=== PATIENT | female | born 1955 | race Caucasian/White ===

== ENCOUNTER 2024-06-03 11:26 | Outpatient (AMB) | payer OTHER, SELFPAY ==
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
[2024-06-03 12:03] VITALS: BP 133/72; PULSE 90; RESP 16; TEMP 36.6; O2SAT 95; BMI 23.5
== END 2024-06-03 12:52 | disposition home or self-care (01) ==
PROVIDERS: PCP Internal Medicine; Visit Provider Nurse Practitioner Family
DX: Z00.00 Encounter for general adult medical examination without abnormal findings (principal); J44.9 Chronic obstructive pulmonary disease, unspecified; M25.561 Pain in right knee; M25.562 Pain in left knee; G89.29 Other chronic pain; E55.9 Vitamin D deficiency, unspecified; N95.1 Menopausal and female climacteric states; F90.9 Attention-deficit hyperactivity disorder, unspecified type; K59.00 Constipation, unspecified; K21.9 Gastro-esophageal reflux disease without esophagitis

== ENCOUNTER → 2024-06-03 11:26 | Outpatient (BNVA) | payer OTHER, SELFPAY | PROVIDERS: PCP Internal Medicine; Visit Provider Nurse Practitioner Family | DX: Z00.00 Encounter for general adult medical examination without abnormal findings (principal); G89.29 Other chronic pain; M25.561 Pain in right knee; M25.562 Pain in left knee; J44.9 Chronic obstructive pulmonary disease, unspecified; E55.9 Vitamin D deficiency, unspecified; N95.1 Menopausal and female climacteric states; F90.9 Attention-deficit hyperactivity disorder, unspecified type; K59.00 Constipation, unspecified; K21.9 Gastro-esophageal reflux disease without esophagitis | CPT/HCPCS: 96127 ==

== ENCOUNTER 2024-06-06 11:42 | Outpatient (REF) | payer OTHER, SELFPAY ==
[2024-06-06 14:16] LABS: Appearance Urine Clear; Color Urine Yellow; Glucose Urine UA Negative (Negative); Leukocyte Esterase Urine Negative (Negative); Nitrite Urine Negative (Negative); Specific Gravity - Urine 1.015 (1.005-1.025); Urine Blood Negative (Negative); Urine Ketones Negative (Negative); Urine Protein Negative (Neg-Trace)
[2024-06-06 14:18] LABS: MANUAL DIFF FLAG NO
[2024-06-06 14:26] LABS: Basophils Percent Auto 0.6 % (0-2); Eosinophils Absolute Auto 0.2 X10*3/uL (0.0-0.4); Eosinophils Percent Auto 2.4 % (0-4); Hematocrit 41.7 % (37.0-47.0); Hemoglobin 13.8 g/dl (12.0-16.0); Imm Gran Abs Auto 0.02 X10*3/uL (0.00-0.03); Imm Gran Pct Auto 0.3 % (0.0-0.4); Lymphocytes Percent Auto 28.8 % (20-40); Mean Corpuscular HGB Conc 33.1 g/dl (31.0-35.0); Mean Corpuscular Hemoglobin 28.9 pg (27.0-33.0); Mean Corpuscular Volume 87.4 fL (80.0-98.0); Mean Platelet Volume 9.8 fL (9.4-12.3); Monocytes Absolute Auto 0.6 X10*3/uL (0.1-1.2); Monocytes Percent Auto 8.6 % (2-11); Neutrophils Absolute Auto 4.2 x10*3/uL (2.0-8.3); Neutrophils Percent Auto 59.3 % (45-73); Platelet Count 306 X10*3/uL (160-400); Red Blood Count 4.77 X10*6/uL (4.20-5.50); Red Cell Distribution Width 12.7 % (11.0-16.0)
[2024-06-06 14:47] LABS: Alanine Aminotransferase 31 U/L (0-31); Albumin Level 4.4 g/dL (3.5-5.0); Alkaline Phosphatase 70 U/L (39-117); Anion Gap 14 (12-20); Aspartate Amino Transferase 26 U/L (5-31); Bilirubin Total 0.5 mg/dL (0.0-1.0); Blood Urea Nitrogen 6 mg/dL (9-16); Calcium 9.8 mg/dL (8.4-10.2); Carbon Dioxide 29 mmol/L (22-29); Chloride 105 mmol/L (96-108); Cholesterol 247 mg/dL (<200); Estimated Glomerular Filt Rate > 60; Glucose Fasting 95 mg/dL (60-99); HDL Cholesterol 71 mg/dL (>40); LDL Cholesterol Calculated 139 mg/dL (<100); Potassium 3.7 mmol/L (3.3-5.1); Sodium 144 mmol/L (135-145); Total Protein 7.1 g/dL (6.5-8.0); Triglycerides 187 mg/dL (<150)
[2024-06-06 14:50] LABS: Microalbum/Creatinine Ratio Ur 6.9 ug/mg cr (<30)
[2024-06-06 15:04] LABS: TSH reflex Free T4 0.76 uIU/mL (0.32-4.0); Vitamin D 25-OH Total 59.2 ng/mL (>30)
== END 2024-06-06 11:43 | disposition home or self-care (01) ==
LOC: HO.WFDLDS 11:42
PROVIDERS: Visit Provider Nurse Practitioner Family
DX: Z00.00 Encounter for general adult medical examination without abnormal findings (principal)
CPT/HCPCS: 36415; 80053; 80061; 81003; 82043; 82306; 82570; 84443; 85025

== ENCOUNTER 2024-06-11 14:59 | Outpatient (AMB) | payer OTHER, SELFPAY ==
--- NOTE | 2024-06-11 15:00 | MHC.PC.OV ---
Vital Signs 06/11/24 15:07 Height 5 ft 5 in Weight 141 lb 2 oz BMI 23.5 BP 129/61 Blood Pressure Location Rt brachial Position Sitting Respiration 16 Pulse 92 Pulse Source Pulse Oximeter Temp 98.1 F Temp Source Temporal Artery Scan Pulse Oximetry (%) 97 Oxygen Delivery Method Room Air Intake Visit Reasons: est/sore muscles/shoulder/neck pain Intake Note: patient here c/o sore muscles and shoulder, neck Checkroom Attendant Required: No Is last menstrual period known: No Post menopausal: No Patient : No Allergies No Known Allergies Allergy (Verified 06/11/24 15:17) Medication List - Last Reconciled 06/11/24 by Lidia Medina CNP albuterol sulfate 90 mcg/actuation 2 puffs inhalation Q6H PRN [id number] 50 mcg-75 mcg -100 mg caps PO celecoxib (Celebrex) 200 mg PO DAILY cetirizine (Zyrtec) 10 mg PO DAILY PRN cholecalciferol (vitamin D3) 50 mcg PO DAILY conjugated estrogens (Premarin) 0.625 mg PO DAILY diclofenac sodium 1% topical fluticasone propion-salmeterol 250-50 mcg/dose (Wixela Inhub) 1 inh inhalation BID ipratropium-albuterol 0.5 mg-3 mg(2.5 mg base)/3 mL 3 mL inhalation QID PRN linaclotide (Linzess) 72 mcg PO DAILY lisdexamfetamine (Vyvanse) 20 mg PO QAM magnesium hydroxide (Dulcolax (magnesium hydroxide)) 5 mL PO DAILY PRN omeprazole 20 mg PO DAILY polyethylene glycol 3350 17 grams PO DAILY tiotropium bromide 2.5 mcg/actuation (Spiriva Respimat) 2 puffs inhalation DAILY Tobacco use date assessed: 06/11/24 Fall risk assessment: 2 + Falls in past year Last assessed Fall Risk: 06/11/24 Dental Screening Dental Screen Date: 06/11/24 Did you have a dental visit in the last 12 months?: Yes Did you have a dental problem in the last 6 months where you did not have access to dental care?: No Was dental information given to patient?: Patient has dentist HPI HPI Comments History of Present Illness Details 69-year-old female presents with complaints of acute on chronic neck and bilateral shoulder pain. She has had constant, chronic bilateral shoulder pain related to torn meniscus for the past 2 years. Surgery was recommended but she declined. Her neck pain has been on and off for the past 1 year. Recent onset of neck pain started about a week ago and slowly improving; however, she has a hard time sleeping in bed due to neck discomfort. She has been taking Celebrex as prescribed. She has not been applying warm or cool compresses. [facility] Medical History (Updated 06/11/24 @ 15:32 by Lidia Medina CNP) Non-alcoholic fatty liver disease History of torn meniscus of left knee Vertigo Imbalance Memory loss Light headed Headache STD (female) Incontinence Back injury Osteoporosis Arthritis Hypothyroid COPD (chronic obstructive pulmonary disease) Family History (Updated 06/03/24 @ 12:15 by Iman Morales) Father Alcohol abuse Brother Alcohol abuse High blood pressure Diabetes Mother High blood pressure Diabetes Thyroid disorder Uterus cancer Maternal Grandmother Diabetes Maternal Grandmother No problems noted. Maternal Grandfather Diabetes Social History Housing: House Patient Tobacco Use Status: Former Tobacco user Tobacco use type: Cigarette Cigarette Packs Per Day: 1.5 Cigarettes Per Day: 30 e-Cigarette/Vaping Use: Never Used Second Hand Smoke Exposure: No service: No Current occupational status: retired Current occupational exposures/hazards: No Cognitive needs: No Hearing needs: No Vision needs: Yes Questionnaire Thrive Questionnaire Date Thrive assessed: 06/03/24 I am a: Patient What is your living situation today?: I have a steady place to live Within the past 12 months, did the food you bought not last and you didn't have the money to get more?: I choose not to answer this question Within the past 12 months, did you worry whether your food would run out before you got money to buy more?: Never true Do you have trouble paying for medicines?: No Do you have trouble getting transportation to medical appointments?: No Do you have trouble paying your heating and electricity bill?: I choose not to answer this question Do you have trouble taking care of your child, family member or friend?: I choose not to answer this question Do you have trouble with day-to-day activities such as bathing, preparing meals, shopping, managing finances, etc.?: Yes Are you currently unemployed and looking for a job?: I choose not to answer this question Are you interested in more education?: No THRIVE Score: 0 YENNY-7 AMB Questionnaire YENNY-7 Date YENNY - 7 assessed: 06/03/24 Source: Developed by Drs. Wander Blake, Carlyn Hernandez, Nikolay Solares and colleagues, with an educational kenney from [employer]. Review of Systems Const Details: Const Denies chills, Denies fatigue, Denies fever(s), Denies headache(s) and Denies weakness ENT Denies dizziness and Denies headache(s) Card Denies chest pain, Denies lightheadedness, Denies dyspnea and Denies other (Palpitations) Resp Denies cough, Denies dyspnea, Denies wheezing and Denies other ( shortness of breath) GI Denies abdominal pain, Denies melena, Denies hematochezia, Denies change in bowel habits, Denies dyspepsia and Denies nausea Denies hematuria and Denies dysuria Musc Reports as per HPI Skin/Breast Denies rash, Denies unusual bruising and Denies wounds Neuro Denies abnormal gait, Denies dizziness, Denies headache(s), Denies memory loss, Denies tingling, Denies numbness, Denies Sensory deficit (Neuro), Denies tingling and Denies weakness Psych Denies anxiety, Denies depression, Denies memory loss Endo Denies cold intolerance, Denies fatigue, Denies heat intolerance, Denies polydipsia and Denies polyuria Aller/Immun Denies wheezing Physical exam (Primary Care) Vital Signs: Last Vital Signs Temp 98.1 F 06/11/24 15:07 Pulse 92 06/11/24 15:07 Resp 16 06/11/24 15:07 BP 129/61 06/11/24 15:07 Pulse Ox 97 06/11/24 15:07 Oxygen Delivery Method Room Air 06/11/24 15:07 BMI result Body Mass Index 23.5 Tobacco/Smoking Status: Tobacco use Status Tobacco use date assessed 06/11/24 06/11/24 15:10 Patient Tobacco Use Status Former Tobacco user 06/11/24 15:03 Tobacco use type Cigarette 06/11/24 15:03 e-Cigarette/Vaping Use Never Used 06/11/24 15:03 Thrive Assessment: Date of Thrive Assessment Date Thrive assessed 06/03/24 06/11/24 15:03 Const Other: General: no acute distress and well developed Nutritional Appearance: well nourished Orientation/consciousness: patient oriented [facility]: Yes normocephalic and Yes atraumatic Eyes General: appearance normal, both eyes and all related structures Pupils: Equal, round and reactive pupils present EOM: EOMs intact bilaterally Resp Effort & Inspection: normal respiratory effort Auscultation: clear to auscultation bilaterally Cardio Rate: regular rate Rhythm: regular rhythm Heart sounds: S1 normal heart sound present, S2 normal heart sound present, no gallops, no murmurs and no rubs GI Palpation (GI): No Abdominal aortic bruit present, Soft to palpation, nontender, No hepatosplenomegaly present and No Rebound tenderness present Auscultation: normal bowel sounds General: Yes no CVA tenderness Back/Spine/Pelvis Back: no CVA tenderness Cervical Spine: cervical ROM normal and positive Cervical spine tenderness Thoracic/Lumbar Spine: thoraco-lumbar ROM normal, No pain with thoraco-lumbar ROM, No thoracic spinal tenderness and No lumbar spinal tenderness Extrem General: Yes normal to inspection, No edema and No calf tenderness Skin General: warm and dry. Normal skin color. Normal skin turgor Neuro General: patient oriented x3, gait normal and no focal neuro deficit Cranial nerves: Yes Equal, round and reactive pupils present Cognition (Neuro): normal cognition Gait exam (Neuro): Normal gait present Sensory Exam: No Sensory deficit (Neuro) Psych Appearance: grossly normal Affect: normal affect Attitude: cooperative Thought process: Normal thought process present Coding Level of Care Code Est Pt Level 4 (90094) Diagnoses Chronic pain of both shoulders M25.511; M25.512; G89.29 Chronic neck pain M54.2; G89.29 Hyperlipidemia E78.5 Assessment & Plan Assessment & Plan (1) Chronic pain of both shoulders: Code(s): M25.511 - Pain in right shoulder; M25.512 - Pain in left shoulder; G89.29 - Other chronic pain Category: Medical Plan: Cervical spine tenderness to palpation. Normal ROM. No overt injury or trauma to the neck or shoulders. Start cetirizine 10 mg daily as needed. Continue to take Celebrex as prescribed. Stretching and warm/cool compresses encouraged. Follow-up with worsening or new symptoms. Verbalized understanding and agreed with plan. (2) Chronic neck pain: Code(s): M54.2 - Cervicalgia; G89.29 - Other chronic pain Category: Medical Plan: Plan as above. (3) Hyperlipidemia: Code(s): E78.5 - Hyperlipidemia, unspecified Category: Medical Plan: Recent lab results reviewed with the patient. Triglycerides, total cholesterol, and LDL levels are elevated, 187, 247, and 139 respectively. Advised to limit foods high in saturated fat and avoid foods high in trans fat. Routine exercise encouraged. Fast for 10-12 hours, may drink water, and get blood work done 2-3 days before next visit. Follow-up in 2 months. Verbalized understanding and agreed with treatment plan. Orders: Orders Lipid Panel 2 Months E78.5 - Hyperlipidemia, unspecified Medications: New cyclobenzaprine 10 mg PO TID PRN 60 tabs 1RF muscle spasm
[2024-06-11 15:07] VITALS: BP 129/61; PULSE 92; RESP 16; TEMP 36.7; O2SAT 97; BMI 23.5
== END 2024-06-11 15:31 | disposition home or self-care (01) ==
PROVIDERS: PCP Nurse Practitioner Family; Visit Provider Nurse Practitioner Family
DX: M25.511 Pain in right shoulder (principal); M25.512 Pain in left shoulder; G89.29 Other chronic pain; M54.2 Cervicalgia; E78.5 Hyperlipidemia, unspecified

== ENCOUNTER 2024-08-15 11:03 | Outpatient (REF) | payer OTHER, SELFPAY ==
--- OUTSIDE RECORDS SUMMARY | 2024-08-15 12:24 | XMS_ITS | Clinical Summary ---
Author Organization [facility] Address [address] [place] [address] Care Team Providers Care Gaming Host Name Role Phone Ivette Valderrama MD Primary Care Provider [phone] Allergies No known active allergies Medications Medication Sig Dispensed Refills Start Date End Date Status albuterol 108 (90 Base) MCG/ACT inhaler Inhale 2 puffs into the lungs. 0 02/03/2023 Active Cholecalciferol 50 MCG (2000 UT) CAPS Take 1 capsule by mouth daily. 0 06/22/2021 Active cyanocobalamin 100 MCG tablet Take 1 tablet (100 mcg total) by mouth daily. 0 03/19/2021 Active Diclofenac Sodium 1 % GEL Apply 4 g topically. 0 07/13/2023 Active Estrogens Conjugated (Premarin) 0.625 MG/GM CREA INSERT 1 GRAM /0.625 MG VAGINALLY AT HS FOR 2 WEEKS THEN TWICE WEEKLY 0 12/31/2021 Active ipratropium-albuterol (DUO-NEB) 0.5-2.5 mg/mL nebulizer Inhale 3 mL into the lungs. 0 06/14/2023 Active omeprazole (PriLOSEC) 20 MG capsule Take 1 capsule (20 mg total) by mouth. 0 03/30/2023 Active zoledronic acid (RECLAST) 5 MG/100ML SOLN IVPB Inject 100 mL (5 mg total) into the vein. 0 09/08/2023 Active Social History Tobacco Use Types Packs/Day Years Used Date Smoking Tobacco: Never Assessed Sex and Gender Information Value Date Recorded Sex Assigned at Not on file Gender Identity Not on file Sexual Orientation Not on file Job Start Date Occupation Industry Not on file Not on file Not on file Last Filed Vital Signs Vital Sign Reading Time Taken Comments Blood Pressure 131/67 09/12/2023 2:16 PM EDT Pulse 78 09/12/2023 2:16 PM EDT Temperature 36.4 ??C (97.6 ??F) 09/12/2023 2:16 PM ED T Respiratory Rate - - Oxygen Saturation 97% 09/12/2023 2:16 PM EDT Inhaled Oxygen Concentration - - Weight 64.2 kg (141 lb 9.6 oz) 09/12/2023 2:16 P M EDT Height - - Body Mass Index - - Plan of Treatment Health Maintenance Due Date Last Done Comments Hepatitis C Screening 1955 Depression Screening 1967 Preventative Health Evaluation 1973 DTap / Tdap / Td (1 - Tdap) 1974 Colon Cancer Screening (Colonoscopy) 2000 Breast Cancer Screening (Mammogram) 2005 Shingrix-Zoster Vaccine (1 of 2) 2005 Fall Risk Assessment 2020 Osteoporosis Screening (DEXA Scan) 2020 Pneumococcal Vaccine (2 of 2 - PPSV23 or PCV20) 04/11/2023 04/11/2022 COVID-19 Vaccine (3 - season) 2024 04/16/2021, 03/19/2021 Influenza Vaccine (#1) 2024 3, 04/11/2022, 03/19/2021, Additional history exists RSV Adult > 60+ Yrs or (1 - 1-dose 75+ series) 2030 Hepatitis B Vaccines Aged Out No long er eligible based on patient's age to complete this topic RSV Ped < 20 months Aged Out No longe r eligible based on patient's age to complete this topic Care Teams Gaming Host Relationship Specialty Start Date End Date Ivette Valderrama MD PCP - General Internal Medicine 09/12/23
--- OUTSIDE RECORDS SUMMARY | 2024-08-15 12:25 | XMS_ITS | Encounter Summary ---
Author Organization [facility] Address [address] [place] [address] Care Team Providers Care Pressed Or Blown Glass Worker Name Role Phone Ivette Valderrama MD Primary Care Provider [phone] Maximilian Baum MD Unavailable [phone] Encounter Details Date Type Department Care Team Description 04/03/2024 Brass Wind Instrument Maker Report Medical Records [address] [place], [place] [id number] [place] [address] Social History Tobacco Use Types Packs/Day Years Used Date Smoking Tobacco: Former Cigarettes 1.5 40 0 06/26/1977 - 2018 Passive Smoke Exposure: Never Smokeless Tobacco: Never Alcohol Use Standard Drinks/Week Comments Yes 0 (1 standard drink = 0.6 oz pur e alcohol) 1 x a month couple beers Sex Assigned at Date Recorded Not on file Job Start Date Occupation Industry Not on file Not on file Not on file documented as of this encounter Plan of Treatment Not on file documented as of this encounter Visit Diagnoses Not on filedocumented in this encounter Care Teams Pressed Or Blown Glass Worker Relationship Specialty Start Date End Date Ivette Valderrama MD [address] [place] [address] PCP - General Internal Medicine 10/01/20 Maximilian Baum MD [address] [place] [address] Specialist Cardiovascular Disease 03/09/21 documented as of this encounter
--- OUTSIDE RECORDS SUMMARY | 2024-08-15 12:25 | XMS_ITS | Encounter Summary ---
Author Organization [facility] Address [address] [place] [address] Care Team Providers Care Model Maker Firearms Name Role Phone Ivette Valderrama MD Primary Care Provider [phone] Maximilian Baum MD Unavailable [phone] Encounter Details Date Type Department Care Team Description 03/30/2022 Manager Delivery Report Medical Records [address] [place] [id number] Center, [facility] [address] [place] [address] Social History Tobacco Use Types Packs/Day Years Used Date Smoking Tobacco: Former Cigarettes 1.5 40 0 06/26/1977 - 2018 Smokeless Tobacco: Never Alcohol Use Standard Drinks/Week Comments No 0 (1 standard drink = 0.6 oz pur e alcohol) Sex Assigned at Date Recorded Not on file Job Start Date Occupation Industry Not on file Not on file Not on file COVID-19 Exposure Response Date Recorded In the last 10 days, have yo u been in contact with someone who was confirmed or suspected to have Coronavirus/COVID-19? No / Unsure 03/25/2022 9:08 AM EDT documented as of this encounter Plan of Treatment Not on file documented as of this encounter Visit Diagnoses Not on filedocumented in this encounter Care Teams Model Maker Firearms Relationship Specialty Start Date End Date Ivette Valderrama MD [address] [place] [address] PCP - General Internal Medicine 10/01/20 Maximilian Baum MD [address] [place] [address] Specialist Cardiovascular Disease 03/09/21 documented as of this encounter
--- OUTSIDE RECORDS SUMMARY | 2024-08-15 12:25 | XMS_ITS | Encounter Summary ---
Author Organization [facility] Address [address] [place] [address] Care Team Providers Care Stencil Typist Name Role Phone Ivette Valderrama MD Primary Care Provider [phone] Maximilian Baum MD Unavailable [phone] Encounter Details Date Type Department Care Team Description 11/20/2020 SCAN Medical Records [address] [place] [address] Abstract, Provider Social History Tobacco Use Types Packs/Day Years Used Date Smoking Tobacco: Some Days Cigarettes 1.5 40 Last attempted to quit: 2018 Smokeless Tobacco: Never Alcohol Use Standard Drinks/Week Comments No 0 (1 standard drink = 0.6 oz pur e alcohol) Sex Assigned at Date Recorded Not on file Job Start Date Occupation Industry Not on file Not on file Not on file COVID-19 Exposure Response Date Recorded In the last month, have you been in contact with someone who was confirmed or suspected to have Coronavirus / COVID-19? No / Unsure 11/05/2020 12:23 PM EDT documented as of this encounter Plan of Treatment Not on file documented as of this encounter Visit Diagnoses Not on filedocumented in this encounter Care Teams Stencil Typist Relationship Specialty Start Date End Date Ivette Valderrama MD [address] [place] [address] PCP - General Internal Medicine 10/01/20 Maximilian Baum MD [address] [facility] [address] [place] [address] Specialist Cardiovascular Disease 03/09/21 documented as of this encounter
--- OUTSIDE RECORDS SUMMARY | 2024-08-15 12:25 | XMS_ITS | Encounter Summary ---
Author Organization [facility] Address [address] [place] [address] Care Team Providers Care Certified Financial Planner Name Role Phone Ivette Valderrama MD Primary Care Provider [phone] Maximilian Baum MD Unavailable [phone] Encounter Details Date Type Department Care Team Description 01/05/2021 Telephone Adult Medicine [address] [phone] Ivette Valderrama MD [address] [place] [address] [phone] Social History Tobacco Use Types Packs/Day Years [...] have Coronavirus / COVID-19? No / Unsure 12/16/2020 1:28 PM EDT documented as of this encounter Plan of Treatment Not on file documented as of this encounter Visit Diagnoses Not on filedocumented in this encounter Care Teams Certified Financial Planner Relationship Specialty Start Date End Date Ivette Valderrama MD [address] [place] [address] PCP - General Internal Medicine 10/01/20 Maximilian Baum MD [address] [place] [address] Specialist Cardiovascular Disease 03/09/21 documented as of this encounter
--- OUTSIDE RECORDS SUMMARY | 2024-08-15 12:25 | XMS_ITS | Encounter Summary ---
Author Organization [facility] Address [address] [place] [address] Care Team Providers Care Instructor Technical Training Name Role Phone Ivette Valderrama MD Primary Care Provider [phone] Maximilian Baum MD Unavailable [phone] Reason for Visit * Reason Onset Date Comments REFERRAL 01/11/2023 Encounter Details Date Type Department Care Team Description 01/11/2023 Telephone Adult Medicine [address] [phone] Ivette Valderrama MD [address] [place] [address] [phone] REFERRAL Social History Tobacco Use Types Packs/Day Years [...] suspected to have Coronavirus/COVID-19? No / Unsure 12/26/2022 1:07 PM EDT documented as of this encounter Miscellaneous Notes * Telephone Encounter - Jason Patel - 01/11/2023 1:44 PM EDT Please resend referral to [facility]. Office didn't receive it. documented in this encounter Plan of Treatment Not on file documented as of this encounter Visit Diagnoses Not on filedocumented in this encounter Care Teams Instructor Technical Training Relationship Specialty Start Date End Date Ivette Valderrama MD [address] [place] [address] PCP - General Internal Medicine 10/01/20 Maximilian Baum MD [address] [place] [address] Specialist Cardiovascular Disease 03/09/21 documented as of this encounter
--- OUTSIDE RECORDS SUMMARY | 2024-08-15 12:25 | XMS_ITS | Encounter Summary ---
Author Organization [facility] Address [address] [place] [address] Care Team Providers Care Truck Switcher Name Role Phone Ivette Valderrama MD Primary Care Provider [phone] Maximilian Baum MD Unavailable [phone] Encounter Details Date Type Department Care Team Description 09/13/2023 Pt. Non Urgent Medic al Question OBGYN - [place] [address] [place] [address] Woodrow Sierra DO Social History Tobacco Use Types Packs/Day Years [...] on file documented as of this encounter Miscellaneous Notes * Telephone Encounter - Natacha Martino R.N. - 09/13/2023 3:42 PM EDTFrom: Angeline Jefferson To: Kunal Sierra Sent: 09/13/2023 3:07 PM EDT Subject: Annual Exam and Questions I have been experiencing vaginal itching for more than 4 months and have pimples in the vaginal area also. Over the counter medication has not relieved the itching. I would like to be seen to addressthese concerns. Angeline Jefferson documented in this encounter Plan of Treatment Not on file documented as of this encounter Visit Diagnoses Not on filedocumented in this encounter Care Teams Truck Switcher Relationship Specialty Start Date End Date Ivette Valderrama MD [address] [place] [address] PCP - General Internal Medicine 10/01/20 Maximilian Baum MD [address] [place] [address] Specialist Cardiovascular Disease 03/09/21 documented as of this encounter
--- OUTSIDE RECORDS SUMMARY | 2024-08-15 12:25 | XMS_ITS | Encounter Summary ---
Author Organization [facility] Address [address] [place] [address] Care Team Providers Care Exhaust Equipment Operator Name Role Phone Ivette Valderrama MD Primary Care Provider [phone] Maximilian Baum MD Unavailable [phone] Reason for Visit * Reason Onset Date Comments Prior Authorization 06/22/2022 Encounter Details Date Type Department Care Team Description 06/22/2022 Pt. Non Urgent Medical Question Adult Medicine [address] [phone] Ivette Valderrama MD [address] [place] [address] [phone] Social History Tobacco Use Types Packs/Day Years [...] suspected to have Coronavirus/COVID-19? No / Unsure 06/21/2022 12:31 PM EST documented as of this encounter Progress Notes * Anahi Domingo M.A. - 06/30/2022 8:31 AM EST Please see [email or web address] message to review and advise, thank you. documented in this encounter Miscellaneous Notes * Telephone Encounter - Edwina Lazo - 06/22/2022 3:14 PM ESTFrom: Angeline Jefferson To: Kana Valderrama Sent: 06/22/2022 2:43 PM EST Subject: MRI [facility] says they do not have an order for my MRI. Can a new order be faxed, please? The fax number is [phone]. Thank you, Angeline Jefferson documented in this encounter Plan of Treatment Not on file documented as of this encounter Visit Diagnoses Not on filedocumented in this encounter Care Teams Exhaust Equipment Operator Relationship Specialty Start Date End Date Ivette Valderrama MD [address] [place] [id number] PCP - General Internal Medicine 10/01/20 Maximilian Baum MD [address] [place] [address] Specialist Cardiovascular Disease 03/09/21 documented as of this encounter
--- OUTSIDE RECORDS SUMMARY | 2024-08-15 12:25 | XMS_ITS | Encounter Summary ---
Author Organization [facility] Address [address] [place] [address] Care Team Providers Care Bee Tender Name Role Phone Ivette Valderrama MD Primary Care Provider [phone] Maximilian Baum MD Unavailable [phone] Reason for Visit * Reason Onset Date Comments LAB WORK 09/07/2023 Encounter Details Date Type Department Care Team Description 09/07/2023 Telephone Adult Medicine [address] [phone] Ivette Valderrama MD [address] [place] [address] [phone] LAB WORK Social History Tobacco Use Types Packs/Day Years [...] encounter Miscellaneous Notes * Telephone Encounter - Lorie Serrato - 09/07/2023 2:14 PM EDT Patient calling to request labs be ordered: Patient states she is supposed to get an injection on Monday for her osteoporosis at [facility]. She states she was supposed to get bloodwork done prior to the visit. She is wondering if the bloodwork could be ordered? What lab work is patient requesting? Bloodwork Does patient have an upcoming appointment, if yes when and WITH WHO? yes 01/08/[address] Valderrama Patients PCP is: Ivette Valderrama documented in this encounter Plan of Treatment Not on file documented as of this encounter Visit Diagnoses Not on filedocumented in this encounter Care Teams Bee Tender Relationship Specialty Start Date End Date Ivette Valderrama MD [address] [place] [address] PCP - General Internal Medicine 10/01/20 Maximilian Baum MD [address] [place] [address] Specialist Cardiovascular Disease 03/09/21 documented as of this encounter
--- OUTSIDE RECORDS SUMMARY | 2024-08-15 12:25 | XMS_ITS | Encounter Summary ---
Author Organization [facility] Address [address] [place] [address] Care Team Providers Care Optimization Consultant Name Role Phone Ivette Valderrama MD Primary Care Provider [phone] Maximilian Baum MD Unavailable [phone] Reason for Visit * Reason Onset Date Comments Mychart Rx Refill 03/01/2022 Encounter Details Date Type Department Care Team Description 03/01/2022 Pt. Non Urgent Medical Question Adult Medicine [address] [phone] Latasha Barron PA-C [address] [place] [address] [phone] Social History Tobacco Use Types Packs/Day Years [...] suspected to have Coronavirus/COVID-19? No / Unsure 02/17/2022 2:10 PM EDT documented as of this encounter Miscellaneous Notes * Telephone Encounter - Lazara Cheema M.A. - 03/02/2022 7:28 AM EDTFrom: Angeline Jefferson To: Kunal Barron Sent: 03/01/2022 5:20 PM EDT Subject: Vitamin D3 Jhony, can the prescription for vitamin D be refilled please? documented in this encounter Plan of Treatment Not on file documented as of this encounter Visit Diagnoses Not on filedocumented in this encounter Care Teams Optimization Consultant Relationship Specialty Start Date End Date Ivette Valderrama MD [address] [place] [address] PCP - General Internal Medicine 10/01/20 Maximilian Baum MD [address] [place] [address] Specialist Cardiovascular Disease 03/09/21 documented as of this encounter
--- OUTSIDE RECORDS SUMMARY | 2024-08-15 12:25 | XMS_ITS | Encounter Summary ---
Author Organization [facility] Address [address] [place] [address] Care Team Providers Care Underbaster Name Role Phone Shazia Rivas MD Primary Care Provider Jaycee Ivette Burks MD Primary Care Provider [phone] Maximilian Baum MD Unavailable [phone] Reason for Visit * Reason Comments E-prescribe Rx Request Encounter Details Date Type Department Care Team Description 07/26/2020 Refill Adult Medicine [address] [address] Andria Kumar PA-C E-prescribe Rx Request Social History Tobacco Use Types Packs/Day Years [...] encounter Miscellaneous Notes * Telephone Encounter - Reina Nolasco L.P.N. - 08/03/2020 2:54 PM EST Mail box is full if she calls back please book an apt Thanks * Telephone Encounter - Saima Lazo - 07/29/2020 4:03 PM EST Last prescribed 01/2020 and patient requesting refill need office visit chaselana had not started original script given please triage When speaking with patient she stated she needed to be seen had gained 10lbs in last 2 weeks and has bi lateral feet swelling and would like to be seen * Telephone Encounter - Donald Julian - 07/29/2020 3:56 PM EST Patient would like script to be: E-PRESCRIBED/FAXED TO PHARMACY WHEN WAS THE PATIENT'S LAST APPOINTMENT IN ADULT MEDICINE? 01/29/20 WHEN WAS THE LAST TIME THE PATIENT SAW THEIR PCP? 06/06/17 Does patient have an upcoming appointment? No, letter mailed to patient to clal and schedule a follow up. (THE MEDICATION REQUESTED IS ON THE MED LIST ABOVE) All of the medications requested were on the CURRENT MEDS list Did you check the Pharmacy information above?: YES Patient wants: 30 -day supply Is this a mail order prescription request ? NO If the refill is from a FAXED refill request what is the RX # listed on the fax? N/A Patients current insurance carrier is: [place] / [place] / Product Type: MEDICARE [id number] documented in this encounter Plan of Treatment Not on file documented as of this encounter Visit Diagnoses Not on filedocumented in this encounter Care Teams Underbaster Relationship Specialty Start Date End Date Shazia Rivas MD PCP - General Internal Medicine 06/21/18 09/30/20 Ivette Valderrama MD [address] [place] [address] PCP - General Internal Medicine 10/01/20 Maximilian Baum MD [address] [place] [address] Specialist Cardiovascular Disease 03/09/21 documented as of this encounter
--- OUTSIDE RECORDS SUMMARY | 2024-08-15 12:25 | XMS_ITS | Encounter Summary ---
Author Organization [facility] Address [address] [place] [address] Care Team Providers Care Repairer Name Role Phone Ivette Valderrama MD Primary Care Provider [phone] Maximilian Baum MD Unavailable [phone] Encounter Details Date Type Department Care Team Description 04/12/2022 Business Doc Medical Records [address] [place] [address] Abstract, Provider Social History Tobacco Use Types [...] suspected to have Coronavirus/COVID-19? No / Unsure 04/11/2022 9:07 AM EDT documented as of this encounter Plan of Treatment Not on file documented as of this encounter Visit Diagnoses Not on filedocumented in this encounter Care Teams Repairer Relationship Specialty Start Date End Date Ivette Valderrama MD [address] [place] [address] PCP - General Internal Medicine 10/01/20 Maximilian Baum MD [address] [address] Specialist Cardiovascular Disease 03/09/21 documented as of this encounter
--- OUTSIDE RECORDS SUMMARY | 2024-08-15 12:25 | XMS_ITS | Encounter Summary ---
Author Organization [facility] Address [address] [place] [address] Care Team Providers Care Steward/Stewardess Club Car Name Role Phone Shazia Rivas MD Primary Care Provider [facility] Ivette Valderrama MD Primary Care Provider [phone] Maximilian Baum MD Unavailable [phone] Encounter Details Date Type Department Care Team Description 06/24/2020 Aluminum Siding Installer Report Medical Records [address] [place] [address] Alvin Wang Social History Tobacco Use Types Packs/Day Years [...] on filedocumented in this encounter Care Teams Steward/Stewardess Club Car Relationship Specialty Start Date End Date Shazia Rivas MD PCP - General Internal Medicine 06/21/18 09/30/20 Ivette Valderrama MD [address] [place] [address] [phone] PCP - General Internal Medicine 10/01/20 Maximilian Baum MD [address] [place] [address] Specialist Cardiovascular Disease 03/09/21 documented as of this encounter
--- OUTSIDE RECORDS SUMMARY | 2024-08-15 12:25 | XMS_ITS | Encounter Summary ---
Author Organization [facility] Address [address] [place] [address] Care Team Providers Care Technology And Engineering Teacher Name Role Phone Ivette Valderrama MD Primary Care Provider [phone] Maximilian Baum MD Unavailable [phone] Reason for Visit * Reason Onset Date Comments refill request 12/16/2020 Encounter Details Date Type Department Care Team Description 12/16/2020 Refill Gastroenterology - [address] [place] [phone] Shelley Elmore DScPAS refill request Social History Tobacco Use Types Packs/Day Years [...] encounter Miscellaneous Notes * Telephone Encounter - Madonna Berrios - 12/16/2020 10:58 AM EDT TONY 10/29/2020 12/16/2020 30 day supply. documented in this encounter Plan of Treatment Not on file documented as of this encounter Visit Diagnoses Not on filedocumented in this encounter Care Teams Technology And Engineering Teacher Relationship Specialty Start Date End Date Ivette Valderrama MD [address] [place] [address] PCP - General Internal Medicine 10/01/20 Maximilian Baum MD [address] [place] [address] Specialist Cardiovascular Disease 03/09/21 documented as of this encounter
--- OUTSIDE RECORDS SUMMARY | 2024-08-15 12:25 | XMS_ITS | Encounter Summary ---
Author Organization [facility] Address [address] [place] [address] Care Team Providers Care Cmm Technician Name Role Phone Ivette Valderrama MD Primary Care Provider [phone] Maximilian Baum MD Unavailable [phone] Reason for Visit * Reason Onset Date Comments DME Request 06/14/2023 Encounter Details Date Type Department Care Team Description 06/14/2023 Telephone Pulmonology - [facility] [address] [facility] [address] [place] [phone] Emerald Mary MD [address] [phone] DME Request Social History Tobacco Use Types Packs/Day [...] encounter Miscellaneous Notes * Telephone Encounter - Codie Cruz M.A. - 06/14/2023 3:07 PM EST Faxed nebulizer and supplies order to [facility] documented in this encounter Plan of Treatment Not on file documented as of this encounter Visit Diagnoses Not on filedocumented in this encounter Care Teams Cmm Technician Relationship Specialty Start Date End Date Ivette Valderrama MD [address] [place] [address] PCP - General Internal Medicine 10/01/20 Maximilian Baum MD [address] [place] [address] Specialist Cardiovascular Disease 03/09/21 documented as of this encounter
--- OUTSIDE RECORDS SUMMARY | 2024-08-15 12:25 | XMS_ITS | Encounter Summary ---
Author Organization [facility] Address [address] [place] [address] Care Team Providers Care Substation Operator Transforming Name Role Phone Ivette Valderrama MD Primary Care Provider [phone] Maximilian Baum MD Unavailable [phone] Reason for Visit * Reason Onset Date Comments refill request 12/25/2023 Encounter Details Date Type Department Care Team Description 12/25/2023 Refill Adult Medicine [address] [phone] Ivette Valderrama MD [address] [place] [address] [phone] refill request Social History Tobacco Use Types [...] Miscellaneous Notes * Telephone Encounter - Codie Matta CNM - 12/25/2023 4:23 PM EDT Oral herpes treatment ordered, it is 2 grams twice a day for 1 day. * Telephone Encounter - Alycia Riley R.N. - 12/25/2023 4:13 PM EDT Rx pended for oral herpes has Positive Herpes 1 antibody IGG. C/O oral herpes outbreak Rx pended, no refills for consideration. * Telephone Encounter - Karina Mcdaniel RN - 12/25/2023 4:04 PM EDT Pt was seen by OBGYN on 09/18/23 and tested positive for herpes. She is requesting a prescription for Valcyclovir r/t an outbreak on her lips. * Telephone Encounter - Margarita Sevilla - 12/25/2023 3:29 PM EDT Symptoms patient is presenting: PATIENT IS CALLING ABOUT HERPES OUT BREAK ON LIPS. LOOKING TO GET MEDICATION. For ALL patients calling to schedule any appointment (routine, sick visit, follow up, consult, etc.) in the outpatient setting please ask the following questions: ?? Do you have fever of higher than 101, sore throat with difficulty swallowing or severe shortnessof breath? NO If YES to any of these above symptoms, send a message to triage and do not book. Red dot. If no, an audio or video visit should be booked. ?? Have you had close contact with someone with Coronavirus in the last 14 days? NO ?? Have you traveled abroad? NO ?? Have you traveled recently to another state outside of [place], [place], [place], [place], [place], [place], [place]? NO o If yes, did you quarantine for 14 days or have a negative covid test? NO If yes to any of the above, patient is not to be scheduled in office until after 14 day quarantine or negative covid test. If pain or injury related was it due to an accident at work or from a motor vehicle accident? NO If yes, gather 3rd libertarian insurance information Date of accident/Injury: How long has patient had these symptoms?: 4 DAYS PCP: Ivette Valderrama Payor: [employer] MEDICARE FFS / Plan: [facility] MDCR-ADV HMO $0 [id number] / Product Type: HMO [id number] documented in this encounter Plan of Treatment Not on file documented as of this encounter Visit Diagnoses Not on filedocumented in this encounter Care Teams Substation Operator Transforming Relationship Specialty Start Date End Date Ivette Valderrama MD [address] [place] [address] PCP - General Internal Medicine 10/01/20 Maximilian Buam MD [address] [place] [address] Specialist Cardiovascular Disease 03/09/21 documented as of this encounter
--- OUTSIDE RECORDS SUMMARY | 2024-08-15 12:25 | XMS_ITS | Encounter Summary ---
Author Organization [facility] Address [address] [place] [address] Care Team Providers Care Tube Sorter Name Role Phone Community, Pcp Primary Care Provider Shazia Jett MD Primary Care Provider Evelyn Munoz MD Primary Care Provider Un available Shazia Rivas MD Primary Care Provider UnavailIvette Carver MD Primary Care Provider [phone] Maximilian Baum MD Unavailable Encounter Details Date Type Department Care Team Description 07/25/2017 Release of Information Medical Records [address] [place] [address] Abstract, Provider Social History Tobacco Use Types Packs/Day Years Used Date Smoking Tobacco: Every Day Cigarettes 1.5 40 Smokeless Tobacco: Never Alcohol Use Standard Drinks/Week [...] on filedocumented in this encounter Care Teams Tube Sorter Relationship Specialty Start Date End Date Community, Pcp PCP - General Internal Medicine 07/18/17 08/27/17 Shazia Rivas MD PCP - General Internal Medicine 08/28/17 12/31/17 Evelyn Stratton MD PCP - General Internal Medicine 01/01/1806/20 Shazia Rivas MD PCP - General Internal Medicine 06/21/18 09/30/20 Ivette Valderrama MD [address] [place] [address] PCP - General Internal Medicine 10/01/20 Maximilian Baum MD [address] [place] [address] Specialist Cardiovascular Disease 03/09/21 documented as of this encounter
--- OUTSIDE RECORDS SUMMARY | 2024-08-15 12:25 | XMS_ITS | Encounter Summary ---
Author Organization [facility] Address [address] [place] [address] Care Team Providers Care Shipping Manager Name Role Phone Ivette Valderrama MD Primary Care Provider [phone] Maximilian Baum MD Unavailable [phone] Encounter Details Date Type Department Care Team Description 08/09/2023 [facility] Medical [facility] 175 [facility] [address] [place] [address] Salina Polanco APRN Social History Tobacco Use Types Packs/Day Years [...] on filedocumented in this encounter Care Teams Shipping Manager Relationship Specialty Start Date End Date Ivette Valderrama MD [address] [place] [address] PCP - General Internal Medicine 10/01/20 Maximilian Baum MD [address] [facility] [address] [place], [place] [phone] Specialist Cardiovascular Disease 03/09/21 documented as of this encounter
--- OUTSIDE RECORDS SUMMARY | 2024-08-15 12:25 | XMS_ITS | Encounter Summary ---
Author Organization [facility] Address [address] [place] [address] Care Team Providers Care Air Support Operations Operator Name Role Phone Lidia Medina Primary Care Provider Reason for Referral * Imaging (Routine) - Closed Specialty Diagnoses / Procedures Referred By Malou t Referred To Contact Radiology Diagnoses Encounter for well woman exam with routine gynecological exam PMB (postmenopausal bleeding) Procedures US Pelvis Non OB Complete w Transvaginal Rebecca Puckett CNM [address] [place] [address] Phone: tel: fax: [address] [phone] Phone: tel: Referral ID Status Reason Start Date Expiration Date Visits Re quested Visits Authorized [id number] Closed 07/12/2024 07/12/2025 1 1 Reason for Visit * Imaging (Routine) - Closed Specialty Diagnoses / Procedures Referred By Malou lau Referred To Contact Radiology Diagnoses Encounter for well woman exam with routine gynecological exam PMB (postmenopausal bleeding) Procedures US Pelvis Non OB Complete w Transvaginal Rebecca Puckett CNM [address] [place] [address] Phone: tel: fax: [facility] [address] [place] [address] Phone: tel: Referral ID Status Reason Start Date Expiration Date Visits Re quested Visits Authorized [id number] Closed 07/12/2024 07/12/2025 1 1 Encounter Details Date Type Department Care Team (Latest Contact Info) Description 07/25/2024 5:43 PM EST - 07/25/2024 11:59 PM EST Hospital Encounter Radiology Department - [address] [phone] Encounter for well woman exam with routine gynecological exam; PMB (postmenopausal bleeding) Discharge Disposition: Home or Self Care Social History Tobacco Use Types Packs/Day Years Used Date Smoking Tobacco: Former Cigarettes 1.5 40.8 0 06/26/1977 - 2018 Smokeless Tobacco: Never Alcohol Use Standard Drinks/Week Comments Yes 0 (1 standard drink = 0.6 oz pur e alcohol) Comments No Sex and Gender Information Value Date Recorded Sex Assigned at Not on file Legal Sex Female 12:50 PM EST Gender Identity Not on file Sexual Orientation Not on file 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 02/03/2023 cetirizine (ZyrTEC) 10 mg tablet Take 1 tablet (10 mg total) by mouth 1 (one) time each day. 03/29/2024 cholecalciferol (VITAMIN D-3) 50 mcg (2,000 unit) capsule Take 1 capsule (2,000 Units total) by mouth 1 (one) time each day. 06/22/2021 conjugated estrogens (Premarin) vaginal cream Insert 1 g into the vagina. 12/31/2021 cyanocobalamin (VITAMIN B-12) 100 mcg tablet Take 1 tablet (100 mcg total) by mouth 1 (one) time each day. 03/19/2021 cyclobenzaprine (FLEXERIL) 10 mg tablet TAKE 1 TABLET 3 TIMES A DAY NEEDED FOR MUSCLE SPASM 06/28/2024 diclofenac (VOLTAREN) 1 % topical gel Apply 2 g topically. 01/08/2024 DULCOLAX, MAGNESIUM HYDROXIDE, ORAL Take by mouth. fluticasone-salm eterol (ADVAIR DISKUS) 250-50 mcg/dose diskus inhaler Inhale 1 puff by mouth 2 (two) times a day. 06/14/2023 hydrocortisone 2.5 % cream APPLY TO AFFECTED AREA TWICE DAILY FOR 7 DAYS 28 g 07/15/2024 ipratropium-albu teroL (DUONEB) 0.5-2.5 mg/3 mL nebulizer solution Inhale 3 mL by mouth. 06/14/2023 linaCLOtide (Linzess) 72 mcg capsule Take 1 capsule (72 mcg total) by mouth 1 (one) time each day. 03/06/2024 lisdexamfetamine (Vyvanse) 20 mg capsule Take 1 capsule (20 mg total) by mouth 1 (one) time each day in the morning. Max Daily Amount: 20 mg 02/28/2024 omeprazole (PriLOSEC) [address] capsule TAKE 1 CAPSULE BY MOUTH IN THE MORNING BEFORE BREAKFAST 100 capsule 2 07/03/2024 polyethylene glycol (MIRALAX) 17 gram packet Take 17 g by mouth 1 (one) time each day. psyllium husk, with sugar, (Fiber, psyllium husk-sugar,) 3.4 gram/7 gram powder Take by mouth 1 (one) time each day. tiotropium (Spiriva Respimat) 2.5 mcg/actuation inhalation spray Inhale 2 puffs by mouth 1 (one) time each day. 10/26/2023 triamcinolone acetonide (KENALOG-40) 40 mg/mL injection Inject 1 mL (40 mg total) into the joint. 01/16/2024 valACYclovir (VALTREX) 1 gram tablet TAKE 2 TABLETS BY MOUTH 2 TIMES DAILY FOR 1 DAY. 12/25/2023 zoledronic acid (RECLAST) 5 mg/100 mL piggyback Infuse 100 mL (5 mg total) into a venous catheter. 09/08/2023 documented as of this encounter Discharge Disposition Disposition Code Departure Means Destination Home or Self Care documented in this encounter Plan of Treatment Upcoming Encounters Date Type Department Care Team (Late st Contact Info) Description 08/26/2024 3:00 PM EST Procedure visit Obstetrics and Gynecology - [address] [phone] Oksana Contreras MD [address] [place], [place] 10/10/2024 3:50 PM EDT Appointment Radiology Department - [address] [phone] 03/06/2025 10:10 AM EDT Office Visit Gastroenterology - [place] [address] [place] [address] Shelley Elmore PA [address] [place] [address] documented as of this encounter Procedures Procedure Name Priority Date/Time Associated Diagnosis Comments US PELVIS NON OB COMPLETE W TRANSVAGINAL Routine 07/25/2024 6:08 PM EST Encounter for well woman exam with routine gynecological exam PMB (postmenopausal bleeding) documented in this encounter Results * US Pelvis Non OB Complete w Transvaginal (07/25/2024 6:08 PM EST) Anatomical Region Laterality Modality Body, Pelvis Ultrasound 07/26/2024 8:16 AM EST Impressions 07/26/2024 8:26 AM EST Minimal thickening of the endometrial complex measuring 0.5 cm. ??Further workup needed in the setting of postmenopausal bleeding. Interval enlargement of the right ovarian cyst now measuring up to 2.0 cm compared with 1.3 cm previously. Left ovary not visualized. POS [id number] -------- FINAL REPORT -------- Dictated By: Kimberly Roberts Dictated Date: 07/26/2024 08:16 ET Assigned Physician: Kimberly Roberts Reviewed and Electronically Signed By: Kimberly Roberts Signed Date: 07/26/2024 08:26 ET Workstation ID: [id number] Transcribed By: Self Edit Transcribed Date: 07/26/2024 08:16 ET Narrative 07/26/2024 8:26 AM EST PELVIC ULTRASOUND HISTORY: Postmenopausal bleeding. COMPARISON: ??11/05/2020 FINDINGS: Both transabdominal and endovaginal pelvic ultrasound were performed. ?? Uterus: 5.9 x 3.7 x 2.6 cm in size. ??No focal solid lesion. Endometrium: Endometrial complex measures 0.5 cm in thickness which is minimally thickened for postmenopausal state. ??No focal abnormality identified. Right ovary: 2.7 x 2.6 x 2.3 cm in size. ??It contains a 2.0 x 2.0 x 1.9 cm simple appearing cyst which has enlarged compared with 1.3 x 1.1 x 1.0 cm previously. Left ovary: Not visualized. ?? Cul-de-sac: No free fluid. Procedure Note Kimberly Roberts MD - 07/26/2024 PELVIC ULTRASOUND HISTORY: Postmenopausal bleeding. COMPARISON: 11/05/2020 FINDINGS: Both transabdominal and endovaginal pelvic ultrasound were performed. Uterus: 5.9 x 3.7 x 2.6 cm in size. No focal solid lesion. Endometrium: Endometrial complex measures 0.5 cm in thickness which isminimally thickened for postmenopausal state. No focal abnormalityidentified. Right ovary: 2.7 x 2.6 x 2.3 cm in size. It contains a 2.0 x 2.0 x 1.9 cmsimple appearing cyst which has enlarged compared with 1.3 x 1.1 x 1.0 cmpreviously. Left ovary: Not visualized. Cul-de-sac: No free fluid. IMPRESSION: Minimal thickening of the endometrial complex measuring 0.5 cm. Furtherworkup needed in the setting of postmenopausal bleeding. Interval enlargement of the right ovarian cyst now measuring up to 2.0 cmcompared with 1.3 cm previously. Left ovary not visualized. POS [id number] -------- FINAL REPORT -------- Dictated By: Kimberly Roberts Dictated Date: 07/26/2024 08:16 ET Assigned Physician: Kimberly Roberts Reviewed and Electronically Signed By: Kimberly Roberts Signed Date: 07/26/2024 08:26 ET Workstation ID: [id number] Transcribed By: Self Edit Transcribed Date: 07/26/2024 08:16 ET us Rebecca Puckett CNM IMG US PROCEDURES Final Resul t documented in this encounter Visit Diagnoses Diagnosis Encounter for well woman exam with routine gynecological exam PMB (postmenopausal bleeding) Postmenopausal bleeding Encounter for screening mammogram for breast cancer documented in this encounter Care Teams Air Support Operations Operator Relationship Specialty Start Date End Date Lidia Medina FNP [address] [place] [address] PCP - General Family Medicine 07/10/24 documented as of this encounter
--- OUTSIDE RECORDS SUMMARY | 2024-08-15 12:25 | XMS_ITS | Encounter Summary ---
Author Organization [facility] Address [address] [place] [address] Care Team Providers Care It Security Manager Name Role Phone AdamLidia manzano TYPEWRITER ALIGNER Primary Care Provider [phone] Encounter Details Date Type Department Care Team (Late st Contact Info) Description 07/30/2024 Telephone Obstetrics & Gynecology - [address] [phone] Rebecca Puckett, [facility] [address] [place] [address] Social History Tobacco Use Types Packs/Day Years [...] fi le documented as of this encounter Progress Notes * Meagan Betts MA - 07/30/2024 2:11 PM EST Called pt back and left that u/s recommedations to have EMB and to keep upcoming appt on 08/01/[address] Contreras. * Ju Crenshaw RN - 07/30/2024 12:43 PM EST See Tammie result note from u/s * Phyllis Reyes - 07/30/2024 12:23 PM EST Chief Complaint/problem: would like u/s results How long has the patient had this problem? Last week Pt???s TABLE COVER FOLDER provider: Rebecca Puckett CNM Last menstrual period (LMP) or EDC (due date): na documented in this encounter Plan of Treatment Upcoming Encounters Date Type Department Care Team (Late st Contact Info) Description 08/26/2024 3:00 PM EST Procedure visit Obstetrics and Gynecology - [address] [phone] Oksana Contreras MD [address] [place], [place] 10/10/2024 3:50 PM EDT Appointment Radiology Department - [address] [phone] 03/06/2025 10:10 AM EDT Office Visit Gastroenterology - [place] [address] [facility] [address] [place] [phone] Shelley Elmore PA 175 [facility] [address] [place] [address] documented as of this encounter Visit Diagnoses Not on filedocumented in this encounter Care Teams It Security Manager Relationship Specialty Start Date End Date Lidia Medina FNP 140 [facility] [place] [address] PCP - General Family Medicine 07/10/24 documented as of this encounter
--- OUTSIDE RECORDS SUMMARY | 2024-08-15 12:25 | XMS_ITS | Clinical Summary ---
Author Organization [facility] Address [address] [place] [address] Phone Care Team Providers Care Metal Framer Name Role Phone Lidia Medina Primary Care Provider [phone] Allergies No known active allergies Medications psyllium husk, with sugar, (Fiber, psyllium husk-sugar,) 3.4 gram/7 gram powder Take by mouth 1 (one) time each day. Active tiotropium (Spiriva Respimat) 2.5 mcg/actuation inhalation spray Inhale 2 puffs by mouth 1 (one) time each day. 4 Active triamcinolone acetonide (KENALOG-40) 40 mg/mL injection Inject 1 mL (40 mg total) into the joint. 4 Active zoledronic acid (RECLAST) 5 mg/100 mL piggyback Infuse 100 mL (5 mg total) into a venous catheter. 4 Active albuterol HFA (PROAIR HFA ; PROVENTIL HFA ; VENTOLIN HFA) 90 mcg/actuation inhaler Inhale 2 puffs by mouth every 6 (six) hours if needed. 3 Active cetirizine (ZyrTEC) 10 mg tablet Take 1 tablet (10 mg total) by mouth 1 (one) time each day. 4 Active cholecalciferol (VITAMIN D-3) 50 mcg (2,000 unit) capsule Take 1 capsule (2,000 Units total) by mouth 1 (one) time each day. 1 Active cyanocobalamin (VITAMIN B-12) 100 mcg tablet Take 1 tablet (100 mcg total) by mouth 1 (one) time each day. 1 Active diclofenac (VOLTAREN) 1 % topical gel Apply 2 g topically. 4 Active conjugated estrogens (Premarin) vaginal cream Insert 1 g into the vagina. 2 Active fluticasone-edwin meterol (ADVAIR DISKUS) 250-50 mcg/dose diskus inhaler Inhale 1 puff by mouth 2 (two) times a day. 3 Active ipratropium-alb uteroL (DUONEB) 0.5-2.5 mg/3 mL nebulizer solution Inhale 3 mL by mouth. 3 Active linaCLOtide (Linzess) 72 mcg capsule Take 1 capsule (72 mcg total) by mouth 1 (one) time each day. 4 Active lisdexamfetamin e (Vyvanse) 20 mg capsule Take 1 capsule (20 mg total) by mouth 1 (one) time each day in the morning. Max Daily Amount: 20 mg 4 Active polyethylene glycol (MIRALAX) 17 gram packet Take 17 g by mouth 1 (one) time each day. Active DULCOLAX, MAGNESIUM HYDROXIDE, ORAL Take by mouth. Active omeprazole (PriLOSEC) [address] capsule TAKE 1 CAPSULE BY MOUTH IN THE MORNING BEFORE BREAKFAST 100 capsule 2 5 Active hydrocortisone 2.5 % cream APPLY TO AFFECTED AREA TWICE DAILY FOR 7 DAYS 28 g 5 Active cyclobenzaprine (FLEXERIL) 10 mg tablet TAKE 1 TABLET 3 TIMES A DAY NEEDED FOR MUSCLE SPASM 5 Active valACYclovir (VALTREX) 1 gram tablet TAKE 2 TABLETS BY MOUTH 2 TIMES DAILY FOR 1 DAY. 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 Patient to avoid tobacco Depression 03/17/2015 Overview (04/18/2024): Prev on prozac ADD (attention deficit disorder) 02/18/2015 Overview (04/18/2024): Follows with psych COPD (chronic obstructive pulmonary disease) 01/2015 Encounters Date Type Department Care Team Description 07/30/2024 Telephone Obstetrics & Gynecology [address] [phone] Rebecca Puckett CNM 07/25/2024 5:43 PM EST - 07/25/2024 11:59 PM EST Hospital Encounter Radiology Department [address] [phone] Encounter for well woman exam with routine gynecological exam; PMB (postmenopausal bleeding) Discharge Disposition: Home or Self Care 07/12/2024 2:15 PM EST Office Visit Obstetrics & Gynecology [address] [phone] Rebecca Puckett CNM Encounter for well woman exam with routine gynecological exam (Primary Dx); Screening breast examination; Postmenopausal atrophic vaginitis; PMB (postmenopausal bleeding); Screen for STD (sexually transmitted disease) from Last 3 Months Immunizations Name Administration Dates Next Due Influenza Quadravalent, MDCK , 0.5ml, preservative free (Flucelvax) 6mo and older 06/21/2018 Influenza trivalent, 0.5mL ( Fluad) 65yo and older 03/02/2023,04/11/2022,03/19/2021 Influenza trivalent, 0.5mL, preservative free (Fluarix; FluLaval; Fluzone) ages 6mo and older (Afluria) 3 years and older 06/02/2017,03/17/2015 Pneumococcal conjugate 13 va lent (Prevnar 13, PCV13) 2mo and older 04/11/2022 Surgical History Surgery Date Site/Laterality Comments KNEE SURGERY Left PROCEDURE: HISTORICAL KNEE SURGERY; COMMENT: left arthroscopy HERNIA REPAIR PROCEDURE: HISTORICAL HERNIA REPAIR/ING OOPHORECTOMY PROCEDURE: HISTORICAL OOPHORECTOMY; COMMENT: unilateral OTHER SURGICAL HISTORY 08/2021 Bilateral PROCEDURE: MAMMOGRAM, SCREENING, BOTH BREASTS COLONOSCOPY 03/08/2018 PROCEDURE: HISTORICAL COLONOSCOPY Medical History Medical History Date Comments ADD (attention deficit disorder) 02/18/2015 DX:ADD (attention deficit disorder); COMMENT: Follows with psych Constipation 02/28/2018 DX:Constipation COPD (chronic obstructive pu lmonary disease) ([facility]) 12/01/2014 DX:COPD (chronic obstructive pulmonary disease) ([facility]) Depression 03/17/2015 DX:Depression; C OMMENT: Prev on prozac Epigastric pain 02/15/2018 DX:Epigastric pa in Frequent PVCs DX:Frequent PVCs Internal hemorrhoids 03/09/2018 DX:Internal hemorrhoids Tobacco use disorder 12/01/2014 DX:Tobacco use disorder 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 Patient to avoid tobacco B12 deficiency DX:B12 deficienc y Vitamin D deficiency DX:Vitamin D deficiency Anxiety and depression DX:Anxiet y and depression DJD (degenerative joint dise ase) of knee 04/11/2022 DX:DJD (degenerative joint d isease) of knee Compression fracture of T11 vertebra ([facility]) 04/03/2023 DX:Compression fracture of T 11 vertebra ([facility]); COMMENT: 04/[address] Herpes simplex virus (HSV) infection 2023 Family History Medical History Relation Name Comments Crohn's disease Aunt Diabetes Brother Breast cancer Maternal Grandmother Ovarian cancer Mother late 60's Colon cancer Neg Hx Relation Name Status Comments Aunt Alive Brother Maternal Grandmother Mother Social History Tobacco Use Types Packs/Day Years [...] Not on file Not on fi le Obstetrics History Para Term AB IAB SAB Ectopic Multiple Livin g Live Births 2 2 2 1 2 Date Outcome GA Total Labor Labor/2nd/3rd Weight Sex Type Anes PTL Juanita A1 A5 Name Clin 989 Term M Vag-S pont Decea sed Jason SSS Delivery Location:[facility] Comments: at age 5 ; killed by ex-'s 994 Term M Vag-S pont Livin g Brendon SSS Delivery Location:[facility] Comments:?GDM Last Filed Vital Signs Vital Sign Reading Time Taken Comments Blood Pressure 122/83 07/12/2024 3:00 PM EST Pulse 90 07/12/2024 3:00 PM EST Temperature - - Respiratory Rate - - Oxygen Saturation - - Inhaled Oxygen Concentration - - Weight 64.4 kg (142 lb) 07/12/2024 3:00 PM EST Height 165.1 cm (5' 5 ) 07/12/2024 3:00 PM EST Body Mass Index 23.63 07/12/2024 3:00 PM EST Plan of Treatment Upcoming Encounters Date Type Department Care Team (Late Contact Info) Description 08/26/2024 3:00 PM EST Procedure visit Obstetrics and Gynecology [address] [phone] Oksana Contreras MD [address] [place], [place] 10/10/2024 3:50 PM EDT Appointment Radiology Department - [address] [phone] 03/06/2025 10:10 AM EDT Office Visit Gastroenterology - [place] 175 [facility] [address] [facility] [address] [place] [phone] Shelley Elmore PA [address] [facility] [address] [place] [address] Health Maintenance Due Date Last Done Comments DTaP,Tdap,and Td Vaccines (1 - Tdap) 1974 Zoster Vaccines (1 of 2) 2005 RSV Immunization Patients 60+ Years Old (1 - Risk 60-74 years 1-dose series) 2015 Depression Screening 06/04/2022 Falls Risk Assessment 06/04/2022 Hepatitis C Screening 06/04/2022 Medicare Annual Wellness Visit 06/04/2022 Social Influencers of Health Screening 06/04/2022 Pneumococcal Vaccine: 50+ Years (2 of 2 - PPSV23) 06/06/2022 04/11/2022 COVID-19 Vaccine (3 - season) 2024 04/16/2021, 03/19/2021 Influenza Vaccine (#1) 2024 , 04/11/2022, 03/19/2021, Additional history exists Lung Cancer Screening (Low Dose CT) 04/02/2025 04/02/2024, 04/03/2023, 03/30/2022, Additional history exists Breast Cancer Screening 09/28/2025 09/29/19 24, 09/19/2022, 09/10/2021, Additional history exists Colorectal Cancer Screening: Colonoscopy 03/08/2028 03/08/2018 Osteoporosis Screening (Bone Density Screening) 04/12/2032 04/12/2022 HIB Vaccines Aged Out No longer eligi ble based on patient's age to complete this topic HPV Vaccines Aged Out No longer eligi ble based on patient's age to complete this topic Hepatitis A Vaccines Aged Out No long er eligible based on patient's age to complete this topic Hepatitis B Vaccines Aged Out No long er eligible based on patient's age to complete this topic IPV Vaccines Aged Out No longer eligi ble based on patient's age to complete this topic MMR Vaccines Aged Out No longer eligi ble based on patient's age to complete this topic Meningococcal ACWY Vaccine Aged Out N o longer eligible based on patient's age to complete this topic Meningococcal B Vacine Aged Out No lo nger eligible based on patient's age to complete this topic RSV Immunization Patients Under 20 months Aged Out No longer eligible based on patient's age to complete this topic Varicella Vaccines Aged Out No longer eligible based on patient's age to complete this topic Procedures Procedure Name Priority Date/Time Associated Diagnosis Comments US PELVIS NON OB COMPLETE W TRANSVAGINAL Routine 07/25/2024 6:08 PM EST Encounter for well woman exam with routine gynecological exam PMB (postmenopausal bleeding) CHLAMYDIA TRACHOMATIS AND NEISSERIA GONORRHOEAE PCR Routine 07/12/2024 3:32 PM EST Encounter for well woman exam with routine gynecological exam Screen for STD (sexually transmitted disease) CT LUNG SCREENING LOW DOSE Routine 04/02/2024 9:07 AM EDT Encounter for screening for malignant neoplasm of respiratory organs SCREENING MAMMOGRAPHY BI 2-VIEW BREAST INC CAD Routine 09/29/2023 4:26 PM EDT Encounter for screening mammogram for malignant neoplasm of breast DXA BONE DENSITY STUDY 1+ SITS AXIAL SKEL Routine 04/12/2022 4:12 PM EDT Unspecified menopausal and perimenopausal disorder from Last 3 Months or Most Recently Relevant to Health Maintenance Results * US Pelvis Non OB Complete [...] cm previously. Left ovary not visualized. POS [id number] -------- FINAL REPORT -------- Dictated By: Kimberly Roberts Dictated Date: 07/26/2024 08:16 ET Assigned Physician: Kimberly Roberts Reviewed and Electronically Signed By: Kimberly Roberts Signed Date: 07/26/2024 08:26 ET Workstation ID: [id number] Transcribed By: Self Edit Transcribed Date: 07/26/2024 [...] cm previously. Left ovary not visualized. POS [id number] -------- FINAL REPORT -------- Dictated By: Kimberly Roberts Dictated Date: 07/26/2024 08:16 ET Assigned Physician: Kimberly Roberts Reviewed and Electronically Signed By: Kimberly Roberts Signed Date: 07/26/2024 08:26 ET Workstation ID: [id number] Transcribed By: Self Edit Transcribed Date: 07/26/2024 08:16 ET Rebecca Puckett CNM IMG US PROCEDURES Final Resul t * Chlamydia trachomatis and Neisseria gonorrhoeae molecular study (07/12/2024 3:32 PM EST) Neisseria gonorrhoeae PCR Negative Negative LAB MOLECULAR DIAGNOSTICS METHOD 07/13/2024 12:54 PM EST [facility] Chlamydia trachomatis PCR Negative Negative LAB MOLECULAR DIAGNOSTICS METHOD 07/13/2024 12:54 PM EST [facility] Swab Cervix uteri structure / Unknown Non-blood Collection / Unknown 07/12/2024 3:32 PM EST 07/12/2024 4:26 PM EST Rebecca Puckett CNM LAB MICROBIOLOGY - GENERAL OR DERABLES Final Result [facility] [address] [place] [address], * CT LUNG SCREENING LOW DOSE (04/02/2024 9:07 AM EDT) Anatomical Region Laterality Modality Computed Tomogra phy 04/01/2024 11:3 1 AM EDT Narrative 04/02/2024 9:07 AM EDT [facility] Diagnostic Imaging Department [address] [place] [address] Patient: ??ANGELINE JEFFERSON ?/Age/Sex: 1955 - 68 - F Unit#: ??[id number] ? Location/Status: ??SPDICATLS/REG CLI ? Mnemonic/Ordering Site: ??CTLUNGLD/SPCT Ordering Physician: ??CARA PIMENTEL MD CT Lung Screening Low Dose - 04/01/24 - 1159 Report Status:Signed PROCEDURE: CT chest lung cancer screening low dose examination. INDICATION: CT lung screening. TECHNIQUE: Chest CT without intravenous contrast was performed. ??Low-dose examination was performed. ??Reformatted images were evaluated. DOSE: CTDIvol: 3.2mGy. ??Total exam DLP: 115.6mGy-cm COMPARISON: ??None FINDINGS: NODULES: No significant nodules are identified. LUNGS: Minimal emphysematous changes. OTHER: Limited views of the upper abdomen appear normal. ??Mediastinum appears within normal limits. ??Minimal calcified plaque in the aorta. ??No aneurysm. Stable mild compression of a lower thoracic vertebral body. IMPRESSION: Stable examination. Lung-RADS 1. ??Follow up examination is advised in one year. Dictating Physician: ??SHEY ROMAN MD Electronically Signed by: ??SHEY ROMAN MD Dic Date/Time: ??04/02/24 09 Sign date/Time: ??04/02/24 09 Procedure Note Shey Roman MD - 04/23/2024 [facility] Diagnostic Imaging Department [address] [place] [address] Patient: TORYKatelynANGELINE D.O.B./Age/Sex: 1955 - 68 - F Unit#: [id number] Location/Status: SPDICATLS/REG CLI Mnemonic/Ordering [facility] Ordering Physician: CARA PIMENTEL MD CT Lung Screening Low Dose - 04/01/24 - 1159 Report Status:Signed PROCEDURE: CT chest lung cancer screening low dose examination. INDICATION: CT lung screening. TECHNIQUE: Chest CT without intravenous contrast was performed.Low-dose examination was performed. Reformatted images were evaluated. DOSE: CTDIvol: 3.2mGy. Total exam DLP: 115.6mGy-cm COMPARISON: None FINDINGS: NODULES: No significant nodules are identified. LUNGS: Minimal emphysematous changes. OTHER: Limited views of the upper abdomen appear normal. Mediastinumappears within normal limits. Minimal calcified plaque in the aorta. Noaneurysm. Stable mild compression of a lower thoracic vertebral body. IMPRESSION: Stable examination. Lung-RADS 1. Follow up examination is advised in one year. Dictating Physician: SHEY ROMAN MD Electronically Signed by: SHEY ROMAN MD Dic Date/Time: 04/02/24899 Sign date/Time: 04/02/24906 us Cara Pimentel MD IM CT PROCEDURES Final Result * SCREENING MAMMOGRAPHY BI 2-VIEW BREAST INC CAD (09/29/2023 4:26 PM EDT) Anatomical Region Laterality Modality Radiographic Belle ging 09/19/2022 11:3 6 AM EDT Narrative 10/02/2023 4:57 PM EDT This is a summary report. The complete report is available in the patient's medical record. If you cannot access the medical record, please contact the sending organization for a detailed fax or copy. Full field digital screening t 2D C views and ??tomosynthesis mammography, reviewed with CAD and compared to previous. The breast tissue is heterogeneously dense, limiting sensitivity. No suspicious mass, architectural distortion or suspicious calcifications are identified. IMPRESSION: : Dense breast tissue, limiting the sensitivity of mammography. No mammographic evidence of malignancy. BIRADS 1-Negative; N. 5 year breast cancer risk assessment 2.1 % Lifetime breast cancer risk assessment 6.9 % Breast cancer risk category Low (<15%) Procedure Note Guerita Rodriguez MD - 02/12/2024 This is a summary report. The complete report is available in thepatient's medical record. If you cannot access the medical record, pleasecontact the sending organization for a detailed fax or copy. Full field digital screening t 2D C views and tomosynthesis mammography,reviewed with CAD and compared to previous. The breast tissue isheterogeneously dense, limiting sensitivity. No suspicious mass,architectural distortion or suspicious calcifications are identified. IMPRESSION: : Dense breast tissue, limiting the sensitivity of mammography. Nomammographic evidence of malignancy. BIRADS 1-Negative; N. 5 year breast cancer risk assessment 2.1 % Lifetime breast cancer risk assessment 6.9 % Breast cancer risk category Low (<15%) us Latasha ALBERTS IMG XR PROCEDURES Final Resul t * DXA BONE DENSITY STUDY 1+ SITS AXIAL SKEL (04/12/2022 4:12 PM EDT) Anatomical Region Laterality Modality Bone Densitometr y 04/11/2022 9:31 AM EDT Narrative 04/13/2022 8:04 AM EDT BONE DENSITY SCAN (DEXA): FINDINGS: Lumbar Spine T-score is -3.4. ?? (SD relative to 20-29 y/o adult) Z-score is -1.5. ??(SD relative to age matched peers) This is considered osteoporosis by WHO criteria. Left Hip T-score is -2.9. Z-score is -1.3. This is considered osteoporosis by WHO criteria. Comparison exam(s): None. IMPRESSION: IMPRESSION: ?? Osteoporosis by WHO criteria. [facility] Department of Internal Medicine recommends using National Osteoporosis Foundation (NOF) guidelines in treatment decisions related to osteoporosis. NOF guidelines suggest considering treatment for postmenopausal women and men aged 50 or older presenting with the following: History of hip or vertebral fracture. T-score = -2.5 (DXA) at the femoral neck, total hip, or spine, after appropriate evaluation to exclude secondary causes. Low bone mass (T-score between -1.0 and -2.5 at the femoral neck or spine) AND a 10-year probability of a hip fracture = 3% OR a 10-year probability of a major osteoporosis-related fracture = 20% based on the [place]-adapted WHO algorithm Please note that all treatment decisions require clinical judgment and consideration of individual patient factors, including patient preferences, co-morbidities, previous drug use, risk factors not captured in the FRAX model (e.g., frailty, falls, vitamin D deficiency, increased bone turnover, interval significant decline in bone density) and possible under- or over-estimation of fracture risk by FRAX. Optional alternative screening schedule based on pebbles Rivera., [facility] July 14, 2011 for patients with osteopenia (based on hip BMD T-score) is as follows: * ??advanced osteopenia (T scores -2.00 to -2.49), BMD testing every year * ??moderate osteopenia (T scores -1.50 to -1.99), BMD testing every 5 years mild osteopenia or normal BMD (T scores -1.50 and higher), BMD testing every 15 years Procedure Note Kimberly Roberts MD - 06/14/2022 BONE DENSITY SCAN (DEXA): FINDINGS: Lumbar Spine T-score is -3.4. (SD relative to 20-29 y/o adult) Z-score is -1.5. (SD relative to age matched peers) This is considered osteoporosis by WHO criteria. Left Hip T-score is -2.9. Z-score is -1.3. This is considered osteoporosis by WHO criteria. Comparison exam(s): None. IMPRESSION: IMPRESSION: Osteoporosis by WHO criteria. [facility] Department of Internal Medicine recommendsusing National Osteoporosis Foundation (NOF) guidelines in treatment decisions related toosteoporosis. NOF guidelines suggest considering treatment for postmenopausal women and menaged 50 or older presenting with the following: History of hip or vertebral fracture. T-score = -2.5 (DXA) at the femoral neck, total hip, or spine, afterappropriate evaluation to exclude secondary causes. Low bone mass (T-score between -1.0 and -2.5 at the femoral neck or spine)AND a 10-year probability of a hip fracture = 3% OR a 10-year probability of a majorosteoporosis-related fracture = 20% based on the [place]-adapted WHO algorithm Please note that all treatment decisions require clinical judgment andconsideration of individual patient factors, including patient preferences, co- morbidities,previous drug use, risk factors not captured in the FRAX model (e.g., frailty, falls, vitaminD deficiency, increased bone turnover, interval significant decline in bone density) andpossible under- or over-estimation of fracture risk by FRAX. Optional alternative screening schedule based on pebbles Rivera., [facility] for patients with osteopenia (based on hip BMD T-score) is as follows: * advanced osteopenia (T scores -2.00 to -2.49), BMD testing every year * moderate osteopenia (T scores -1.50 to -1.99), BMD testing every 5years mild osteopenia or normal BMD (T scores -1.50 and higher), BMD testingevery 15 years Ivette Valderrama MD IM DXA PROCEDURES Final Result from Last 3 Months or Most Recently Relevant to Health Maintenance Insurance [employer] MEDICARE Advance Directives Documents on File Type Date Recorded 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
--- OUTSIDE RECORDS SUMMARY | 2024-08-15 12:25 | XMS_ITS | Encounter Summary ---
Author Organization [facility] Address [address] [place] [address] Care Team Providers Care International Account Executive Name Role Phone Ivette Valderrama MD Primary Care Provider [phone] Maximilian Baum MD Unavailable [phone] Reason for Visit * Reason Comments E-prescribe Rx Request Encounter Details Date Type Department Care Team Description 06/07/2023 [facility] [address] [place] [id number] Salina Polanco APRN E-prescribe Rx Request Social History Tobacco Use [...] suspected to have Coronavirus/COVID-19? No / Unsure 05/12/2023 4:01 PM EST documented as of this encounter Plan of Treatment Not on file documented as of this encounter Visit Diagnoses Not on filedocumented in this encounter Care Teams International Account Executive Relationship Specialty Start Date End Date Ivette Valderrama MD [address] [place] [address] PCP - General Internal Medicine 10/01/20 Maximilian Baum MD [address] [address] Specialist Cardiovascular Disease 03/09/21 documented as of this encounter
--- OUTSIDE RECORDS SUMMARY | 2024-08-15 12:25 | XMS_ITS | Encounter Summary ---
Author Organization [facility] Address [address] [place] [address] Care Team Providers Care Felt Finishing Supervisor Name Role Phone Ivette Valderrama MD Primary Care Provider [phone] Maximilian Baum MD Unavailable [phone] Reason for Visit * Reason Comments E-prescribe Rx Request Encounter Details Date Type Department Care Team Description 02/18/2022 Refill Adult Medicine [address] [id number] Latasha Barron PA-C [address] [place] [address] [phone] E-prescribe Rx Request Social History Tobacco Use [...] encounter Miscellaneous Notes * Telephone Encounter - Brigette Sharif M.A. - 02/22/2022 4:02 PM EDT Lab Results Component Value Date NA 141 08/23/2019 K 4.0 08/23/2019 CO2 29 08/23/2019 CL 105 08/23/2019 BUN 6 08/23/2019 CREAT 0.68 08/23/2019 GLU 93 08/23/2019 CA 9.8 08/23/2019 GFR > 60 08/23/2019 TONY 01/17/2022 w/Latasha Barron TONY w/PCP 02/2021 Next OV w/PCP 04/11/2022 * Telephone Encounter - Aida Hope - 02/22/2022 3:59 PM EDT Patient would like script to be: E-PRESCRIBED/FAXED TO PHARMACY WHEN WAS THE PATIENT'S LAST APPOINTMENT IN ADULT MEDICINE? 01/18/22 WHEN WAS THE LAST TIME THE PATIENT SAW THEIR PCP? 03/19/21 Does patient have an upcoming appointment? Yes 04/11/22 (THE MEDICATION REQUESTED IS ON THE MED LIST ABOVE) All of the medications requested were on the CURRENT MEDS list Did you check the Pharmacy information above?: YES Patient wants: 90 -day supply Is this a mail order prescription request ? NO If the refill is from a FAXED refill request what is the RX # listed on the fax? N/A Patients current insurance carrier is: Payor: [facility] MEDICARE FFS / Plan: [facility] MDCR-ADV HMO $0 COTO LAUREL [id number] / Product Type: HMO [id number] documented in this encounter Plan of Treatment Not on file documented as of this encounter Visit Diagnoses Not on filedocumented in this encounter Care Teams Felt Finishing Supervisor Relationship Specialty Start Date End Date Ivette Valderrama MD [address] [place] [address] PCP - General Internal Medicine 10/01/20 Maximilian Baum MD [address] [place] [address] Specialist Cardiovascular Disease 03/09/21 documented as of this encounter
--- OUTSIDE RECORDS SUMMARY | 2024-08-15 12:25 | XMS_ITS | Encounter Summary ---
Author Organization [facility] Address [address] [place] [address] Care Team Providers Care Wedding Planner Name Role Phone Ivette Valderrama MD Primary Care Provider [phone] Maximilian Baum MD Unavailable [phone] Encounter Details Date Type Department Care Team Description 12/31/2023 Orders Only Adult Medicine [address] [phone] Ivette Valderrama MD [address] [place] [address] [phone] Social History Tobacco Use Types Packs/Day Years [...] on filedocumented in this encounter Care Teams Wedding Planner Relationship Specialty Start Date End Date Ivette Valderrama MD [address] [place] [address] PCP - General Internal Medicine 10/01/20 Maximilian Baum MD [address] [place] [address] [place] [address] Specialist Cardiovascular Disease 03/09/21 documented as of this encounter
--- OUTSIDE RECORDS SUMMARY | 2024-08-15 12:25 | XMS_ITS | Encounter Summary ---
Author Organization [facility] Address [address] [place] [address] Care Team Providers Care Credit Representative Name Role Phone Ivette Valderrama MD Primary Care Provider [phone] Maximilian Baum MD Unavailable [phone] Encounter Details Date Type Department Care Team Description 01/04/2023 Night Triage Doc Medical Records [address] [place] [address] Abstract, Provider Social History Tobacco Use Types [...] on filedocumented in this encounter Care Teams Credit Representative Relationship Specialty Start Date End Date Ivette Valderrama MD [address] [place] [address] PCP - General Internal Medicine 10/01/20 Maximilian Baum MD 300 [facility] [address] [place] [address] Specialist Cardiovascular Disease 03/09/21 documented as of this encounter
--- OUTSIDE RECORDS SUMMARY | 2024-08-15 12:25 | XMS_ITS | Encounter Summary ---
Author Organization [facility] Address [address] [place] [address] Care Team Providers Care Drafter Engineering Name Role Phone Ivette Valderrama MD Primary Care Provider [phone] Maximilian Baum MD Unavailable [phone] Reason for Visit * Reason Comments E-prescribe Rx Request Encounter Details Date Type Department Care Team Description 03/07/2024 Refill Adult Medicine [address] [address] Jonathan Sharif, PAGerald [address] [place] [address] [phone] E-prescribe Rx Request Social History Tobacco Use [...] on filedocumented in this encounter Care Teams Drafter Engineering Relationship Specialty Start Date End Date Ivette Valderrama MD [address] [place] [address] [id number] PCP - General Internal Medicine 10/01/20 Maximilian Baum MD [address] [place] [address] Specialist Cardiovascular Disease 03/09/21 documented as of this encounter
--- OUTSIDE RECORDS SUMMARY | 2024-08-15 12:25 | XMS_ITS | Encounter Summary ---
Author Organization [facility] Address [address] [place] [address] Care Team Providers Care Foil Spooler Name Role Phone Evelyn Stratton MD Primary Care Provider Un available Shazia Rivas MD Primary Care Provider Unavaila Ivette Burks MD Primary Care Provider [phone] Maximilian Baum MD Unavailable [phone] Encounter Details Date Type Department Care Team Description 01/09/2018 Orders Only Medicine/Pediatrics - [address] [phone] Sandy Praikh PA-C COPD exacerbation (HCC) Social History Tobacco Use Types Packs/Day Years [...] on file documented as of this encounter Procedures Procedure Name Priority Date/Time Associated Diagnosis Comments CHG RADIOLOGIC EXAM CHEST 2 VIEWS Routine 01/01/2018 COPD exacerbation (HCC) documented in this encounter Results * RADIOLOGIC EXAM CHEST 2 VIEWS (01/01/2018) Sandy Parikh PA-C RADIOLOGY documented in this encounter Visit Diagnoses Diagnosis COPD exacerbation (HCC) Obstructive chronic bronchitis with exacerbation documented in this encounter Care Teams Foil Spooler Relationship Specialty Start Date End Date Evelyn Stratton MD PCP - General Internal Medicine 01/01/1806/20 Shazia Rivas MD PCP - General Internal Medicine 06/21/18 09/30/20 Ivette Valderrama MD [address] [place] [address] PCP - General Internal Medicine 10/01/20 Maximilian Baum MD [address] [place] [address] Specialist Cardiovascular Disease 03/09/21 documented as of this encounter
--- OUTSIDE RECORDS SUMMARY | 2024-08-15 12:26 | XMS_ITS | Encounter Summary ---
Author Organization [facility] Address [address] [place] [address] Care Team Providers Care Mail Forwarding System Markup Clerk Name Role Phone Ivette Valderrama MD Primary Care Provider [phone] Maximilian Baum MD Unavailable [phone] Encounter Details Date Type Department Care Team Description 12/13/2023 Telephone [facility] [address] [facility] [address] [place] [address] Babatunde Rodriguez MD 175 [facility] [address] [place] [address] Social History Tobacco Use Types Packs/Day Years [...] encounter Miscellaneous Notes * Telephone Encounter - Paty Philip PA-C - 12/19/2023 3:56 PM EDT Third attempt to contact the patient regarding MRI results. Dr. 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 ??If pain persists , recommend arthroscopic surgery. This telephone counter will be entered as a Pixifly message in an attempt to contact her via InTuun Systemshart rather than telephone. Patient was informed via her telephone message as well as this InTuun Systemshart message that she has an appointment in December with Dr. Rodriguez and we will go over her MRI results in detail at that time. She should contact us if she wishes to review MRI results prior to that appointment. * Telephone Encounter - Paty Philip PA-C - 12/14/2023 12:14 PM EDT Attempted to call patient to review MRI. LMOM. Will try again later. documented in this encounter Plan of Treatment Not on file documented as of this encounter Visit Diagnoses Not on filedocumented in this encounter Care Teams Mail Forwarding System Markup Clerk Relationship Specialty Start Date End Date Ivette Valderrama MD [address] [place] [address] PCP - General Internal Medicine 10/01/20 Maximilian Baum MD [address] [place] [address] Specialist Cardiovascular Disease 03/09/21 documented as of this encounter
--- OUTSIDE RECORDS SUMMARY | 2024-08-15 12:26 | XMS_ITS | Encounter Summary ---
Author Organization [facility] Address [address] [place] [address] Care Team Providers Care Photographic Spotter Name Role Phone Shazia Rivas MD Primary Care Provider [facility] Ivette Valderrama MD Primary Care Provider [phone] Maximilian Baum MD Unavailable [phone] Encounter Details Date Type Department Care Team Description 04/23/2019 Social Media Community Manager Report Medical Records [address] [place] [address] Manny Ram I., PH.D Social History Tobacco Use Types Packs/Day Years Used Date Smoking Tobacco: Former Cigarettes 1.5 40 Q uit: 2018 Smokeless Tobacco: Never Alcohol Use Standard [...] on filedocumented in this encounter Care Teams Photographic Spotter Relationship Specialty Start Date End Date Shazia Rivas MD PCP - General Internal Medicine 06/21/18 09/30/20 Ivette Valderrama MD [address] [place] [address] [id number] PCP - General Internal Medicine 10/01/20 Maximilian Baum MD [address] [place] [address] Specialist Cardiovascular Disease 03/09/21 documented as of this encounter
--- OUTSIDE RECORDS SUMMARY | 2024-08-15 12:26 | XMS_ITS | Encounter Summary ---
Author Organization [facility] Address [address] [place] [address] Care Team Providers Care Muck Miner Name Role Phone Ivette Valderrama MD Primary Care Provider [phone] Maximilian Baum MD Unavailable [phone] Encounter Details Date Type Department Care Team Description 04/03/2023 Dumbwaiter Operator Report Medical Records [address] [place] [address] [facility] Social History Tobacco Use Types Packs/Day Years [...] suspected to have Coronavirus/COVID-19? No / Unsure 03/17/2023 10:00 AM EDT documented as of this encounter Plan of Treatment Not on file documented as of this encounter Visit Diagnoses Not on filedocumented in this encounter Care Teams Muck Miner Relationship Specialty Start Date End Date Ivette Valderrama MD [address] [place] [address] PCP - General Internal Medicine 10/01/20 Maximilian Baum MD [address] [place] [address] Specialist Cardiovascular Disease 03/09/21 documented as of this encounter
--- OUTSIDE RECORDS SUMMARY | 2024-08-15 12:26 | XMS_ITS | Encounter Summary ---
Author Organization [facility] Address [address] [place] [address] Care Team Providers Care Cable Installation Manager Name Role Phone Evelyn Stratton MD Primary Care Provider Un available Shazia Rivas MD Primary Care Provider Unavaila ble Ivette Valderrama MD Primary Care Provider [phone] Maximilian Baum MD Unavailable [phone] Encounter Details Date Type Department Care Team Description 05/14/2018 Transfer Records Medical Records [address] [place] [address] Abstract, Provider Social History Tobacco Use Types [...] on filedocumented in this encounter Care Teams Cable Installation Manager Relationship Specialty Start Date End Date Evelyn Stratton MD PCP - General Internal Medicine 01/01/1806/20 Shazia Rivas MD PCP - General Internal Medicine 06/21/18 09/30/20 Ivette Valderrama MD [address] [place] [address] PCP - General Internal Medicine 10/01/20 Maximilian Baum MD [address] [place] [address] Specialist Cardiovascular Disease 03/09/21 documented as of this encounter
--- OUTSIDE RECORDS SUMMARY | 2024-08-15 12:26 | XMS_ITS | Encounter Summary ---
Author Organization [facility] Address [address] [place] [address] Care Team Providers Care Bench Repair Technician Name Role Phone Shazia Rivas MD Primary Care Provider [facility] Primary Care Provider UnavailShazia Chu MD Primary Care Provider Unavaila Evelyn Kendall MD Primary Care Provider Un available Shazia Rivas MD Primary Care Provider Unavaila Ivette Burks MD Primary Care Provider Maximilian Baum MD Unavailable [phone] Reason for Visit * Reason Onset Date Comments Echocardiogram 02/21/2017 Encounter Details Date Type Department Care Team Description 02/21/2017 Telephone Radiology - [address] [address] Shazia Rivas MD Echocardiogram Social History Tobacco Use Types Packs/Day Years [...] encounter Miscellaneous Notes * Telephone Encounter - Duglas Zafar - 02/21/2017 12:16 PM EDT [employer] - No auth required * Telephone Encounter - Tabatha Yusufgo - 02/21/2017 10:09 AM EDT Requesting prior auth for Echocardiogram. Thank you documented in this encounter Plan of Treatment Not on file documented as of this encounter Visit Diagnoses Not on filedocumented in this encounter Care Teams Bench Repair Technician Relationship Specialty Start Date End Date Shazia Rivas MD PCP - General Internal Medicine 04/08/15 07/17/17 Counts Include [facility], Pcp PCP - General Internal Medicine 07/18/17 08/27/17 Shazia Rivas MD PCP - General Internal Medicine 08/28/17 12/31/17 Evelyn Stratton MD PCP - General Internal Medicine 01/01/1806/20 Shazia Rivas MD PCP - General Internal Medicine 06/21/18 09/30/20 Ivette Valderrama MD [address] [place] [address] PCP - General Internal Medicine 10/01/20 Maximilian Baum MD [address] [place] [address] [address] [place] [address] Specialist Cardiovascular Disease 03/09/21 documented as of this encounter
--- OUTSIDE RECORDS SUMMARY | 2024-08-15 12:26 | XMS_ITS | Encounter Summary ---
Author Organization [facility] Address [address] [place] [address] Care Team Providers Care Global Creative Chairman Name Role Phone Shazia Rivas MD Primary Care Provider Glenn Meza Primary Care Provider UnavailShazia Chu MD Primary Care Provider UnavailEvelyn Cordova MD Primary Care Provider Un available Shazia Rivas MD Primary Care Provider UnavailIvette Carver MD Primary Care Provider [phone] Maximilian Baum MD Unavailable [phone] Encounter Details Date Type Department Care Team Description 04/15/2015 Hand Driller Report Medical Records [address] [place] [address] [facility] [address] [place] [address] DR. DO [address] [place] [address] Social History Tobacco Use Types Packs/Day Years [...] on filedocumented in this encounter Care Teams Global Creative Chairman Relationship Specialty Start Date End Date Shazia Rivas MD PCP - General Internal Medicine 04/08/15 07/17/17 Yayo, Glenn PCP - General Internal Medicine 07/18/17 08/27/17 Shazia Rivas MD PCP - General Internal Medicine 08/28/17 12/31/17 Evelyn Stratton MD PCP - General Internal Medicine 01/01/1806/20 Shazia Rivas MD PCP - General Internal Medicine 06/21/18 09/30/20 Ivette Valderrama MD [address] [place] [address] PCP - General Internal Medicine 10/01/20 Maximilian Baum MD [address] [place] [address] Specialist Cardiovascular Disease 03/09/21 documented as of this encounter
--- OUTSIDE RECORDS SUMMARY | 2024-08-15 12:26 | XMS_ITS | Encounter Summary ---
Author Organization [facility] Address [address] [place] [address] Care Team Providers Care Safety Person Name Role Phone Patrick Santa MD Primary Care Provider [phone] Shazia Rivas MD Primary Care Provider Glenn Meza Primary Care Provider UnavailShazia Chu MD Primary Care Provider Unavaila Evelyn Kendall MD Primary Care Provider Un available Shazia Rivas MD Primary Care Provider Unavaila Ivette Burks MD Primary Care Provider [phone] Maximilian Baum MD Unavailable [phone] Encounter Details Date Type Department Care Team Description 08/24/2011 SCAN Medical Records [address] [place] [address] Letty Chen DO Social History Tobacco Use Types Packs/Day Years Used Date Smoking Tobacco: Never Assessed Sex Assigned at Date Recorded Not on file Job Start Date Occupation Industry Not on file Not on file Not on file documented as of this encounter Plan of Treatment Not on file documented as of this encounter Procedures Procedure Name Priority Date/Time Associated Diagnosis Comments OUTSIDE PFT Routine 08/24/2011 documented in this encounter Results * OUTSIDE PFT (08/24/2011) Provider Abstract PULMONOLOGY documented in this encounter Visit Diagnoses Not on filedocumented in this encounter Care Teams Safety Person Relationship Specialty Start Date End Date Patrick Santa MD [address] [place] [address] PCP - General Internal Medicine 11/14/14 04/07/15 Shazia Rivas MD [address] [place], [place] PCP - General Internal Medicine 04/08/15 07/17/17 [facility], Pcp [address] [place] [address] PCP - General Internal Medicine 07/18/17 08/27/17 Shazia Rivas MD [address] [place], [place] PCP - General Internal Medicine 08/28/17 12/31/17 Evelyn Stratton MD [address] [place], [place] PCP - General Internal Medicine 01/01/18 06/20/18 Shazia Rivas MD [address] [place], [place] PCP - General Internal Medicine 06/21/18 09/30/20 Ivette Valderrama MD [address] [place] [address] PCP - General Internal Medicine 10/01/20 Maximilian Baum MD 300 [facility] [address] [place] [address] Specialist Cardiovascular Disease 03/09/21 documented as of this encounter
--- OUTSIDE RECORDS SUMMARY | 2024-08-15 12:26 | XMS_ITS | Encounter Summary ---
Author Organization [facility] Address [address] [place] [address] Care Team Providers Care Food Counselor Name Role Phone Ivette Valderrama MD Primary Care Provider [phone] Maximilian Baum MD Unavailable [phone] Encounter Details Date Type Department Care Team Description 03/21/2023 Pt. Non Urgent Medical Question Adult Medicine [address] [address] Kiara Phillip PA [address] [place] [address] [phone] Social History Tobacco Use Types Packs/Day Years [...] AM EDT documented as of this encounter Miscellaneous Notes * Telephone Encounter - Lazara Cheema M.A. - 03/21/2023 11:51 AM EDTFrom: Angeline Jefferson To: Shawnee Phillip Sent: 03/21/2023 11:45 AM EDT Subject: Request for Tier Exemption I spoke with my insurance and they said that the doctor could request a Tier Exemption for my Spireva prescription from Tier 3 to Tier 2. If approved, the exemption would make the drug affordable forme. The number to call for the exemption request is [phone]. Could someone at the office call and request the exemptio n for me, please? Angeline Jefferson documented in this encounter Plan of Treatment Not on file documented as of this encounter Visit Diagnoses Not on filedocumented in this encounter Care Teams Food Counselor Relationship Specialty Start Date End Date Ivette Valderrama MD [address] [place] [address] PCP - General Internal Medicine 10/01/20 Maximilian Baum MD [address] [place] [address] Specialist Cardiovascular Disease 03/09/21 documented as of this encounter
--- OUTSIDE RECORDS SUMMARY | 2024-08-15 12:26 | XMS_ITS | Encounter Summary ---
Author Organization [facility] Address [address] [place] [address] Care Team Providers Care Reaming Machine Operator Name Role Phone Ivette Valderrama MD Primary Care Provider [phone] Maximilian Baum MD Unavailable [phone] Encounter Details Date Type Department Care Team Description 11/09/2021 Supervisor Cytology Report Medical Records [address] [place] [address] Abstract, Provider Social History Tobacco Use Types [...] on filedocumented in this encounter Care Teams Reaming Machine Operator Relationship Specialty Start Date End Date Ivette Valderrama MD [address] [place] [address] PCP - General Internal Medicine 10/01/20 Maximilian Baum MD 300 [facility] [address] [place] [address] Specialist Cardiovascular Disease 03/09/21 documented as of this encounter
--- OUTSIDE RECORDS SUMMARY | 2024-08-15 12:26 | XMS_ITS | Encounter Summary ---
Author Organization [facility] Address [address] [place] [address] Care Team Providers Care Creative Engagement Director Name Role Phone Evelyn Stratton MD Primary Care Provider Un available Shazia Rivas MD Primary Care Provider Unavaila [facility] Ivette Valderrama MD Primary Care Provider [phone] Maximilian Baum MD Unavailable [phone] Reason for Visit * Reason Comments E-prescribe Rx Request Encounter Details Date Type Department Care Team Description 06/02/2018 Refill Gastroenterology [address] [place] [phone] Shelley Elmore DScPAS E-prescribe Rx Request Social History Tobacco Use [...] on filedocumented in this encounter Care Teams Creative Engagement Director Relationship Specialty Start Date End Date Evelyn Stratton MD PCP - General Internal Medicine 01/01/1806/20 Shazia Rivas MD PCP - General Internal Medicine 06/21/18 09/30/20 Ivette Valderrama MD [address] [place] [address] PCP - General Internal Medicine 10/01/20 Maximilian Baum MD [address] [place] [address] Specialist Cardiovascular Disease 03/09/21 documented as of this encounter
--- OUTSIDE RECORDS SUMMARY | 2024-08-15 12:26 | XMS_ITS | Encounter Summary ---
Author Organization [facility] Address [address] [place] [address] Care Team Providers Care Sill Worker Name Role Phone Ivette Valderrama MD Primary Care Provider [phone] Maximilian Baum MD Unavailable [phone] Reason for Referral * Non CONTRERAS (Routine) - Unable to reach/declined Specialty Diagnoses / Procedures Referred By Contac t Referred To Contact Physical Therapy Diagnoses Vertigo Procedures REFERRAL TO PHYSICAL THERAPY Latasha Barron PA-C [address] [place] [address] External Phys Thrpy Referral ID Status Reason Start Date Expiration Date V isits Requested Visits Authorized [id number] Unable to reach/declin ed 08/25/2021 1 1 Reason for Visit * Reason Onset Date Comments dizziness 08/24/2021 Encounter Details Date Type Department Care Team Description 08/24/2021 Telephone Triage [address] [place], [place] [id number] Ivette Valderrama MD [address] [place] [address] [id number] dizziness Social History Tobacco Use Types Packs/Day Years [...] encounter Miscellaneous Notes * Telephone Encounter - Devi Barry R.N. - 08/25/2021 11:30 AM EST Pt needs refill on meclizine. * Telephone Encounter - Latasha Barron PA-C - 08/25/2021 10:44 AM EST I am willing to put in referral to physical therapy. However, if patient is not taking meclizine asdirected, she cannot expect symptoms to improve. Latasha Barron PA-C * Telephone Encounter - Devi Barry R.N. - 08/25/2021 9:24 AM EST Soonest appt with pcp for physical is 04/11/22 Pt states that she has been taking her meclizine once a day for her dizziness with no effect. Explained to pt that she could take medication 3 times a day. Pt states that she did not want to run out.Pt is requesting referral for physical therapy because that helped her in the past. Please advise. * Telephone Encounter - Latasha Barron PA-C - 08/24/2021 5:54 PM EST Please schedule appointment with PCP in December 2021 and route back. Latasha Barron PA-C * Telephone Encounter - Jonny De Jesus R.N - 08/24/2021 5:21 PM EST Called and spoke with pt. Pt was seen the end of June given meclizine for vertigo pt is still having pt was only taking once a day ebcause didn't want ot run out of them pt sts they are not working as while and in the past went to PT for it and is asking if can get referral to PT for it again. Denies any change in symptoms. Please review and advise * Telephone Encounter - Natacha Lou - 08/24/2021 4:55 PM EST Symptoms patient is presenting: Patient had seen Latasha at the end of June for vertigo. She states the vertigo is no better and she is looking for a referral to physical therapy ??? For ALL patients calling to schedule any [...] traveled recently to another state outside of [place], [place], [place], [place], [place], [place], [place]? NO o If yes, did you quarantine [...] vehicle accident? NO If yes, gather 3rd democrat insurance information Date of accident/Injury: n/a How long has patient had these symptoms?: ongoing since Jun PCP: Ivette Valderrama [place] / [place] / Product Type: MEDICARE [id number] documented in this encounter Plan of Treatment Not on file documented as of this encounter Visit Diagnoses Diagnosis Vertigo- Primary Dizziness and giddiness documented in this encounter Care Teams Sill Worker Relationship Specialty Start Date End Date Ivette Valderrama MD [address] [place] [address] PCP - General Internal Medicine 10/01/20 Maximilian Baum MD [address] [place] [address] Specialist Cardiovascular Disease 03/09/21 documented as of this encounter
--- OUTSIDE RECORDS SUMMARY | 2024-08-15 12:26 | XMS_ITS | Encounter Summary ---
Author Organization [facility] Address [address] [place] [address] Care Team Providers Care Ticket Attendant Name Role Phone Shazia Rivas MD Primary Care Provider Ivette Bynum MD Primary Care Provider [phone] Maximilian Baum MD Unavailable [phone] Reason for Visit * Reason Onset Date Comments Testing 05/29/2019 MRI of brain no contrast Encounter Details Date Type Department Care Team Description 05/29/[address] [address] Shanice Smith PA-C Testing (MRI of brain no contrast) Social History Tobacco Use Types Packs/Day Years [...] encounter Miscellaneous Notes * Telephone Encounter - Clark Orourke M.A. - 07/11/2019 2:04 PM EST Order cancelled. * Telephone Encounter - Cata Zaidi M.A. - 05/31/2019 2:07 PM EST FYI to provider - see below. Pt had MRI at [facility] 03/29/19. Test results were reviewed per TE 04/01/19 Internal MRI order not needed. * Telephone Encounter - Clark Orourke M.A. - 05/29/2019 12:17 PM EST MRI of brain no contrast was ordered on 03/22/19, do you want to complete the order or cancel it ? Please route message back to me. documented in this encounter Plan of Treatment Not on file documented as of this encounter Visit Diagnoses Not on filedocumented in this encounter Care Teams Ticket Attendant Relationship Specialty Start Date End Date Shazia Rivas MD PCP - General Internal Medicine 06/21/18 09/30/20 Ivette Valderrama MD [address] [place] [address] PCP - General Internal Medicine 10/01/20 Maximilian Baum MD [address] [place] [address] Specialist Cardiovascular Disease 03/09/21 documented as of this encounter
--- OUTSIDE RECORDS SUMMARY | 2024-08-15 12:26 | XMS_ITS | Encounter Summary ---
Author Organization [facility] Address [address] [place] [address] Care Team Providers Care Aluminum Siding Installer Name Role Phone Ivette Valderrama MD Primary Care Provider [phone] Maximilian Baum MD Unavailable [phone] Encounter Details Date Type Department Care Team Description 12/07/[address] [facility] [address] [facility] [address] [place] [address] Babatunde Rodriguez MD [address] [facility] [address] [place] [address] Social History Tobacco Use Types Packs/Day Years [...] on filedocumented in this encounter Care Teams Aluminum Siding Installer Relationship Specialty Start Date End Date Ivette Valderrama MD [address] [place] [address] PCP - General Internal Medicine 10/01/20 Maximilian Baum MD [address] [facility] [address] [place] [address] Specialist Cardiovascular Disease 03/09/21 documented as of this encounter
--- OUTSIDE RECORDS SUMMARY | 2024-08-15 12:26 | XMS_ITS | Encounter Summary ---
Author Organization [facility] Address [address] [place] [address] Care Team Providers Care Chargeback Specialist Name Role Phone Ivette Valderrama MD Primary Care Provider [phone] Maximilian Baum MD Unavailable [phone] Reason for Visit * Reason Onset Date Comments medication problems 03/17/2023 Faxed Refill 03/17/2023 Encounter Details Date Type Department Care Team Description 03/17/2023 Telephone Pulmonology - [place] [address] [facility] [address] [place] [address] Lasha Porras MD [address] [place] [address] medication problems; Faxed Refill Social History Tobacco Use Types Packs/Day Years [...] Miscellaneous Notes * Telephone Encounter - Natacha Carrington M.A. - 03/30/2023 3:03 PM EDT Called [facility] back and was able to get through. They rx was already given to pt . With the dosing of 2 puffs. * Telephone Encounter - Natacha Carrington M.A. - 03/30/2023 9:43 AM EDT Tried calling pharmacy, there are experiencing technical difficulties and I am unable to connect [facility] pharmacy I will call back later. * Telephone Encounter - Lasha Porras MD - 03/28/2023 7:15 PM EDT 2 puffs qd- please let them know * Telephone Encounter - Rafiq Mccoy CMA - 03/28/2023 1:07 PM EDT Please clarify pt medication instructions * Telephone Encounter - Natacha Carrington M.A. - 03/28/2023 12:35 PM EDT Prior auth on cmm was cancelled. This medication is on the list of covered drugs. Called pts pharmacy And they stated they were looking for clarification on the dosing instructions for this medication. Should it be one puff daily or two? Please call pharmacy with directions. Also pt has a deductible , its making the cost of this medication 140.00. Thank you Please reply back to [id number] Prior Auth Pool Natacha Lazo Replaced By [facility] Prior Authorization Ext [id number] * Telephone Encounter - Natacha Carrington M.A. - 03/24/2023 11:53 AM EDT Prior authorization was completed today on cm for the spiriva Dx code J44.9 COPD * Telephone Encounter - Carmen Amos C.M.A. - 03/24/2023 11:38 AM EDT Medication needs prior authorization message sent to PA department * Telephone Encounter - Carmen Amos C.M.A. - 03/24/2023 11:31 AM EDT Prior Authorization for Medication-do not complete and send this encounter unless you have the fax from the pharmacy. Is this a Cover My Meds request: [place] of Medication Tiotropium Unity Monohydrate (spiriva respimat) Dose of Medication 2.5 mcg What is the RX # from the faxed refill? How does patient take this med? Inhale 1 puff into lung daily What Pharmacy did the fax come from: [facility] Pharmacy Pharmacy fax #: [phone] [employer] Information from fax: What Prescription Plan does the patient have? OPTUM Rx BIN/PCN if applicable: [id number] Cardholder ID: [id number] Person Code: Relationship Code: Help desk phone: * Telephone Encounter - Natacha Couch - 03/22/2023 2:37 PM EDT Received fax from [facility] Re: Script Clarification ??Reason for Request: Script Clarification Pharmacy comments: script clarification: Patient is claiming that her copay will be $12 if MD does PA? Re: Spiriva respimate Pls advise. NOV 06/14/2023 TONY 02/03/2023 * Telephone Encounter - Natacha Couch - 03/20/2023 3:48 PM EDT Received fax from [facility] For Script Clarification Response requested: Patient is claiming that Her copay will be $12 if MD does PA? Pls advise. NOV 06/14/2023 TONY 02/03/2023 * Telephone Encounter - Rebekah Ferguson - 03/17/2023 10:22 AM EDT Who is calling? The patient Name of the medication Tiotropium Unity Monohydrate (Spiriva Respimat) 2.5 MCG/ACT Aero Soln What is the specific problem or interaction? Patient seen by PCP office today. Patient states that insurance will not cover medication, may need a pa or alternative medication. If the patient is having a problem with taking the med - how long has the problem been going on? N/A documented in this encounter Plan of Treatment Not on file documented as of this encounter Visit Diagnoses Not on filedocumented in this encounter Care Teams Chargeback Specialist Relationship Specialty Start Date End Date Ivette Valderrama MD [address] [place] [address] PCP - General Internal Medicine 10/01/20 Maximilian Baum MD [address] [place] [address] Specialist Cardiovascular Disease 03/09/21 documented as of this encounter
--- OUTSIDE RECORDS SUMMARY | 2024-08-15 12:26 | XMS_ITS | Encounter Summary ---
Author Organization [facility] Address [address] [place] [address] Care Team Providers Care Insulator Cutter And Former Name Role Phone Ivette Valderrama MD Primary Care Provider [phone] Maximilian Baum MD Unavailable [phone] Encounter Details Date Type Department Care Team Description 09/20/2023 Pt. Non Urgent Medical Question OBGYN - [place] [address] [place] [address] Alejandra Worley PA-C [address] [place] [address] Social History Tobacco Use Types Packs/Day Years [...] encounter Miscellaneous Notes * Telephone Encounter - Maggie Barber R.N. - 09/21/2023 9:43 AM EDTFrom: Angeline Jefferson To: Vazquez Worley Sent: 09/20/2023 6:43 PM EDT Subject: Herpes result I viewed the result of my Herpes test online and it says I???m positive. Can a medication be prescribed to alleviate the symptoms. I have itching and pimples on each side. If something can be prescribed to help with symptoms I need a small capsule no larger than the celebrex I take or something I can crush up and mix in food or a drink . Please reply to this message as soon as possible as I am soupset about the results. My pharmacy is [facility]. documented in this encounter Plan of Treatment Not on file documented as of this encounter Visit Diagnoses Not on filedocumented in this encounter Care Teams Insulator Cutter And Former Relationship Specialty Start Date End Date Ivette Valderrama MD [address] [place] [address] PCP - General Internal Medicine 10/01/20 Maximilian Baum MD [address] [place] [address] Specialist Cardiovascular Disease 03/09/21 documented as of this encounter
--- OUTSIDE RECORDS SUMMARY | 2024-08-15 12:26 | XMS_ITS | Encounter Summary ---
Author Organization [facility] Address [address] [place] [address] Care Team Providers Care Channeler Runner Name Role Phone Ivette Valderrama MD Primary Care Provider [phone] Maximilian Baum MD Unavailable [phone] Encounter Details Date Type Department Care Team Description 10/26/2023 Refill OBGYN - [place] [address] [place] [address] Monet Han CNM [address] [place], [place] [id number] Social History Tobacco Use Types Packs/Day Years [...] on filedocumented in this encounter Care Teams Channeler Runner Relationship Specialty Start Date End Date Ivette Valderrama MD [address] [place] [address] PCP - General Internal Medicine 10/01/20 Maximilian Baum MD [address] [facility] [address] [place] [address] Specialist Cardiovascular Disease 03/09/21 documented as of this encounter
--- OUTSIDE RECORDS SUMMARY | 2024-08-15 12:26 | XMS_ITS | Encounter Summary ---
Author Organization [facility] Address [address] [place] [address] Care Team Providers Care House Calls Nurse Practitioner Name Role Phone Patrick Santa MD Primary Care Provider [phone] Shazia Rivas MD Primary Care Provider Glenn Meza Primary Care Provider UnavailShazia Chu MD Primary Care Provider UnavailEvelyn Cordova MD Primary Care Provider Un available Shazia Rivas MD Primary Care Provider UnavailIvette Carver MD Primary Care Provider [phone] Maximilian Baum MD Unavailable [phone] Encounter Details Date Type Department Care Team Description 03/18/2015 [facility] NURSE/[facility] Report Medical Records [address] [place] [address] Abstract, Provider Social History Tobacco Use Types [...] on filedocumented in this encounter Care Teams House Calls Nurse Practitioner Relationship Specialty Start Date End Date Patrick Santa MD [address] [place] [address] PCP - General Internal Medicine 11/14/14 04/07/15 Shazia Rivas MD [address] [place] [address] PCP - General Internal Medicine 04/08/15 07/17/17 [facility], Pcp [address] [place], [place] PCP - General Internal Medicine 07/18/17 08/27/17 Shazia Rivas MD [address] [place], [place] PCP - General Internal Medicine 08/28/17 12/31/17 Evelyn Stratton MD [address] [place], [place] PCP - General Internal Medicine 01/01/18 06/20/18 Shazia Rivas MD [address] [place], [place] PCP - General Internal Medicine 06/21/18 09/30/20 Ivette Valderrama MD [address] [place] [address] PCP - General Internal Medicine 10/01/20 Maximilian Baum MD [address] [place] [address] Specialist Cardiovascular Disease 03/09/21 documented as of this encounter
--- OUTSIDE RECORDS SUMMARY | 2024-08-15 12:26 | XMS_ITS | Encounter Summary ---
Author Organization [facility] Address [address] [place] [address] Care Team Providers Care Mandrel Press Hand Name Role Phone Shazia Rivas MD Primary Care Provider Neil [facility] Primary Care Provider UnavailShazia Chu MD Primary Care Provider UnavailEvelyn Cordova MD Primary Care Provider Un available Shazia Rivas MD Primary Care Provider Unavaila Ivette Burks MD Primary Care Provider [phone] Maximilian Baum MD Unavailable [phone] Reason for Visit * Reason Onset Date Comments REFERRAL 09/09/2015 Encounter Details Date Type Department Care Team Description 09/09/2015 Telephone Medicine/Pediatrics - [address] [address] Shazia Rivas MD REFERRAL Social History Tobacco Use Types Packs/Day [...] encounter Miscellaneous Notes * Telephone Encounter - Susan Campbell - 09/09/2015 12:53 PM EDT In regards to patient being put on the referral list for obgyn annual, she has been called twice and also sent a letter. Per protocol patient is taken off of the list but will stay on the annual waitlist. Just an FYI documented in this encounter Plan of Treatment Not on file documented as of this encounter Visit Diagnoses Not on filedocumented in this encounter Care Teams Mandrel Press Hand Relationship Specialty Start Date End Date Shazia Rivas MD PCP - General Internal Medicine 04/08/15 07/17/17 [facility] Pcp PCP - General Internal Medicine 07/18/17 08/27/17 Shazia Rivas MD PCP - General Internal Medicine 08/28/17 12/31/17 Evelyn Stratton MD PCP - General Internal Medicine 01/01/1806/20 Shazia Rivas MD PCP - General Internal Medicine 06/21/18 09/30/20 Ivette Valderrama MD [address] [place] [address] PCP - General Internal Medicine 10/01/20 Maximilian Baum MD [address] [place] [address] Specialist Cardiovascular Disease 03/09/21 documented as of this encounter
--- OUTSIDE RECORDS SUMMARY | 2024-08-15 12:26 | XMS_ITS | Encounter Summary ---
Author Organization [facility] Address [address] [place] [address] Care Team Providers Care Corporate Legal Intern Name Role Phone Patrick Santa MD Primary Care Provider [phone] Shazia Rivas MD Primary Care Provider Glenn Meza Primary Care Provider UnavailShazia Chu MD Primary Care Provider UnavailEvelyn Cordova MD Primary Care Provider Un available Shazia Rivas MD Primary Care Provider UnavailIvette Carver MD Primary Care Provider [phone] Maximilian Baum MD Unavailable [phone] Encounter Details Date Type Department Care Team Description 12/03/2014 Release of Information Medical Records [address] [place] [address] Abstract, Provider Social History Tobacco Use Types [...] on filedocumented in this encounter Care Teams Corporate Legal Intern Relationship Specialty Start Date End Date Patrick Santa MD [address] [place] [address] PCP - General Internal Medicine 11/14/14 04/07/15 Shazia Rivas MD [address] [place] [address] PCP - General Internal Medicine 04/08/15 07/17/17 [facility], Pcp [address] [place], [place] PCP - General Internal Medicine 07/18/17 08/27/17 Shazia Rivas MD [address] [place], [place] PCP - General Internal Medicine 08/28/17 12/31/17 Evelyn Stratton MD [address] [place], [place] PCP - General Internal Medicine 01/01/18 06/20/18 Shazia Rivas MD [address] [place], [place] PCP - General Internal Medicine 06/21/18 09/30/20 Ivette Valderrama MD [address] [place] [address] PCP - General Internal Medicine 10/01/20 Maximilian Baum MD [address] [place] [address] Specialist Cardiovascular Disease 03/09/21 documented as of this encounter
--- OUTSIDE RECORDS SUMMARY | 2024-08-15 12:26 | XMS_ITS | Encounter Summary ---
Author Organization [facility] Address [address] [place] [address] Care Team Providers Care Major League Baseball Umpire Name Role Phone Shazia Rivas MD Primary Care Provider Ivette Bynum MD Primary Care Provider [phone] Maximilian Baum MD Unavailable [phone] Reason for Visit * Reason Onset Date Comments APPOINTMENT 10/10/2019 Encounter Details Date Type Department Care Team Description 10/10/2019 Telephone Adult Medicine - [address] [address] Hortencia Dye PA-C APPOINTMENT Social History Tobacco Use Types Packs/Day Years [...] Telephone Encounter - Clark Orourke M.A. - 10/10/2019 9:49 AM EDT Patient had some concerns that she would like to address. Patient is schedule for audio visit on 10/10 @ 10:45. Hold off on PE for now. * Telephone Encounter - Hortencia Dye PA-C - 10/10/2019 9:26 AM EDT Please call patient and advised her that due to the coronavirus pandemic, we will not be seeing physical exams in the office. Please aid her in rescheduling in December or January. If she has a specific concern that she was hoping to address, please aid her in booking an audio visit to discuss this instead. Thank you. documented in this encounter Plan of Treatment Not on file documented as of this encounter Visit Diagnoses Not on filedocumented in this encounter Care Teams Major League Baseball Umpire Relationship Specialty Start Date End Date Shazia Rivas MD PCP - General Internal Medicine 06/21/18 09/30/20 Ivette Valderrama MD [address] [place] [address] PCP - General Internal Medicine 10/01/20 Maximilian Baum MD [address] [place] [address] Specialist Cardiovascular Disease 03/09/21 documented as of this encounter
--- OUTSIDE RECORDS SUMMARY | 2024-08-15 12:26 | XMS_ITS | Encounter Summary ---
Author Organization [facility] Address [address] [place] [address] Care Team Providers Care Principal Account Clerk Name Role Phone Ivette Valderrama MD Primary Care Provider Maximilian Baum MD Unavailable [phone] Encounter Details Date Type Department Care Team Description 03/24/2021 Telephone [facility] [address] [place] [address] [place] [address] Hugh Rabago MD Social History Tobacco Use Types Packs/Day Years [...] have Coronavirus / COVID-19? No / Unsure 03/25/2021 9:21 AM EDT documented as of this encounter Plan of Treatment Not on file documented as of this encounter Visit Diagnoses Not on filedocumented in this encounter Care Teams Principal Account Clerk Relationship Specialty Start Date End Date Ivette Valderrama MD [address] [place] [address] PCP - General Internal Medicine 10/01/20 Maximilian Baum MD [address] [place] [address] Specialist Cardiovascular Disease 03/09/21 documented as of this encounter
--- OUTSIDE RECORDS SUMMARY | 2024-08-15 12:26 | XMS_ITS | Encounter Summary ---
Author Organization [facility] Address [address] [place] [address] Care Team Providers Care Veterinary Medicine Teacher Name Role Phone Shazia Rivas MD Primary Care Provider Glenn Meza Primary Care Provider UnavailShazia Chu MD Primary Care Provider UnavailEvelyn Cordova MD Primary Care Provider Un available Shazia Rivas MD Primary Care Provider Unavaila Ivette Burks MD Primary Care Provider [phone] Maximilian Baum MD Unavailable [phone] Encounter Details Date Type Department Care Team Description 06/02/2017 [facility] Medical Records [address] [place] [address] Guanaco Flaherty MD Social History Tobacco Use Types Packs/Day [...] on filedocumented in this encounter Care Teams Veterinary Medicine Teacher Relationship Specialty Start Date End Date Shazia Rivas MD PCP - General Internal Medicine 04/08/15 07/17/17 [facility], Glenn PCP - General Internal Medicine 07/18/17 08/27/17 Shazia Rivas MD PCP - General Internal Medicine 08/28/17 12/31/17 Evelyn Stratton MD PCP - General Internal Medicine 01/01/1806/20 Shazia Rivas MD PCP - General Internal Medicine 06/21/18 09/30/20 Ivette Valderrama MD [address] [place] [address] PCP - General Internal Medicine 10/01/20 Maximilian Baum MD [address] [place] [address] Specialist Cardiovascular Disease 03/09/21 documented as of this encounter
--- OUTSIDE RECORDS SUMMARY | 2024-08-15 12:26 | XMS_ITS | Encounter Summary ---
Author Organization [facility] Address [address] [place] [address] Care Team Providers Care Rewards Consultant Name Role Phone Ivette Valderrama MD Primary Care Provider [phone] Maximilian Baum MD Unavailable [phone] Encounter Details Date Type Department Care Team Description 09/14/2021 Business Doc Medical Records [address] [place] [id number] Abstract, Provider Social History Tobacco Use Types [...] have Coronavirus / COVID-19? No / Unsure 09/10/2021 11:30 AM EDT documented as of this encounter Plan of Treatment Not on file documented as of this encounter Visit Diagnoses Not on filedocumented in this encounter Care Teams Rewards Consultant Relationship Specialty Start Date End Date Ivette Valderrama MD [address] [place] [address] PCP - General Internal Medicine 10/01/20 Maximilian Baum MD [address] [address] Specialist Cardiovascular Disease 03/09/21 documented as of this encounter
--- OUTSIDE RECORDS SUMMARY | 2024-08-15 12:26 | XMS_ITS | Encounter Summary ---
Author Organization [facility] Address [address] [place] [address] Care Team Providers Care Back Facer Name Role Phone Ivette Valderrama MD Primary Care Provider [phone] Maximilian Baum MD Unavailable Reason for Visit * Reason Onset Date Comments Testing 01/14/2022 DXA BONE DENSITY STUDY 1+ SITS AXIAL SKEL Encounter Details Date Type Department Care Team Description 01/14/2022 Telephone Adult Medicine [address] [phone] Ivette Valderrama MD [address] [place] [address] [phone] Testing (DXA BONE DENSITY STUDY 1+ SITS AXIAL SKEL) Social History Tobacco Use Types Packs/Day Years [...] suspected to have Coronavirus/COVID-19? No / Unsure 01/17/2022 3:01 PM EDT documented as of this encounter Miscellaneous Notes * Telephone Encounter - Latasha Barron PA-C - 01/17/2022 2:37 PM EDT See below. Latasha Barron PA-C * Telephone Encounter - Shazia Domingo - 01/17/2022 2:03 PM EDT Spoke to pt, she does still want this and will be calling radiology to schedule * Telephone Encounter - Shazia Domingo - 01/14/2022 2:44 PM EDT Tried to contact pt, mailbox full will try again later * Telephone Encounter - Latasha Barron PA-C - 01/14/2022 2:15 PM EDT Please contact patient and advise bone density ordered in June has not been completed; please document if refusing. Latasha Barron PA-C * Telephone Encounter - Clark Orourke M.A. - 01/14/2022 2:06 PM EDT DXA BONE DENSITY STUDY 1+ SITS AXIAL SKEL was ordered 07/15/21, do you want to complete or cancel the order? documented in this encounter Plan of Treatment Not on file documented as of this encounter Visit Diagnoses Not on filedocumented in this encounter Care Teams Back Facer Relationship Specialty Start Date End Date Ivette Valderrama MD [address] [place] [address] PCP - General Internal Medicine 10/01/20 Maximilian Bamu MD 300 [facility] [address] [place] [address] Specialist Cardiovascular Disease 03/09/21 documented as of this encounter
[2024-08-15 14:26] LABS: Cholesterol 288 mg/dL (<200); HDL Cholesterol 79 mg/dL (>40); LDL Cholesterol Calculated 173 mg/dL (<100); Triglycerides 180 mg/dL (<150)
== END 2024-08-15 11:04 | disposition home or self-care (01) ==
LOC: HO.WFDLDS 11:03
PROVIDERS: Visit Provider Nurse Practitioner Family
DX: E78.5 Hyperlipidemia, unspecified (principal)
CPT/HCPCS: 36415; 80061

== ENCOUNTER 2024-08-21 16:05 | Outpatient (AMB) | payer OTHER, SELFPAY ==
--- NOTE | 2024-08-21 15:56 | A.OFFPC_ITS ---
Intake Visit Reasons: LAB REVIEW Intake Note: patient here for telehealth lab review. Pre Sales Technical Consultant Required: No Is last menstrual period known: No Post menopausal: No Patient : No Allergies No Known Allergies Allergy (Verified 08/21/24 15:56) Tobacco use date assessed: 08/21/24 Fall risk assessment: 2 + Falls in past year Last assessed Fall Risk: 08/21/24 Dental Screening Dental Screen Date: 08/21/24 Did you have a dental visit in the last 12 months?: Yes Did you have a dental problem in the last 6 months where you did not have access to dental care?: No Was dental information given to patient?: Patient has dentist HPI HPI Comments History of Present Illness Details 69-year-old female presents for [facility] healthcare [facility] visit for review of recent lab results. She admits to taking her medications as prescribed without adverse reactions. She has been making healthy dietary choices, including low saturated and trans fat. She is active but does not exercise. No acute symptoms at this time. [facility] Medical History (Updated 06/11/24 @ 15:32 by Lidia Medina CNP) Non-alcoholic fatty liver disease History of torn meniscus of left knee Vertigo Imbalance Memory loss Light headed Headache STD (female) Incontinence Back injury Osteoporosis Arthritis Hypothyroid COPD (chronic obstructive pulmonary disease) Family History (Updated 06/03/24 @ 12:15 by Iman Morales) Father Alcohol abuse Brother Alcohol abuse High blood pressure Diabetes Mother High blood pressure Diabetes Thyroid disorder Uterus cancer Maternal Grandmother Diabetes Maternal Grandmother No problems noted. Maternal Grandfather Diabetes Social History Housing: House Patient Tobacco Use Status: Former Tobacco user Tobacco use type: Cigarette Cigarette Packs Per Day: 1.5 Cigarettes Per Day: 30 e-Cigarette/Vaping Use: Never Used Second Hand Smoke Exposure: No Patient : No service: No Current occupational status: retired Current occupational exposures/hazards: No Cognitive needs: No Hearing needs: No Vision needs: Yes Questionnaire Thrive Questionnaire Date Thrive assessed: 06/03/24 YENNY-7 AMB Questionnaire YENNY-7 Date YENNY - 7 assessed: 06/03/24 Source: Developed by Drs. Wander Blake, Carlyn Hernandez, Nikolay Solares and colleagues, with an educational kenney from [employer]. Review of Systems Const Details: Denies chills, Denies fatigue, Denies fever(s), Denies headache(s) and Denies weakness Cardiac Denies chest pain, Denies claudication, Denies leg edema, Denies lightheadedness, Denies palpitations, Denies dyspnea, Denies dyspnea on exertion, Denies orthopnea and Denies other (Loss of consciousness) Resp Denies cough, Denies excessive phlegm production, Denies dyspnea, Denies dyspnea on exertion, Denies snoring and Denies wheezing Physical exam (Primary Care) Tobacco/Smoking Status: Tobacco use Status Tobacco use date assessed 08/21/24 08/21/24 16:01 Patient Tobacco Use Status Former Tobacco user 08/21/24 16:01 Tobacco use type Cigarette 08/21/24 16:01 e-Cigarette/Vaping Use Never Used 08/21/24 16:01 Thrive Assessment: Date of Thrive Assessment Date Thrive assessed 06/03/24 08/21/24 16:01 Const Other: Telehealth visit. No physical exam. Telehealth Telehealth Telehealth Platform: Telephone Location of provider rendering services: practice address Location of patient: address on file Patient Identification confirmed using: Name, : Yes Telehealth method: voice only Patient verbally consented to treatment: Yes Patient verbally consented to billing insurance company: Yes Patient informed of any privacy concerns related to visit: Yes Coding Level of Care Code Tele Est Pt Level 3 (74708) Diagnoses Hyperlipidemia E78.5 Time Spent (min) 15 Assessment & Plan Assessment & Plan (1) Hyperlipidemia: Code(s): E78.5 - Hyperlipidemia, unspecified Category: Medical Plan: Recent triglycerides is elevated, 180 from 187, total cholesterol is elevated, 288 from 247, and LDL is elevated, 173 from 139. Atorvastatin 20 mg every night ordered; advised to take as prescribed. Advised to limit foods high in saturated fat and avoid foods high in trans fat. Routine exercise encouraged. Fast for 10-12 hours, may drink water, and perform lipid panel blood work 2-3 days before next visit. Follow-up for telehealth visit in 2 months. Return sooner with symptoms or concerns. Verbalized understanding and agreed with treatment plan. Orders: Orders Lipid Panel 2 Months E78.5 - Hyperlipidemia, unspecified Medications: New atorvastatin 20 mg PO BEDTIME 30 days 30 tabs 3RF
--- OUTSIDE RECORDS SUMMARY | 2024-08-21 19:35 | XMS_ITS | Encounter Summary ---
Author Organization [facility] Address [address] [place] [address] Care Team Providers Care Fancy Wire Drawer Name Role Phone Ivette Valderrama MD Primary Care Provider [phone] Maximilian Baum MD Unavailable [phone] Encounter Details Date Type Department Care Team Description 11/09/2021 Datapower Developer Report Medical Records [address] [place] [address] Abstract, Provider Social History Tobacco Use Types [...] on filedocumented in this encounter Care Teams Fancy Wire Drawer Relationship Specialty Start Date End Date Ivette Valderrama MD [address] [place] [address] PCP - General Internal Medicine 10/01/20 Maximilian Baum MD 300 [facility] [address] [place] [address] Specialist Cardiovascular Disease 03/09/21 documented as of this encounter
--- OUTSIDE RECORDS SUMMARY | 2024-08-21 19:35 | XMS_ITS | Encounter Summary ---
Author Organization [facility] Address [address] [place] [address] Care Team Providers Care Official Court Reporter Name Role Phone Shazia Rivas MD Primary Care Provider Ivette Bynum MD Primary Care Provider [phone] Maximilian aBum MD Unavailable [phone] Encounter Details Date Type Department Care Team Description 12/19/2019 Telephone Physiatry - [address] [address] Aant Pederson MD [address] [place] [address] [place] [phone] Social History Tobacco Use Types Packs/Day Years [...] encounter Miscellaneous Notes * Telephone Encounter - Kelly Zendejas L.P.N. - 01/08/2020 9:53 AM EDT Called pt again at cell # and home # message left On cell # to call back ,called home # rings and no answer no a/m to leave message on ,ringing stops and then nothing * Telephone Encounter - Patience Catnor M.A. - 01/02/2020 11:46 AM EDT Patient is not returning our calls. Unable to reach letter mailed to the patient. * Telephone Encounter - Patience Cantor M.A. - 01/01/2020 1:37 PM EDT Message left for patient to return my call. * Telephone Encounter - Patience Cantor M.A. - 12/30/2019 10:27 AM EDT Message left for patient to return my call. * Telephone Encounter - Patience Cantor M.A. - 12/26/2019 2:29 PM EDT Message left for patient to return my call. * Telephone Encounter - Patience Cantor M.A. - 12/25/2019 10:21 AM EDT Message left for patient to return my call. * Telephone Encounter - Anat Pederson MD - 12/25/2019 8:18 AM EDT Please let her know that MRI shows disc bulge but it's going more to the right side. I am not sure if that would explain her pain that is left sided. I actually prefer that she comes in to see one ofus to examine her back better to see if pain is from SI joint instead of lumbar. She can see any ofthe 4 providers depending on when she can come in. * Telephone Encounter - Patience Bear M.A. - 12/24/2019 1:[address] Vargas I tried calling patient for audio f/u MRI. Patient did not return call. Today she calledlooking for results. Your next available is not until Feb 05. Please review and advise. * Telephone Encounter - Patience Bear M.A. - 12/20/2019 8:34 AM EDT Left message for patient to return call. Need to schedule audio visit today with for f/u MRI. Kayla Whitmore * Telephone Encounter - Anat Pederson MD - 12/20/2019 8:23 AM EDT Pls book for audio today if possible * Telephone Encounter - Kelly Zendejas L.P.N. - 12/19/2019 3:[address] order ans will try to get p/a approval * Telephone Encounter - Anat Pederson MD - 12/19/2019 2:06 PM EDT If we were to recommend injections, is she under our network? If yes, kindly book for audio ffup to discuss MRI. documented in this encounter Plan of Treatment Not on file documented as of this encounter Visit Diagnoses Not on filedocumented in this encounter Care Teams Official Court Reporter Relationship Specialty Start Date End Date Shazia Rivas MD PCP - General Internal Medicine 06/21/18 09/30/20 Ivette Valderrama MD [address] [place] [address] PCP - General Internal Medicine 10/01/20 Maximilian Baum MD [address] [place] [address] Specialist Cardiovascular Disease 03/09/21 documented as of this encounter
--- OUTSIDE RECORDS SUMMARY | 2024-08-21 19:35 | XMS_ITS | Encounter Summary ---
Author Organization [facility] Address [address] [place] [address] Care Team Providers Care Route Driver Name Role Phone Ivette Valderrama MD Primary Care Provider [phone] Maximilian Baum MD Unavailable [phone] Encounter Details Date Type Department Care Team Description 12/29/2022 Orders Only [facility] Medical [facility] [address] [facility] [address] [place] [address] Babatunde Rodriguez MD 175 [facility] [address] [place], [place] [phone] Rotator cuff injury, right, initial encounter Social History Tobacco Use Types Packs/Day Years [...] Procedure Name Priority Date/Time Associated Diagnosis Comments MRI OF ARM JOINT / UPPER EXTREMITY JOINT NO CONTRAST Routine 12/24/2022 Rotator cuff injury, right, initial encounter documented in this encounter Results * MRI OF ARM JOINT / UPPER EXTREMITY JOINT NO CONTRAST (12/24/2022) Babatunde Rodriguez MD MRI Performing Organization Address City/State/ZIP Co me Phone Number [facility] documented in this encounter Visit Diagnoses Diagnosis Rotator cuff injury, right, initial encounter documented in this encounter Care Teams Route Driver Relationship Specialty Start Date End Date Ivette Valderrama MD [address] [place] [address] PCP - General Internal Medicine 10/01/20 Maximilian Baum MD [address] [place] [address] Specialist Cardiovascular Disease 03/09/21 documented as of this encounter
--- OUTSIDE RECORDS SUMMARY | 2024-08-21 19:35 | XMS_ITS | Encounter Summary ---
Author Organization [facility] Address [address] [place] [address] Care Team Providers Care Wireless Telegrapher Name Role Phone Shazia Rivas MD Primary Care Provider Glenn Meza Primary Care Provider UnavailShazia Chu MD Primary Care Provider UnavailEvelyn Cordova MD Primary Care Provider Un available Shazia Rivas MD Primary Care Provider UnavailIvette Carver MD Primary Care Provider [phone] Maximilian Baum MD Unavailable [phone] Encounter Details Date Type Department Care Team Description 06/02/2017 [facility] Medical Records [address] [place] [id number] [place] [address] Andre Social History Tobacco Use Types Packs/Day Years [...] on filedocumented in this encounter Care Teams Wireless Telegrapher Relationship Specialty Start Date End Date Shazia Rivas MD PCP - General Internal Medicine 04/08/15 07/17/17 Yayo, Pcp PCP - General Internal Medicine 07/18/17 08/27/17 Shazia Rivas MD PCP - General Internal Medicine 08/28/17 12/31/17 Evelyn Stratton MD PCP - General Internal Medicine 01/01/1806/20 Shazia Rivas MD PCP - General Internal Medicine 06/21/18 09/30/20 Ivette Valderrama MD [address] [place] [address] PCP - General Internal Medicine 10/01/20 Maximilian Baum MD [address] [place] [address] Specialist Cardiovascular Disease 03/09/21 documented as of this encounter
--- OUTSIDE RECORDS SUMMARY | 2024-08-21 19:35 | XMS_ITS | Encounter Summary ---
Author Organization [facility] Address [address] [place] [address] Care Team Providers Care Biomedical Engineering Technologist Name Role Phone Ivette Valderrama MD Primary Care Provider [phone] Maximilian Baum MD Unavailable [phone] Reason for Visit * Reason Onset Date Comments Testing 08/04/2022 Encounter Details Date Type Department Care Team Description 08/04/2022 Telephone Adult Medicine [address] [phone] Urbano Verdugo MD [address] [place] [address] [phone] Testing Social History Tobacco Use Types Packs/Day Years Used Date Smoking Tobacco: Former Cigarettes 1.5 40 0 06/26/1977 - 2018 Passive Smoke Exposure: Past Smokeless Tobacco: Never Alcohol Use Standard Drinks/Week [...] suspected to have Coronavirus/COVID-19? No / Unsure 08/04/2022 1:00 PM EST documented as of this encounter Miscellaneous Notes * Telephone Encounter - Urbano Verdugo MD - 08/04/2022 10:48 AM EST It is still needed. She may have had it done at [facility]. Can we confirm with the patient? * Telephone Encounter - Reina Lazo - 08/04/2022 9:[address] Verdugo, You ordered a : MRI OF ARM JOINT / UPPER EXTREMITY JOINT NO CONTRAST (Order #[id number]) on 05/20/22 and on 05/18/22 Pt did want it done @ [facility], I checked there records and still not completed Is this order still needed? documented in this encounter Plan of Treatment Not on file documented as of this encounter Visit Diagnoses Not on filedocumented in this encounter Care Teams Biomedical Engineering Technologist Relationship Specialty Start Date End Date Ivette Valderrama MD [address] [place] [address] PCP - General Internal Medicine 10/01/20 Maximilian Baum MD [address] [place] [address] Specialist Cardiovascular Disease 03/09/21 documented as of this encounter
--- OUTSIDE RECORDS SUMMARY | 2024-08-21 19:35 | XMS_ITS | Encounter Summary ---
Author Organization [facility] Address [address] [place] [address] Care Team Providers Care China Painter Name Role Phone Ivette Valderrama MD Primary Care Provider [phone] Maximilian Baum MD Unavailable [phone] Reason for Visit * Reason Comments E-prescribe Rx Request Encounter Details Date Type Department Care Team Description 03/07/2024 Refill Adult Medicine [address] [address] Jonathan Sharif, PAGerald [address] [place] [address] [phone] E-prescribe Rx Request Social History Tobacco Use [...] on filedocumented in this encounter Care Teams China Painter Relationship Specialty Start Date End Date Ivette Valderrama MD [address] [place] [address] [phone] PCP - General Internal Medicine 10/01/20 Maximilian Baum MD [address] [place] [address] Specialist Cardiovascular Disease 03/09/21 documented as of this encounter
--- OUTSIDE RECORDS SUMMARY | 2024-08-21 19:35 | XMS_ITS | Encounter Summary ---
Author Organization [facility] Address [address] [place] [address] Care Team Providers Care Homicide Squad Captain Name Role Phone Ivette Valderrama MD Primary Care Provider [phone] Maximilian Baum MD Unavailable [phone] Encounter Details Date Type Department Care Team Description 08/09/2023 [facility] Medical [facility] [address] [facility] [address] [place] [address] Salina Polanco APRN Social History [...] on filedocumented in this encounter Care Teams Homicide Squad Captain Relationship Specialty Start Date End Date Ivette Valderrama MD [address] [place] [address] PCP - General Internal Medicine 10/01/20 Maximilian Baum MD 300 [facility] [address] [place], [place] [phone] Specialist Cardiovascular Disease 03/09/21 documented as of this encounter
--- OUTSIDE RECORDS SUMMARY | 2024-08-21 19:35 | XMS_ITS | Encounter Summary ---
Author Organization [facility] Address [address] [place] [address] Care Team Providers Care Lock Up Worker Name Role Phone Shazia Rivas MD Primary Care Provider Glenn Meza Primary Care Provider UnavailShazia Chu MD Primary Care Provider Evelyn Munoz MD Primary Care Provider Un available Shazia Rivas MD Primary Care Provider UnavailIvette Carver MD Primary Care Provider [phone] Maximilian Baum MD Unavailable [phone] Encounter Details Date Type Department Care Team Description 08/15/2016 Transfer Records Medical Records [address] [place] [address] Abstract, Provider Social History Tobacco Use Types [...] on filedocumented in this encounter Care Teams Lock Up Worker Relationship Specialty Start Date End Date Shazia Rivas MD PCP - General Internal Medicine 04/08/15 07/17/17 Yayo, Pcp PCP - General Internal Medicine 07/18/17 08/27/17 Shazia Rivas MD PCP - General Internal Medicine 08/28/17 12/31/17 Evelyn Stratton MD PCP - General Internal Medicine 01/01/1806/20 Shazia Rivas MD PCP - General Internal Medicine 06/21/18 09/30/20 Ivette Valderrama MD [address] [place] [address] PCP - General Internal Medicine 10/01/20 Maximilian Baum MD [address] [place] [address] Specialist Cardiovascular Disease 03/09/21 documented as of this encounter
--- OUTSIDE RECORDS SUMMARY | 2024-08-21 19:35 | XMS_ITS | Encounter Summary ---
Author Organization [facility] Address [address] [place] [address] Care Team Providers Care Prepress Manager Name Role Phone Lidia Medina Primary Care Provider [phone] Reason for Referral * Imaging (Routine) - Closed Specialty Diagnoses / Procedures Referred By Malou t Referred To Contact Radiology Diagnoses Encounter for well woman exam with routine gynecological exam PMB (postmenopausal bleeding) Procedures US Pelvis Non OB Complete w Transvaginal Rebecca Puckett CNM [address] [place] [address] Phone: tel: fax: [address] [address] Phone: tel: Referral ID Status Reason Start Date Expiration Date Visits Re quested Visits Authorized [id number] Closed 07/12/2024 07/12/2025 1 1 Reason for Visit * Imaging (Routine) - Closed Specialty Diagnoses / Procedures Referred By Malou lau Referred To Contact Radiology Diagnoses Encounter for well woman exam with routine gynecological exam PMB (postmenopausal bleeding) Procedures US Pelvis Non OB Complete w Transvaginal Rebecca Puckett CNM [address] [place] [address] Phone: tel: fax: [facility] [address] [place] [address] Phone: tel: Referral ID Status Reason Start Date Expiration Date Visits Re quested Visits Authorized [id number] Closed 07/12/2024 07/12/2025 1 1 Encounter Details Date Type Department Care Team (Latest Contact Info) Description 07/25/2024 5:43 PM EST - 07/25/2024 11:59 PM EST Hospital Encounter Radiology Department - [address] [address] Encounter for well woman exam with routine [...] EST Procedure visit Obstetrics and Gynecology - [address] [phone] Oksana Contreras MD [address] [place], [place] 10/10/2024 3:50 PM EDT Appointment Radiology Department - [address] [phone] 03/06/2025 10:10 AM EDT Office Visit Gastroenterology - [place] [address] [place] [address] Shelley Elmore PA [address] [place] [address] documented as of this encounter Procedures Procedure [...] cm previously. Left ovary not visualized. POS [id number] -------- FINAL REPORT -------- Dictated By: Kimberly Roberts Dictated Date: 07/26/2024 08:16 ET Assigned Physician: Kimberly Roberts Reviewed and Electronically Signed By: Kimberly Roberts Signed Date: 07/26/2024 08:26 ET Workstation ID: [id number] Transcribed By: Self Edit Transcribed Date: 07/26/2024 [...] cm previously. Left ovary not visualized. POS [id number] -------- FINAL REPORT -------- Dictated By: Kimberly Roberts Dictated Date: 07/26/2024 08:16 ET Assigned Physician: Kimberly Roberts Reviewed and Electronically Signed By: Kimberly Roberts Signed Date: 07/26/2024 08:26 ET Workstation ID: [id number] Transcribed By: Self Edit Transcribed Date: 07/26/2024 08:16 ET us Rebecca Puckett CNM IMG US PROCEDURES Final Resul t documented in this encounter Visit Diagnoses Diagnosis Encounter for well woman exam with routine gynecological exam PMB (postmenopausal bleeding) Postmenopausal bleeding Encounter for screening mammogram for breast cancer documented in this encounter Care Teams Prepress Manager Relationship Specialty Start Date End Date Lidia Medina FNP [address] [place] [address] PCP - General Family Medicine 07/10/24 documented as of this encounter
--- OUTSIDE RECORDS SUMMARY | 2024-08-21 19:35 | XMS_ITS | Encounter Summary ---
Author Organization [facility] Address [address] [place] [address] Care Team Providers Care Commercial Solar Sales Consultant Name Role Phone Ivette Valderrama MD Primary Care Provider [phone] Maximilian Baum MD Unavailable [phone] Encounter Details Date Type Department Care Team Description 05/11/2023 Pt. Non Urgent Medical Question [facility] 175 [facility] [address] [place] [address] Babatunde Rodriguez MD 175 [facility] [address] [place] [address] Social History Tobacco Use Types Packs/Day Years [...] on filedocumented in this encounter Care Teams Commercial Solar Sales Consultant Relationship Specialty Start Date End Date Ivette Valderrama MD 4 [place] [address] PCP - General Internal Medicine 10/01/20 Maximilian Baum MD [address] [address] Specialist Cardiovascular Disease 03/09/21 documented as of this encounter
--- OUTSIDE RECORDS SUMMARY | 2024-08-21 19:35 | XMS_ITS | Encounter Summary ---
Author Organization [facility] Address [address] [place] [address] Care Team Providers Care Checking Department Supervisor Name Role Phone Evelyn Stratton MD Primary Care Provider Un available Shazia Rivas MD Primary Care Provider Unavaila ble Ivette Valderrama MD Primary Care Provider [phone] Maximilian Baum MD Unavailable [phone] Encounter Details Date Type Department Care Team Description 02/13/2018 Director Of Fundraising Report Medical Records [address] [place] [address] Aren Mccoy PA [address] [place] [address] Social History Tobacco Use Types Packs/Day Years [...] on filedocumented in this encounter Care Teams Checking Department Supervisor Relationship Specialty Start Date End Date Evelyn Stratton MD PCP - General Internal Medicine 01/01/1806/20 Shazia Rivas MD PCP - General Internal Medicine 06/21/18 09/30/20 Ivette Valderrama MD [address] [place] [address] PCP - General Internal Medicine 10/01/20 Maximilian Baum MD [address] [place] [address] Specialist Cardiovascular Disease 03/09/21 documented as of this encounter
--- OUTSIDE RECORDS SUMMARY | 2024-08-21 19:35 | XMS_ITS | Encounter Summary ---
Author Organization [facility] Address [address] [place] [address] Care Team Providers Care Tool Design Draftsperson Name Role Phone Ivette Valderrama MD Primary Care Provider [phone] Maximilian Baum MD Unavailable [phone] Reason for Visit * Reason Comments E-prescribe Rx Request Encounter Details Date Type Department Care Team Description 06/07/2023 [facility] [address] [place] [address] Salina Polanco APRN E-prescribe Rx Request [...] on filedocumented in this encounter Care Teams Tool Design Draftsperson Relationship Specialty Start Date End Date Ivette Valderrama MD 444 [place] [address] PCP - General Internal Medicine 10/01/20 Maximilian Baum MD [address] [address] Specialist Cardiovascular Disease 03/09/21 documented as of this encounter
--- OUTSIDE RECORDS SUMMARY | 2024-08-21 19:35 | XMS_ITS | Encounter Summary ---
Author Organization [facility] Address [address] [place] [address] Care Team Providers Care Fabrication Inspector Name Role Phone Ivette Valderrama MD Primary Care Provider [phone] Maximilian Baum MD Unavailable [phone] Reason for Visit * Reason Onset Date Comments Mychart Rx Refill 03/01/2022 Encounter Details Date Type Department Care Team Description 03/01/2022 Pt. Non Urgent Medical Question Adult Medicine [address] [phone] Latasha Barron PA-C [address] [place] [address] [id number] Social History Tobacco Use Types Packs/Day Years [...] on filedocumented in this encounter Care Teams Fabrication Inspector Relationship Specialty Start Date End Date Ivette Valderrama MD [address] [place] [address] PCP - General Internal Medicine 10/01/20 Maximilian Baum MD [address] [place] [address] Specialist Cardiovascular Disease 03/09/21 documented as of this encounter
--- OUTSIDE RECORDS SUMMARY | 2024-08-21 19:35 | XMS_ITS | Encounter Summary ---
Author Organization [facility] Address [address] [place] [address] Care Team Providers Care Caregiver Services Home Name Role Phone Shazia Rivas MD Primary Care Provider [facility] Ivette Valderrama MD Primary Care Provider [phone] Maximilian Baum MD Unavailable [phone] Encounter Details Date Type Department Care Team Description 03/29/2019 SCAN Medical Records [address] [place] [address] Sahzia Rivas MD Social History Tobacco Use Types Packs/Day [...] Name Priority Date/Time Associated Diagnosis Comments OUTSIDE MRI/MRA Routine 03/29/2019 documented in this encounter Results * OUTSIDE MRI/MRA (03/29/2019) Provider Abstract RADIOLOGY documented in this encounter Visit Diagnoses Not on filedocumented in this encounter Care Teams Caregiver Services Home Relationship Specialty Start Date End Date Shazia Rivas MD PCP - General Internal Medicine 06/21/18 09/30/20 Ivette Valderrama MD [address] [place] [address] PCP - General Internal Medicine 10/01/20 Maximilian Baum MD [address] [place] [address] Specialist Cardiovascular Disease 03/09/21 documented as of this encounter
--- OUTSIDE RECORDS SUMMARY | 2024-08-21 19:35 | XMS_ITS | Encounter Summary ---
Author Organization [facility] Address [address] [place] [address] Care Team Providers Care Residential Sales Executive Name Role Phone Ivette Valderrama MD Primary Care Provider [phone] Maximilian Baum MD Unavailable [phone] Encounter Details Date Type Department Care Team Description 04/12/2022 Business Doc Medical Records [address] [place] [address] Abstract, Provider Social History Tobacco Use Types [...] on filedocumented in this encounter Care Teams Residential Sales Executive Relationship Specialty Start Date End Date Ivette Valderrama MD 444 [place] [address] PCP - General Internal Medicine 10/01/20 Maximilian Baum MD [address] [address] Specialist Cardiovascular Disease 03/09/21 documented as of this encounter
--- OUTSIDE RECORDS SUMMARY | 2024-08-21 19:35 | XMS_ITS | Encounter Summary ---
Author Organization [facility] Address [address] [place] [address] Care Team Providers Care Swim Instructor Name Role Phone Ivette Valderrama MD Primary Care Provider [phone] Maximilian Baum MD Unavailable [phone] Encounter Details Date Type Department Care Team Description 11/19/2020 Orders Only Gastroenterology - [address] [place] [address] Shelley Elmore DScPAS Epigastric pain; Constipation, unspecified constipation type Social History Tobacco Use Types Packs/Day Years [...] PM EDT documented as of this encounter Progress Notes * Shelley Elmore PA-C - 11/22/2020 3:13 PM EDT See msg for pt. documented in this encounter Plan of Treatment Not on file documented as of this encounter Procedures Procedure Name Priority Date/Time Associated Diagnosis Comments NUCLEAR EXAM OF STOMACH EMPTYING Routine 11/17/2020 Epigastric pain Constipation, unspecified constipation type documented in this encounter Results * NUCLEAR EXAM OF STOMACH EMPTYING (11/17/2020) Shelley Elmore DScPAS NUCLEAR documented in this encounter Visit Diagnoses Diagnosis Epigastric pain Abdominal pain, epigastric Constipation, unspecified constipation type documented in this encounter Care Teams Swim Instructor Relationship Specialty Start Date End Date Ivette Valderrama MD [address] [place] [address] PCP - General Internal Medicine 10/01/20 Maximilian Baum MD [address] [place] [address] Specialist Cardiovascular Disease 03/09/21 documented as of this encounter
--- OUTSIDE RECORDS SUMMARY | 2024-08-21 19:35 | XMS_ITS | Encounter Summary ---
Author Organization [facility] Address [address] [place] [address] Care Team Providers Care Center Medical And Lab Director Name Role Phone Ivette Valderrama MD Primary Care Provider [phone] Maximilian Baum MD Unavailable [phone] Encounter Details Date Type Department Care Team Description 12/31/2023 Orders Only Adult Medicine [address] [phone] Ivette Valderrama MD [address] [place] [address] [phone] Social History Tobacco Use Types Packs/Day Years [...] on filedocumented in this encounter Care Teams Center Medical And Lab Director Relationship Specialty Start Date End Date Ivette Valderrama MD [address] [place] [address] PCP - General Internal Medicine 10/01/20 Maximilian Baum MD [address] [place] [address] [place] [address] Specialist Cardiovascular Disease 03/09/21 documented as of this encounter
--- OUTSIDE RECORDS SUMMARY | 2024-08-21 19:35 | XMS_ITS | Encounter Summary ---
Author Organization [facility] Address [address] [place] [address] Care Team Providers Care Mechanical Design Drafter Name Role Phone Shazia Rivas MD Primary Care Provider Jaycee Ivette Burks MD Primary Care Provider [phone] Maximilian Baum MD Unavailable [phone] Reason for Visit * Reason Onset Date Comments Headache 03/20/2019 vertigo 03/20/2019 Fall 03/20/2019 dizziness 03/20/2019 Encounter Details Date Type Department Care Team Description 03/20/2019 Telephone Medicine/Pediatrics - [address] [address] Shazia Rivas MD Headache; vertigo; Fall; dizziness Social History Tobacco Use Types Packs/Day [...] Telephone Encounter - Reina Nolasco L.P.N. - 03/20/2019 3:58 PM EDT Gets lighheaded when bending over to shave her legs She state she fell 3 weeks ago hit her head did not have LOC She thinks she may have gotten dizzy that's why she fell She states she sees blurry comes and goes she states when she adjusts her glasses it gets better But then states it may be from the fall she states she has a headache and fuzzy head She states she started anxiety meds but has had sx before Apt booked * Telephone Encounter - Dominga New - 03/20/2019 3:36 PM EDT Patient calling, states that she had fallen a few weeks ago. States she has been experiencing dizziness, headaches, and is tired mall the time. Was seen by [facility] today and was advised to call in documented in this encounter Plan of Treatment Not on file documented as of this encounter Visit Diagnoses Not on filedocumented in this encounter Care Teams Mechanical Design Drafter Relationship Specialty Start Date End Date Shazia Rivas MD PCP - General Internal Medicine 06/21/18 09/30/20 Ivette Valderrama MD [address] [place] [address] PCP - General Internal Medicine 10/01/20 Maximilian Baum MD [address] [place] [address] Specialist Cardiovascular Disease 03/09/21 documented as of this encounter
--- OUTSIDE RECORDS SUMMARY | 2024-08-21 19:35 | XMS_ITS | Encounter Summary ---
Author Organization [facility] Address [address] [place] [address] Care Team Providers Care Air Crew Member Name Role Phone Ivette Valderrama MD Primary Care Provider [phone] Maximilian Baum MD Unavailable [phone] Encounter Details Date Type Department Care Team Description 06/21/2023 Pt. Non Urgent Medical Question Gastroenterology - [place] 175 [facility] 200 [place] [address] Shelley Elmore DScPAS Social History Tobacco Use Types Packs/Day Years [...] on filedocumented in this encounter Care Teams Air Crew Member Relationship Specialty Start Date End Date Ivette Valderrama MD [address] [place] [address] PCP - General Internal Medicine 10/01/20 Maximilian Baum MD 300 [facility] [address] [place], [place] [phone] Specialist Cardiovascular Disease 03/09/21 documented as of this encounter
--- OUTSIDE RECORDS SUMMARY | 2024-08-21 19:35 | XMS_ITS | Encounter Summary ---
Author Organization [facility] Address [address] [place] [address] Care Team Providers Care Care Management Coordinator Name Role Phone Shazia Rivas MD Primary Care Provider [facility] Ivette Valderrama MD Primary Care Provider [phone] Maximilian Baum MD Unavailable [phone] Encounter Details Date Type Department Care Team Description 11/22/2018 Refill Gastroenterology - [place] 175 [facility] 200 [place] [address] Shelley Elmore DScPAS Social History [...] on filedocumented in this encounter Care Teams Care Management Coordinator Relationship Specialty Start Date End Date Shazia Rivas MD PCP - General Internal Medicine 06/21/18 09/30/20 Ivette Valderrama MD [address] [place] [address] PCP - General Internal Medicine 10/01/20 Maximilian Baum MD [address] [address] Specialist Cardiovascular Disease 03/09/21 documented as of this encounter
--- OUTSIDE RECORDS SUMMARY | 2024-08-21 19:35 | XMS_ITS | Clinical Summary ---
Author Organization [facility] Address [address] [place] [address] Care Team Providers Care It Architect Name Role Phone Ivette Valderrama MD Primary Care Provider [phone] Allergies No known active allergies Medications Medication [...] age to complete this topic Care Teams It Architect Relationship Specialty Start Date End Date Ivette Valderrama MD PCP - General Internal Medicine 09/12/23
--- OUTSIDE RECORDS SUMMARY | 2024-08-21 19:35 | XMS_ITS | Encounter Summary ---
Author Organization [facility] Address [address] [place] [address] Care Team Providers Care Development Chemist Name Role Phone Shazia Rivas MD Primary Care Provider [facility] Ivette Valderrama MD Primary Care Provider [phone] Maximilian Baum MD Unavailable [phone] Encounter Details Date Type Department Care Team Description 04/23/2019 Credit Risk Officer Report Medical Records [address] [place] [address] Manny Ram I., PH.D Social History Tobacco [...] on filedocumented in this encounter Care Teams Development Chemist Relationship Specialty Start Date End Date Shazia Rivas MD PCP - General Internal Medicine 06/21/18 09/30/20 Ivette Valderrama MD [address] [place] [address] [id number] PCP - General Internal Medicine 10/01/20 Maximilian Baum MD [address] [place] [address] Specialist Cardiovascular Disease 03/09/21 documented as of this encounter
--- OUTSIDE RECORDS SUMMARY | 2024-08-21 19:35 | XMS_ITS | Encounter Summary ---
Author Organization [facility] Address [address] [place] [address] Care Team Providers Care Operational Review Sergeant Name Role Phone Ivette Valderrama MD Primary Care Provider [phone] Maximilian Baum MD Unavailable [phone] Encounter Details Date Type Department Care Team Description 01/22/2024 SCAN [facility] - [facility] Center [address] [address] Nabil Vidal MD [address] [address] Social History Tobacco Use Types Packs/Day Years [...] on filedocumented in this encounter Care Teams Operational Review Sergeant Relationship Specialty Start Date End Date Ivette Valderrama MD [address] [place] [address] PCP - General Internal Medicine 10/01/20 Maximilian Baum MD 300 [facility] 154 [place] [address] Specialist Cardiovascular Disease 03/09/21 documented as of this encounter
--- OUTSIDE RECORDS SUMMARY | 2024-08-21 19:35 | XMS_ITS | Encounter Summary ---
Author Organization [facility] Address [address] [place] [address] Care Team Providers Care Annual Greenhouse Manager Name Role Phone Ivette Valderrama MD Primary Care Provider [phone] Maximilian Baum MD Unavailable [phone] Encounter Details Date Type Department Care Team Description 12/07/2023 SCAN [facility] - [facility] 175 [facility] [address] [place] [address] Babatunde Rodriguez MD 175 [facility] [address] [place] [address] Social History Tobacco Use Types Packs/Day Years [...] on filedocumented in this encounter Care Teams Annual Greenhouse Manager Relationship Specialty Start Date End Date Ivette Valderrama MD [address] [place] [address] PCP - General Internal Medicine 10/01/20 Maximilian Baum MD 300 [facility] 154 [place] [address] Specialist Cardiovascular Disease 03/09/21 documented as of this encounter
--- OUTSIDE RECORDS SUMMARY | 2024-08-21 19:35 | XMS_ITS | Encounter Summary ---
Author Organization [facility] Address [address] [place] [address] Care Team Providers Care Motion Designer Name Role Phone Ivette Valderrama MD Primary Care Provider [phone] Maximilian Baum MD Unavailable [phone] Encounter Details Date Type Department Care Team Description 10/02/2020 Hospital Medical Records [address] [place] [address] Social History Tobacco Use Types Packs/Day Years [...] have Coronavirus / COVID-19? No / Unsure 09/04/2020 11:03 AM EST documented as of this encounter Plan of Treatment Not on file documented as of this encounter Visit Diagnoses Not on filedocumented in this encounter Care Teams Motion Designer Relationship Specialty Start Date End Date Ivette Valderrama MD [address] [place] [address] PCP - General Internal Medicine 10/01/20 Maximilian Baum MD [address] [address] Specialist Cardiovascular Disease 03/09/21 documented as of this encounter
--- OUTSIDE RECORDS SUMMARY | 2024-08-21 19:35 | XMS_ITS | Encounter Summary ---
Author Organization [facility] Address [address] [place] [address] Care Team Providers Care Natural Resources Specialist Name Role Phone Ivette Valderrama MD Primary Care Provider [phone] Maximilian Baum MD Unavailable [phone] Encounter Details Date Type Department Care Team Description 03/30/2022 Citizenship Instructor Report Medical Records [address] [place] [address] [facility] [address] [place] [address] Social History Tobacco Use Types Packs/Day Years [...] on filedocumented in this encounter Care Teams Natural Resources Specialist Relationship Specialty Start Date End Date Ivette Valderrama MD 444 [place] [address] PCP - General Internal Medicine 10/01/20 Maximilian Baum MD 300 [place] [address] Specialist Cardiovascular Disease 03/09/21 documented as of this encounter
--- OUTSIDE RECORDS SUMMARY | 2024-08-21 19:35 | XMS_ITS | Encounter Summary ---
Author Organization [facility] Address [address] [place] [address] Care Team Providers Care Roller Helper Name Role Phone Ivette Valderrama MD Primary Care Provider [phone] Maximilian Baum MD Unavailable [phone] Encounter Details Date Type Department Care Team Description 02/06/20[address] Orders [address] [facility] Lung Screening Program [place] 299 [facility] [address] [place] [address] Jennifer Torres MD 299 [facility] Freddie [address] [place] [address] History of tobacco abuse Social History Tobacco Use Types Packs/Day Years [...] suspected to have Coronavirus/COVID-19? No / Unsure 02/03/2023 1:40 PM EDT documented as of this encounter Plan of Treatment Not on file documented as of this encounter Procedures Procedure Name Priority Date/Time Associated Diagnosis Comments CT LOW DOSE LUNG SCREEN ANNUAL Routine 03/30/2022 History of tobacco abuse documented in this encounter Results * CT LOW DOSE LUNG SCREEN ANNUAL (03/30/2022) 03/30/[address] [facility] documented in this encounter Visit Diagnoses Diagnosis History of tobacco abuse Personal history of tobacco use, presenting hazards to health documented in this encounter Care Teams Roller Helper Relationship Specialty Start Date End Date Ivette Valderrama MD [address] [place] [address] PCP - General Internal Medicine 10/01/20 Maximilian Baum MD [address] [address] Specialist Cardiovascular Disease 03/09/21 documented as of this encounter
--- OUTSIDE RECORDS SUMMARY | 2024-08-21 19:35 | XMS_ITS | Encounter Summary ---
Author Organization [facility] Address [address] [place] [address] Care Team Providers Care Quality Improvement Engineer Name Role Phone Shazia Rivas MD Primary Care Provider [facility] Ivette Valderrama MD Primary Care Provider [phone] Maximilian Baum MD Unavailable Encounter Details Date Type Department Care Team Description 06/24/2020 Tactical Air Control Party Report Medical Records [address] [place] [address] Alvin Wang Social History Tobacco Use Types [...] on filedocumented in this encounter Care Teams Quality Improvement Engineer Relationship Specialty Start Date End Date Shazia Rivas MD PCP - General Internal Medicine 06/21/18 09/30/20 Ivette Valderrama MD [address] [place] [address] [id number] PCP - General Internal Medicine 10/01/20 Maximilian Baum MD [address] [place] [address] Specialist Cardiovascular Disease 03/09/21 documented as of this encounter
--- OUTSIDE RECORDS SUMMARY | 2024-08-21 19:35 | XMS_ITS | Encounter Summary ---
Author Organization [facility] Address [address] [place] [address] Care Team Providers Care Cook Helper Name Role Phone Ivette Valderrama MD Primary Care Provider Maximilian Baum MD Unavailable [phone] Reason for Visit * Reason Onset Date Comments refill request 12/16/2020 Encounter Details Date Type Department Care Team Description 12/16/2020 Refill Gastroenterology - [address] [place] [address] Shelley Elmore DScPAS refill request Social [...] on filedocumented in this encounter Care Teams Cook Helper Relationship Specialty Start Date End Date Ivette Valderrama MD 4 [place] [address] PCP - General Internal Medicine 10/01/20 Maximilian Baum MD [address] [place] [address] Specialist Cardiovascular Disease 03/09/21 documented as of this encounter
--- OUTSIDE RECORDS SUMMARY | 2024-08-21 19:35 | XMS_ITS | Encounter Summary ---
Author Organization [facility] Address [address] [place] [address] Care Team Providers Care Director Of Marketing And Promotions Name Role Phone Ivette Valderrama MD Primary Care Provider [phone] Maximilian Baum MD Unavailable Encounter Details Date Type Department Care Team Description 01/05/2021 Telephone Adult Medicine [address] [phone] Ivette Valderrama MD [address] [place] [address] [phone] Social History Tobacco Use Types Packs/Day Years [...] on filedocumented in this encounter Care Teams Director Of Marketing And Promotions Relationship Specialty Start Date End Date Ivette Valderrama MD [address] [place] [address] PCP - General Internal Medicine 10/01/20 Maximilian Baum MD [address] [place] [address] Specialist Cardiovascular Disease 03/09/21 documented as of this encounter
--- OUTSIDE RECORDS SUMMARY | 2024-08-21 19:35 | XMS_ITS | Encounter Summary ---
Author Organization [facility] Address [address] [place] [address] Care Team Providers Care Supervisor Fusing Room Name Role Phone Shazia Rivas MD Primary Care Provider [facility] Ivette Burks MD Primary Care Provider [phone] Maximilian Baum MD Unavailable [phone] Encounter Details Date Type Department Care Team Description 09/08/2020 Business Doc Medical Records [address] [place] [address] Abstract, Provider Social History Tobacco Use Types [...] on filedocumented in this encounter Care Teams Supervisor Fusing Room Relationship Specialty Start Date End Date Shazia Rivas MD PCP - General Internal Medicine 06/21/18 09/30/20 Ivette Valderrama MD [address] [place] [address] PCP - General Internal Medicine 10/01/20 Maximilian Baum MD 300 [facility] 154 [place] [address] Specialist Cardiovascular Disease 03/09/21 documented as of this encounter
--- OUTSIDE RECORDS SUMMARY | 2024-08-21 19:35 | XMS_ITS | Encounter Summary ---
Author Organization [facility] Address [address] [place] [address] Care Team Providers Care Liquor Store Manager Name Role Phone Ivette Valderrama MD Primary Care Provider [phone] Maximilian Baum MD Unavailable [phone] Reason for Visit * Reason Onset Date Comments LAB WORK 01/25/2022 Encounter Details Date Type Department Care Team Description 01/25/2022 Telephone Adult Medicine [address] [phone] Ivette Valderrama MD [address] [place] [address] [phone] LAB WORK Social History Tobacco Use Types [...] Telephone Encounter - Brigette Sharif M.A. - 01/25/2022 4:51 PM EDT Bone density ordered 07/15/2021. Will route to radiology for scheduling. * Telephone Encounter - Andreakevin Herrera - 01/25/2022 4:49 PM EDT Patient calling to request labs be ordered: What lab work is patient requesting? DXA BONE DENSITY STUDY 1+ SITS AXIAL SKEL?? Does patient have an upcoming appointment, if yes when and WITH WHO? yes 04/11/[address] Valderrama Patients PCP is: Ivette Valderrama documented in this encounter Plan of Treatment Not on file documented as of this encounter Visit Diagnoses Not on filedocumented in this encounter Care Teams Liquor Store Manager Relationship Specialty Start Date End Date Ivette Valderrama MD [address] [place] [address] PCP - General Internal Medicine 10/01/20 Maximilian Baum MD 300 [facility] [address] [place] [address] Specialist Cardiovascular Disease 03/09/21 documented as of this encounter
--- OUTSIDE RECORDS SUMMARY | 2024-08-21 19:35 | XMS_ITS | Encounter Summary ---
Author Organization [facility] Address [address] [place] [address] Care Team Providers Care Senior Linux Systems Engineer Name Role Phone Ivette Valderrama MD Primary Care Provider [phone] Maximilian Baum MD Unavailable [phone] Encounter Details Date Type Department Care Team Description 09/13/2023 Pt. Non Urgent Medic al Question OBGYN - [place] [address] [place] [address] Woodrow Sierra DO Social History Tobacco Use [...] on filedocumented in this encounter Care Teams Senior Linux Systems Engineer Relationship Specialty Start Date End Date Ivette Valderrama MD [address] [place] [address] PCP - General Internal Medicine 10/01/20 Maximilian Baum MD [address] [place] [address] Specialist Cardiovascular Disease 03/09/21 documented as of this encounter
--- OUTSIDE RECORDS SUMMARY | 2024-08-21 19:35 | XMS_ITS | Clinical Summary ---
Author Organization [facility] Address [address] [place] [address] Phone Care Team Providers Care Mold Finisher Name Role Phone Lidia Medina Primary Care Provider [phone] Allergies No known active allergies Medications psyllium [...] Team Description 07/30/2024 Telephone Obstetrics & Gynecology [address] [phone] Rebecca Puckett CNM 07/25/2024 5:43 PM EST - 07/25/2024 11:59 PM EST Hospital Encounter Radiology Department [address] [address] Encounter for well woman exam with routine gynecological exam; PMB (postmenopausal bleeding) Discharge Disposition: Home or Self Care 07/12/2024 2:15 PM EST Office Visit Obstetrics & Gynecology [address] [phone] Rebecca Puckett CNM Encounter for well woman [...] DX:Constipation COPD (chronic obstructive pu lmonary disease) ([facility]) 12/01/2014 DX:COPD (chronic obstructive pulmonary disease) ([facility]) Depression 03/17/2015 DX:Depression; C OMMENT: Prev on [...] of knee Compression fracture of T11 vertebra ([facility]) 04/03/2023 DX:Compression fracture of T 11 vertebra ([facility]); COMMENT: 04/[address] Herpes [...] PM EST Procedure visit Obstetrics and Gynecology [address] [phone] Oksana Contreras MD [address] [place], [place] 10/10/2024 3:50 PM EDT Appointment Radiology Department - [address] [address] 03/06/2025 10:10 AM EDT Office Visit Gastroenterology - [place] [address] [facility] [address] [place] [phone] Shelley Elmore PA [address] [place] [address] Health Maintenance Due Date Last Done Comments [...] cm previously. Left ovary not visualized. POS [id number] -------- FINAL REPORT -------- Dictated By: Kimberly Roberts Dictated Date: 07/26/2024 08:16 ET Assigned Physician: Kimberly Roberts Reviewed and Electronically Signed By: Kimberly Roberts Signed Date: 07/26/2024 08:26 ET Workstation ID: [id number] Transcribed By: Self Edit Transcribed Date: 07/26/2024 [...] cm previously. Left ovary not visualized. POS [id number] -------- FINAL REPORT -------- Dictated By: Kimberly Roberts Dictated Date: 07/26/2024 08:16 ET Assigned Physician: Kimberly Roberts Reviewed and Electronically Signed By: Kimberly Roberts Signed Date: 07/26/2024 08:26 ET Workstation ID: [id number] Transcribed By: Self Edit Transcribed Date: 07/26/2024 08:16 ET Rebecca Puckett CNM IMG US PROCEDURES Final Resul t * Chlamydia trachomatis and Neisseria gonorrhoeae molecular study (07/12/2024 3:32 PM EST) Neisseria gonorrhoeae PCR Negative Negative LAB MOLECULAR DIAGNOSTICS METHOD 07/13/2024 12:54 PM EST [facility] Chlamydia trachomatis PCR Negative Negative LAB MOLECULAR DIAGNOSTICS METHOD 07/13/2024 12:54 PM EST [facility] Swab Cervix uteri structure / Unknown Non-blood Collection / Unknown 07/12/2024 3:32 PM EST 07/12/2024 4:26 PM EST Rebecca Puckett CNM LAB MICROBIOLOGY - GENERAL OR DERABLES Final Result [facility] [address] [place] [address], * CT LUNG SCREENING LOW DOSE (04/02/2024 9:07 AM EDT) Anatomical Region Laterality Modality Computed Tomogra phy 04/01/2024 11:3 1 AM EDT Narrative 04/02/2024 9:07 AM EDT [facility] Diagnostic Imaging Department [address] [place] [address] Patient: ??ANGELINE JEFFERSON ?/Age/Sex: 1955 - 68 - F Unit#: ??[id number] ? Location/Status: ??SPDICATLS/REG CLI ? Mnemonic/Ordering Site: [...] Procedure Note Shey Roman MD - 04/23/2024 [facility] Diagnostic Imaging Department [address] [place] [address] Patient: TORYKatelynANGELINE D.O.B./Age/Sex: 1955 - 68 - F Unit#: [id number] Location/Status: SPDICATLS/REG CLI Mnemonic/Ordering Site: [facility] Ordering Physician: CARA PIMENTEL MD CT Lung [...] IMPRESSION: ?? Osteoporosis by WHO criteria. [facility] Department of Internal Medicine recommends using [...] alternative screening schedule based on pebbles Rivera., [facility] July 14, 2011 for patients [...] IMPRESSION: IMPRESSION: Osteoporosis by WHO criteria. [facility] Department of Internal Medicine recommendsusing National [...] alternative screening schedule based on pebbles Rivera., [facility] for patients with osteopenia [...] Documents on File Type Date Recorded Patient Billet Checker Expl anation Health Care Decision (hx) 03/31/2023 [...] (hx) 03/31/2023 AD [place] DIRECTIVE Care Teams Mold Finisher Relationship Specialty Start Date End Date Lidia Medina FNP [address] [place] [address] PCP - General Family Medicine 07/10/24
--- OUTSIDE RECORDS SUMMARY | 2024-08-21 19:35 | XMS_ITS | Encounter Summary ---
Author Organization [facility] Address [address] [place] [address] Care Team Providers Care Audiovisual Lead Technician Name Role Phone Shazia Rivas MD Primary Care Provider Ivette Bynum MD Primary Care Provider [phone] Maximilian Baum MD Unavailable Reason for Visit * Reason Comments E-prescribe Rx Request Encounter Details Date Type Department Care Team Description 04/21/2020 Refill Adult Medicine [address] [address] Andria Kumar PA-C E-prescribe Rx Request Social [...] encounter Miscellaneous Notes * Telephone Encounter - Judy Johnston M.A. - 04/24/2020 9:16 AM EDT Last OV 12/11/19 * Telephone Encounter - Natacha Lou - 04/22/2020 3:00 PM EDT Patient would like script to be: E-PRESCRIBED/FAXED TO PHARMACY WHEN WAS THE PATIENT'S LAST APPOINTMENT IN ADULT MEDICINE? 12/11/19 WHEN WAS THE LAST TIME THE PATIENT SAW THEIR PCP? 06/06/17 Does patient have an upcoming appointment? No, Patient to call (THE MEDICATION REQUESTED IS ON THE MED [...] / Plan: [place] / Product Type: MEDICARE [id number] documented in this encounter Plan of Treatment Not on file documented as of this encounter Visit Diagnoses Not on filedocumented in this encounter Care Teams Audiovisual Lead Technician Relationship Specialty Start Date End Date Shazia Rivas MD PCP - General Internal Medicine 06/21/18 09/30/20 Ivette Valderrama MD [address] [place] [address] PCP - General Internal Medicine 10/01/20 Maximilian Baum MD [address] [place] [address] Specialist Cardiovascular Disease 03/09/21 documented as of this encounter
--- OUTSIDE RECORDS SUMMARY | 2024-08-21 19:35 | XMS_ITS | Encounter Summary ---
Author Organization [facility] Address [address] [place] [address] Care Team Providers Care Automation/Controls Manager Name Role Phone Shazia Rivas MD Primary Care Provider Neil Zee [facility] Primary Care Provider UnavailShazia Chu MD Primary Care Provider Unavaila Evelyn Kendall MD Primary Care Provider Un available Shazia Rivas MD Primary Care Provider Unavaila Ivette Burks MD Primary Care Provider [phone] Maximilian Baum MD Unavailable Reason for Visit * Reason Onset Date Comments Echocardiogram 02/21/2017 Encounter Details Date Type Department Care Team Description 02/21/2017 Telephone Radiology - [address] [address] Shazia Rivas MD Echocardiogram Social History Tobacco [...] on filedocumented in this encounter Care Teams Automation/Controls Manager Relationship Specialty Start Date End Date Shazia Rivas MD PCP - General Internal Medicine 04/08/15 07/17/17 [facility] PCP - General Internal Medicine 07/18/17 08/27/17 Shazia Rivas MD PCP - General Internal Medicine 08/28/17 12/31/17 Evelyn Stratton MD PCP - General Internal Medicine 01/01/1806/20 Shazia Rivas MD PCP - General Internal Medicine 06/21/18 09/30/20 Ivette Valderrama MD [address] [place] [address] PCP - General Internal Medicine 10/01/20 Maximilian Baum MD [address] [place] [address] [address] [place] [address] Specialist Cardiovascular Disease 03/09/21 documented as of this encounter
--- OUTSIDE RECORDS SUMMARY | 2024-08-21 19:35 | XMS_ITS | Encounter Summary ---
Author Organization [facility] Address [address] [place] [address] Care Team Providers Care Wire Mesh Filter Fabricator Name Role Phone Ivette Valderrama MD Primary Care Provider [phone] Maximilian Baum MD Unavailable [phone] Encounter Details Date Type Department Care Team Description 03/26/2021 Aoc Director Combat Operations Officer Report Medical Records [address] [place] [address] Center, [facility] [address] [place] [address] Social History Tobacco Use Types Packs/Day Years [...] on filedocumented in this encounter Care Teams Wire Mesh Filter Fabricator Relationship Specialty Start Date End Date Ivette Valderrama MD [address] [place] [address] PCP - General Internal Medicine 10/01/20 Maximilian Baum MD 300 [facility] [address] [place] [address] Specialist Cardiovascular Disease 03/09/21 documented as of this encounter
--- OUTSIDE RECORDS SUMMARY | 2024-08-21 19:35 | XMS_ITS | Encounter Summary ---
Author Organization [facility] Address [address] [place] [address] Care Team Providers Care Strategic Partnership Representative Name Role Phone Ivette Valderrama MD Primary Care Provider [phone] Maximilian Baum MD Unavailable [phone] Reason for Visit * Reason Onset Date Comments DME Request 06/14/2023 Encounter Details Date Type Department Care Team Description 06/14/2023 Telephone Pulmonology - [place] 175 [facility] [address] [place] [phone] Emerald Mary MD [address] [phone] DME Request Social History Tobacco Use Types [...] on filedocumented in this encounter Care Teams Strategic Partnership Representative Relationship Specialty Start Date End Date Ivette Valderrama MD [address] [place] [address] PCP - General Internal Medicine 10/01/20 Maximilian Baum MD [address] [place] [address] Specialist Cardiovascular Disease 03/09/21 documented as of this encounter
--- OUTSIDE RECORDS SUMMARY | 2024-08-21 19:35 | XMS_ITS | Encounter Summary ---
Author Organization [facility] Address [address] [place] [address] Care Team Providers Care Occ Ther Name Role Phone Shazia Rivas MD Primary Care Provider Glenn Meza Primary Care Provider UnavailShazia Chu MD Primary Care Provider UnavailEvelyn Cordova MD Primary Care Provider Un available Shazia Rivas MD Primary Care Provider UnavailIvette Carver MD Primary Care Provider [phone] Maximilian Baum MD Unavailable Encounter Details Date Type Department Care Team Description 06/03/2017 [facility] Medical Records [address] [place] [id number] [place] [address] Andre Social History Tobacco Use Types Packs/Day [...] on filedocumented in this encounter Care Teams Occ Ther Relationship Specialty Start Date End Date Shazia Rivas MD PCP - General Internal Medicine 04/08/15 07/17/17 [facility], Pcp PCP - General Internal Medicine 07/18/17 08/27/17 Shazia Rivas MD PCP - General Internal Medicine 08/28/17 12/31/17 Evelyn Stratton MD PCP - General Internal Medicine 01/01/1806/20 Shazia Rivas MD PCP - General Internal Medicine 06/21/18 09/30/20 Ivette Valderrama MD [address] [place] [address] PCP - General Internal Medicine 10/01/20 Maximilian Baum MD [address] [place] [address] Specialist Cardiovascular Disease 03/09/21 documented as of this encounter
--- OUTSIDE RECORDS SUMMARY | 2024-08-21 19:35 | XMS_ITS | Encounter Summary ---
Author Organization [facility] Address [address] [place] [address] Care Team Providers Care Medical Terminologist Name Role Phone Shazia Rivas MD Primary Care Provider Neil Zee [facility] Primary Care Provider UnavailShazia Chu MD Primary Care Provider UnavailEvelyn Cordova MD Primary Care Provider Un available Shazia Rivas MD Primary Care Provider Unavaila Ivette Burks MD Primary Care Provider [phone] Maximilian Baum MD Unavailable [phone] Reason for Visit * Reason Onset Date Comments REFERRAL 09/09/2015 Encounter Details Date Type Department Care Team Description 09/09/2015 Telephone Medicine/Pediatrics - [address] [address] Shazia Rivas MD REFERRAL Social History Tobacco [...] on filedocumented in this encounter Care Teams Medical Terminologist Relationship Specialty Start Date End Date Shazia Rivas MD PCP - General Internal Medicine 04/08/15 07/17/17 [facility] Pcp PCP - General Internal Medicine 07/18/17 08/27/17 Shazia Rivas MD PCP - General Internal Medicine 08/28/17 12/31/17 Evelyn Stratton MD PCP - General Internal Medicine 01/01/1806/20 Shazia Rivas MD PCP - General Internal Medicine 06/21/18 09/30/20 Ivette Valderrama MD [address] [place] [address] PCP - General Internal Medicine 10/01/20 Maximilian Baum MD [address] [place] [address] Specialist Cardiovascular Disease 03/09/21 documented as of this encounter
--- OUTSIDE RECORDS SUMMARY | 2024-08-21 19:35 | XMS_ITS | Encounter Summary ---
Author Organization [facility] Address [address] [place] [address] Care Team Providers Care Investigator Fraud Name Role Phone Ivette Valderrama MD Primary Care Provider [phone] Maximilian Baum MD Unavailable [phone] Encounter Details Date Type Department Care Team Description 09/21/2023 Telephone OBGYN - [employer] [facility] [address] [place], [place] [phone] Yazmin Perez CNM [address] [place] [address] [phone] Social History Tobacco Use Types Packs/Day Years [...] on filedocumented in this encounter Care Teams Investigator Fraud Relationship Specialty Start Date End Date Ivette Valderrama MD [address] [place] [address] [id number] PCP - General Internal Medicine 10/01/20 Maximilian Baum MD 300 [facility] [address] [place] [address] Specialist Cardiovascular Disease 03/09/21 documented as of this encounter
--- OUTSIDE RECORDS SUMMARY | 2024-08-21 19:35 | XMS_ITS | Encounter Summary ---
Author Organization [facility] Address [address] [place] [address] Care Team Providers Care Finishing Machine Operator Name Role Phone Ivette Valderrama MD Primary Care Provider Maximilian Baum MD Unavailable [phone] Encounter Details Date Type Department Care Team Description 04/03/2023 Management Tech Report Medical Records [address] [place] [address] [facility] Social History Tobacco Use Types Packs/Day [...] on filedocumented in this encounter Care Teams Finishing Machine Operator Relationship Specialty Start Date End Date Ivette Valderrama MD [address] [place] [address] PCP - General Internal Medicine 10/01/20 Maximilian Baum MD [address] [place] [address] Specialist Cardiovascular Disease 03/09/21 documented as of this encounter
--- OUTSIDE RECORDS SUMMARY | 2024-08-21 19:35 | XMS_ITS | Encounter Summary ---
Author Organization [facility] Address [address] [place] [address] Care Team Providers Care Chicken Stuffer Name Role Phone Patrick Santa MD Primary Care Provider [phone] Shazia Rivas MD Primary Care Provider Glenn Meza Primary Care Provider UnavailShazia Chu MD Primary Care Provider UnavailEvelyn Cordova MD Primary Care Provider Un available Shazia Rivas MD Primary Care Provider UnavailIvette Carver MD Primary Care Provider [phone] Maximilian Baum MD Unavailable [phone] Encounter Details Date Type Department Care Team Description 12/03/2014 Release of Information Medical Records [address] [place] [address] Abstract, Provider Social History Tobacco Use Types [...] on filedocumented in this encounter Care Teams Chicken Stuffer Relationship Specialty Start Date End Date Patrick Santa MD [address] [place] [address] PCP - General Internal Medicine 11/14/14 04/07/15 Shazia Rivas MD [address] [place] [address] PCP - General Internal Medicine 04/08/15 07/17/17 [facility], Pcp [address] [place], [place] PCP - General Internal Medicine 07/18/17 08/27/17 Shazia Rivas MD [address] [place], [place] PCP - General Internal Medicine 08/28/17 12/31/17 Evelyn Stratton MD [address] [place], [place] PCP - General Internal Medicine 01/01/18 06/20/18 Shazia Rivas MD [address] [place], [place] PCP - General Internal Medicine 06/21/18 09/30/20 Ivette Valderrama MD [address] [place] [address] PCP - General Internal Medicine 10/01/20 Maximilian Baum MD [address] [place] [address] Specialist Cardiovascular Disease 03/09/21 documented as of this encounter
--- OUTSIDE RECORDS SUMMARY | 2024-08-21 19:35 | XMS_ITS | Encounter Summary ---
Author Organization [facility] Address [address] [place] [address] Care Team Providers Care Wet Process Miller Head Name Role Phone Ivette Valderrama MD Primary Care Provider [phone] Maximilian Baum MD Unavailable [phone] Encounter Details Date Type Department Care Team Description 09/28/2023 Telephone OBGYN - [address] [place], [place] [phone] Alejandra Worley PA-C [address] [place] [phone] Social History Tobacco Use Types Packs/Day [...] on filedocumented in this encounter Care Teams Wet Process Miller Head Relationship Specialty Start Date End Date Ivette Valderrama MD [address] [place], [place] [phone] PCP - General Internal Medicine 10/01/20 Maximilian Baum MD 300 [facility] [address] [place] [address] Specialist Cardiovascular Disease 03/09/21 documented as of this encounter
--- OUTSIDE RECORDS SUMMARY | 2024-08-21 19:35 | XMS_ITS | Encounter Summary ---
Author Organization [facility] Address [address] [place] [address] Care Team Providers Care Flavor Extractor Name Role Phone Shazia Rivas MD Primary Care Provider Jaycee Ivette Burks MD Primary Care Provider [phone] Maximilian Baum MD Unavailable [phone] Reason for Visit * Reason Comments E-prescribe Rx Request Encounter Details Date Type Department Care Team Description 07/26/2020 Refill Adult Medicine [address] [address] Andria Kumar PA-C E-prescribe Rx Request Social [...] / Plan: [place] / Product Type: MEDICARE [id number] documented in this encounter Plan of Treatment Not on file documented as of this encounter Visit Diagnoses Not on filedocumented in this encounter Care Teams Flavor Extractor Relationship Specialty Start Date End Date Shazia Rivas MD PCP - General Internal Medicine 06/21/18 09/30/20 Ivette Valderrama MD [address] [place] [address] PCP - General Internal Medicine 10/01/20 Maximilian Baum MD [address] [place] [address] Specialist Cardiovascular Disease 03/09/21 documented as of this encounter
--- OUTSIDE RECORDS SUMMARY | 2024-08-21 19:35 | XMS_ITS | Encounter Summary ---
Author Organization [facility] Address [address] [place] [address] Care Team Providers Care Geotechnician Name Role Phone Lidia Medina PLY SPLICER Primary Care Provider [phone] Encounter Details Date Type Department Care Team (Late st Contact Info) Description 07/30/2024 Telephone Obstetrics & Gynecology - [address] [phone] Rebecca Puckett, [facility] [address] [place] [address] Social History Tobacco Use Types Packs/Day Years [...] patient had this problem? Last week Pt???s SCRAP METAL COLLECTOR provider: Rebecca Puckett CNM Last menstrual period (LMP) or EDC (due date): na documented in this encounter Plan of Treatment Upcoming Encounters Date Type Department Care Team (Late st Contact Info) Description 08/26/2024 3:00 PM EST Procedure visit Obstetrics and Gynecology - [address] [phone] Oksana Contreras MD [address] [place], [place] 10/10/2024 3:50 PM EDT Appointment Radiology Department - [address] [phone] 03/06/2025 10:10 AM EDT Office Visit Gastroenterology - [place] [address] [place] 175 [facility] [address] [place] [phone] Shelley Elmore PA 175 [facility] [address] [place] [address] documented as of this encounter Visit Diagnoses Not on filedocumented in this encounter Care Teams Geotechnician Relationship Specialty Start Date End Date Lidia Medina FNP 140 [facility] PCP - General Family Medicine 07/10/24 documented as of this encounter
--- OUTSIDE RECORDS SUMMARY | 2024-08-21 19:35 | XMS_ITS | Encounter Summary ---
Author Organization [facility] Address [address] [place] [address] Care Team Providers Care Transport Driver Name Role Phone Ivette Valderrama MD Primary Care Provider [phone] Maximilian Baum MD Unavailable [phone] Reason for Visit * Reason Onset Date Comments Testing 01/14/2022 DXA BONE DENSITY STUDY 1+ SITS AXIAL SKEL Encounter Details Date Type Department Care Team Description 01/14/2022 Telephone Adult Medicine [address] [phone] Ivette Valderrama MD [address] [place] [address] [phone] Testing (DXA BONE DENSITY STUDY 1+ SITS [...] on filedocumented in this encounter Care Teams Transport Driver Relationship Specialty Start Date End Date Ivette Valderrama MD [address] [place] [address] PCP - General Internal Medicine 10/01/20 Maximilian Baum MD 300 [facility] [address] [place] [address] Specialist Cardiovascular Disease 03/09/21 documented as of this encounter
--- OUTSIDE RECORDS SUMMARY | 2024-08-21 19:35 | XMS_ITS | Encounter Summary ---
Author Organization [facility] Address [address] [place] [address] Care Team Providers Care Burnisher And Bumper Name Role Phone Shazia Rivas MD Primary Care Provider Glenn Meza Primary Care Provider UnavailShazia Chu MD Primary Care Provider UnavailEvelyn Cordova MD Primary Care Provider Un available Shazia Rivas MD Primary Care Provider Unavaila Ivette Burks MD Primary Care Provider [phone] Maximilian Baum MD Unavailable [phone] Encounter Details Date Type Department Care Team Description 06/02/2017 [facility] Medical Records [address] [place] [address] Guanaco Flaherty MD Social History Tobacco Use [...] on filedocumented in this encounter Care Teams Burnisher And Bumper Relationship Specialty Start Date End Date Shazia Rivas MD PCP - General Internal Medicine 04/08/15 07/17/17 [facility], Glenn PCP - General Internal Medicine 07/18/17 08/27/17 Shazia Rivas MD PCP - General Internal Medicine 08/28/17 12/31/17 Evelyn Stratton MD PCP - General Internal Medicine 01/01/1806/20 Shazia Rivas MD PCP - General Internal Medicine 06/21/18 09/30/20 Ivette Valderrama MD [address] [place] [address] PCP - General Internal Medicine 10/01/20 Maximilian Baum MD [address] [place] [address] Specialist Cardiovascular Disease 03/09/21 documented as of this encounter
--- OUTSIDE RECORDS SUMMARY | 2024-08-21 19:35 | XMS_ITS | Encounter Summary ---
Author Organization [facility] Address [address] [place] [address] Care Team Providers Care Retail Store Associate Name Role Phone Ivette Valderrama MD Primary Care Provider [phone] Maximilian Baum MD Unavailable [phone] Encounter Details Date Type Department Care Team Description 04/03/2024 [facility] Medical Records [address] [place], [place] [id number] [place] [address] Social History Tobacco Use Types Packs/Day Years [...] on filedocumented in this encounter Care Teams Retail Store Associate Relationship Specialty Start Date End Date Ivette Valderrama MD [address] [place] [address] PCP - General Internal Medicine 10/01/20 Maximilian Baum MD [address] [place] [address] Specialist Cardiovascular Disease 03/09/21 documented as of this encounter
== END 2024-08-21 16:38 | disposition home or self-care (01) ==
LOC: HO.HMCFM 16:05
PROVIDERS: PCP Nurse Practitioner Family; Visit Provider Nurse Practitioner Family
DX: E78.5 Hyperlipidemia, unspecified (principal)

== ENCOUNTER 2024-09-02 11:52 | Outpatient (AMB) | payer OTHER, SELFPAY ==
--- NOTE | 2024-09-02 11:54 | A.OFFPC_ITS ---
Vital Signs 09/02/24 12:03 Height 5 ft 5 in Weight 144 lb 8 oz BMI 24.0 BP 125/77 Blood Pressure Location Rt brachial Position Sitting Respiration 16 Pulse 84 Pulse Source Pulse Oximeter Temp 98.1 F Temp Source Oral Pulse Oximetry (%) 98 Oxygen Delivery Method Room Air Intake Visit Reasons: Wants to go over some med. questions she has. 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' Aid Worker Required: No Is last menstrual period known: No Post menopausal: No Patient : No Allergies No Known Allergies Allergy (Verified 09/02/24 12:28) Medication List - Last Reconciled 09/02/24 by Lidia Medina CNP albuterol sulfate 90 mcg/actuation 2 puffs inhalation Q6H PRN atorvastatin 20 mg PO BEDTIME 30 days [id number] 50 mcg-75 mcg -100 mg caps PO celecoxib (Celebrex) 200 mg PO DAILY cholecalciferol (vitamin D3) 50 mcg PO DAILY conjugated estrogens (Premarin) 0.625 mg PO DAILY cyclobenzaprine 10 mg PO TID PRN diclofenac sodium 1% topical fluticasone propion-salmeterol 250-50 mcg/dose (Wixela Inhub) 1 inh inhalation BID ipratropium-albuterol 0.5 mg-3 mg(2.5 mg base)/3 mL 3 mL inhalation QID PRN linaclotide (Linzess) 72 mcg PO DAILY lisdexamfetamine (Vyvanse) 20 mg PO QAM magnesium hydroxide (Dulcolax (magnesium hydroxide)) 5 mL PO DAILY PRN omeprazole 20 mg PO DAILY polyethylene glycol 3350 17 grams PO DAILY tiotropium bromide 2.5 mcg/actuation (Spiriva Respimat) 2 puffs inhalation DAILY Tobacco use date assessed: 09/02/24 Fall risk assessment: 2 + Falls in past year Last assessed Fall Risk: 09/02/24 Dental Screening Dental Screen Date: 09/02/24 Did you have a dental visit in the last 12 months?: Yes Did you have a dental problem in the last 6 months where you did not have access to dental care?: No Was dental information given to patient?: Patient has dentist HPI HPI Comments History of Present Illness Details She reports brain fog and forgetfulness which has been progressive for the past 4 months. Denies anxiety and depression. She notes difficulty falling or staying asleep; she sleeps an average of 6 hours. She is unsure whether she snores and has never had a sleep study. [facility] Medical History (Updated 09/02/24 @ 12:42 by Lidia Medina CNP) Non-alcoholic fatty liver disease History of torn meniscus of left knee Vertigo Imbalance Memory loss Light headed Headache STD (female) Incontinence Back injury Osteoporosis Arthritis Hypothyroid COPD (chronic obstructive pulmonary disease) Family History (Updated 06/03/24 @ 12:15 by Iman Morales MA) Father Alcohol abuse Brother Alcohol abuse High blood pressure Diabetes Mother High blood pressure Diabetes Thyroid disorder Uterus cancer Maternal Grandmother Diabetes Maternal Grandmother No problems noted. Maternal Grandfather Diabetes Social History Housing: House Patient Tobacco Use Status: Former Tobacco user Tobacco use type: Cigarette Cigarette Packs Per Day: 1.5 Cigarettes Per Day: 30 e-Cigarette/Vaping Use: Never Used Second Hand Smoke Exposure: No Patient : No service: No Current occupational status: retired Current occupational exposures/hazards: No Cognitive needs: No Hearing needs: No Vision needs: Yes Questionnaire PHQ-9 Over the last 2 weeks, how often have you been bothered by any of the following problems? 1. Little interest or pleasure in doing things: several days 2. Feeling down, depressed, or hopeless: not at all 3. Trouble falling or staying asleep, or sleeping too much: several days 4. Feeling tired or having little energy: nearly every day 5. Poor appetite or overeating: not at all 6. Feeling bad about yourself - or that you are a failure or have let yourself or your family down: not at all 7. Trouble concentrating on things, such as reading the newspaper or watching television: nearly every day 8. Moving or speaking so slowly that other people could have noticed. Or the opposite - being so fidgety or restless that you have been moving around a lot more than usual: not at all 9. Thoughts that you would be better off or of hurting yourself in some way: not at all Total score: 8 Depression Screening Interpretation: Positive Depression Screening Done: Yes Source: Developed by Drs. Wander Blake, Carlyn B.W. Nikolay Hernandez and colleagues, with an educational kenney from [employer]. Thrive Questionnaire Date Thrive assessed: 09/02/24 I am a: Patient What is your living situation today?: I have a steady place to live Within the past 12 months, did the food you bought not last and you didn't have the money to get more?: Never true Within the past 12 months, did you worry whether your food would run out before you got money to buy more?: Sometimes True Do you have trouble paying for medicines?: I choose not to answer this question Do you have trouble getting transportation to medical appointments?: I choose not to answer this question Do you have trouble paying your heating and electricity bill?: Yes Do you have trouble taking care of your child, family member or friend?: I choose not to answer this question Do you have trouble with day-to-day activities such as bathing, preparing meals, shopping, managing finances, etc.?: Yes Are you currently unemployed and looking for a job?: No Are you interested in more education?: I choose not to answer this question Please select the resources that you would like help with: Food, Paying for medicine, Utilities and Care for elder or disabled Currently or been in a relationship where the following occur: No concerns reported THRIVE Score: 2 AUDIT C Alcohol Use Questionnaire (AUDIT-C) 1. How often do you have a drink containing alcohol?: 2-4 times a month 2. How many drinks containing alcohol do you have on a typical day when you are drinking?: 1 or 2 3. How often do you have six or more drinks on one occasion?: Never Total Score: 2 YENNY-7 AMB Questionnaire YENNY-7 Date YENNY - 7 assessed: 09/02/24 Feeling nervous, anxious, or on edge: 1 = Several days Not being able to stop or control worryin = Several days Worrying too much about different things: 1 = Several days Trouble relaxin = Not at all Being so restless that it is hard to sit still: 0 = Not at all Becoming easily annoyed or irritable: 0 = Not at all Feeling afraid as if something awful might happen: 0 = Not at all Total YENNY-7 score (0-4 normal; 5-9 mild; 10-14 moderate; 15-21 severe): 3 Source: Developed by Drs. Wander Blake, Carlyn Hernandez, Nikolay Solares and colleagues, with an educational kenney from [employer] YENNY-7 Assessment Billing YENNY-7 Assessment Tool: YENNY-7 Assessment 24025 Review of Systems Const Details: Const Denies chills, Denies fatigue, Denies fever(s), Denies headache(s) and Denies weakness ENT Denies dizziness and Denies headache(s) Card Denies chest pain, Denies lightheadedness, Denies dyspnea and Denies other (Palpitations) Resp Denies cough, Denies dyspnea, Denies wheezing and Denies other ( shortness of breath) GI Denies abdominal pain, Denies melena, Denies hematochezia, Denies change in bowel habits, Denies dyspepsia and Denies nausea Denies hematuria and Denies dysuria Musc Denies abnormal gait, Denies myalgias, Denies arthralgias, Denies numbness and Denies tingling Skin/Breast Denies rash, Denies unusual bruising and Denies wounds Neuro Denies abnormal gait, Denies dizziness, Denies headache(s), Denies memory loss, Denies numbness, Denies Sensory deficit (Neuro), Denies tingling and Denies weakness Psych Denies anxiety, Denies depression, Denies memory loss Endo Denies cold intolerance, Denies fatigue, Denies heat intolerance, Denies polydipsia and Denies polyuria Aller/Immun Denies wheezing Physical exam (Primary Care) Vital Signs: Last Vital Signs Temp 98.1 F 09/02/24 12:03 Pulse 84 09/02/24 12:03 Resp 16 09/02/24 12:03 BP 125/77 09/02/24 12:03 Pulse Ox 98 09/02/24 12:03 Oxygen Delivery Method Room Air 09/02/24 12:03 BMI result Body Mass Index 24.0 Tobacco/Smoking Status: Tobacco use Status Tobacco use date assessed 09/02/24 09/02/24 12:05 Patient Tobacco Use Status Former Tobacco user 09/02/24 11:54 Tobacco use type Cigarette 09/02/24 11:54 e-Cigarette/Vaping Use Never Used 09/02/24 11:54 PHQ-9: PHQ-9 Score PHQ-9: Total score 8 09/02/24 12:06 Depression Screening Interpretation: Positive Thrive Assessment: Date of Thrive Assessment Date Thrive assessed 09/02/24 09/02/24 12:06 Currently or been in a relationship where the following occur: No concerns reported Const Other: General: no acute distress and well developed Nutritional Appearance: well nourished Orientation/consciousness: patient oriented x3 [facility] Head: Yes normocephalic and Yes atraumatic Eyes General: appearance normal, both eyes and all related structures Pupils: Equal, round and reactive pupils present EOM: EOMs intact bilaterally Resp Effort & Inspection: normal respiratory effort Auscultation: clear to auscultation bilaterally Cardio Rate: regular rate Rhythm: regular rhythm Heart sounds: S1 normal heart sound present, S2 normal heart sound present, no gallops, no murmurs and no rubs GI Palpation (GI): No Abdominal aortic bruit present, Soft to palpation, nontender, No hepatosplenomegaly present and No Rebound tenderness present Auscultation: normal bowel sounds General: Yes no CVA tenderness Back/Spine/Pelvis Back: no CVA tenderness Cervical Spine: cervical ROM normal and No Cervical spine tenderness Thoracic/Lumbar Spine: thoraco-lumbar ROM normal, No pain with thoraco-lumbar ROM, No thoracic spinal tenderness and No lumbar spinal tenderness Extrem General: Yes normal to inspection, No edema and No calf tenderness Skin General: warm and dry. Normal skin color. Normal skin turgor Neuro General: patient oriented x3, gait normal and no focal neuro deficit Cranial nerves: Yes Equal, round and reactive pupils present Cognition (Neuro): normal cognition Gait exam (Neuro): Normal gait present Sensory Exam: No Sensory deficit (Neuro) Psych Appearance: grossly normal Affect: normal affect Attitude: cooperative Thought process: Normal thought process present Coding Level of Care Code Est Pt Level 4 (18020) Diagnoses Brain fog R41.89 Forgetfulness R68.89 Sleep disturbance G47.9 Additional Codes YENNY-7 Assessment Billing - YENNY-7 Assessment Tool: YENNY-7 Assessment 08001 ([id number]) Assessment & Plan Assessment & Plan (1) Brain fog: Code(s): R41.89 - Other symptoms and signs involving cognitive functions and awareness Category: Medical Plan: Brain fog and forgetfulness which has been progressive for the past 4 months. No anxiety or depression. She has difficulty falling asleep or maintaining sleep and sleeps an average of 6 hours. Recent lab results were unrevealing. She is unsure of snoring and never had a sleep study. Will start trazodone 25 mg at night as needed for sleep; advised to take as prescribed. Instructed on the risks, benefits, and potential adverse reactions of the medication. Referred to sleep medicine for sleep study. Follow-up with worsening or new symptoms. May referred to Neurology. Verbalized understanding and agreed with treatment plan. (2) Forgetfulness: Code(s): R68.89 - Other general symptoms and signs Category: Medical Plan: Plan as above. (3) Sleep disturbance: Code(s): G47.9 - Sleep disorder, unspecified Category: Medical Plan: Plan as above. Orders: Referrals Sleep Medicine Referral G47.9 - Sleep disorder, unspecified, R41.89 - Other symptoms and signs involving cognitive functions and awareness, R68.89 - Other general symptoms and signs Medications: New trazodone 25 mg (1/2 x 50 mg) PO BEDTIME 30 days PRN 30 tabs 3RF sleep
[2024-09-02 12:03] VITALS: BP 125/77; PULSE 84; RESP 16; TEMP 36.7; O2SAT 98; BMI 24.0
--- OUTSIDE RECORDS SUMMARY | 2024-09-02 13:34 | XMS_ITS | Encounter Summary ---
Author Organization [facility] Address [address] [place] [address] Care Team Providers Care Boat Patcher Plastic Name Role Phone Ivette Valderrama MD Primary Care Provider [phone] Maximilian Baum MD Unavailable [phone] Reason for Visit * Reason Comments E-prescribe Rx Request Encounter Details Date Type Department Care Team Description 06/07/2023 [facility] [address] [place] [phone] Salina Polanco APRN E-prescribe Rx Request [...] on filedocumented in this encounter Care Teams Boat Patcher Plastic Relationship Specialty Start Date End Date Ivette Valderrama MD [address] [place] [address] PCP - General Internal Medicine 10/01/20 Maximilian Baum MD [address] [address] Specialist Cardiovascular Disease 03/09/21 documented as of this encounter
--- OUTSIDE RECORDS SUMMARY | 2024-09-02 13:34 | XMS_ITS | Clinical Summary ---
Author Organization [facility] Address [address] [place] [address] Phone Care Team Providers Care Senior Oracle Dba Name Role Phone Lidia Medina Primary Care Provider [phone] Allergies No known active allergies Medications psyllium [...] (one) time each day in the morning. 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 Vitamin [...] Encounters Date Type Department Care Team Description 08/26/2024 3:00 PM EST Procedure visit Obstetrics and Gynecology - [address] [phone] Oksana Contreras MD PMB (postmenopausal bleeding) (Primary Dx); Thickened endometrium 07/30/2024 Telephone Obstetrics & Gynecology [address] [phone] Rebecca Puckett CNM 07/25/2024 5:43 PM EST - 07/25/2024 11:59 PM EST Hospital Encounter Radiology Department - [address] [phone] Encounter for well woman exam with routine gynecological exam; PMB (postmenopausal bleeding) Discharge Disposition: Home or Self Care 07/12/2024 2:15 PM EST Office Visit Obstetrics & Gynecology [address] [address] Rebecca Puckett CNM Encounter for well woman [...] DX:Constipation COPD (chronic obstructive pu lmonary disease) ([facility]) 12/01/2014 DX:COPD (chronic obstructive pulmonary disease) ([facility]) Depression 03/17/2015 DX:Depression; C OMMENT: Prev [...] of knee Compression fracture of T11 vertebra (CMS/HCC) 04/03/2023 DX:Compression fracture of T 11 vertebra (HCC); COMMENT: 04/[address] Herpes [...] Sign Reading Time Taken Comments Blood Pressure 120/72 08/26/2024 3:12 PM EST Pulse 88 08/26/2024 3:12 PM EST Temperature - - Respiratory Rate 12 08/26/2024 3:12 PM EST Oxygen Saturation - - Inhaled Oxygen Concentration - - Weight 65.5 kg (144 lb 6.4 oz) 08/26/2024 3:12 P M EST Height 165.1 cm (5' 5 ) 08/26/2024 3:12 PM EST Body Mass Index 24.03 08/26/2024 3:12 PM EST Plan of Treatment Upcoming Encounters Date Type Department Care Team (Late st Contact Info) Description 10/10/2024 3:50 PM EDT Appointment Radiology Department - [address] [phone] 03/06/2025 10:10 AM EDT Office Visit Gastroenterology - [address] [facility] [address] [place] [phone] Shelley Elmore PA [address] [place] [address] Health Maintenance Due Date Last Done Comments [...] Procedure Name Priority Date/Time Associated Diagnosis Comments TISSUE EXAM Routine 08/26/2024 3:36 PM EST PMB (postmenopausal bleeding) Thickened endometrium US PELVIS NON OB COMPLETE W TRANSVAGINAL [...] Recently Relevant to Health Maintenance Results * Tissue exam (08/26/2024 3:36 PM EST) Final Diagnosis Endometrium, biopsy: Scant superficial strips of atrophic endometrial epithelium and detached fragments of benign squamous mucosa. Endometrial stroma is not identified. 08/30/2024 11:32 AM EST [facility] Clinical Information PMB (postmenopausal bleeding) (N95.0) Thickened endometrium (R93.89) 08/30/2024 11:[address] [facility] Gross Description A. Endometrium, biopsy: Labeled EMB, Endo . Received in formalin is an approximately 0.8 x 0.6 x 0.2 cm aggregate of soft to mucoid, clear to white tissue fragments, which is wrapped in paper and submitted in toto in one cassette, multiple pieces, x2. Please note: Small tissue fragments may not survive processing. dvb/DG 08/30/2024 11:[address] [facility] Disclaimer Unless otherwise specified, all tissue is 10% NB formalin fixed and paraffin embedded. 08/30/2024 11:[address] [facility] Tissue Endometrial structure / Unknown Non-blood Collection / Unknown 08/26/2024 3:36 PM EST 08/26/2024 3:36 PM EST Oksana Contreras MD LAB PATHOLOGY ORDERABLES Fi nal Result [facility] [address] [place] [address], [place] [phone] * US Pelvis Non OB Complete w [...] cm previously. Left ovary not visualized. POS [id number] -------- FINAL REPORT -------- Dictated By: Kimberly Roberts Dictated Date: 07/26/2024 08:16 ET Assigned Physician: Kimberly Roberts Reviewed and Electronically Signed By: Kimberly Roberts Signed Date: 07/26/2024 08:26 ET Workstation ID: [id number] Transcribed By: Self Edit Transcribed Date: 07/26/2024 [...] cm previously. Left ovary not visualized. POS [id number] -------- FINAL REPORT -------- Dictated By: Kimberly Roberts Dictated Date: 07/26/2024 08:16 ET Assigned Physician: Kimberly Roberts Reviewed and Electronically Signed By: Kimberly Roberts Signed Date: 07/26/2024 08:26 ET Workstation ID: [id number] Transcribed By: Self Edit Transcribed Date: 07/26/2024 08:16 ET Rebecca Puckett CNM IMG US PROCEDURES Final Resul t * Chlamydia trachomatis and Neisseria gonorrhoeae molecular study (07/12/2024 3:32 PM EST) Neisseria gonorrhoeae PCR Negative Negative LAB MOLECULAR DIAGNOSTICS METHOD 07/13/2024 12:[address] [facility] Chlamydia trachomatis PCR Negative Negative LAB MOLECULAR DIAGNOSTICS METHOD 07/13/2024 12:[address] [facility] Swab Cervix uteri structure / Unknown Non-blood Collection / Unknown 07/12/2024 3:32 PM EST 07/12/2024 4:26 PM EST Rebecca Puckett CNM LAB MICROBIOLOGY - GENERAL OR DERABLES Final Result [facility] [address] [place] [address], * CT LUNG SCREENING LOW DOSE (04/02/2024 9:07 AM EDT) Anatomical Region Laterality Modality Computed Tomogra phy 04/01/2024 11:3 1 AM EDT Narrative 04/02/2024 9:[address] [facility] Diagnostic Imaging Department [address] [place] [address] Patient: ??ANGELINE JEFFERSON ?/Age/Sex: 1955 - 68 - F Unit#: ??[id number] ? Location/Status: ??SPDICATLS/REG CLI ? Mnemonic/Ordering Site: ??CTLUNGLD/SPCT Ordering Physician: ??CARA PIMENTEL MD CT Lung Screening Low Dose - 04/01/24 - 115 Report Status:Signed PROCEDURE: CT chest lung cancer [...] Signed by: ??SHEY ROMAN MD Dic Date/Time: ??04/02/24899 Sign date/Time: ??04/02/24906 Procedure Note Shey Roman MD - 04/23/2024 [facility] Diagnostic Imaging Department [address] [place], [place] [id number] Patient: ANGELINE JEFFERSON /Age/Sex: 1955 - 68 - F Unit#: [id number] Location/Status: SPDICATLS/REG CLI Mnemonic/Ordering Site: [facility] Ordering Physician: CARA PIMENTEL MD CT [...] ROMAN MD Dic Date/Time: 04/02/24899 Sign date/Time: 04/02/24 09 us Cara Pimentel MD IMG CT PROCEDURES Final Result * SCREENING MAMMOGRAPHY [...] IMPRESSION: ?? Osteoporosis by WHO criteria. [facility] Department of Internal Medicine recommends using [...] Optional alternative screening schedule based on pebbles Rivear., [facility] July 14, 2011 for [...] IMPRESSION: IMPRESSION: Osteoporosis by WHO criteria. [facility] Department of Internal Medicine recommendsusing National [...] alternative screening schedule based on pebbles Rivera., [facility] for patients with [...] Documents on File Type Date Recorded Patient Bill Of Lading Clerk Expl anation Health Care Decision (hx) 03/31/2023 [...] (hx) 03/31/2023 AD [place] DIRECTIVE Care Teams Senior Oracle Dba Relationship Specialty Start Date End Date Lidia Medina FNP [address] [place] [address] PCP - General Family Medicine 07/10/24
--- OUTSIDE RECORDS SUMMARY | 2024-09-02 13:34 | XMS_ITS | Encounter Summary ---
Author Organization [facility] Address [address] [place] [address] Care Team Providers Care Atm Mechanic Name Role Phone Ivette Valderrama MD Primary Care Provider [phone] Maximilian Baum MD Unavailable [phone] Reason for Visit * Reason Onset Date Comments Mychart Rx Refill 03/01/2022 Encounter Details Date Type Department Care Team Description 03/01/2022 Pt. Non Urgent Medical Question Adult Medicine [address] [phone] Latasha Barron PA-C [address] [place] [phone] Social History Tobacco Use Types Packs/Day Years [...] on filedocumented in this encounter Care Teams Atm Mechanic Relationship Specialty Start Date End Date Ivette Valderrama MD [address] [place] [id number] PCP - General Internal Medicine 10/01/20 Maximilian Baum MD [address] [place] [address] Specialist Cardiovascular Disease 03/09/21 documented as of this encounter
--- OUTSIDE RECORDS SUMMARY | 2024-09-02 13:34 | XMS_ITS | Encounter Summary ---
Author Organization [facility] Address [address] [place] [address] Care Team Providers Care Hide Sorter Name Role Phone Lidia Medina CHELSY Primary Care Provider [phone] Reason for Visit * Reason Comments Vaginal Bleeding Pmb Encounter Details Date Type Department Care Team (Latest Contact Info) Description 08/26/2024 3:00 PM EST Procedure visit Obstetrics and Gynecology [address] [phone] Oksana Contreras MD [address] [place] [address] PMB (postmenopausal bleeding) (Primary Dx); Thickened endometrium Social History Tobacco Use Types Packs/Day Years [...] fi le documented as of this encounter Last Filed Vital Signs Vital Sign Reading [...] Mass Index 24.03 08/26/2024 3:12 PM EST documented in this encounter Progress Notes * Oksana Contreras MD - 08/26/2024 3:00 PM EST Procedure Note Indication for Procedure Encounter Diagnoses Name Primary? PMB (postmenopausal bleeding) Yes Thickened endometrium Prior to Admission medications Medication Sig Start Date End Date Taking? Authorizing Provider albuterol HFA (PROAIR HFA ; PROVENTIL HFA ; VENTOLIN HFA) 90 mcg/actuation inhaler Inhale 2 puffs by mouth every 6 (six) hours if needed. 02/03/23 Historical Provider, cetirizine (ZyrTEC) 10 mg tablet Take 1 tablet (10 mg total) by mouth 1 (one) time each day. 03/29/24 Historical Provider, cholecalciferol (VITAMIN D-3) 50 mcg (2,000 unit) capsule Take 1 capsule (2,000 Units total) by mouth 1 (one) time each day. 06/22/21 Historical Provider, conjugated estrogens (Premarin) vaginal cream Insert 1 g into the vagina. 12/31/21 Historical Provider, cyanocobalamin (VITAMIN B-12) 100 mcg tablet Take 1 tablet (100 mcg total) by mouth 1 (one) time each day. 03/19/21 Historical Provider, cyclobenzaprine (FLEXERIL) 10 mg tablet TAKE 1 TABLET 3 TIMES A DAY NEEDED FOR MUSCLE SPASM 06/28/24 Historical Provider, diclofenac (VOLTAREN) 1 % topical gel Apply 2 g topically. 01/08/24 Historical Provider, DULCOLAX, MAGNESIUM HYDROXIDE, ORAL Take by mouth. Historical Provider, fluticasone-salmeterol (ADVAIR DISKUS) 250-50 mcg/dose diskus inhaler Inhale 1 puff by mouth 2 (two) times a day. 06/14/23 Historical ProviderMD hydrocortisone 2.5 % cream APPLY TO AFFECTED AREA TWICE DAILY FOR 7 DAYS 07/15/24 LEXUS Licona ipratropium-albuteroL (DUONEB) 0.5-2.5 mg/3 mL nebulizer solution Inhale 3 mL by mouth. 06/14/23 Historical ProviderMD linaCLOtide (Linzess) 72 mcg capsule Take 1 capsule (72 mcg total) by mouth 1 (one) time each day. 03/06/24 Historical ProviderMD lisdexamfetamine (Vyvanse) 20 mg capsule Take 1 capsule (20 mg total) by mouth 1 (one) time each day in the morning. Max Daily Amount: 20 mg 02/28/24 Historical ProviderMD omeprazole (PriLOSEC) [address] capsule TAKE 1 CAPSULE BY MOUTH IN THE MORNING BEFORE BREAKFAST 07/03/24 Ivette Valderrama MD polyethylene glycol (MIRALAX) 17 gram packet Take 17 g by mouth 1 (one) time each day. Historical Provider, psyllium husk, with sugar, (Fiber, psyllium husk-sugar,) 3.4 gram/7 gram powder Take by mouth 1 (one) time each day. Historical ProviderMD tiotropium (Spiriva Respimat) 2.5 mcg/actuation inhalation spray Inhale 2 puffs by mouth 1 (one) time each day. 10/26/23 Historical Provider, triamcinolone acetonide (KENALOG-40) 40 mg/mL injection Inject 1 mL (40 mg total) into the joint. 01/16/24 Historical ProviderMD valACYclovir (VALTREX) 1 gram tablet TAKE 2 TABLETS BY MOUTH 2 TIMES DAILY FOR 1 DAY. 12/25/23 Historical ProviderMD zoledronic acid (RECLAST) 5 mg/100 mL piggyback Infuse 100 mL (5 mg total) into a venous catheter. 09/08/23 Historical ProviderMD Patient has no known allergies. Visit Vitals OB Status Postmenopausal Smoking Status Former The patient was consented for an endometrial biopsy. She was placed in the lithotomy position and abimanual exam was performed revealing an anteverted uterus. A sterile speculum was placed. The cervix was cleansed with betadine. A single-toothed tenaculum was placed on the anterior lip of the cervix. The uterus sounded to 6 cm in length. One pass with a 3 mm pipelle was performed with a scant amount of tissue returning. This tissue was sent to pathology for further evaluation. The tenaculum was removed and the sites appeared hemostatic. The speculum was also removed. The patient tolerated the procedure well, but was very crampy. We discussed postprocedure cramping and light bleeding. Advised to avoid anything in the vagina forthree days. Advised to call with increasing pain, heavy bleeding, or fever. Pt will be informed of results when available. Oksana Contreras MD documented in this encounter Plan of Treatment Upcoming Encounters Date Type Department Care Team (Late st Contact Info) Description 10/10/2024 3:50 PM EDT Appointment Radiology Department [address] [phone] 03/06/2025 10:10 AM EDT Office Visit Gastroenterology - [place] [address] [place] [phone] Shelley Elmore PA [address] [place] [address] documented as of this encounter Procedures Procedure Name Priority Date/Time Associated Diagnosis Comments TISSUE EXAM Routine 08/26/2024 3:36 PM EST PMB (postmenopausal bleeding) Thickened endometrium documented in this encounter Results * Tissue exam (08/26/2024 3:36 PM EST) Final Diagnosis Endometrium, biopsy: Scant superficial strips of atrophic endometrial epithelium and detached fragments of benign squamous mucosa. Endometrial stroma is not identified. 08/30/2024 11:32 AM EST [facility] Clinical Information PMB (postmenopausal bleeding) (N95.0) Thickened endometrium (R93.89) 08/30/2024 11:32 AM [facility] Gross Description A. Endometrium, biopsy: Labeled EMB, Endo . Received in formalin is an approximately 0.8 x 0.6 x 0.2 cm aggregate of soft to mucoid, clear to white tissue fragments, which is wrapped in paper and submitted in toto in one cassette, multiple pieces, x2. Please note: Small tissue fragments may not survive processing. dvb/DG 08/30/2024 11:32 AM [facility] Disclaimer Unless otherwise specified, all tissue is 10% NB formalin fixed and paraffin embedded. 08/30/2024 11:32 AM [facility] Tissue Endometrial structure / Unknown Non-blood Collection / Unknown 08/26/2024 3:36 PM EST 08/26/2024 3:36 PM EST us Oksana Contreras MD LAB PATHOLOGY ORDERABLES Fi nal Result [facility] [address] [place] [address], documented in this encounter Visit Diagnoses Diagnosis PMB (postmenopausal bleeding)- Primary Postmenopausal bleeding Thickened endometrium Nonspecific (abnormal) findings on radiological and other examination of genitourinary organs Encounter for screening mammogram for breast cancer documented in this encounter Care Teams Hide Sorter Relationship Specialty Start Date End Date Lidia Medina FNP [address] [place] [address] PCP - General Family Medicine 07/10/24 documented as of this encounter
--- OUTSIDE RECORDS SUMMARY | 2024-09-02 13:34 | XMS_ITS | Encounter Summary ---
Author Organization [facility] Address [address] [place] [address] Care Team Providers Care Cleaning Matron Name Role Phone Ivette Valderrama MD Primary Care Provider [phone] Maximilian Baum MD Unavailable [phone] Encounter Details Date Type Department Care Team Description 06/21/2023 Pt. Non Urgent Medical Question Gastroenterology - [place] 175 [facility] [address] [place] [address] Shelley Elmore DScPAS Social History [...] on filedocumented in this encounter Care Teams Cleaning Matron Relationship Specialty Start Date End Date Ivette Valderrama MD [address] [place] [address] PCP - General Internal Medicine 10/01/20 Maximilian Baum MD 300 [facility] [address] [place], [place] [phone] Specialist Cardiovascular Disease 03/09/21 documented as of this encounter
--- OUTSIDE RECORDS SUMMARY | 2024-09-02 13:34 | XMS_ITS | Encounter Summary ---
Author Organization [facility] Address [address] [place] [address] Care Team Providers Care Clinical Care Coordinator Name Role Phone Ivette Valderrama MD Primary Care Provider [phone] Maximilian Baum MD Unavailable [phone] Encounter Details Date Type Department Care Team Description 09/13/2023 Pt. Non Urgent Medic al Question OBGYN - [place] [address] [place] [address] Woodrow Sierra DO Social History Tobacco Use [...] on filedocumented in this encounter Care Teams Clinical Care Coordinator Relationship Specialty Start Date End Date Ivette Valderrama MD [address] [place] [address] PCP - General Internal Medicine 10/01/20 Maximilian Baum MD [address] [place] [address] Specialist Cardiovascular Disease 03/09/21 documented as of this encounter
--- OUTSIDE RECORDS SUMMARY | 2024-09-02 13:34 | XMS_ITS | Encounter Summary ---
Author Organization [facility] Address [address] [place] [address] Care Team Providers Care Lay Out Maker Name Role Phone Ivette Valderrama MD Primary Care Provider [phone] Maximilian Baum MD Unavailable [phone] Reason for Visit * Reason Onset Date Comments DME Request 06/14/2023 Encounter Details Date Type Department Care Team Description 06/14/2023 Telephone Pulmonology - [place] 175 [facility] [address] [place] [address] Emerald Mary MD [address] [phone] DME Request Social History Tobacco Use Types [...] on filedocumented in this encounter Care Teams Lay Out Maker Relationship Specialty Start Date End Date Ivette Valderrama MD [address] [place] [address] PCP - General Internal Medicine 10/01/20 Maximilian Baum MD [address] [place] [address] Specialist Cardiovascular Disease 03/09/21 documented as of this encounter
--- OUTSIDE RECORDS SUMMARY | 2024-09-02 13:34 | XMS_ITS | Encounter Summary ---
Author Organization [facility] Address [address] [place] [address] Care Team Providers Care It Lead Name Role Phone AdamLidia manzano CLOTH DESIZING RANGE TENDER Primary Care Provider [phone] Encounter Details Date Type Department Care Team (Late st Contact Info) Description 07/30/2024 Telephone Obstetrics & Gynecology - [address] [address] Rebecca Puckett, [facility] [address] [place] [address] Social History Tobacco Use Types Packs/Day Years [...] patient had this problem? Last week Pt???s HAND SCRAPER provider: Rebecca Puckett CNM Last menstrual period (LMP) or EDC (due date): na documented in this encounter Plan of Treatment Upcoming Encounters Date Type Department Care Team (Late st Contact Info) Description 10/10/2024 3:50 PM EDT Appointment Radiology Department - [address] [address] 03/06/2025 10:10 AM EDT Office Visit Gastroenterology - [place] [address] [facility] [address] [place] [address] Shelley Elmore PA [address] [place] [address] documented as of this encounter Visit Diagnoses Not on filedocumented in this encounter Care Teams It Lead Relationship Specialty Start Date End Date Lidia Medina FNP [address] [place] [phone] PCP - General Family Medicine 07/10/24 documented as of this encounter
--- OUTSIDE RECORDS SUMMARY | 2024-09-02 13:34 | XMS_ITS | Encounter Summary ---
Author Organization [facility] Address [address] [place] [address] Care Team Providers Care Steel Fitter Name Role Phone Ivette Valderrama MD Primary Care Provider [phone] Maximilian Baum MD Unavailable [phone] Encounter Details Date Type Department Care Team Description 10/02/2020 Hospital Medical Records [address] [place] [address] Social History Tobacco Use Types Packs/Day Years [...] on filedocumented in this encounter Care Teams Steel Fitter Relationship Specialty Start Date End Date Ivette Valderrama MD [address] [place] [address] PCP - General Internal Medicine 10/01/20 Maximilian Baum MD [address] [address] Specialist Cardiovascular Disease 03/09/21 documented as of this encounter
--- OUTSIDE RECORDS SUMMARY | 2024-09-02 13:34 | XMS_ITS | Encounter Summary ---
Author Organization [facility] Address [address] [place] [address] Care Team Providers Care Hims Coder Name Role Phone Shazia Rivas MD Primary Care Provider [facility] Ivette Valderrama MD Primary Care Provider [phone] Maximilian Baum MD Unavailable [phone] Encounter Details Date Type Department Care Team Description 06/24/2020 Cost Accounting Clerk Report Medical Records [address] [place] [address] Alvin Wang Social History Tobacco Use Types [...] on filedocumented in this encounter Care Teams Hims Coder Relationship Specialty Start Date End Date Shazia Rivas MD PCP - General Internal Medicine 06/21/18 09/30/20 Ivette Valderrama MD [address] [place] [phone] PCP - General Internal Medicine 10/01/20 Maximilian Baum MD [address] [place] [address] Specialist Cardiovascular Disease 03/09/21 documented as of this encounter
--- OUTSIDE RECORDS SUMMARY | 2024-09-02 13:34 | XMS_ITS | Encounter Summary ---
Author Organization [facility] Address [address] [place] [address] Care Team Providers Care Second Steward Name Role Phone Ivette Valderrama MD Primary Care Provider [phone] Maximilian Baum MD Unavailable [phone] Encounter Details Date Type Department Care Team Description 03/30/2022 Octave Board Racker Report Medical Records [address] [place] [address] Center[facility] [address] [place] [address] Social History Tobacco Use Types Packs/Day Years [...] on filedocumented in this encounter Care Teams Second Steward Relationship Specialty Start Date End Date Ivette Valderrama MD [address] [place] [address] PCP - General Internal Medicine 10/01/20 Maximilian Baum MD [address] [place] [address] Specialist Cardiovascular Disease 03/09/21 documented as of this encounter
--- OUTSIDE RECORDS SUMMARY | 2024-09-02 13:34 | XMS_ITS | Clinical Summary ---
Author Organization [facility] Address [address] [place] [address] Care Team Providers Care Hide Mill Man Name Role Phone Ivette Valderrama MD Primary Care Provider [phone] Allergies No known active allergies Medications Medication [...] age to complete this topic Care Teams Hide Mill Man Relationship Specialty Start Date End Date Ivette Valderrama MD PCP - General Internal Medicine 09/12/23
--- OUTSIDE RECORDS SUMMARY | 2024-09-02 13:34 | XMS_ITS | Encounter Summary ---
Author Organization [facility] Address [address] [place] [address] Care Team Providers Care Supervisor Drapery Hanging Name Role Phone Shazia Rivas MD Primary Care Provider [facility] Ivette Burks MD Primary Care Provider [phone] Maximilian Baum MD Unavailable [phone] Encounter Details Date Type Department Care Team Description 09/08/2020 Business Doc Medical Records [address] [place] [address] Abstract, Provider Social History Tobacco Use Types [...] filedocumented in this encounter Care Teams Supervisor Drapery Hanging Relationship Specialty Start Date End Date Shazia Rivas MD PCP - General Internal Medicine 06/21/18 09/30/20 Ivette Valderrama MD [address] [place] [address] PCP - General Internal Medicine 10/01/20 Maximilian Baum MD 300 [facility] [address] [place] [address] Specialist Cardiovascular Disease 03/09/21 documented as of this encounter
--- OUTSIDE RECORDS SUMMARY | 2024-09-02 13:34 | XMS_ITS | Encounter Summary ---
Author Organization [facility] Address [address] [place] [address] Care Team Providers Care Correctional Therapy Director Name Role Phone Shazia Rivas MD Primary Care Provider [facility] Ivette Burks MD Primary Care Provider [phone] Maximilian Baum MD Unavailable [phone] Encounter Details Date Type Department Care Team Description 09/08/2020 Business Doc Medical Records [address] [place] [address] Abstract, Provider Social History Tobacco Use Types [...] on filedocumented in this encounter Care Teams Correctional Therapy Director Relationship Specialty Start Date End Date Shazia Rivas MD PCP - General Internal Medicine 06/21/18 09/30/20 Ivette Valderrama MD [address] [place] [address] PCP - General Internal Medicine 10/01/20 Maximilian Baum MD 300 [facility] [address] [place] [address] Specialist Cardiovascular Disease 03/09/21 documented as of this encounter
--- OUTSIDE RECORDS SUMMARY | 2024-09-02 13:34 | XMS_ITS | Encounter Summary ---
Author Organization [facility] Address [address] [place] [address] Care Team Providers Care Business Management Manager Name Role Phone Ivette Valderrama MD Primary Care Provider [phone] Maximilian Baum MD Unavailable [phone] Encounter Details Date Type Department Care Team Description 08/09/2023 SCAN [facility] Medical [facility] 175 [facility] 160 [place] [address] Salina Polanco APRN Social History [...] on filedocumented in this encounter Care Teams Business Management Manager Relationship Specialty Start Date End Date Ivette Valderrama MD [address] [place] [address] PCP - General Internal Medicine 10/01/20 Maximilian Baum MD 300 [facility] [address] [place], [place] [phone] Specialist Cardiovascular Disease 03/09/21 documented as of this encounter
--- OUTSIDE RECORDS SUMMARY | 2024-09-02 13:35 | XMS_ITS | Encounter Summary ---
Author Organization [facility] Address [address] [place] [address] Care Team Providers Care Lay Out Worker Name Role Phone Ivette Valderrama MD Primary Care Provider [phone] Maximilian Baum MD Unavailable [phone] Reason for Visit * Reason Onset Date Comments medication problems 03/17/2023 Faxed Refill 03/17/2023 Encounter Details Date Type Department Care Team Description 03/17/2023 Telephone Pulmonology - [place] 175 [facility] [address] [place] [address] Lasha Porras MD [address] [place] [address] medication problems; Faxed Refill Social [...] and I am unable to connect [facility] pharmacy I will call back later. * [...] 140.00. Thank you Please reply back to [id number] Prior Auth Pool Natacha Lazo [facility] Prior Authorization Ext [phone] * Telephone Encounter - Natacha Carrington M.A. [...] Is this a Cover My Meds request: [place] of Medication Tiotropium [place] Monohydrate (spiriva respimat) Dose of Medication 2.5 mcg What is the RX # from the faxed refill? How does patient take this med? Inhale 1 puff into lung daily What Pharmacy did the fax come from: [facility] Pharmacy fax #: [phone] [employer] Information from fax: What Prescription Plan does the patient have? OPTUM Rx BIN/PCN if applicable: [id number] Cardholder ID: [id number] Person Code: Relationship Code: Help desk phone: * Telephone Encounter - Natacha Couch - 03/22/2023 2:37 PM EDT Received fax from [employer] [facility] [facility] Re: Script Clarification ??Reason for Request: Script Clarification Pharmacy comments: script clarification: Patient is claiming that her copay will be $12 if MD does PA? Re: Spiriva respimate Pls advise. NOV 06/14/2023 TONY 02/03/2023 * Telephone Encounter - Natacha Couch - 03/20/2023 3:48 PM EDT Received fax from [employer] For Script Clarification Response requested: Patient is claiming that Her copay will be $12 if MD does PA? Pls advise. NOV 06/14/2023 TONY 02/03/2023 * Telephone Encounter - Rebekah Ferguson - 03/17/2023 10:22 AM EDT Who is calling? The patient Name of the medication Tiotropium [place] Monohydrate (Spiriva Respimat) 2.5 MCG/ACT Aero Soln [...] in this encounter Care Teams Lay Out Worker Relationship Specialty Start Date End Date Ivette Valderrama MD [address] [place] [address] PCP - General Internal Medicine 10/01/20 Maximilian Baum MD [address] [place] [address] Specialist Cardiovascular Disease 03/09/21 documented as of this encounter
--- OUTSIDE RECORDS SUMMARY | 2024-09-02 13:35 | XMS_ITS | Encounter Summary ---
Author Organization [facility] Address [address] [place] [address] Care Team Providers Care Dispatch Lead Name Role Phone Ivette Valderrama MD Primary Care Provider [phone] Maximilian Baum MD Unavailable [phone] Reason for Visit * Reason Onset Date Comments Testing 01/14/2022 DXA BONE DENSITY STUDY 1+ SITS AXIAL SKEL Encounter Details Date Type Department Care Team Description 01/14/2022 Telephone Adult Medicine [address] [phone] Ivette Valderrama MD [address] [place] [address] [phone] Testing (DXA BONE DENSITY STUDY 1+ SITS [...] on filedocumented in this encounter Care Teams Dispatch Lead Relationship Specialty Start Date End Date Ivette Valderrama MD [address] [place] [address] PCP - General Internal Medicine 10/01/20 Maximilian Baum MD 300 [facility] 154 [place] [address] Specialist Cardiovascular Disease 03/09/21 documented as of this encounter
--- OUTSIDE RECORDS SUMMARY | 2024-09-02 13:35 | XMS_ITS | Encounter Summary ---
Author Organization [facility] Address [address] [place] [address] Care Team Providers Care Director It Name Role Phone Ivette Valderrama MD Primary Care Provider [phone] Maximilian Baum MD Unavailable Encounter Details Date Type Department Care Team Description 09/21/2023 Telephone OBGYN - [place] [address] [place], [place] [phone] Yazmin Perez CNM [address] [place] [address] [phone] Social History Tobacco Use Types Packs/Day Years [...] filedocumented in this encounter Care Teams Director It Relationship Specialty Start Date End Date Ivette Valderrama MD [address] [place] [address] [phone] PCP - General Internal Medicine 10/01/20 Maximilian Baum MD 300 [facility] 154 [place] [address] Specialist Cardiovascular Disease 03/09/21 documented as of this encounter
--- OUTSIDE RECORDS SUMMARY | 2024-09-02 13:35 | XMS_ITS | Encounter Summary ---
Author Organization [facility] Address [address] [place] [address] Care Team Providers Care Rustic Fence Builder Name Role Phone Ivette Valderrama MD Primary Care Provider Maximilian Baum MD Unavailable [phone] Encounter Details Date Type Department Care Team Description 11/09/2021 Freelance Interpreter/Translator Report Medical Records [address] [place] [address] Abstract, Provider Social History Tobacco Use Types [...] on filedocumented in this encounter Care Teams Rustic Fence Builder Relationship Specialty Start Date End Date Ivette Valderrama MD [address] [place] [address] PCP - General Internal Medicine 10/01/20 Maximilian Baum MD 300 [facility] [address] [place] [address] Specialist Cardiovascular Disease 03/09/21 documented as of this encounter
--- OUTSIDE RECORDS SUMMARY | 2024-09-02 13:35 | XMS_ITS | Encounter Summary ---
Author Organization [facility] Address [address] [place] [address] Care Team Providers Care Color Worker Name Role Phone Shazia Rivas MD Primary Care Provider [facility] Ivette Valderrama MD Primary Care Provider [phone] Maximilian Baum MD Unavailable [phone] Encounter Details Date Type Department Care Team Description 11/22/2018 Refill Gastroenterology - [place] 175 [facility] 200 [place] [address] Shelley Elmore DScPAS Social History [...] on filedocumented in this encounter Care Teams Color Worker Relationship Specialty Start Date End Date Shazia Rivas MD PCP - General Internal Medicine 06/21/18 09/30/20 Ivette Valderrama MD [address] [place] [address] PCP - General Internal Medicine 10/01/20 Maximilian Baum MD [address] [address] Specialist Cardiovascular Disease 03/09/21 documented as of this encounter
--- OUTSIDE RECORDS SUMMARY | 2024-09-02 13:35 | XMS_ITS | Encounter Summary ---
Author Organization [facility] Address [address] [place] [address] Care Team Providers Care Aquatic Biologist Name Role Phone Shazia Rivas MD Primary Care Provider Glenn Meza Primary Care Provider UnavailShazia Chu MD Primary Care Provider UnavailEvelyn Cordova MD Primary Care Provider Un available Shazia Rivas MD Primary Care Provider Unavaila Ivette Burks MD Primary Care Provider [phone] Maximilian Baum MD Unavailable Encounter Details Date Type Department Care Team Description 06/02/2017 [facility] Medical Records [address] [place] [address] Guanaco Flaherty MD Social History Tobacco Use [...] on filedocumented in this encounter Care Teams Aquatic Biologist Relationship Specialty Start Date End Date Shazia Rivas MD PCP - General Internal Medicine 04/08/15 07/17/17 [facility] PCP - General Internal Medicine 07/18/17 08/27/17 Shazia Rivas MD PCP - General Internal Medicine 08/28/17 12/31/17 Evelyn Stratton MD PCP - General Internal Medicine 01/01/1806/20 Shazia Rivas MD PCP - General Internal Medicine 06/21/18 09/30/20 Ivette Valderrama MD [address] [place] [address] PCP - General Internal Medicine 10/01/20 Maximilian Baum MD [address] [place] [address] Specialist Cardiovascular Disease 03/09/21 documented as of this encounter
--- OUTSIDE RECORDS SUMMARY | 2024-09-02 13:35 | XMS_ITS | Encounter Summary ---
Author Organization [facility] Address [address] [place] [address] Care Team Providers Care Repairer Sash And Door Name Role Phone Ivette Valderrama MD Primary Care Provider [phone] Maximilian Baum MD Unavailable [phone] Encounter Details Date Type Department Care Team Description 04/03/2024 Director Social Service Report Medical Records [address] [place], [place] [phone] [place] [address] Social History Tobacco Use Types Packs/Day Years [...] filedocumented in this encounter Care Teams Repairer Sash And Door Relationship Specialty Start Date End Date Ivette Valderrama MD [address] [place] [address] PCP - General Internal Medicine 10/01/20 Maximilian Baum MD [address] [place] [address] Specialist Cardiovascular Disease 03/09/21 documented as of this encounter
--- OUTSIDE RECORDS SUMMARY | 2024-09-02 13:35 | XMS_ITS | Encounter Summary ---
Author Organization [facility] Address [address] [place] [address] Care Team Providers Care Parts Facilitator Name Role Phone Ivette Valderrama MD Primary Care Provider [phone] Maximilian Baum MD Unavailable [phone] Encounter Details Date Type Department Care Team Description 09/28/2023 Telephone OBGYN - [place] [address] [place], [place] [phone] Alejandra Worley PA-C [address] [place] [address] Social History Tobacco Use Types Packs/Day [...] on filedocumented in this encounter Care Teams Parts Facilitator Relationship Specialty Start Date End Date Ivette Valderrama MD [address] [place], [place] [phone] PCP - General Internal Medicine 10/01/20 Maximilian Baum MD 300 [facility] 154 [place] [address] Specialist Cardiovascular Disease 03/09/21 documented as of this encounter
--- OUTSIDE RECORDS SUMMARY | 2024-09-02 13:35 | XMS_ITS | Encounter Summary ---
Author Organization [facility] Address [address] [place] [address] Care Team Providers Care Helper Electrical Name Role Phone Ivette Valderrama MD Primary Care Provider [phone] Maximilian Baum MD Unavailable [phone] Encounter Details Date Type Department Care Team Description 03/21/2023 Pt. Non Urgent Medical Question Adult Medicine [address] [address] Kiara Phillip PA [address] [place] [address] [phone] Social History Tobacco Use Types Packs/Day Years [...] to call for the exemption request is [phone]. Could someone at the office call and request the exemptio n for me, please? Angeline Jefferson documented in this encounter Plan of Treatment Not on file documented as of this encounter Visit Diagnoses Not on filedocumented in this encounter Care Teams Helper Electrical Relationship Specialty Start Date End Date Ivette Valderrama MD [address] [place] [address] PCP - General Internal Medicine 10/01/20 Maximilian Baum MD [address] [place] [address] Specialist Cardiovascular Disease 03/09/21 documented as of this encounter
--- OUTSIDE RECORDS SUMMARY | 2024-09-02 13:35 | XMS_ITS | Encounter Summary ---
Author Organization [facility] Address [address] [place] [address] Care Team Providers Care Mold Runner Name Role Phone Ivette Valderrama MD Primary Care Provider [phone] Maximilian Baum MD Unavailable [phone] Encounter Details Date Type Department Care Team Description 10/26/2023 Refill OBGYN - [place] [address] [place] [address] Monet Han CNM [address] [place], [place] [phone] Social History Tobacco Use Types Packs/Day Years [...] on filedocumented in this encounter Care Teams Mold Runner Relationship Specialty Start Date End Date Ivette Valderrama MD 444 [place] [address] PCP - General Internal Medicine 10/01/20 Maximilian Baum MD 300 [facility] 154 [place] [address] Specialist Cardiovascular Disease 03/09/21 documented as of this encounter
--- OUTSIDE RECORDS SUMMARY | 2024-09-02 13:35 | XMS_ITS | Encounter Summary ---
Author Organization [facility] Address [address] [place] [address] Care Team Providers Care City Editor Name Role Phone Ivette Valderrama MD Primary Care Provider [phone] Maximilian Baum MD Unavailable Encounter Details Date Type Department Care Team Description 12/13/2023 SCAN [facility] 175 [facility] [address] [place] [address] Babatunde Rodriguez MD 175 [facility] [address] [place] [address] Social History Tobacco Use Types Packs/Day Years [...] on filedocumented in this encounter Care Teams City Editor Relationship Specialty Start Date End Date Ivette Valderrama MD [address] [place] [address] PCP - General Internal Medicine 10/01/20 Maximilian Baum MD 300 [facility] 154 [place] [address] Specialist Cardiovascular Disease 03/09/21 documented as of this encounter
--- OUTSIDE RECORDS SUMMARY | 2024-09-02 13:35 | XMS_ITS | Encounter Summary ---
Author Organization [facility] Address [address] [place] [address] Care Team Providers Care Film Processing Supervisor Name Role Phone Ivette Valderrama MD Primary Care Provider [phone] Maximilian Baum MD Unavailable [phone] Reason for Referral * Non CONTRERAS (Routine) - Unable to reach/declined Specialty Diagnoses / Procedures Referred By Contac t Referred To Contact Physical Therapy Diagnoses Vertigo Procedures REFERRAL TO PHYSICAL THERAPY Latasha Barron PA-C [address] [place] [address] External Phys Thrpy Referral ID Status Reason Start Date Expiration Date V isits Requested Visits Authorized [id number] Unable to reach/declin ed 08/25/2021 1 1 Reason for Visit * Reason Onset Date Comments dizziness 08/24/2021 Encounter Details Date Type Department Care Team Description 08/24/2021 Telephone Triage 4 [place], [place] [phone] Ivette Valderrama MD [address] [place] [address] [phone] dizziness Social History Tobacco Use Types Packs/Day [...] traveled recently to another state outside of [place], [place], [place], [place], [place], [place], [place]? NO o If yes, did you quarantine [...] vehicle accident? NO If yes, gather 3rd alliance party insurance information Date of accident/Injury: n/a How long has patient had these symptoms?: ongoing since Jun PCP: Ivette Valderrama [place] / [place] / Product Type: [place]ARE [id number] documented in this encounter Plan of Treatment Not on file documented as of this encounter Visit Diagnoses Diagnosis Vertigo- Primary Dizziness and giddiness documented in this encounter Care Teams Film Processing Supervisor Relationship Specialty Start Date End Date Ivette Valderrama MD 4 [place] [address] PCP - General Internal Medicine 10/01/20 Maximilian Baum MD [address] [place] [address] Specialist Cardiovascular Disease 03/09/21 documented as of this encounter
--- OUTSIDE RECORDS SUMMARY | 2024-09-02 13:35 | XMS_ITS | Encounter Summary ---
Author Organization [facility] Address [address] [place] [address] Care Team Providers Care Clinical Program Manager Name Role Phone Ivette Valderrama MD Primary Care Provider [phone] Maximilian Baum MD Unavailable [phone] Reason for Visit * Reason Comments E-prescribe Rx Request Encounter Details Date Type Department Care Team Description 12/24/2020 Refill Adult Medicine [address] [address] Andria Kumar PA-C E-prescribe Rx Request Social [...] Telephone Encounter - Latasha Barron PA-C - 12/25/2020 4:44 PM EDT Would avoid NSAIDs at this time, as patient is currently being evaluated for epigastric pain by GI and has procedure pending. Latasha Barron PA-C * Telephone Encounter - Lazara Cheema M.A. - 12/24/2020 4:21 PM EDT Last office visit 10/08/20 with Andria Justice Next office visit 03/19/21 with PCP * Telephone Encounter - Adrien Wilson - 12/24/2020 9:25 AM EDT Patient would like script to be: E-PRESCRIBED/FAXED TO PHARMACY WHEN WAS THE PATIENT'S LAST APPOINTMENT IN ADULT MEDICINE? 10/08/2020 WHEN WAS THE LAST TIME THE PATIENT SAW THEIR PCP? Not seen by PCP Does patient have an upcoming appointment? Yes 02/27/2021 (THE MEDICATION REQUESTED IS ON THE MED [...] N/A Patients current insurance carrier is: Payor: [facility] / Plan: PPO $35 [id number] / Product Type: PPO [id number] documented in this encounter Plan of Treatment Not on file documented as of this encounter Visit Diagnoses Not on filedocumented in this encounter Care Teams Clinical Program Manager Relationship Specialty Start Date End Date Ivette Valderrama MD [address] [place] [address] PCP - General Internal Medicine 10/01/20 Maximilian Baum MD [address] [place] [address] Specialist Cardiovascular Disease 03/09/21 documented as of this encounter
--- OUTSIDE RECORDS SUMMARY | 2024-09-02 13:35 | XMS_ITS | Encounter Summary ---
Author Organization [facility] Address [address] [place] [address] Care Team Providers Care Jig Bore Tool Maker Name Role Phone Shazia Rivas MD Primary Care Provider [facility] Ivette Valderrama MD Primary Care Provider [phone] Maximilian Baum MD Unavailable [phone] Encounter Details Date Type Department Care Team Description 03/29/2019 SCAN Medical Records [address] [place] [address] Shazia Rivas MD Social History Tobacco Use Types [...] on filedocumented in this encounter Care Teams Jig Bore Tool Maker Relationship Specialty Start Date End Date Shazia Rivas MD PCP - General Internal Medicine 06/21/18 09/30/20 Ivette Valderrama MD [address] [place] [address] PCP - General Internal Medicine 10/01/20 Maximilian Baum MD [address] [place] [address] Specialist Cardiovascular Disease 03/09/21 documented as of this encounter
--- OUTSIDE RECORDS SUMMARY | 2024-09-02 13:35 | XMS_ITS | Encounter Summary ---
Author Organization [facility] Address [address] [place] [address] Care Team Providers Care Medical Clinic Manager Name Role Phone Ivette Valderrama MD Primary Care Provider [phone] Maximilian Baum MD Unavailable [phone] Reason for Visit * Reason Onset Date Comments Faxed Refill 12/16/2020 Encounter Details Date Type Department Care Team Description 12/16/2020 Refill Adult Medicine [address] [phone] Ivette Valderrama MD [address] [place] [address] [phone] Faxed Refill Social History Tobacco Use Types [...] encounter Miscellaneous Notes * Telephone Encounter - Álvaro Peterson C.M.A. - 12/17/2020 3:27 PM EDT Your vitamin D levels are normal. ??Please stop the weekly supplementation and start an [id number] vitamin D supplement. Written by Andria Justice PA-C on 12/17/2020 ??7:52 AM EDT Message left for patient to return my call. * Telephone Encounter - Andria Mejia - 12/16/2020 10:29 AM EDT *SPOKE WITH PATIENT SCHEDULE A FOLLOW UP APPOINTMENT AND ALSO NOTIFIED THAT THERE IS LAB ORDERS FORPATIENT TO GET DONE, PLEASE SEE ENCOUNTER FOR 12/04/20* Patient would like script to be: E-PRESCRIBED/FAXED TO PHARMACY WHEN WAS THE PATIENT'S LAST APPOINTMENT IN ADULT MEDICINE? 10/08/20 WHEN WAS THE LAST TIME THE PATIENT SAW THEIR PCP? Does patient have an upcoming appointment? Yes 03/19/21 (THE MEDICATION REQUESTED IS ON THE MED [...] N/A Patients current insurance carrier is: Payor: [facility] / Plan: PPO $35 [id number] / Product Type: PPO [id number] documented in this encounter Plan of Treatment Not on file documented as of this encounter Visit Diagnoses Not on filedocumented in this encounter Care Teams Medical Clinic Manager Relationship Specialty Start Date End Date Ivette Valderrama MD [address] [place] [address] PCP - General Internal Medicine 10/01/20 Maximilian Baum MD [address] [place] [address] Specialist Cardiovascular Disease 03/09/21 documented as of this encounter
--- OUTSIDE RECORDS SUMMARY | 2024-09-02 13:35 | XMS_ITS | Encounter Summary ---
Author Organization [facility] Address [address] [place] [address] Care Team Providers Care Medical Review Specialist Name Role Phone Ivette Valderrama MD Primary Care Provider [phone] Maximilian Baum MD Unavailable [phone] Encounter Details Date Type Department Care Team Description 12/18/2023 Orders Only [facility] 175 [facility] [address] [place] [address] Babatunde Rodriguez MD 175 [facility] [address] [place], [place] [phone] Incomplete tear of right rotator cuff, unspecified whether traumatic Social History Tobacco Use Types Packs/Day Years [...] / UPPER EXTREMITY JOINT NO CONTRAST Routine 12/07/2023 Incomplete tear of right rotator cuff, unspecified whether traumatic documented in this encounter Results * MRI OF ARM JOINT / UPPER EXTREMITY JOINT NO CONTRAST (12/07/2023) Babatunde Rodriguez MD MRI [facility] documented in this encounter Visit Diagnoses Diagnosis Incomplete tear of right rotator cuff, unspecified whether traumatic documented in this encounter Care Teams Medical Review Specialist Relationship Specialty Start Date End Date Ivette Valderrama MD [address] [place] [address] PCP - General Internal Medicine 10/01/20 Maximilian Baum MD [address] [address] Specialist Cardiovascular Disease 03/09/21 documented as of this encounter
--- OUTSIDE RECORDS SUMMARY | 2024-09-02 13:35 | XMS_ITS | Encounter Summary ---
Author Organization [facility] Address [address] [place] [address] Care Team Providers Care Cage Loader Name Role Phone Evelyn Stratton MD Primary Care Provider Un available Shazia Rivas MD Primary Care Provider Unavaila [facility] Ivette Valderrama MD Primary Care Provider [phone] Maximilian Baum MD Unavailable [phone] Reason for Visit * Reason Comments E-prescribe Rx Request Encounter Details Date Type Department Care Team Description 06/02/2018 Refill Gastroenterology [address] [place] [phone] Shelley Elmore DScPAS E-prescribe Rx Request Social [...] on filedocumented in this encounter Care Teams Cage Loader Relationship Specialty Start Date End Date Evelyn Stratton MD PCP - General Internal Medicine 01/01/1806/20 Shazia Rivas MD PCP - General Internal Medicine 06/21/18 09/30/20 Ivette Valderrama MD 4 [place] [address] PCP - General Internal Medicine 10/01/20 Maximilian Baum MD [address] [place] [address] Specialist Cardiovascular Disease 03/09/21 documented as of this encounter
--- OUTSIDE RECORDS SUMMARY | 2024-09-02 13:35 | XMS_ITS | Encounter Summary ---
Author Organization [facility] Address [address] [place] [address] Care Team Providers Care Data Management Analyst Name Role Phone Evelyn Stratton MD Primary Care Provider Un available Shazia Rivas MD Primary Care Provider Unavaila Ivette Burks MD Primary Care Provider [phone] Maximilian Baum MD Unavailable [phone] Encounter Details Date Type Department Care Team Description 01/09/2018 Orders Only Medicine/Pediatrics - [address] [address] Sandy Parikh PA-C COPD exacerbation (HCC) Social History Tobacco [...] exacerbation documented in this encounter Care Teams Data Management Analyst Relationship Specialty Start Date End Date Evelyn Stratton MD PCP - General Internal Medicine 01/01/1806/20 Shazia Rivas MD PCP - General Internal Medicine 06/21/18 09/30/20 Ivette Valderrama MD [address] [place] [address] PCP - General Internal Medicine 10/01/20 Maximilian Baum MD [address] [place] [address] Specialist Cardiovascular Disease 03/09/21 documented as of this encounter
--- OUTSIDE RECORDS SUMMARY | 2024-09-02 13:35 | XMS_ITS | Encounter Summary ---
Author Organization [facility] Address [address] [place] [address] Care Team Providers Care Core Composer Feeder Name Role Phone Ivette Valderrama MD Primary Care Provider [phone] Maximilian Baum MD Unavailable [phone] Encounter Details Date Type Department Care Team Description 12/29/2022 Orders Only [facility] Medical [facility] 175 [facility] [address] [place] [address] Babatunde Rodriguez MD 175 [facility] [address] [place], [place] [phone] Rotator cuff injury, right, initial encounter Social [...] MD MRI Performing Organization Address City/State/ZIP Co fl Phone Number [facility] documented in this encounter Visit Diagnoses Diagnosis Rotator cuff injury, right, initial encounter documented in this encounter Care Teams Core Composer Feeder Relationship Specialty Start Date End Date Ivette Valderrama MD [address] [place] [address] PCP - General Internal Medicine 10/01/20 Maximilian Baum MD [address] [place] [address] Specialist Cardiovascular Disease 03/09/21 documented as of this encounter
--- OUTSIDE RECORDS SUMMARY | 2024-09-02 13:35 | XMS_ITS | Encounter Summary ---
Author Organization [facility] Address [address] [place] [address] Care Team Providers Care Ip Technology Transactions Attorney Name Role Phone Ivette Valderrama MD Primary Care Provider [phone] Maximilian Baum MD Unavailable [phone] Reason for Visit * Reason Onset Date Comments Imaging Review 12/29/2022 MRI shoulder Encounter Details Date Type Department Care Team Description 12/29/2022 Telephone [facility] Medical [facility] [address] [facility] [address] [place] [address] Babatunde Rodriguez MD 175 [facility] [address] [place] [address] Imaging Review (MRI shoulder) Social History Tobacco Use Types Packs/Day Years [...] on filedocumented in this encounter Care Teams Ip Technology Transactions Attorney Relationship Specialty Start Date End Date Ivette Valderrama MD [address] [place] [address] PCP - General Internal Medicine 10/01/20 Maximilian Baum MD [address] [place] [address] Specialist Cardiovascular Disease 03/09/21 documented as of this encounter
--- OUTSIDE RECORDS SUMMARY | 2024-09-02 13:35 | XMS_ITS | Encounter Summary ---
Author Organization [facility] Address [address] [place] [address] Care Team Providers Care Computer Information Systems Instructor Name Role Phone Ivette Valderrama MD Primary Care Provider [phone] Maximilian Baum MD Unavailable [phone] Reason for Visit * Reason Onset Date Comments LAB WORK 01/25/2022 Encounter Details Date Type Department Care Team Description 01/25/2022 Telephone Adult Medicine [address] [phone] Ivette Valderrama MD [address] [place] [address] [phone] LAB WORK Social History Tobacco Use Types [...] on filedocumented in this encounter Care Teams Computer Information Systems Instructor Relationship Specialty Start Date End Date Ivette Valderrama MD [address] [place] [address] PCP - General Internal Medicine 10/01/20 Maximilian Baum MD 300 [facility] 154 [place] [address] Specialist Cardiovascular Disease 03/09/21 documented as of this encounter
--- OUTSIDE RECORDS SUMMARY | 2024-09-02 13:35 | XMS_ITS | Encounter Summary ---
Author Organization [facility] Address [address] [place] [address] Care Team Providers Care Bander Hand Name Role Phone Shazia Rivas MD Primary Care Provider Glenn Meza Primary Care Provider UnavailShazia Chu MD Primary Care Provider UnavailEvelyn Cordova MD Primary Care Provider Un available Shazia Rivas MD Primary Care Provider UnavailIvette Carver MD Primary Care Provider [phone] Maximilian Baum MD Unavailable [phone] Encounter Details Date Type Department Care Team Description 04/15/2015 Nursing Agency Manager Report Medical Records [address] [place] [address] [facility] [address] [place] [address] DR. DO [address] [place] [address] Social History Tobacco Use Types Packs/Day Years [...] on filedocumented in this encounter Care Teams Bander Hand Relationship Specialty Start Date End Date Shazia Rivas MD PCP - General Internal Medicine 04/08/15 07/17/17 Yayo, Glenn PCP - General Internal Medicine 07/18/17 08/27/17 Shazia Rivas MD PCP - General Internal Medicine 08/28/17 12/31/17 Evelyn Stratton MD PCP - General Internal Medicine 01/01/1806/20 Shazia Rivas MD PCP - General Internal Medicine 06/21/18 09/30/20 Ivette Valderrama MD [address] [place] [address] PCP - General Internal Medicine 10/01/20 Maximilian Baum MD [address] [place] [address] Specialist Cardiovascular Disease 03/09/21 documented as of this encounter
--- OUTSIDE RECORDS SUMMARY | 2024-09-02 13:35 | XMS_ITS | Encounter Summary ---
Author Organization [facility] Address [address] [place] [address] Care Team Providers Care Finish Specialist Name Role Phone Ivette Valderrama MD Primary Care Provider [phone] Maximilian Baum MD Unavailable [phone] Encounter Details Date Type Department Care Team Description 12/13/2023 Telephone [facility] [address] [facility] [address] [place] [address] Babatunde Rodriguez MD 175 [facility] [address] [place] [address] Social History Tobacco Use Types Packs/Day Years [...] telephone counter will be entered as a Terascala message in an attempt to contact her via [employer] rather than telephone. Patient was informed via her telephone message as well as this [employer] message that she has an appointment in [...] on filedocumented in this encounter Care Teams Finish Specialist Relationship Specialty Start Date End Date Ivette Valderrama MD [address] [place] [address] PCP - General Internal Medicine 10/01/20 Maximilian Baum MD [address] [place] [address] Specialist Cardiovascular Disease 03/09/21 documented as of this encounter
--- OUTSIDE RECORDS SUMMARY | 2024-09-02 13:35 | XMS_ITS | Encounter Summary ---
Author Organization [facility] Address [address] [place] [address] Care Team Providers Care Advertising Sales Consultant Name Role Phone Patrick Santa MD Primary Care Provider [phone] hSazia Rivas MD Primary Care Provider Glenn Meza Primary Care Provider UnavailShazia Chu MD Primary Care Provider UnavailEvelyn Cordova MD Primary Care Provider Un available Shazia Rivas MD Primary Care Provider UnavailIvette Carver MD Primary Care Provider [phone] Maximilian Baum MD Unavailable [phone] Encounter Details Date Type Department Care Team Description 03/18/2015 [facility] Report Medical Records [address] [place] [address] Abstract, Provider Social History Tobacco Use Types [...] on filedocumented in this encounter Care Teams Advertising Sales Consultant Relationship Specialty Start Date End Date Patrick Santa MD [address] [place] [address] PCP - General Internal Medicine 11/14/14 04/07/15 Shazia Rivas MD [address] [place] [address] PCP - General Internal Medicine 04/08/15 07/17/17 [facility], Pcp [address] [place], [place] PCP - General Internal Medicine 07/18/17 08/27/17 Shazia Rivas MD [address] [place], [place] PCP - General Internal Medicine 08/28/17 12/31/17 Evelyn Stratton MD [address] [place], [place] PCP - General Internal Medicine 01/01/18 06/20/18 Shazia Rivas MD [address] [place], [place] PCP - General Internal Medicine 06/21/18 09/30/20 Ivette Valderrama MD [address] [place] [address] PCP - General Internal Medicine 10/01/20 Maximilian Baum MD [address] [place] [address] Specialist Cardiovascular Disease 03/09/21 documented as of this encounter
--- OUTSIDE RECORDS SUMMARY | 2024-09-02 13:35 | XMS_ITS | Encounter Summary ---
Author Organization [facility] Address [address] [place] [address] Care Team Providers Care Professor Of Vegetable Science Name Role Phone Ivette Valderrama MD Primary Care Provider [phone] Maximilian Baum MD Unavailable [phone] Encounter Details Date Type Department Care Team Description 01/05/2021 Telephone Adult Medicine [address] [phone] Ivette Valderrama MD [address] [place] [address] [phone] Social History Tobacco Use Types Packs/Day Years [...] on filedocumented in this encounter Care Teams Professor Of Vegetable Science Relationship Specialty Start Date End Date Ivette Valderrama MD [address] [place] [address] PCP - General Internal Medicine 10/01/20 Maximilian Baum MD [address] [place] [address] Specialist Cardiovascular Disease 03/09/21 documented as of this encounter
--- OUTSIDE RECORDS SUMMARY | 2024-09-02 13:35 | XMS_ITS | Encounter Summary ---
Author Organization [facility] Address [address] [place] [address] Care Team Providers Care Box Car Checker Name Role Phone Ivette Valderrama MD Primary Care Provider Maximilian Baum MD Unavailable [phone] Reason for Visit * Reason Onset Date Comments REFERRAL 01/11/2023 Encounter Details Date Type Department Care Team Description 01/11/2023 Telephone Adult Medicine [address] [phone] Ivette Valderrama MD [address] [place] [address] [phone] REFERRAL Social History Tobacco Use Types Packs/Day [...] 1:44 PM EDT Please resend referral to [facility]. Office didn't receive it. documented in this encounter Plan of Treatment Not on file documented as of this encounter Visit Diagnoses Not on filedocumented in this encounter Care Teams Box Car Checker Relationship Specialty Start Date End Date Ivette Valderrama MD [address] [place] [address] PCP - General Internal Medicine 10/01/20 Maximilian Baum MD [address] [place] [address] Specialist Cardiovascular Disease 03/09/21 documented as of this encounter
--- OUTSIDE RECORDS SUMMARY | 2024-09-02 13:36 | XMS_ITS | Encounter Summary ---
Author Organization [facility] Address [address] [place] [address] Care Team Providers Care Fire Hydrant Mechanic Name Role Phone Patrick Santa MD Primary Care Provider [phone] Shazia Rivas MD Primary Care Provider Glenn Meza Primary Care Provider UnavailShazia Chu MD Primary Care Provider Unavaila Evelyn Kendall MD Primary Care Provider Un available Shazia Rivas MD Primary Care Provider Unavaila Ivette Burks MD Primary Care Provider [phone] Maximilian Baum MD Unavailable [phone] Encounter Details Date Type Department Care Team Description 08/24/2011 SCAN Medical Records [address] [place] [address] Letty Chen DO Social History Tobacco Use [...] on filedocumented in this encounter Care Teams Fire Hydrant Mechanic Relationship Specialty Start Date End Date Patrick Santa MD [address] [place] [address] PCP - General Internal Medicine 11/14/14 04/07/15 Shazia Rivas MD [address] [place], [place] PCP - General Internal Medicine 04/08/15 07/17/17 [facility], Pcp [address] [place] [address] PCP - General Internal Medicine 07/18/17 08/27/17 Shazia Rivas MD [address] [place], [place] PCP - General Internal Medicine 08/28/17 12/31/17 Evelyn Stratton MD [address] [place], [place] PCP - General Internal Medicine 01/01/18 06/20/18 Shazia Rivas MD [address] [place], [place] PCP - General Internal Medicine 06/21/18 09/30/20 Ivette Valderrama MD [address] [place] [address] PCP - General Internal Medicine 10/01/20 Maximilian Baum MD [address] [facility] [address] [place] [address] Specialist Cardiovascular Disease 03/09/21 documented as of this encounter
--- OUTSIDE RECORDS SUMMARY | 2024-09-02 13:36 | XMS_ITS | Encounter Summary ---
Author Organization [facility] Address [address] [place] [address] Care Team Providers Care Vacuum Plastic Forming Machine Operator Name Role Phone Shazia Rivas MD Primary Care Provider Glenn Meza Primary Care Provider UnavailShazia Chu MD Primary Care Provider Evelyn Munoz MD Primary Care Provider Un available Shazia Rivas MD Primary Care Provider UnavailIvette Carver MD Primary Care Provider [phone] Maximilian Baum MD Unavailable [phone] Encounter Details Date Type Department Care Team Description 12/17/2016 Walk In Clinic Visit Medical Records [address] [place] [address] Abstract, Provider Social History Tobacco Use Types [...] on filedocumented in this encounter Care Teams Vacuum Plastic Forming Machine Operator Relationship Specialty Start Date End Date Shazia Rivas MD PCP - General Internal Medicine 04/08/15 07/17/17 [facility], Pcp PCP - General Internal Medicine 07/18/17 08/27/17 Shazia Rivas MD PCP - General Internal Medicine 08/28/17 12/31/17 Evelyn Stratton MD PCP - General Internal Medicine 01/01/1806/20 Shazia Rivas MD PCP - General Internal Medicine 06/21/18 09/30/20 Ivette Valderrama MD [address] [place] [address] PCP - General Internal Medicine 10/01/20 Maximilian Baum MD [address] [place] [address] Specialist Cardiovascular Disease 03/09/21 documented as of this encounter
--- OUTSIDE RECORDS SUMMARY | 2024-09-02 13:36 | XMS_ITS | Encounter Summary ---
Author Organization [facility] Address [address] [place] [address] Care Team Providers Care Baggagemaster Name Role Phone Evelyn Stratton MD Primary Care Provider Un available Shazia Rivas MD Primary Care Provider Unavaila ble Ivette Valderrama MD Primary Care Provider [phone] Maximilian Baum MD Unavailable [phone] Encounter Details Date Type Department Care Team Description 02/13/2018 Anatomic Pathology Assistant Report Medical Records [address] [place] [address] Aren Mccoy PA [address] [place] [address] Social History Tobacco Use Types Packs/Day Years [...] on filedocumented in this encounter Care Teams Baggagemaster Relationship Specialty Start Date End Date Evelyn Stratton MD PCP - General Internal Medicine 01/01/1806/20 Shazia Rivas MD PCP - General Internal Medicine 06/21/18 09/30/20 Ivette Valderrama MD [address] [place] [address] PCP - General Internal Medicine 10/01/20 Maximilian Baum MD [address] [place] [address] Specialist Cardiovascular Disease 03/09/21 documented as of this encounter
--- OUTSIDE RECORDS SUMMARY | 2024-09-02 13:36 | XMS_ITS | Clinical Summary ---
Author Organization [facility] Address [address] [place] [address] Care Team Providers Care Credit Analyst Name Role Phone Ivette Valderrama MD Primary Care Provider [phone] Maximilian Baum MD Unavailable [phone] Allergies No known active allergies Medications Medication Sig Dispensed Refills Start Date End Date Status Cyanocobalamin (B-12) 100 MCG Tab Take 1 tablet by mouth daily. 0 03/19/2021 Active D3 Super Strength 50 MCG (2000 UT) Cap Take 1 capsule by mouth daily. 0 06/22/2021 Active Psyllium 48.57 % Powder Take by mouth. Take as directed on packaging 0 Active ALBUTEROL SULFATE (ProAir HFA) 108 (90 Base) MCG/ACT Aero SolnIndications:Chron ic obstructive pulmonary disease, unspecified COPD type (HCC) Inhale 2 Puffs into the lungs every 6 hours as needed for Cough, Wheezing or Shortness of Breath for up to 30 days. 1 g 11 02/03/2023 Active hydrocortisone 2.5 % cream Apply to affected area twice daily for 7 days. 30 g 0 03/16/2023 Active Fluticasone-Salmetero l (Wixela Inhub) 250-50 MCG/ACT AEROSOL POWDER,BREATH ACTIVATEDIndications: Chronic obstructive pulmonary disease, unspecified COPD type (HCC),Moderate persistent asthma, unspecified whether complicated Inhale 1 Puff into the lungs 2 times daily for 90 days. 3 Each 3 06/14/2023 Active Ipratropium-Albuterol 0.5-2.5 (3) MG/3ML SolutionIndications:C hronic obstructive pulmonary disease, unspecified COPD type (HCC) Inhale 3 mL into the lungs 4 times daily as needed for Other (cough and wheezing) for up to 30 days. 360 mL 11 06/14/2023 Active Zoledronic Acid (Reclast) 5 MG/100ML SolutionIndications:O steoporosis with current pathological fracture, unspecified osteoporosis type, sequela Inject 5 mg into the vein Once. 100 mL 0 09/08/2023 Active Tiotropium [place] Monohydrate (Spiriva Respimat) 2.5 MCG/ACT Aero Soln Inhale 2 Puffs into the lungs daily for 90 days. 3 g 3 10/26/2023 Active Diclofenac Sodium 1 % Gel Apply 2 g topically 4 times daily as needed (For bilateral knee pain.) for up to 30 days. Apply 2 g to each affected knee up to 4 times daily; maximum dose per knee joint: 100 g 2 01/08/2024 Active triamcinolone acetonide (KENALOG-40) 40 MG/ML injectionIndications: Primary osteoarthritis of right knee,Post-traumatic osteoarthritis of left knee Inject 1 mL into the articular space once for 1 dose. 1 mL 0 01/16/2024 Active Vyvanse 20 MG capsule Take 1 Capsule by mouth every morning. 0 02/28/2024 Active polyethylene glycol (GLYCOLAX) 17 g packet Take 1 Packet by mouth daily. 0 Active Magnesium Hydroxide (DULCOLAX OR) Take by mouth as needed. 0 Active linaCLOtide (Linzess) 72 MCG Cap Take 1 Capsule by mouth daily. 30 Capsule 3 03/06/2024 Active Estrogens Conjugated (Premarin) 0.625 MG/GM Cream Place 1 g vaginally twice a week. INSERT 1 GRAM /0.625 MG VAGINALLY AT HS TWICE WEEKLY 30 g 3 03/14/2024 Active cetirizine (ZYRTEC) 10 MG tablet Take 1 Tablet by mouth daily. 90 Tablet 1 2024 Active omeprazole (PRILOSEC) 20 MG capsule TAKE 1 CAPSULE BY MOUTH IN THE MORNING BEFORE BREAKFAST 90 Capsule 1 04/23/2024 Active Active Problems Problem Noted Date Primary osteoarthritis of right knee Post-traumatic osteoarthritis of left kn ee 01/16/2024 Compression fracture of T11 vertebra 02/2023 Overview: 04/[address] Dyskinesia of gallbladder 04/29/2022 Osteoporosis 04/13/2022 Overview: 04/16 T score spine -3.4 hip -2.9 DJD (degenerative joint disease) of knee 04/11/2022 History of tobacco abuse 06/21/2018 Internal hemorrhoids 03/09/2018 Constipation 02/28/2018 GERD (gastroesophageal reflux disease) 0 02/15/2018 Vocal cord edema 04/16/2015 Overview: Per ENT report. Patient to avoid tobacco Depression 03/17/2015 Overview: Prev on prozac ADD (attention deficit disorder) 015 Overview: Follows with psych COPD (chronic obstructive pulmonary dise ase) 12/01/2014 Frequent PVCs B12 deficiency Vitamin D deficiency Resolved Problems Problem Noted Date Resolved Date Vaginal dryness, menopausal 08/02/2022 03/0 01/2023 Last Assessment & Plan: Patient instructed to continue with vaginal estrogen - new Rx provided today and she notes the prescription she filled previously cost $120. Also encouraged to check the [employer] alonso for possible discounted dennison. We discussed the importance of use of vaginal dilators in order to slowly increase the size of the vaginal introitus to allow for penetrative vaginal intercourse in the future. We discussed it is probably easiest to purchase vaginal dilators on [employer]. Patient was instructed on use of vaginal dilators. All questions answered. Decreased libido 08/02/2022 08/31/2022 Last Assessment & Plan: Discussed relation of sexual dysfunction to underlying causes including depression, medications, life stress, changes in body image or weight gain. We also discussed that pain with intercourse may be a deterrent for her mentally/emotionally. Supportive counseling including encouraging patient to create time and special space for sexual expression, free from distractions. Reviewed relaxation techniques Suggest a variety in sexual practices including romantic novels, movies, and different techniques with partner including the use of lubricants, vibrators and toys as tolerated. Positive cardiac stress test 01/25/2021 Anxiety and depression 03/28/2019 2 Abnormal weight loss 02/21/2018 03/10/2021 Abdominal bloating 02/15/2018 03/10/2021 Tobacco use disorder 12/01/2014 06/21/2018 Immunizations Name Administration Dates Next Due COVID-19 (Moderna) 04/16/2021,03/19/2021 COVID-19 (Moderna) PT Reported 04/16/2021,2020 Influenza (> 6 Months) 06/02/2017,03/17/2015 Influenza Vaccine-preservati ve Free-quadrivalent 4 Years 06/21/2018 Influenza vaccine high dose age 65 and over 12/2022,04/11/2022,03/19/2021 Pneumococcal Conjugate PCV-13 04/11/2022 Family History Medical History Relation Name Comments Crohn's Disease Aunt Diabetes Brother CA Breast Maternal Grandmother CA Ovarian Mother late 60's CA Colon Negative Hx Relation Name Status Comments Aunt Alive [...] Sign Reading Time Taken Comments Blood Pressure 126/68 03/06/2024 3:39 PM EDT Pulse 87 03/06/2024 3:39 PM EDT Temperature 36.7 ??C (98.1 ??F) 01/08/2024 2:12 PM ED T Respiratory Rate 14 01/08/2024 2:12 PM EDT Oxygen Saturation 96% 03/06/2024 3:39 PM EDT Inhaled Oxygen Concentration - - Weight 63.5 kg (140 lb) 03/06/2024 3:39 PM EDT Height 165.1 cm (5' 5 ) 03/06/2024 3:39 PM EDT Body Mass Index 23.3 03/06/2024 3:39 PM EDT Plan of Treatment Health Maintenance Due Date Last Done Comments PNEUMOCOCCAL VACCINE (2 - PPSV23 or PCV20) 04/11/2023 04/11/2022 FALL RISK ASSESSMENT 01/20/2024 01/19/2023 (Completed), 01/17/2022 Covid-19 Vaccine ( season) 2024 04/16/2021, 04/16/2021, 03/19/2021, Additional history exists INFLUENZA (#1) 2024 03/02/2023, 03/26, 03/19/2021, Additional history exists Lung Cancer Screening (Low Dose CT) 03/31/2024 03/31/2023, 03/30/2022, 03/26/2021, Additional history exists BONE DENSITY SCREENING 04/12/2024 04/12/2022 MAMMOGRAM 09/28/2024 09/29/2023, 08/25, 09/10/2021, Additional history exists DEPRESSION SCREEN 01/07/2025 01/08/2024, , 01/17/2022, Additional history exists DTAP/TDAP/TD (2 - Td or Tdap) 02/17/2025 02/17/2015 (Refused) SHINGLES VACCINE (1 of 2) 02/09/2026 Po stponed from 2005 (Other Circumstances) CHOLESTEROL SCREENING 04/11/2027 04/11/2022 , 12/16/2020, 05/17/2017, Additional history exists COLON CANCER SCREENING 03/08/2028 03/08/2018 HEPATITIS C SCREENING Completed 12/31/2021 , 07/04/2016, 06/05/2015 Care Teams Credit Analyst Relationship Specialty Start Date End Date Ivette Valderrama MD [address] [place] [address] PCP - General Internal Medicine 10/01/20 Maximilian Baum MD [address] [place] [address] [address] [place] [address] Specialist Cardiovascular Disease 03/09/21
--- OUTSIDE RECORDS SUMMARY | 2024-09-02 13:36 | XMS_ITS | Encounter Summary ---
Author Organization [facility] Address [address] [place] [address] Care Team Providers Care Chainer Name Role Phone Ivette Valderrama MD Primary Care Provider [phone] Maximilian Baum MD Unavailable [phone] Reason for Visit * Reason Onset Date Comments Faxed Refill 03/08/2023 Encounter Details Date Type Department Care Team Description 03/08/2023 Refill Pulmonology - [place] [address] [facility] [address] [place] [address] Lasha Porras MD [address] [place] [address] Faxed Refill Social History Tobacco Use Types [...] suspected to have Coronavirus/COVID-19? No / Unsure 03/02/2023 8:53 AM EDT documented as of this encounter Miscellaneous Notes * Telephone Encounter - Rafiq Mccoy CMA - 03/09/2023 8:24 AM EDT [facility] * Telephone Encounter - Lasha Porras MD - 03/08/2023 5:10 PM EDT 2 puff QD- please let them know * Telephone Encounter - Rafiq Mccoy CMA - 03/08/2023 4:39 PM EDT TONY 02/03/23 NOV 06/14/23 * Telephone Encounter - Natacha Couch - 03/08/2023 3:48 PM EDT [facility]ARM[facility] COMMENTS: SCRIPT CLARIFICATIONl: USUALLY 2 ACCUATIONS DAILY. PLEASE CONFIRM DRUG: Tiotropium [place] Monohydrate (Spiriva Respimat) 2.5 MCG/ACT Aero Soln documented in this encounter Plan of Treatment Not on file documented as of this encounter Visit Diagnoses Not on filedocumented in this encounter Care Teams Chainer Relationship Specialty Start Date End Date Ivette Valderrama MD [address] [place] [address] PCP - General Internal Medicine 10/01/20 Maximilian Baum MD [address] [place] [address] Specialist Cardiovascular Disease 03/09/21 documented as of this encounter
--- OUTSIDE RECORDS SUMMARY | 2024-09-02 13:36 | XMS_ITS | Encounter Summary ---
Author Organization [facility] Address [address] [place] [address] Care Team Providers Care Interventional Tech Name Role Phone Shazia Rivas MD Primary Care Provider Ivette Bynum MD Primary Care Provider [phone] Maximilian Baum MD Unavailable [phone] Encounter Details Date Type Department Care Team Description 12/19/2019 Telephone Physiatry - [address] [address] Anat Pederson MD [address] [place] [address] [place] [address] Social History Tobacco Use Types Packs/Day Years [...] then nothing * Telephone Encounter - Patience Cantor M.A. - 01/02/2020 11:46 AM EDT Patient [...] on filedocumented in this encounter Care Teams Interventional Tech Relationship Specialty Start Date End Date Shazia Rivas MD PCP - General Internal Medicine 06/21/18 09/30/20 Ivette Valderrama MD [address] [place] [address] PCP - General Internal Medicine 10/01/20 Maximilian Baum MD [address] [place] [address] Specialist Cardiovascular Disease 03/09/21 documented as of this encounter
== END 2024-09-02 12:41 | disposition home or self-care (01) ==
PROVIDERS: PCP Nurse Practitioner Family; Visit Provider Nurse Practitioner Family
DX: R41.89 Other symptoms and signs involving cognitive functions and awareness (principal); R68.89 Other general symptoms and signs; G47.9 Sleep disorder, unspecified

== ENCOUNTER → 2024-09-02 11:52 | Outpatient (BNVA) | payer MEDICARE, SELFPAY | PROVIDERS: PCP Nurse Practitioner Family; Visit Provider Nurse Practitioner Family | DX: R41.89 Other symptoms and signs involving cognitive functions and awareness (principal); R68.89 Other general symptoms and signs; G47.9 Sleep disorder, unspecified | CPT/HCPCS: 96127 ==

== ENCOUNTER 2024-09-16 10:26 | Outpatient (AMB) | payer OTHER, SELFPAY ==
--- NOTE | 2024-09-16 10:35 | MHC.PC.OV ---
Vital Signs 09/16/24 10:48 09/16/24 10:57 Height 5 ft 5 in Weight 147 lb BMI 24.5 BP 168/78 H 140/80 H Blood Pressure Location Rt brachial Rt brachial Position Sitting Sitting Respiration 16 Pulse 81 88 Pulse Source Pulse Oximeter Auscultation Temp 98.3 F Temp Source Oral Pulse Oximetry (%) 95 Oxygen Delivery Method Room Air Intake Visit Reasons: bilateral leg swelling Intake Note: patient here c/o bilateral leg pain since Grinder Lap Required: No Is last menstrual period known: No Post menopausal: No Patient : No Allergies No Known Allergies Allergy (Verified 09/16/24 10:50) Medication List - Last Reconciled 09/16/24 by Lidia Medina CNP albuterol sulfate 90 mcg/actuation 2 puffs inhalation Q6H PRN atorvastatin 20 mg PO BEDTIME 30 days [id number] 50 mcg-75 mcg -100 mg caps PO celecoxib (Celebrex) 200 mg PO DAILY cholecalciferol (vitamin D3) 50 mcg PO DAILY conjugated estrogens (Premarin) 0.625 mg PO DAILY cyclobenzaprine 10 mg PO TID PRN diclofenac sodium 1% topical fluticasone propion-salmeterol 250-50 mcg/dose (Wixela Inhub) 1 inh inhalation BID ipratropium-albuterol 0.5 mg-3 mg(2.5 mg base)/3 mL 3 mL inhalation QID PRN linaclotide (Linzess) 72 mcg PO DAILY lisdexamfetamine (Vyvanse) 20 mg PO QAM magnesium hydroxide (Dulcolax (magnesium hydroxide)) 5 mL PO DAILY PRN omeprazole 20 mg PO DAILY polyethylene glycol 3350 17 grams PO DAILY tiotropium bromide 2.5 mcg/actuation (Spiriva Respimat) 2 puffs inhalation DAILY trazodone 25 mg (1/2 x 50 mg) PO BEDTIME PRN 30 days Tobacco use date assessed: 09/16/24 Fall risk assessment: 2 + Falls in past year Last assessed Fall Risk: 09/16/24 Dental Screening Dental Screen Date: 09/16/24 Did you have a dental visit in the last 12 months?: Yes Did you have a dental problem in the last 6 months where you did not have access to dental care?: No Was dental information given to patient?: Patient has dentist HPI HPI Comments History of Present Illness Details 69-year-old female presents with complaints of mild swelling to both legs which she noticed last Monday. The swelling started from her ankles and spread up to her knees. She stopped taking trazodone and an [id number] supplement for gut health and the swelling has completely resolved. She spends a few hours standing, doing house and yard work almost every day. She requests dermatology referral for what facial lesions that have been present for several years. The lesions or sometimes itchy. No acute symptoms at this time. [facility] Medical History (Updated 09/16/24 @ 11:05 by Lidia Medina CNP) Non-alcoholic fatty liver disease History of torn meniscus of left knee Vertigo Imbalance Memory loss Light headed Headache STD (female) Incontinence Back injury Osteoporosis Arthritis Hypothyroid COPD (chronic obstructive pulmonary disease) Family History (Updated 06/03/24 @ 12:15 by Iman Morales MA) Father Alcohol abuse Brother Alcohol abuse High blood pressure Diabetes Mother High blood pressure Diabetes Thyroid disorder Uterus cancer Maternal Grandmother Diabetes Maternal Grandmother No problems noted. Maternal Grandfather Diabetes Social History Housing: House Patient Tobacco Use Status: Former Tobacco user Tobacco use type: Cigarette Cigarette Packs Per Day: 1.5 Cigarettes Per Day: 30 e-Cigarette/Vaping Use: Never Used Second Hand Smoke Exposure: No service: No Current occupational status: retired Current occupational exposures/hazards: No Cognitive needs: No Hearing needs: No Vision needs: Yes Questionnaire Thrive Questionnaire Date Thrive assessed: 09/02/24 I am a: Patient What is your living situation today?: I have a steady place to live Within the past 12 months, did the food you bought not last and you didn't have the money to get more?: Never true Within the past 12 months, did you worry whether your food would run out before you got money to buy more?: Sometimes True Do you have trouble paying for medicines?: I choose not to answer this question Do you have trouble getting transportation to medical appointments?: I choose not to answer this question Do you have trouble paying your heating and electricity bill?: Yes Do you have trouble taking care of your child, family member or friend?: I choose not to answer this question Do you have trouble with day-to-day activities such as bathing, preparing meals, shopping, managing finances, etc.?: Yes Are you currently unemployed and looking for a job?: No Are you interested in more education?: I choose not to answer this question Currently or been in a relationship where the following occur: No concerns reported THRIVE Score: 2 YENNY-7 AMB Questionnaire YENNY-7 Date YENNY - 7 assessed: 09/02/24 Source: Developed by Drs. Wander Blake, Carlyn Hernandez, Nikolay Solares and colleagues, with an educational kenney from [employer]. Review of Systems Const Details: Const Denies chills, Denies fatigue, Denies fever(s), Denies headache(s) and Denies weakness ENT Denies dizziness and Denies headache(s) Card Denies chest pain, Denies lightheadedness, Denies dyspnea and Denies other (Palpitations) Resp Denies cough, Denies dyspnea, Denies wheezing and Denies other ( shortness of breath) GI Denies abdominal pain, Denies melena, Denies hematochezia, Denies change in bowel habits, Denies dyspepsia and Denies nausea Denies hematuria and Denies dysuria Musc Denies abnormal gait, Denies myalgias, Denies arthralgias, Denies numbness and Denies tingling Skin/Breast Reports facial lesions, Denies unusual bruising and Denies wounds Neuro Denies abnormal gait, Denies dizziness, Denies headache(s), Denies memory loss, Denies numbness, Denies Sensory deficit (Neuro), Denies tingling and Denies weakness Psych Denies anxiety, Denies depression, Denies memory loss Endo Denies cold intolerance, Denies fatigue, Denies heat intolerance, Denies polydipsia and Denies polyuria Aller/Immun Denies wheezing Physical exam (Primary Care) Vital Signs: Last Vital Signs Temp 98.3 F 09/16/24 10:48 Pulse 81 09/16/24 10:48 Resp 16 09/16/24 10:48 BP 168/78 H 09/16/24 10:48 Pulse Ox 95 09/16/24 10:48 Oxygen Delivery Method Room Air 09/16/24 10:48 BMI result Body Mass Index 24.5 Tobacco/Smoking Status: Tobacco use Status Tobacco use date assessed 09/02/24 09/16/24 10:36 Patient Tobacco Use Status Former Tobacco user 09/16/24 10:36 Tobacco use type Cigarette 09/16/24 10:36 e-Cigarette/Vaping Use Never Used 09/16/24 10:36 Thrive Assessment: Date of Thrive Assessment Date Thrive assessed 09/02/24 09/16/24 10:36 Currently or been in a relationship where the following occur: No concerns reported Const Other: General: no acute distress and well developed Nutritional Appearance: well nourished Orientation/consciousness: patient oriented x3 HENMT Head: Yes normocephalic and Yes atraumatic Eyes General: appearance normal, both eyes and all related structures Pupils: Equal, round and reactive pupils present EOM: EOMs intact bilaterally Resp Effort & Inspection: normal respiratory effort Auscultation: clear to auscultation bilaterally Cardio Rate: regular rate Rhythm: regular rhythm Heart sounds: S1 normal heart sound present, S2 normal heart sound present, no gallops, no murmurs and no rubs GI Palpation (GI): No Abdominal aortic bruit present, Soft to palpation, nontender, No hepatosplenomegaly present and No Rebound tenderness present Auscultation: normal bowel sounds General: Yes no CVA tenderness Back/Spine/Pelvis Back: no CVA tenderness Cervical Spine: cervical ROM normal and No Cervical spine tenderness Thoracic/Lumbar Spine: thoraco-lumbar ROM normal, No pain with thoraco-lumbar ROM, No thoracic spinal tenderness and No lumbar spinal tenderness Extrem General: Yes normal to inspection, No edema and No calf tenderness Skin General: warm and dry. Normal skin color. Normal skin turgor Lesions: White, slightly raised papules to different areas of face, No drainage or overt infection Rashes: no rashes Trauma: no lacerations or abrasions Wounds: no wounds Nails: normal Neuro General: patient oriented x3, gait normal and no focal neuro deficit Cranial nerves: Yes Equal, round and reactive pupils present Cognition (Neuro): normal cognition Gait exam (Neuro): Normal gait present Sensory Exam: No Sensory deficit (Neuro) Psych Appearance: grossly normal Affect: normal affect Attitude: cooperative Thought process: Normal thought process present Coding Level of Care Code Est Pt Level 4 (22853) Diagnoses Bilateral lower extremity edema R60.0 Facial lesion L98.9 Assessment & Plan Assessment & Plan (1) Bilateral lower extremity edema: Code(s): R60.0 - Localized edema Category: Medical Plan: Reports mild swelling to both legs which she noticed last Monday. The swelling started from her ankles and spread up to her knees. She stopped taking trazodone and an mtej-oac-[id number] supplement for gut health and the swelling has completely resolved. She spends a few hours standing, doing house and yard work almost every day. Encouraged to avoid prolonged standing and to elevate her bilateral lower extremity to promote vascular return. May resume taking trazodone for sleep. Follow-up with moderate to severe lower extremity edema or associated dyspnea or wheezing. Follow-up for a telehealth visit for labs review as planned. Return sooner with symptoms or concerns. Verbalized understanding and agreed with treatment plan. (2) Facial lesion: Code(s): L98.9 - Disorder of the skin and subcutaneous tissue, unspecified Category: Medical Plan: Reports weight facial lesions for several years. The lesions or sometimes itchy. White, slightly raised papules to different areas of face, No drainage or overt infection. Referred to dermatology. Orders: Referrals Dermatology Referral L98.9 - Disorder of the skin and subcutaneous tissue, unspecified
[2024-09-16 10:48] VITALS: BP 168/78; PULSE 81; RESP 16; TEMP 36.8; O2SAT 95; BMI 24.5
[2024-09-16 10:57] VITALS: BP 140/80; PULSE 88
== END 2024-09-16 11:04 | disposition home or self-care (01) ==
LOC: HO.HMCFM 10:26
PROVIDERS: PCP Nurse Practitioner Family; Visit Provider Nurse Practitioner Family
DX: R60.0 Localized edema (principal); L98.9 Disorder of the skin and subcutaneous tissue, unspecified

== ENCOUNTER 2024-10-01 09:20 | Outpatient (AMB) | payer MEDICARE, SELFPAY ==
--- NOTE | 2024-10-01 09:22 | MHC.PC.OV ---
Vital Signs 10/01/24 09:34 Height 5 ft 5 in Weight 145 lb 2 oz BMI 24.1 BP 112/68 Blood Pressure Location Rt brachial Position Sitting Respiration 14 Pulse 85 Pulse Source Pulse Oximeter Temp 98.2 F Temp Source Oral Pulse Oximetry (%) 98 Oxygen Delivery Method Room Air Intake Visit Reasons: discharge on 09/29 from [facility] Intake Note: Angeline presents in the office today after being discharged from [facility] on 09/29/2024 for extreme abdominal pain. Connection Worker Required: No Allergies No Known Allergies Allergy (Verified 10/01/24 09:46) Medication List - Last Reconciled 10/01/24 by Lidia Medina CNP albuterol sulfate 90 mcg/actuation 2 puffs inhalation Q6H PRN atorvastatin 20 mg PO BEDTIME 30 days [id number] 50 mcg-75 mcg -100 mg caps PO celecoxib (Celebrex) 200 mg PO DAILY cholecalciferol (vitamin D3) 50 mcg PO DAILY conjugated estrogens (Premarin) 0.625 mg PO DAILY cyclobenzaprine 10 mg PO TID PRN diclofenac sodium 1% topical fluticasone propion-salmeterol 250-50 mcg/dose (Wixela Inhub) 1 inh inhalation BID linaclotide (Linzess) 72 mcg PO DAILY lisdexamfetamine (Vyvanse) 20 mg PO QAM magnesium hydroxide (Dulcolax (magnesium hydroxide)) 5 mL PO DAILY PRN omeprazole 20 mg PO DAILY tiotropium bromide 2.5 mcg/actuation (Spiriva Respimat) 2 puffs inhalation DAILY trazodone 25 mg (1/2 x 50 mg) PO BEDTIME PRN 30 days Tobacco use date assessed: 10/01/24 Fall risk assessment: 1 Fall in past year Last assessed Fall Risk: 10/01/24 Dental Screening Dental Screen Date: 10/01/24 Did you have a dental visit in the last 12 months?: Yes Did you have a dental problem in the last 6 months where you did not have access to dental care?: No Was dental information given to patient?: Patient has dentist HPI HPI Comments History of Present Illness Details 69-year-old female presents for ED discharge follow-up. She was evaluated and treated at [facility] ED on 09/29/2024 for diffuse abdominal pain and associated bloating. Abdomen was soft and nondistended. 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 CT revealed new right adnexal cyst measuring nearly 3 cm (etl informatica developer consultation and/or ultrasound are recommended) She was referred to [facility] vascular surgery. Chest x-ray and labs were unremarkable. She notes that abdominal pain has significantly improved; she has been experiencing intermittent mild abdominal pain. No acute symptoms at this time. She is followed by Gastroenterology but does not recall name of provider practice. [facility] Medical History (Updated 10/01/24 @ 09:59 by Lidia Medina CNP) Non-alcoholic fatty liver disease History of torn meniscus of left knee Vertigo Imbalance Memory loss Light headed Headache STD (female) Incontinence Back injury Osteoporosis Arthritis Hypothyroid COPD (chronic obstructive pulmonary disease) Family History Father Alcohol abuse Brother Alcohol abuse High blood pressure Diabetes Mother High blood pressure Diabetes Thyroid disorder Uterus cancer Maternal Grandmother Diabetes Maternal Grandmother No problems noted. Maternal Grandfather Diabetes Social History (Updated 10/01/24 @ 09:30 by Lesly Anton MA) Housing: House Alcohol intake: never Patient Tobacco Use Status: Former Tobacco user Tobacco use type: Cigarette Cigarette Packs Per Day: 1.5 Cigarettes Per Day: 30 e-Cigarette/Vaping Use: Never Used Second Hand Smoke Exposure: No Use of substances other than those prescribed or required for medical reasons: No service: No Current occupational status: retired Current occupational exposures/hazards: No Cognitive needs: No Hearing needs: No Vision needs: Yes Questionnaire PHQ-9 Over the last 2 weeks, how often have you been bothered by any of the following problems? 1. Little interest or pleasure in doing things: several days 2. Feeling down, depressed, or hopeless: several days 3. Trouble falling or staying asleep, or sleeping too much: more than half the days 4. Feeling tired or having little energy: more than half the days 5. Poor appetite or overeating: not at all 6. Feeling bad about yourself - or that you are a failure or have let yourself or your family down: not at all 7. Trouble concentrating on things, such as reading the newspaper or watching television: several days 8. Moving or speaking so slowly that other people could have noticed. Or the opposite - being so fidgety or restless that you have been moving around a lot more than usual: not at all 9. Thoughts that you would be better off or of hurting yourself in some way: not at all Total score: 7 Depression Screening Interpretation: Positive Depression Screening Done: Yes 24256 - PHQ-9 Billing: Patient declined-do not bill Source: Developed by Drs. Wander Blake, Carlyn Hernandez, Nikolay Solares and colleagues, with an educational kenney from [employer]. Thrive Questionnaire Date Thrive assessed: 09/02/24 What is your living situation today?: I have a steady place to live Within the past 12 months, did the food you bought not last and you didn't have the money to get more?: Never true Within the past 12 months, did you worry whether your food would run out before you got money to buy more?: Never true Do you have trouble paying for medicines?: No Do you have trouble getting transportation to medical appointments?: No Do you have trouble paying your heating and electricity bill?: No Do you have trouble with day-to-day activities such as bathing, preparing meals, shopping, managing finances, etc.?: No Are you currently unemployed and looking for a job?: I choose not to answer this question Are you interested in more education?: I choose not to answer this question Please select the resources that you would like help with: None THRIVE Score: 0 AUDIT C Alcohol Use Questionnaire (AUDIT-C) 1. How often do you have a drink containing alcohol?: Never Total Score: 0 YENNY-7 AMB Questionnaire YENNY-7 Date YENNY - 7 assessed: 10/01/24 Feeling nervous, anxious, or on edge: 1 = Several days Not being able to stop or control worryin = Several days Worrying too much about different things: 1 = Several days Trouble relaxin = Several days Being so restless that it is hard to sit still: 0 = Not at all Becoming easily annoyed or irritable: 1 = Several days Feeling afraid as if something awful might happen: 0 = Not at all Total YENNY-7 score (0-4 normal; 5-9 mild; 10-14 moderate; 15-21 severe): 5 Source: Developed by Drs. Wander Blake, Carlyn Hernandez, Nikolay Solares and colleagues, with an educational kenney from [employer]. YENNY-7 Assessment Billing YENNY-7 Assessment Tool: YENNY-7 Assessment 99702 Review of Systems Const Details: Const Denies chills, Denies fatigue, Denies fever(s), Denies headache(s) and Denies weakness ENT Denies dizziness and Denies headache(s) Card Denies chest pain, Denies lightheadedness, Denies dyspnea and Denies other (Palpitations) Resp Denies cough, Denies dyspnea, Denies wheezing and Denies other ( shortness of breath) GI Denies abdominal pain, Denies melena, Denies hematochezia, Denies change in bowel habits, Denies dyspepsia and Denies nausea Denies hematuria and Denies dysuria Musc Denies abnormal gait, Denies myalgias, Denies arthralgias, Denies numbness and Denies tingling Skin/Breast Denies rash, Denies unusual bruising and Denies wounds Neuro Denies abnormal gait, Denies dizziness, Denies headache(s), Denies memory loss, Denies numbness, Denies Sensory deficit (Neuro), Denies tingling and Denies weakness Psych Denies anxiety, Denies depression, Denies memory loss Endo Denies cold intolerance, Denies fatigue, Denies heat intolerance, Denies polydipsia and Denies polyuria Aller/Immun Denies wheezing Physical exam (Primary Care) Vital Signs: Last Vital Signs Temp 98.2 F 10/01/24 09:34 Pulse 85 10/01/24 09:34 Resp 14 10/01/24 09:34 BP 112/68 10/01/24 09:34 Pulse Ox 98 10/01/24 09:34 Oxygen Delivery Method Room Air 10/01/24 09:34 BMI result Body Mass Index 24.1 Tobacco/Smoking Status: Tobacco use Status Tobacco use date assessed 10/01/24 10/01/24 09:37 Patient Tobacco Use Status Former Tobacco user 10/01/24 09:30 Tobacco use type Cigarette 10/01/24 09:30 e-Cigarette/Vaping Use Never Used 10/01/24 09:30 PHQ-9: PHQ-9 Score PHQ-9: Total score 7 10/01/24 09:41 Depression Screening Interpretation: Positive Thrive Assessment: Date of Thrive Assessment Date Thrive assessed 09/02/24 10/01/24 09:25 Const Other: General: no acute distress and well developed Nutritional Appearance: well nourished Orientation/consciousness: patient oriented x3 HENMT Head: Yes normocephalic and Yes atraumatic Eyes General: appearance normal, both eyes and all related structures Pupils: Equal, round and reactive pupils present EOM: EOMs intact bilaterally Resp Effort & Inspection: normal respiratory effort Auscultation: clear to auscultation bilaterally Cardio Rate: regular rate Rhythm: regular rhythm Heart sounds: S1 normal heart sound present, S2 normal heart sound present, no gallops, no murmurs and no rubs GI Palpation (GI): No Abdominal aortic bruit present, Soft to palpation, nontender, No hepatosplenomegaly present and No Rebound tenderness present Auscultation: normal bowel sounds General: Yes no CVA tenderness Back/Spine/Pelvis Back: no CVA tenderness Cervical Spine: cervical ROM normal and No Cervical spine tenderness Thoracic/Lumbar Spine: thoraco-lumbar ROM normal, No pain with thoraco-lumbar ROM, No thoracic spinal tenderness and No lumbar spinal tenderness Extrem General: Yes normal to inspection, No edema and No calf tenderness Skin General: warm and dry. Normal skin color. Normal skin turgor Neuro General: patient oriented x3, gait normal and no focal neuro deficit Cranial nerves: Yes Equal, round and reactive pupils present Cognition (Neuro): normal cognition Gait exam (Neuro): Normal gait present Sensory Exam: No Sensory deficit (Neuro) Psych Appearance: grossly normal Affect: normal affect Attitude: cooperative Thought process: Normal thought process present Coding Level of Care Code Est Pt Level 4 (93213) Diagnoses Abdominal pain R10.9 Adnexal cyst N94.9 Additional Codes YENNY-7 Assessment Billing - YENNY-7 Assessment Tool: YENNY-7 Assessment 81302 ([id number]) Assessment & Plan Assessment & Plan (1) Abdominal pain: Code(s): R10.9 - Unspecified abdominal pain Category: Medical Plan: Significantly improved. She experiences intermittent mild abdominal pain. No acute symptoms at this time. Continue current treatment regimen. Follow-up with Gastroenterology as planned. She will obtain and provide name and practice of child care. 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 Verbalized understanding and agreed with treatment plan. (2) Adnexal cyst: Code(s): N94.9 - Unspecified condition associated with female genital organs and menstrual cycle Category: Medical Plan: Recent CT at [facility] ED revealed right adnexal cyst measuring nearly 3 cm.
[2024-10-01 09:34] VITALS: BP 112/68; PULSE 85; RESP 14; TEMP 36.8; O2SAT 98; BMI 24.1
--- OUTSIDE RECORDS SUMMARY | 2024-10-01 10:23 | XMS_ITS | Encounter Summary ---
Author Organization [facility] Address [address] [place] [address] Care Team Providers Care Patient Scheduling Manager Name Role Phone Ivette Valderrama MD Primary Care Provider [phone] Maximilian Baum MD Unavailable [phone] Encounter Details Date Type Department Care Team Description 01/05/2021 Telephone Adult Medicine [address] [id number] Ivette Valderrama MD [address] [place] [address] [id number] Social History Tobacco Use Types Packs/Day Years [...] on filedocumented in this encounter Care Teams Patient Scheduling Manager Relationship Specialty Start Date End Date Ivette Valderrama MD [address] [place] [id number] PCP - General Internal Medicine 10/01/20 Maximilian Buam MD [address] [place] [id number] Specialist Cardiovascular Disease 03/09/21 documented as of this encounter
--- OUTSIDE RECORDS SUMMARY | 2024-10-01 10:23 | XMS_ITS | Encounter Summary ---
Author Organization [facility] Address [address] [place] [address] Care Team Providers Care Knitting Tester Name Role Phone Ivette Valderrama MD Primary Care Provider [phone] Maximilian Baum MD Unavailable [phone] Encounter Details Date Type Department Care Team Description 03/30/2022 Package Winder Report Medical Records [address] [place] [id number] Center, [facility] [address] [place] [address] Social History Tobacco Use Types Packs/Day Years [...] on filedocumented in this encounter Care Teams Knitting Tester Relationship Specialty Start Date End Date Ivette Valderrama MD [address] [place] [address] PCP - General Internal Medicine 10/01/20 Maximilian Baum MD [address] [place] [address] Specialist Cardiovascular Disease 03/09/21 documented as of this encounter
--- OUTSIDE RECORDS SUMMARY | 2024-10-01 10:23 | XMS_ITS | Encounter Summary ---
Author Organization [facility] Address [address] [place] [address] Care Team Providers Care Car Dumper Operator Name Role Phone Ivette Valderrama MD Primary Care Provider [phone] Maximilian Baum MD Unavailable [phone] Encounter Details Date Type Department Care Team Description 12/29/2022 Orders Only [facility] Medical [facility] [address] [facility] [address] [place] [address] Babatunde Rodriguez MD [address] [facility] [address] [place], [place] [phone] Rotator cuff injury, right, initial encounter Social [...] MD MRI Performing Organization Address City/State/ZIP Co sd Phone Number [facility] RAD[facility] documented in this encounter Visit Diagnoses Diagnosis Rotator cuff injury, right, initial encounter documented in this encounter Care Teams Car Dumper Operator Relationship Specialty Start Date End Date Ivette Valderrama MD [address] [place] [address] PCP - General Internal Medicine 10/01/20 Maximilian Baum MD [address] [place] [address] Specialist Cardiovascular Disease 03/09/21 documented as of this encounter
--- OUTSIDE RECORDS SUMMARY | 2024-10-01 10:23 | XMS_ITS | Clinical Summary ---
Author Organization [facility] Address [address] [place] [address] Care Team Providers Care Lean Coach Name Role Phone Ivette Valderrama MD Primary Care Provider [phone] Allergies No known active allergies Medications Medication [...] age to complete this topic Care Teams Lean Coach Relationship Specialty Start Date End Date Ivette Valderrama MD PCP - General Internal Medicine 09/12/23
--- OUTSIDE RECORDS SUMMARY | 2024-10-01 10:23 | XMS_ITS | Encounter Summary ---
Author Organization [facility] Address [address] [place] [address] Care Team Providers Care Client Finance Analyst Name Role Phone Ivette Valderrama MD Primary Care Provider [phone] Maximilian Baum MD Unavailable [phone] Reason for Visit * Reason Onset Date Comments Faxed Refill 12/16/2020 Encounter Details Date Type Department Care Team Description 12/16/2020 Refill Adult Medicine [address] [phone] Ivette Valderrama MD [address] [place] [phone] Faxed Refill Social History Tobacco Use Types [...] stop the weekly supplementation and start an atgq-spw-bujylpa vitamin D supplement. Written by Andria Justice [...] N/A Patients current insurance carrier is: Payor: [facility] / Plan: PPO $35 [id number] / Product Type: PPO [id number] documented in this encounter Plan of Treatment Not on file documented as of this encounter Visit Diagnoses Not on filedocumented in this encounter Care Teams Client Finance Analyst Relationship Specialty Start Date End Date Ivette Valderrama MD [address] [place] [address] PCP - General Internal Medicine 10/01/20 Maximilian Baum MD [address] [place] [address] Specialist Cardiovascular Disease 03/09/21 documented as of this encounter
--- OUTSIDE RECORDS SUMMARY | 2024-10-01 10:23 | XMS_ITS | Clinical Summary ---
Author Organization [facility] Address [address] [place] [address] Phone Care Team Providers Care International Broadcast Music Librarian Name Role Phone Lidia Medina Primary Care Provider [phone] Allergies No known active allergies Medications psyllium [...] 1 g into the vagina. 2 Active fluticasone-ewdin meterol (ADVAIR DISKUS) 250-50 mcg/dose diskus inhaler [...] EST Procedure visit Obstetrics and Gynecology - [address] [phone] Oksana Contreras MD PMB (postmenopausal bleeding) (Primary Dx); Thickened endometrium 07/30/2024 Telephone Obstetrics & Gynecology [address] [address] Rebecca Puckett CNM 07/25/2024 5:43 PM EST - 07/25/2024 11:59 PM EST Hospital Encounter Radiology Department - [address] [phone] Encounter for well woman exam with routine gynecological exam; PMB (postmenopausal bleeding) Discharge Disposition: Home or Self Care 07/12/2024 2:15 PM EST Office Visit Obstetrics & Gynecology [address] [address] Rebecca Puckett CNM Encounter for [...] DX:Constipation COPD (chronic obstructive pu lmonary disease) ([facility]) 12/01/2014 DX:COPD (chronic obstructive pulmonary disease) ([facility]) Depression 03/17/2015 DX:Depression; C OMMENT: Prev on [...] 3:50 PM EDT Appointment Radiology Department - [address] [address] 03/06/2025 10:10 AM EDT Office Visit Gastroenterology - [place] 175 [facility] [address] [facility] [address] [place] [phone] Shelley Elmore PA [address] [place] [address] Health Maintenance Due Date Last Done Comments DTaP,Tdap,and Td Vaccines (1 - Tdap) 1974 Zoster Vaccines (1 of 2) 2005 RSV Immunization Adult Patients (1 - Risk 60-74 years 1-dose series) 2015 Depression Screening 06/04/2022 Falls Risk Assessment 06/04/2022 Hepatitis C Screening 06/04/2022 Medicare Annual Wellness Visit 06/04/2022 Social Influencers of Health Screening 06/04/2022 Pneumococcal Vaccine: 50+ Years (2 of 2 - PPSV23) 06/06/2022 04/11/2022 COVID-19 Vaccine (3 - season) 2024 04/16/2021, 03/19/2021 Influenza Vaccine (Season Ended) 2025 03/02/2023, 04/11/2022, 03/19/2021, Additional history exists Lung Cancer [...] age to complete this topic Meningococcal B Vaccine Aged Out No l onger eligible based on patient's age to complete [...] is not identified. 08/30/2024 11:32 AM EST [facility] Clinical Information PMB (postmenopausal bleeding) (N95.0) Thickened endometrium (R93.89) 08/30/2024 11:32 AM EST [facility] Gross Description A. Endometrium, biopsy: Labeled EMB, Endo . Received in formalin is an approximately 0.8 x 0.6 x 0.2 cm aggregate of soft to mucoid, clear to white tissue fragments, which is wrapped in paper and submitted in toto in one cassette, multiple pieces, x2. Please note: Small tissue fragments may not survive processing. dvb/DG 08/30/2024 11:32 AM EST [facility] Disclaimer Unless otherwise specified, all tissue is 10% NB formalin fixed and paraffin embedded. 08/30/2024 11:32 AM EST [facility] Tissue Endometrial structure / Unknown Non-blood Collection / Unknown 08/26/2024 3:36 PM EST 08/26/2024 3:36 PM EST us Oksana Contreras MD LAB PATHOLOGY ORDERABLES Fi nal Result [facility]) [facility] [address] [place] [address], * US Pelvis Non OB Complete w [...] cm previously. Left ovary not visualized. POS [id number] -------- FINAL REPORT -------- Dictated By: Kimberly Roberts Dictated Date: 07/26/2024 08:16 ET Assigned Physician: Kimberly Roberts Reviewed and Electronically Signed By: Kimberly Roberts Signed Date: 07/26/2024 08:26 ET Workstation ID: [id number] Transcribed By: Self Edit Transcribed Date: 07/26/2024 [...] cm previously. Left ovary not visualized. POS [id number] -------- FINAL REPORT -------- Dictated By: Kimberly Roberts Dictated Date: 07/26/2024 08:16 ET Assigned Physician: Kimberly Roberts Reviewed and Electronically Signed By: Kimberly Roberts Signed Date: 07/26/2024 08:26 ET Workstation ID: [id number] Transcribed By: Self Edit Transcribed Date: 07/26/2024 [...] Final Result [facility] [address] [place] [address], * CT LUNG SCREENING LOW DOSE (04/02/2024 9:07 AM EDT) Anatomical Region Laterality Modality Computed Tomogra phy 04/01/2024 11:3 1 AM EDT Narrative 04/02/2024 9:07 AM EDT [facility] Diagnostic Imaging Department [address] [place] [address] Patient: ??ANGELINE JEFFERSNO ?/Age/Sex: 1955 - 68 - F Unit#: ??[id number] ? Location/Status: ??SPDICATLS/REG CLI ? Mnemonic/Ordering Site: [...] Procedure Note Shey Roman MD - 04/23/2024 [facility] Diagnostic Imaging Department [address] [place], [place] [phone] Patient: ANGELINE JEFFERSON /Age/Sex: 1955 - 68 - F Unit#: [id number] Location/Status: SPDICATLS/REG CLI Mnemonic/Ordering Site: [facility] Ordering Physician: CARA PIMENTEL MD CT Lung [...] IMPRESSION: ?? Osteoporosis by WHO criteria. The [facility] Department of Internal Medicine recommends [...] alternative screening schedule based on pebbles Rivera., [facility] July 14, 2011 for patients with osteopenia [...] IMPRESSION: IMPRESSION: Osteoporosis by WHO criteria. [facility] Department of Internal Medicine recommendsusing [...] alternative screening schedule based on pebbles Rivera., [facility] for patients with osteopenia (based on [...] Documents on File Type Date Recorded Patient Investment Banker Expl anation Health Care Decision (hx) 03/31/2023 [...] (hx) 03/31/2023 AD [place] DIRECTIVE Care Teams International Broadcast Music Librarian Relationship Specialty Start Date End Date Lidia Medina FNP [address] [place] [address] PCP - General Family Medicine 07/10/24
--- OUTSIDE RECORDS SUMMARY | 2024-10-01 10:23 | XMS_ITS | Encounter Summary ---
Author Organization [facility] Address [address] [place] [address] Care Team Providers Care Ecommerce Marketing Specialist Name Role Phone Ivette Valderrama MD Primary Care Provider [phone] Maximilian Baum MD Unavailable [phone] Encounter Details Date Type Department Care Team Description 01/13/2021 [facility] Medical Records [address] [place] [address] Social History Tobacco Use Types Packs/Day Years [...] Name Priority Date/Time Associated Diagnosis Comments OUTSIDE EKG Routine 01/13/2021 OUTSIDE PLAIN FILM Routine 01/13/2021 OUTSIDE LAB Routine 01/13/2021 documented in this encounter Results * OUTSIDE PLAIN FILM (01/13/2021) Provider Abstract RADIOLOGY * OUTSIDE LAB (01/13/2021) Provider Abstract LAB * OUTSIDE EKG (01/13/2021) Provider Abstract CARDIOLOGY documented in this encounter Visit Diagnoses Not on filedocumented in this encounter Care Teams Ecommerce Marketing Specialist Relationship Specialty Start Date End Date Ivette Valderrama MD [address] [place] [address] PCP - General Internal Medicine 10/01/20 Maximilian Baum MD [address] [address] Specialist Cardiovascular Disease 03/09/21 documented as of this encounter
--- OUTSIDE RECORDS SUMMARY | 2024-10-01 10:23 | XMS_ITS | Encounter Summary ---
Author Organization [facility] Address [address] [place] [address] Care Team Providers Care Machine Brusher Name Role Phone Ivette Valderrama MD Primary Care Provider [phone] Maximilian Baum MD Unavailable [phone] Reason for Visit * Reason Onset Date Comments refill request 12/25/2023 Encounter Details Date Type Department Care Team Description 12/25/2023 Refill Adult Medicine [address] [phone] Ivette Valderrama MD [address] [place] [address] [phone] refill request Social History Tobacco Use Types [...] traveled recently to another state outside of [place], [place], [place], [place], [place], [place]? NO o If yes, did [...] Payor: [employer]ICARE FFS / Plan: [facility] MDCR-ADV HMO $0 JANE [id number] / Product Type: HMO [id number] documented in this encounter Plan of Treatment Not on file documented as of this encounter Visit Diagnoses Not on filedocumented in this encounter Care Teams Machine Brusher Relationship Specialty Start Date End Date Ivette Valderrama MD [address] [place] [address] PCP - General Internal Medicine 10/01/20 Maximilian Baum MD [address] [place] [address] Specialist Cardiovascular Disease 03/09/21 documented as of this encounter
--- OUTSIDE RECORDS SUMMARY | 2024-10-01 10:23 | XMS_ITS | Encounter Summary ---
Author Organization [facility] Address [address] [place] [address] Care Team Providers Care Lace Stripper Name Role Phone Ivette Valderrama MD Primary Care Provider [phone] Maximilian Baum MD Unavailable [phone] Reason for Visit * Reason Onset Date Comments Mychart Rx Refill 03/01/2022 Encounter Details Date Type Department Care Team Description 03/01/2022 Pt. Non Urgent Medical Question Adult Medicine [address] [phone] Latasha Barron PA-C [address] [place] [address] [phone] Social History Tobacco Use Types Packs/Day Years [...] on filedocumented in this encounter Care Teams Lace Stripper Relationship Specialty Start Date End Date Ivette Valderrama MD [address] [place] [address] PCP - General Internal Medicine 10/01/20 Maximilian Baum MD [address] [place] [address] Specialist Cardiovascular Disease 03/09/21 documented as of this encounter
--- OUTSIDE RECORDS SUMMARY | 2024-10-01 10:23 | XMS_ITS | Encounter Summary ---
Author Organization [facility] Address [address] [place] [address] Care Team Providers Care Grain Elevator Clerk Name Role Phone Ivette Valderrama MD Primary Care Provider [phone] Maximilian Baum MD Unavailable [phone] Reason for Visit * Reason Onset Date Comments refill request 12/16/2020 Encounter Details Date Type Department Care Team Description 12/16/2020 Refill Gastroenterology - [address] [place] [address] Shelley Elmore DScPAS refill request Social [...] on filedocumented in this encounter Care Teams Grain Elevator Clerk Relationship Specialty Start Date End Date Ivette Valderrama MD [address] [place] [address] PCP - General Internal Medicine 10/01/20 Maximilian Baum MD [address] [place] [address] Specialist Cardiovascular Disease 03/09/21 documented as of this encounter
--- OUTSIDE RECORDS SUMMARY | 2024-10-01 10:23 | XMS_ITS | Encounter Summary ---
Author Organization [facility] Address [address] [place] [address] Care Team Providers Care Tax Intern Name Role Phone Ivette Valderrama MD Primary Care Provider [phone] Maximilian Baum MD Unavailable [phone] Encounter Details Date Type Department Care Team Description 05/11/2023 Pt. Non Urgent Medical Question [facility] 175 [facility] [address] [place] [address] Babatunde Rodriguez MD [address] [facility] [address] [place] [address] Social History Tobacco Use Types Packs/Day Years [...] on filedocumented in this encounter Care Teams Tax Intern Relationship Specialty Start Date End Date Ivette Valderrama MD [address] [place] [address] PCP - General Internal Medicine 10/01/20 Maximilian Baum MD [address] [address] Specialist Cardiovascular Disease 03/09/21 documented as of this encounter
--- OUTSIDE RECORDS SUMMARY | 2024-10-01 10:23 | XMS_ITS | Encounter Summary ---
Author Organization [facility] Address [address] [place] [address] Care Team Providers Care Numerical Control Nesting Operator Name Role Phone Ivette Valderrama MD Primary Care Provider [phone] Maximilian Baum MD Unavailable [phone] Reason for Visit * Reason Onset Date Comments Testing 08/04/2022 Encounter Details Date Type Department Care Team Description 08/04/2022 Telephone Adult Medicine [address] [phone] Urbano Verdugo MD [address] [place] [address] [phone] Testing Social History Tobacco Use Types Packs/Day [...] She may have had it done at [facility]. Can we confirm with the patient? * Telephone Encounter - Reina Lazo - 08/04/2022 9:[address] Verdugo, You ordered a : MRI OF ARM JOINT / UPPER EXTREMITY JOINT NO CONTRAST (Order #[id number]) on 05/20/22 and on 05/18/22 Pt did want it done @ [facility], I checked there records and still not completed Is this order still needed? documented in this encounter Plan of Treatment Not on file documented as of this encounter Visit Diagnoses Not on filedocumented in this encounter Care Teams Numerical Control Nesting Operator Relationship Specialty Start Date End Date Ivette Valderrama MD [address] [place] [address] PCP - General Internal Medicine 10/01/20 Maximilian Baum MD [address] [place] [address] Specialist Cardiovascular Disease 03/09/21 documented as of this encounter
--- OUTSIDE RECORDS SUMMARY | 2024-10-01 10:23 | XMS_ITS | Encounter Summary ---
Author Organization [facility] Address [address] [place] [address] Care Team Providers Care Jewel Hole Driller Name Role Phone Ivette Valderrama MD Primary Care Provider [phone] Maximilian Baum MD Unavailable [phone] Encounter Details Date Type Department Care Team Description 01/04/2023 Night Triage Doc Medical Records [address] [place] [address] Abstract, Provider Social History Tobacco Use Types [...] on filedocumented in this encounter Care Teams Jewel Hole Driller Relationship Specialty Start Date End Date Ivette Valderrama MD [address] [place] [address] PCP - General Internal Medicine 10/01/20 Maximilian Baum MD 300 [facility] [address] [place] [address] Specialist Cardiovascular Disease 03/09/21 documented as of this encounter
--- OUTSIDE RECORDS SUMMARY | 2024-10-01 10:23 | XMS_ITS | Encounter Summary ---
Author Organization [facility] Address [address] [place] [address] Care Team Providers Care Records Associate Name Role Phone Shazia Rivas MD Primary Care Provider Jaycee Ivette Burks MD Primary Care Provider [phone] Maximilian Baum MD Unavailable [phone] Reason for Visit * Reason Comments E-prescribe Rx Request Encounter Details Date Type Department Care Team Description 07/26/2020 Refill Adult Medicine [address] [address] Andria Kumar PA-C E-prescribe Rx Request Social [...] / Plan[place] / Product Type: MEDICARE [id number] documented in this encounter Plan of Treatment Not on file documented as of this encounter Visit Diagnoses Not on filedocumented in this encounter Care Teams Records Associate Relationship Specialty Start Date End Date Shazia Rivas MD PCP - General Internal Medicine 06/21/18 09/30/20 Ivette Valderrama MD [address] [place] [address] PCP - General Internal Medicine 10/01/20 Maximilian Baum MD [address] [place] [address] Specialist Cardiovascular Disease 03/09/21 documented as of this encounter
--- OUTSIDE RECORDS SUMMARY | 2024-10-01 10:23 | XMS_ITS | Encounter Summary ---
Author Organization [facility] Address [address] [place] [address] Care Team Providers Care Third Steel Pourer Name Role Phone Ivette Valderrama MD Primary Care Provider [phone] Maximilian Baum MD Unavailable [phone] Reason for Visit * Reason Onset Date Comments Provider Call Back 06/29/2022 Encounter Details Date Type Department Care Team Description 06/29/2022 Telephone Internal Medicine - [address], [address] [place] [address] Urbano Verdugo MD [address] [place] [address] [phone] Provider Call Back Social History Tobacco Use Types Packs/Day Years [...] encounter Miscellaneous Notes * Telephone Encounter - Shikha Abdi - 06/30/2022 11:23 AM EST I have just spoken with [facility] in prior auth and they are going to resend the order to [facility] due to insurance the patient has to be scanned there. Thanks [facility] * Telephone Encounter - Sandra Lopez L.P.N. - 06/30/2022 11:11 AM EST Pt need external order for MRI * Telephone Encounter - Shikha Abdi - 06/30/2022 7:47 AM EST See encounter 05/20 patient is out of network benefits mri can not be done in [place]. Please contact patient to make her aware of this. * Telephone Encounter - Violet Owen - 06/29/2022 2:13 PM EST Spoke to pt this afternoon and referred her to radiology [phone]. Pt wants her MRI done in [place]. * Telephone Encounter - Tona Byers - 06/29/2022 1:49 PM EST Patient called and stated received a letter stating Dr. Porras ordered MRI for patient and to contactif had not heard anything within 5 days. After reviewing chart, I believe letter was mis-typed, as the MRI was ordered by Dr. Verdugo. Informed patient to contact [facility] medicine. documented in this encounter Plan of Treatment Not on file documented as of this encounter Visit Diagnoses Not on filedocumented in this encounter Care Teams Third Steel Pourer Relationship Specialty Start Date End Date Ivette Valderrama MD [address] [place] [address] PCP - General Internal Medicine 10/01/20 Maximilian Baum MD [address] [place] [address] Specialist Cardiovascular Disease 03/09/21 documented as of this encounter
--- OUTSIDE RECORDS SUMMARY | 2024-10-01 10:23 | XMS_ITS | Encounter Summary ---
Author Organization [facility] Address [address] [place] [address] Care Team Providers Care Bale Breaker Operator Name Role Phone Ivette Valderrama MD Primary Care Provider [phone] Maximilian Baum MD Unavailable [phone] Reason for Visit * Reason Onset Date Comments Medication 10/18/2023 Encounter Details Date Type Department Care Team Description 10/18/2023 Pt. Non Urgent Medical Question Adult Medicine [address] [phone] Ivette Valderrama MD [address] [place] [address] [phone] Social History Tobacco Use Types Packs/Day Years [...] encounter Miscellaneous Notes * Telephone Encounter - Tabby Madrigal - 10/18/2023 3:06 PM EDTFrom: Angeline Jefferson To: Kana Valderrama Sent: 10/18/2023 3:06 PM EDT Subject: Spiriva prescription I have new insurance coverage for prescriptions and I believe it will cover my Spiriva making it affordable. Can a new prescription be called into my pharmacy, please? Angeline Jefferson documented in this encounter Plan of Treatment Not on file documented as of this encounter Visit Diagnoses Not on filedocumented in this encounter Care Teams Bale Breaker Operator Relationship Specialty Start Date End Date Ivette Valderrama MD [address] [place] [address] PCP - General Internal Medicine 10/01/20 Maximilian Baum MD 300 [facility] [address] [place] [address] Specialist Cardiovascular Disease 03/09/21 documented as of this encounter
--- OUTSIDE RECORDS SUMMARY | 2024-10-01 10:23 | XMS_ITS | Encounter Summary ---
Author Organization [facility] Address [address] [place] [address] Care Team Providers Care Lottery Clerk Name Role Phone Ivette Valderrama MD Primary Care Provider [phone] Maximilian Baum MD Unavailable [phone] Encounter Details Date Type Department Care Team Description 08/01/2023 SCAN [facility] Medical [facility] 175 [facility] [address] [place] [address] Salina Polanco APRN Social History [...] on filedocumented in this encounter Care Teams Lottery Clerk Relationship Specialty Start Date End Date Ivette Valderrama MD [address] [place] [address] PCP - General Internal Medicine 10/01/20 Maximilian Baum MD 300 [facility] [address] [place], [place] [phone] Specialist Cardiovascular Disease 03/09/21 documented as of this encounter
--- OUTSIDE RECORDS SUMMARY | 2024-10-01 10:23 | XMS_ITS | Encounter Summary ---
Author Organization [facility] Address [address] [place] [address] Care Team Providers Care Lay Out Worker Name Role Phone Ivette Valderrama MD Primary Care Provider [phone] Maximilian Baum MD Unavailable [phone] Reason for Visit * Reason Comments E-prescribe Rx Request Encounter Details Date Type Department Care Team Description 03/07/2024 Refill Adult Medicine [address] [address] Jonathan Sharif, PAGerald [address] [place] [address] [phone] E-prescribe Rx Request Social History Tobacco Use [...] Date End Date Ivette Valderrama MD [address] [place] [address] [id number] PCP - General Internal Medicine 10/01/20 Maximilian Baum MD [address] [place] [address] Specialist Cardiovascular Disease 03/09/21 documented as of this encounter
--- OUTSIDE RECORDS SUMMARY | 2024-10-01 10:23 | XMS_ITS | Encounter Summary ---
Author Organization [facility] Address [address] [place] [address] Care Team Providers Care Shop Mechanic Helper Name Role Phone Shazia Rivas MD Primary Care Provider [facility] Ivette Burks MD Primary Care Provider [phone] Maximilian Baum MD Unavailable [phone] Encounter Details Date Type Department Care Team Description 09/08/2020 Business Doc Medical Records [address] [place] [address] Abstract, Provider Social History Tobacco Use Types [...] on filedocumented in this encounter Care Teams Shop Mechanic Helper Relationship Specialty Start Date End Date Shazia Rivas MD PCP - General Internal Medicine 06/21/18 09/30/20 Ivette Valderrama MD [address] [place] [address] PCP - General Internal Medicine 10/01/20 Maximilian aBum MD 300 [facility] 154 [place] [address] Specialist Cardiovascular Disease 03/09/21 documented as of this encounter
--- OUTSIDE RECORDS SUMMARY | 2024-10-01 10:23 | XMS_ITS | Encounter Summary ---
Author Organization [facility] Address [address] [place] [address] Care Team Providers Care Shipfitter Helper Name Role Phone Ivette Valderrama MD Primary Care Provider [phone] Maximilian Baum MD Unavailable [phone] Reason for Visit * Reason Comments E-prescribe Rx Request Encounter Details Date Type Department Care Team Description 06/07/2023 [facility] [address] [place] [phone] Salina Polanco APRN E-prescribe Rx Request [...] on filedocumented in this encounter Care Teams Shipfitter Helper Relationship Specialty Start Date End Date Ivette Valderrama MD [address] [place] [address] PCP - General Internal Medicine 10/01/20 Maximilian Baum MD [address] [address] Specialist Cardiovascular Disease 03/09/21 documented as of this encounter
--- OUTSIDE RECORDS SUMMARY | 2024-10-01 10:23 | XMS_ITS | Encounter Summary ---
Author Organization [facility] Address [address] [place] [address] Care Team Providers Care Supervisor [place] Name Role Phone Evelyn Stratton MD Primary Care Provider Un available Shazia Rivas MD Primary Care Provider Unavaila Ivette Burks MD Primary Care Provider [phone] Maximilian Baum MD Unavailable [phone] Encounter Details Date Type Department Care Team Description 01/09/2018 Orders Only Medicine/Pediatrics - [address] [phone] Sandy Parikh PA-C COPD exacerbation (HCC) Social [...] exacerbation documented in this encounter Care Teams Supervisor [place] Relationship Specialty Start Date End Date Evelyn Stratton MD PCP - General Internal Medicine 01/01/1806/20 Shazia Rivas MD PCP - General Internal Medicine 06/21/18 09/30/20 Ivette Valderrama MD [address] [place] [address] PCP - General Internal Medicine 10/01/20 Maximilian Baum MD [address] [place] [address] Specialist Cardiovascular Disease 03/09/21 documented as of this encounter
--- OUTSIDE RECORDS SUMMARY | 2024-10-01 10:23 | XMS_ITS | Encounter Summary ---
Author Organization [facility] Address [address] [place] [address] Care Team Providers Care Residential Roofer Name Role Phone Ivette Valderrama MD Primary Care Provider [phone] Maximilian Baum MD Unavailable Reason for Visit * Reason Onset Date Comments DME Request 06/14/2023 Encounter Details Date Type Department Care Team Description 06/14/2023 Telephone Pulmonology - [place] 175 [facility] [address] [place] [phone] Emerald Mary MD [address] [phone] DME Request Social History Tobacco Use Types [...] filedocumented in this encounter Care Teams Residential Roofer Relationship Specialty Start Date End Date Ivette Valderrama MD [address] [place] [address] PCP - General Internal Medicine 10/01/20 Maximilian Baum MD [address] [place] [address] Specialist Cardiovascular Disease 03/09/21 documented as of this encounter
--- OUTSIDE RECORDS SUMMARY | 2024-10-01 10:24 | XMS_ITS | Encounter Summary ---
Author Organization [facility] Address [address] [place] [address] Care Team Providers Care Glass Technician Name Role Phone Ivette Valderrama MD Primary Care Provider [phone] Maximilian Baum MD Unavailable [phone] Encounter Details Date Type Department Care Team Description 03/21/2023 Pt. Non Urgent Medical Question Adult Medicine [address] [address] Kiara Phillip PA [address] [place] [address] [phone] Social History Tobacco Use Types Packs/Day Years [...] to call for the exemption request is [phone]. Could someone at the office call and request the exemptio n for me, please? Angeline Jefferson documented in this encounter Plan of Treatment Not on file documented as of this encounter Visit Diagnoses Not on filedocumented in this encounter Care Teams Glass Technician Relationship Specialty Start Date End Date Ivette Valderrama MD [address] [place] [address] PCP - General Internal Medicine 10/01/20 Maximilian Baum MD [address] [place] [address] Specialist Cardiovascular Disease 03/09/21 documented as of this encounter
--- OUTSIDE RECORDS SUMMARY | 2024-10-01 10:24 | XMS_ITS | Encounter Summary ---
Author Organization [facility] Address [address] [place] [address] Care Team Providers Care Academic Coordinator Name Role Phone Ivette Valderrama MD Primary Care Provider [phone] Maximilian Baum MD Unavailable [phone] Encounter Details Date Type Department Care Team Description 12/13/2023 SCAN [facility] 175 [facility] [address] [place] [address] Babatunde Rodriguez MD 175 [facility] [address] [place] [address] Social History Tobacco Use Types Packs/Day Years [...] on filedocumented in this encounter Care Teams Academic Coordinator Relationship Specialty Start Date End Date Ivette Valderrama MD [address] [place] [address] PCP - General Internal Medicine 10/01/20 Maximilian Baum MD 300 [facility] 154 [place] [address] Specialist Cardiovascular Disease 03/09/21 documented as of this encounter
--- OUTSIDE RECORDS SUMMARY | 2024-10-01 10:24 | XMS_ITS | Encounter Summary ---
Author Organization [facility] Address [address] [place] [address] Care Team Providers Care Die Cut Operator Name Role Phone Shazia Rivas MD Primary Care Provider [facility] Ivette Valderrama MD Primary Care Provider [phone] Maximilian Baum MD Unavailable Encounter Details Date Type Department Care Team Description 03/29/2019 SCAN Medical Records [address] [place] [address] Shazia Rivas MD Social History Tobacco Use [...] on filedocumented in this encounter Care Teams Die Cut Operator Relationship Specialty Start Date End Date Shazia Rivas MD PCP - General Internal Medicine 06/21/18 09/30/20 Ivette Valderrama MD [address] [place] [address] PCP - General Internal Medicine 10/01/20 Maximilian Baum MD [address] [place] [address] Specialist Cardiovascular Disease 03/09/21 documented as of this encounter
--- OUTSIDE RECORDS SUMMARY | 2024-10-01 10:24 | XMS_ITS | Encounter Summary ---
Author Organization [facility] Address [address] [place] [address] Care Team Providers Care Building Construction Engineer Name Role Phone Ivette Valderrama MD Primary Care Provider [phone] Maximilian Baum MD Unavailable [phone] Encounter Details Date Type Department Care Team Description 09/21/2023 Telephone OBGYN - [place] [address] [place], [place] [phone] Yazmin Perez CNM [address] [place] [address] [phone] Social History Tobacco Use Types Packs/Day Years [...] on filedocumented in this encounter Care Teams Building Construction Engineer Relationship Specialty Start Date End Date Ivette Valderrama MD [address] [place] [address] [phone] PCP - General Internal Medicine 10/01/20 Maximilian Baum MD 300 [facility] 154 [place] [address] Specialist Cardiovascular Disease 03/09/21 documented as of this encounter
--- OUTSIDE RECORDS SUMMARY | 2024-10-01 10:24 | XMS_ITS | Encounter Summary ---
Author Organization [facility] Address [address] [place] [address] Care Team Providers Care Application Development Liaison Name Role Phone Ivette Valderrama MD Primary Care Provider [phone] Maximilian Baum MD Unavailable Reason for Visit * Reason Onset Date Comments LAB WORK 01/25/2022 Encounter Details Date Type Department Care Team Description 01/25/2022 Telephone Adult Medicine [address] [phone] Ivette Valderrama MD [address] [place] [address] [phone] LAB WORK Social History Tobacco Use Types [...] on filedocumented in this encounter Care Teams Application Development Liaison Relationship Specialty Start Date End Date Ivette Valderrama MD [address] [place] [address] PCP - General Internal Medicine 10/01/20 Maximilian Baum MD 300 [facility] 154 [place] [address] Specialist Cardiovascular Disease 03/09/21 documented as of this encounter
--- OUTSIDE RECORDS SUMMARY | 2024-10-01 10:24 | XMS_ITS | Encounter Summary ---
Author Organization [facility] Address [address] [place] [address] Care Team Providers Care Director Learning And Development Name Role Phone Shazia Rivas MD Primary Care Provider Glenn Meza Primary Care Provider UnavailShazia Chu MD Primary Care Provider UnavailEvelyn Cordova MD Primary Care Provider Un available Shazia Rivas MD Primary Care Provider UnavailIvette Carver MD Primary Care Provider [phone] Maximilian Baum MD Unavailable [phone] Encounter Details Date Type Department Care Team Description 06/03/2017 [facility] Medical Records [address] [place] [id number] [place] [address] Andre Social History Tobacco Use Types Packs/Day [...] filedocumented in this encounter Care Teams Director Learning And Development Relationship Specialty Start Date End Date Shazia Rivas MD PCP - General Internal Medicine 04/08/15 07/17/17 Yayo, Pcp PCP - General Internal Medicine 07/18/17 08/27/17 Shazia Rivas MD PCP - General Internal Medicine 08/28/17 12/31/17 Evelyn Stratton MD PCP - General Internal Medicine 01/01/1806/20 Shazia Rivas MD PCP - General Internal Medicine 06/21/18 09/30/20 Ivette Valderrama MD [address] [place] [address] PCP - General Internal Medicine 10/01/20 Maximilian Baum MD [address] [place] [address] Specialist Cardiovascular Disease 03/09/21 documented as of this encounter
--- OUTSIDE RECORDS SUMMARY | 2024-10-01 10:24 | XMS_ITS | Encounter Summary ---
Author Organization [facility] Address [address] [place] [address] Care Team Providers Care Nursing Attendant Name Role Phone Ivette Valderrama MD Primary Care Provider [phone] Maximilian Baum MD Unavailable [phone] Reason for Visit * Reason Onset Date Comments Faxed Refill 03/08/2023 Encounter Details Date Type Department Care Team Description 03/08/2023 Refill Pulmonology - [place] [address] [facility] [address] [place] [address] Lasha Porras MD 175 [place] [address] Faxed Refill Social History Tobacco [...] 2 ACCUATIONS DAILY. PLEASE CONFIRM DRUG: Tiotropium [place] Monohydrate (Spiriva Respimat) 2.5 MCG/ACT Aero Soln documented in this encounter Plan of Treatment Not on file documented as of this encounter Visit Diagnoses Not on filedocumented in this encounter Care Teams Nursing Attendant Relationship Specialty Start Date End Date Ivette Valderrama MD [address] [place] [address] PCP - General Internal Medicine 10/01/20 Maximilian Baum MD [address] [place] [address] Specialist Cardiovascular Disease 03/09/21 documented as of this encounter
--- OUTSIDE RECORDS SUMMARY | 2024-10-01 10:24 | XMS_ITS | Encounter Summary ---
Author Organization [facility] Address [address] [place] [address] Care Team Providers Care Hearing Aid Mechanic Name Role Phone Ivette Valderrama MD Primary Care Provider [phone] Maximilian Baum MD Unavailable [phone] Encounter Details Date Type Department Care Team Description 09/20/2023 Pt. Non Urgent Medical Question OBGYN - [place] 444 [place] [address] Alejandra Worley PA-C [address] [place] [phone] Social History Tobacco Use Types Packs/Day [...] about the results. My pharmacy is [facility]. documented in this encounter Plan of Treatment Not on file documented as of this encounter Visit Diagnoses Not on filedocumented in this encounter Care Teams Hearing Aid Mechanic Relationship Specialty Start Date End Date Ivette Valderrama MD [address] [place] [address] PCP - General Internal Medicine 10/01/20 Maximilian Baum MD [address] [place] [address] Specialist Cardiovascular Disease 03/09/21 documented as of this encounter
--- OUTSIDE RECORDS SUMMARY | 2024-10-01 10:24 | XMS_ITS | Encounter Summary ---
Author Organization [facility] Address [address] [place] [address] Care Team Providers Care Multiple Punch Press Operator Name Role Phone Shazia Rivas MD Primary Care Provider Ivette Bynum MD Primary Care Provider [phone] Maximilian Baum MD Unavailable [phone] Reason for Visit * Reason Onset Date Comments Testing 05/29/2019 MRI of brain no contrast Encounter Details Date Type Department Care Team Description 05/29/[address] [address] Shanice Smith PA-C Testing (MRI of brain [...] on filedocumented in this encounter Care Teams Multiple Punch Press Operator Relationship Specialty Start Date End Date Shazia Rivas MD PCP - General Internal Medicine 06/21/18 09/30/20 Ivette Valderrama MD [address] [place] [address] PCP - General Internal Medicine 10/01/20 Maximilian Baum MD [address] [place] [address] Specialist Cardiovascular Disease 03/09/21 documented as of this encounter
--- OUTSIDE RECORDS SUMMARY | 2024-10-01 10:24 | XMS_ITS | Encounter Summary ---
Author Organization [facility] Address [address] [place] [address] Care Team Providers Care Marker Delivery Name Role Phone Shazia Rivas MD Primary Care Provider Glenn Meza Primary Care Provider UnavailShazia Chu MD Primary Care Provider UnavailEvelyn Cordova MD Primary Care Provider Un available Shazia Rivas MD Primary Care Provider UnavailIvette Carver MD Primary Care Provider [phone] Maximilian Baum MD Unavailable [phone] Encounter Details Date Type Department Care Team Description 04/15/2015 Boat Diesel Motor Mechanic Report Medical Records [address] [place] [address] [facility] [address] [place] [address] DR. DO [address] [place] [address] Social History Tobacco Use Types Packs/Day Years [...] on filedocumented in this encounter Care Teams Marker Delivery Relationship Specialty Start Date End Date Shazia Rivas MD PCP - General Internal Medicine 04/08/15 07/17/17 Yayo, Glenn PCP - General Internal Medicine 07/18/17 08/27/17 Shazia Rivas MD PCP - General Internal Medicine 08/28/17 12/31/17 Evelyn Stratton MD PCP - General Internal Medicine 01/01/1806/20 Shazia Rivas MD PCP - General Internal Medicine 06/21/18 09/30/20 Ivette Valderrama MD [address] [place] [address] PCP - General Internal Medicine 10/01/20 Maximilian Baum MD [address] [place] [address] Specialist Cardiovascular Disease 03/09/21 documented as of this encounter
--- OUTSIDE RECORDS SUMMARY | 2024-10-01 10:24 | XMS_ITS | Encounter Summary ---
Author Organization [facility] Address [address] [place] [address] Care Team Providers Care Hazmat Cdl A Driver Name Role Phone Shazia Rivas MD Primary Care Provider [facility] Ivette Valderrama MD Primary Care Provider [phone] Maximilian Baum MD Unavailable [phone] Encounter Details Date Type Department Care Team Description 11/22/2018 Refill Gastroenterology - [place] 175 [facility] 200 [place] [address] Shelley Elmore DScPAS Social History [...] on filedocumented in this encounter Care Teams Hazmat Cdl A Driver Relationship Specialty Start Date End Date Shazia Rivas MD PCP - General Internal Medicine 06/21/18 09/30/20 Ivette Valderrama MD [address] [place] [address] PCP - General Internal Medicine 10/01/20 Maximilian Baum MD [address] [address] Specialist Cardiovascular Disease 03/09/21 documented as of this encounter
--- OUTSIDE RECORDS SUMMARY | 2024-10-01 10:24 | XMS_ITS | Encounter Summary ---
Author Organization [facility] Address [address] [place] [address] Care Team Providers Care Treatment Manager Name Role Phone Ivette Valderrama MD Primary Care Provider [phone] Maximilian Baum MD Unavailable [phone] Encounter Details Date Type Department Care Team Description 12/13/2023 Telephone [facility] 175 [facility] [address] [place] [address] Babatunde Rodriguez MD 175 [facility] [address] [place] [address] Social History Tobacco Use Types Packs/Day Years [...] telephone counter will be entered as a rollApp message in an attempt to contact her via [employer] rather than telephone. Patient was informed via her telephone message as well as this [employer] message that she has an appointment in [...] on filedocumented in this encounter Care Teams Treatment Manager Relationship Specialty Start Date End Date Ivette Valderrama MD [address] [place] [address] PCP - General Internal Medicine 10/01/20 Maximilian Baum MD [address] [place] [address] Specialist Cardiovascular Disease 03/09/21 documented as of this encounter
--- OUTSIDE RECORDS SUMMARY | 2024-10-01 10:24 | XMS_ITS | Encounter Summary ---
Author Organization [facility] Address [address] [place] [address] Care Team Providers Care Snow Removal Supervisor Name Role Phone Shazia Rivas MD Primary Care Provider [facility] Primary Care Provider UnavailShazia Chu MD Primary Care Provider Unavaila Evelyn Kendall MD Primary Care Provider Un available Shazia Rivas MD Primary Care Provider Unavaila Ivette Burks MD Primary Care Provider [phone] Maximilian Baum MD Unavailable [phone] Reason for Visit * Reason Onset Date Comments Echocardiogram 02/21/2017 Encounter Details Date Type Department Care Team Description 02/21/2017 Telephone Radiology - [address] [address] Shazia Rivas MD Echocardiogram Social History Tobacco [...] on filedocumented in this encounter Care Teams Snow Removal Supervisor Relationship Specialty Start Date End Date Shazia Rivas MD PCP - General Internal Medicine 04/08/15 07/17/17 [facility], Pcp PCP - General Internal Medicine 07/18/17 08/27/17 Shazia Rivas MD PCP - General Internal Medicine 08/28/17 12/31/17 Evelyn Stratton MD PCP - General Internal Medicine 01/01/1806/20 Shazia Rivas MD PCP - General Internal Medicine 06/21/18 09/30/20 Ivette Valderrama MD [address] [place] [address] PCP - General Internal Medicine 10/01/20 Maximilian Baum MD [address] [place] [address] 154 [place] [address] Specialist Cardiovascular Disease 03/09/21 documented as of this encounter
--- OUTSIDE RECORDS SUMMARY | 2024-10-01 10:24 | XMS_ITS | Encounter Summary ---
Author Organization [facility] Address [address] [place] [address] Care Team Providers Care Fermenting Cellars Supervisor Name Role Phone Ivette Valderrama MD Primary Care Provider [phone] Maximilian Baum MD Unavailable [phone] Encounter Details Date Type Department Care Team Description 11/20/2020 SCAN Medical Records [address] [place] [address] Abstract, Provider Social History Tobacco Use Types [...] on filedocumented in this encounter Care Teams Fermenting Cellars Supervisor Relationship Specialty Start Date End Date Ivette Valderrama MD 444 [place] [address] PCP - General Internal Medicine 10/01/20 Maximilian Baum MD 300 [facility] 154 [place] [address] Specialist Cardiovascular Disease 03/09/21 documented as of this encounter
--- OUTSIDE RECORDS SUMMARY | 2024-10-01 10:24 | XMS_ITS | Encounter Summary ---
Author Organization [facility] Address [address] [place] [address] Care Team Providers Care Carpenter Helper Hardwood Flooring Name Role Phone Ivette Valderrama MD Primary Care Provider [phone] Maximilian Baum MD Unavailable [phone] Encounter Details Date Type Department Care Team Description 02/06/2023 Orders Only [facility] Scre[facility] [place] 299 [facility] [address] [place] [phone] Jennifer Torres MD 299 [facility] Freddie [address] [place] [address] History of tobacco abuse Social History Tobacco [...] health documented in this encounter Care Teams Carpenter Helper Hardwood Flooring Relationship Specialty Start Date End Date Ivette Valderrama MD [address] [place] [address] PCP - General Internal Medicine 10/01/20 Maximilian Baum MD [address] [address] Specialist Cardiovascular Disease 03/09/21 documented as of this encounter
--- OUTSIDE RECORDS SUMMARY | 2024-10-01 10:24 | XMS_ITS | Encounter Summary ---
Author Organization [facility] Address [address] [place] [address] Care Team Providers Care Magazine Hand Name Role Phone Shazia Rivas MD Primary Care Provider [facility] Ivette Valderrama MD Primary Care Provider [phone] Maximilian Baum MD Unavailable [phone] Encounter Details Date Type Department Care Team Description 04/23/2019 Staff Psychologist Report Medical Records [address] [place] [address] Manny Ram I., PH.D Social History Tobacco [...] on filedocumented in this encounter Care Teams Magazine Hand Relationship Specialty Start Date End Date Shazia Rivas MD PCP - General Internal Medicine 06/21/18 09/30/20 Ivette Valderrama MD [address] [place] [address] [phone] PCP - General Internal Medicine 10/01/20 Maximilian Baum MD [address] [place] [address] Specialist Cardiovascular Disease 03/09/21 documented as of this encounter
--- OUTSIDE RECORDS SUMMARY | 2024-10-01 10:24 | XMS_ITS | Encounter Summary ---
Author Organization [facility] Address [address] [place] [address] Care Team Providers Care Executive Communications Manager Name Role Phone Ivette Valderrama MD Primary Care Provider [phone] Maximilian Baum MD Unavailable [phone] Encounter Details Date Type Department Care Team Description 04/03/2023 Assistive Technology Trainer Report Medical Records [address] [place] [address] [facility] Social History Tobacco Use Types Packs/Day [...] on filedocumented in this encounter Care Teams Executive Communications Manager Relationship Specialty Start Date End Date Ivette Valderrama MD [address] [place] [address] PCP - General Internal Medicine 10/01/20 Maximilian Baum MD [address] [place] [address] Specialist Cardiovascular Disease 03/09/21 documented as of this encounter
--- OUTSIDE RECORDS SUMMARY | 2024-10-01 10:24 | XMS_ITS | Encounter Summary ---
Author Organization [facility] Address [address] [place] [address] Care Team Providers Care Line Cook Name Role Phone Ivette Valderrama MD Primary Care Provider [phone] Maximilian Baum MD Unavailable [phone] Encounter Details Date Type Department Care Team Description 10/26/2023 Refill OBGYN - [place] [address] [place] [address] Monet Han CNM [address] [place], [place] [id number] Social History Tobacco Use Types Packs/Day Years [...] on filedocumented in this encounter Care Teams Line Cook Relationship Specialty Start Date End Date Ivette Valderrama MD [address] [place] [address] PCP - General Internal Medicine 10/01/20 Maximilian Baum MD 300 [facility] [address] [place] [address] Specialist Cardiovascular Disease 03/09/21 documented as of this encounter
--- OUTSIDE RECORDS SUMMARY | 2024-10-01 10:24 | XMS_ITS | Clinical Summary ---
Author Organization [facility] Address [address] [place] [address] Care Team Providers Care Senior Integration Architect Name Role Phone Ivette Valderrama MD Primary Care Provider [phone] Maximilian Baum MD Unavailable [phone] Allergies No known active allergies Medications Medication [...] Once. 100 mL 0 09/08/2023 Active Tiotropium [place] Monohydrate (Spiriva Respimat) 2.5 MCG/ACT Aero Soln [...] cost $120. Also encouraged to check the Alphion alonso for possible discounted dennison. We discussed the importance of use of vaginal dilators in order to slowly increase the size of the vaginal introitus to allow for penetrative vaginal intercourse in the future. We discussed it is probably easiest to purchase vaginal dilators on Boom[employer]. Patient was instructed on use of vaginal [...] 2024 04/16/2021, 04/16/2021, 03/19/2021, Additional history exists Lung Cancer Screening (Low Dose CT) 03/31/2024 03/31/2023, 03/30/2022, 03/26/2021, Additional history exists BONE DENSITY SCREENING 04/12/2024 04/12/2022 MAMMOGRAM 09/28/2024 09/29/2023, 08/25, 09/10/2021, Additional history exists DEPRESSION SCREEN 01/07/2025 01/08/2024, , 01/17/2022, Additional history exists DTAP/TDAP/TD (2 - Td or Tdap) 02/17/2025 02/17/2015 (Refused) INFLUENZA (Season Ended) 2025 023, 04/11/2022, 03/19/2021, Additional history exists SHINGLES VACCINE (1 of 2) 02/09/2026 Po stponed from 2005 (Other Circumstances) CHOLESTEROL SCREENING 04/11/2027 04/11/2022 , 12/16/2020, 05/17/2017, Additional history exists COLON CANCER SCREENING 03/08/2028 03/08/2018 HEPATITIS C SCREENING Completed 12/31/2021 , 07/04/2016, 06/05/2015 Care Teams Senior Integration Architect Relationship Specialty Start Date End Date Ivette Valderrama MD [address] [place] [address] PCP - General Internal Medicine 10/01/20 Maximilian Baum MD [address] [place] [address] 154 [place] [address] Specialist Cardiovascular Disease 03/09/21
--- OUTSIDE RECORDS SUMMARY | 2024-10-01 10:24 | XMS_ITS | Encounter Summary ---
Author Organization [facility] Address [address] [place] [address] Care Team Providers Care Vamp Stitcher Name Role Phone Ivette Valderrama MD Primary Care Provider [phone] Maximilian Baum MD Unavailable [phone] Encounter Details Date Type Department Care Team Description 12/07/2023 SCAN [facility] [address] [facility] [address] [place] [address] Babatunde Rodriguez MD 175 [facility] [address] [place] [address] Social History Tobacco Use Types Packs/Day Years [...] on filedocumented in this encounter Care Teams Vamp Stitcher Relationship Specialty Start Date End Date Ivette Valderrama MD [address] [place] [address] PCP - General Internal Medicine 10/01/20 Maximilian Baum MD 300 [facility] [address] [place] [address] Specialist Cardiovascular Disease 03/09/21 documented as of this encounter
--- OUTSIDE RECORDS SUMMARY | 2024-10-01 10:24 | XMS_ITS | Encounter Summary ---
Author Organization [facility] Address [address] [place] [address] Care Team Providers Care Training Professional Name Role Phone Shazia Rivas MD Primary Care Provider Ivette Bynum MD Primary Care Provider [phone] Maximilian Baum MD Unavailable [phone] Reason for Visit * Reason Onset Date Comments APPOINTMENT 10/10/2019 Encounter Details Date Type Department Care Team Description 10/10/2019 Telephone Adult Medicine - [address] [address] Hortencia Dye PA-C APPOINTMENT Social History Tobacco [...] on filedocumented in this encounter Care Teams Training Professional Relationship Specialty Start Date End Date Shazia Rivas MD PCP - General Internal Medicine 06/21/18 09/30/20 Ivette Valderrama MD [address] [place] [address] PCP - General Internal Medicine 10/01/20 Maximilian Baum MD [address] [place] [address] Specialist Cardiovascular Disease 03/09/21 documented as of this encounter
--- OUTSIDE RECORDS SUMMARY | 2024-10-01 10:24 | XMS_ITS | Encounter Summary ---
Author Organization [facility] Address [address] [place] [address] Care Team Providers Care Fbi Sharpshooter Name Role Phone Shazia Rivas MD Primary Care Provider Neil Zee [facility] Primary Care Provider UnavailShazia Chu MD Primary Care Provider UnavailEvelyn Cordova MD Primary Care Provider Un available Shazia Rivas MD Primary Care Provider Unavaila Ivette Burks MD Primary Care Provider [phone] Maximilian Baum MD Unavailable [phone] Reason for Visit * Reason Onset Date Comments REFERRAL 09/09/2015 Encounter Details Date Type Department Care Team Description 09/09/2015 Telephone Medicine/Pediatrics - [address] [address] Shazia Rivas MD REFERRAL Social History Tobacco [...] on filedocumented in this encounter Care Teams Fbi Sharpshooter Relationship Specialty Start Date End Date Shazia Rivas MD PCP - General Internal Medicine 04/08/15 07/17/17 [facility] Pcp PCP - General Internal Medicine 07/18/17 08/27/17 Shazia Rivas MD PCP - General Internal Medicine 08/28/17 12/31/17 Evelyn Stratton MD PCP - General Internal Medicine 01/01/1806/20 Shazia Rivas MD PCP - General Internal Medicine 06/21/18 09/30/20 Ivette Valderrama MD [address] [place] [address] PCP - General Internal Medicine 10/01/20 Maximilian Baum MD [address] [place] [address] Specialist Cardiovascular Disease 03/09/21 documented as of this encounter
--- OUTSIDE RECORDS SUMMARY | 2024-10-01 10:24 | XMS_ITS | Encounter Summary ---
Author Organization [facility] Address [address] [place] [address] Care Team Providers Care Shipper Name Role Phone Ivette Valderrama MD Primary Care Provider Maximilian Baum MD Unavailable [phone] Reason for Visit * Reason Onset Date Comments medication problems 03/17/2023 Faxed Refill 03/17/2023 Encounter Details Date Type Department Care Team Description 03/17/2023 Telephone Pulmonology - [place] [address] [facility] [address] [place] [address] Lasha Porras MD [address] [place] [address] medication problems; Faxed Refill Social [...] difficulties and I am unable to connect [facility] I will call back later. * [...] 140.00. Thank you Please reply back to [id number] Prior Auth Pool [facility] Prior Authorization Ext [phone] * Telephone Encounter - Natacha Carrington M.A. [...] Is this a Cover My Meds request: Veteran of Medication Tiotropium [place] Monohydrate (spiriva respimat) Dose of Medication 2.5 mcg What is the RX # from the faxed refill? How does patient take this med? Inhale 1 puff into lung daily What Pharmacy did the fax come from: [facility] Pharmacy fax #: [phone] [employer] Information from fax: What Prescription Plan does the patient have? OPTUM Rx BIN/PCN if applicable: [id number] Cardholder ID: [id number] Person Code: Relationship Code: Help desk phone: * Telephone Encounter - Natacha Couch - 03/22/2023 2:37 PM EDT Received fax from [facility] Re: Script Clarification ??Reason for Request: Script Clarification Pharmacy comments: script clarification: Patient is claiming that her copay will be $12 if MD does PA? Re: Spiriva respimate Pls advise. NOV 06/14/2023 TONY 02/03/2023 * Telephone Encounter - Natacha Couch - 03/20/2023 3:48 PM EDT Received fax from [facility] For Script Clarification Response requested: Patient is claiming that Her copay will be $12 if MD does PA? Pls advise. NOV 06/14/2023 TONY 02/03/2023 * Telephone Encounter - Rebekah Ferguson - 03/17/2023 10:22 AM EDT Who is calling? The patient Name of the medication Tiotropium [place] Monohydrate (Spiriva Respimat) 2.5 MCG/ACT Aero Soln [...] on filedocumented in this encounter Care Teams Shipper Relationship Specialty Start Date End Date Ivette Valderrama MD [address] [place] [address] PCP - General Internal Medicine 10/01/20 Maximilian Baum MD [address] [place] [address] Specialist Cardiovascular Disease 03/09/21 documented as of this encounter
--- OUTSIDE RECORDS SUMMARY | 2024-10-01 10:24 | XMS_ITS | Encounter Summary ---
Author Organization [facility] Address [address] [place] [address] Care Team Providers Care Corner Block Cutter Name Role Phone Shazia Rivas MD Primary Care Provider Glenn Meza Primary Care Provider UnavailShazia Chu MD Primary Care Provider UnavailEvelyn Cordova MD Primary Care Provider Un available Shazia Rivas MD Primary Care Provider Unavaila Ivette Burks MD Primary Care Provider [phone] Maximilian Baum MD Unavailable [phone] Encounter Details Date Type Department Care Team Description 06/02/2017 [facility] Medical Records [address] [place] [address] Guanaco Flaherty MD Social History Tobacco Use [...] on filedocumented in this encounter Care Teams Corner Block Cutter Relationship Specialty Start Date End Date Shazia Rivas MD PCP - General Internal Medicine 04/08/15 07/17/17 [facility] Glenn PCP - General Internal Medicine 07/18/17 08/27/17 Shazia Rivas MD PCP - General Internal Medicine 08/28/17 12/31/17 Evelyn Stratton MD PCP - General Internal Medicine 01/01/1806/20 Shazia Rivas MD PCP - General Internal Medicine 06/21/18 09/30/20 Ivette Valderrama MD [address] [place] [address] PCP - General Internal Medicine 10/01/20 Maximilian Baum MD [address] [place] [address] Specialist Cardiovascular Disease 03/09/21 documented as of this encounter
--- OUTSIDE RECORDS SUMMARY | 2024-10-01 10:24 | XMS_ITS | Encounter Summary ---
Author Organization [facility] Address [address] [place] [address] Care Team Providers Care Octave Board Assembler Name Role Phone Patrick Santa MD Primary Care Provider [phone] Shazia Rivas MD Primary Care Provider Glenn Meza Primary Care Provider UnavailShazia Chu MD Primary Care Provider UnavailEvelyn Cordova MD Primary Care Provider Un available Shazia Rivas MD Primary Care Provider UnavailIvette Carver MD Primary Care Provider [phone] Maximilian Baum MD Unavailable [phone] Encounter Details Date Type Department Care Team Description 03/18/2015 FIXED ASSETS ACCOUNTANT/[facility] Report Medical Records [address] [place] [address] Abstract, Provider Social History Tobacco Use Types [...] on filedocumented in this encounter Care Teams Octave Board Assembler Relationship Specialty Start Date End Date Patrick Santa MD [address] [place] [address] PCP - General Internal Medicine 11/14/14 04/07/15 Shazia Rivas MD [address] [place] [address] PCP - General Internal Medicine 04/08/15 07/17/17 Counts Include [address] [facility], Pcp [address] [place], [place] PCP - General Internal Medicine 07/18/17 08/27/17 Shazia Rivas MD [address] [place], [place] PCP - General Internal Medicine 08/28/17 12/31/17 Evelyn Stratton MD [address] [place], [place] PCP - General Internal Medicine 01/01/18 06/20/18 Shazia Rivas MD [address] [place], [place] PCP - General Internal Medicine 06/21/18 09/30/20 Ivette Valderrama MD [address] [place] [address] PCP - General Internal Medicine 10/01/20 Maximilian Baum MD [address] [place] [address] Specialist Cardiovascular Disease 03/09/21 documented as of this encounter
--- OUTSIDE RECORDS SUMMARY | 2024-10-01 10:24 | XMS_ITS | Encounter Summary ---
Author Organization [facility] Address [address] [place] [address] Care Team Providers Care Magazine Designer Name Role Phone Evelyn Stratton MD Primary Care Provider Un available Shazia Rivas MD Primary Care Provider Unavaila [facility] Ivette Valderrama MD Primary Care Provider [phone] Maximilian Baum MD Unavailable [phone] Reason for Visit * Reason Comments E-prescribe Rx Request Encounter Details Date Type Department Care Team Description 06/02/2018 Refill Gastroenterology [address] [place] [address] Shelley Elmore DScPAS E-prescribe Rx Request Social [...] filedocumented in this encounter Care Teams Magazine Designer Relationship Specialty Start Date End Date Evelyn Stratton MD PCP - General Internal Medicine 01/01/1806/20 Shazia Rivas MD PCP - General Internal Medicine 06/21/18 09/30/20 Ivette Valderrama MD [address] [place] [address] PCP - General Internal Medicine 10/01/20 Maximilian Baum MD [address] [place] [address] Specialist Cardiovascular Disease 03/09/21 documented as of this encounter
--- OUTSIDE RECORDS SUMMARY | 2024-10-01 10:24 | XMS_ITS | Encounter Summary ---
Author Organization [facility] Address [address] [place] [address] Care Team Providers Care Apparatus Lineman Name Role Phone Ivette Valderrama MD Primary Care Provider [phone] Maximilian Baum MD Unavailable Encounter Details Date Type Department Care Team Description 03/24/2021 Telephone [facility] [address] [place] [address] [place] [address] Hugh Rabago MD Social History Tobacco [...] on filedocumented in this encounter Care Teams Apparatus Lineman Relationship Specialty Start Date End Date Ivette Valderrama MD [address] [place] [address] PCP - General Internal Medicine 10/01/20 Maximilian Baum MD [address] [place] [address] Specialist Cardiovascular Disease 03/09/21 documented as of this encounter
--- OUTSIDE RECORDS SUMMARY | 2024-10-01 10:24 | XMS_ITS | Encounter Summary ---
Author Organization [facility] Address [address] [place] [address] Care Team Providers Care Quality Assurance Nurse Name Role Phone Ivette Valderrama MD Primary Care Provider [phone] Maximilian Baum MD Unavailable Reason for Visit * Reason Onset Date Comments Testing 01/14/2022 DXA BONE DENSITY STUDY 1+ SITS AXIAL SKEL Encounter Details Date Type Department Care Team Description 01/14/2022 Telephone Adult Medicine [address] [phone] Ivette Valderrama MD [address] [place] [address] [phone] Testing (DXA BONE DENSITY STUDY 1+ SITS [...] filedocumented in this encounter Care Teams Quality Assurance Nurse Relationship Specialty Start Date End Date Ivette Valderrama MD [address] [place] [address] PCP - General Internal Medicine 10/01/20 Maximilian Baum MD 300 [facility] [address] [place] [address] Specialist Cardiovascular Disease 03/09/21 documented as of this encounter
== END 2024-10-01 09:57 | disposition home or self-care (01) ==
LOC: HO.HMCFM 09:20
PROVIDERS: PCP Nurse Practitioner Family; Visit Provider Nurse Practitioner Family
DX: R10.9 Unspecified abdominal pain (principal); N94.9 Unspecified condition associated with female genital organs and menstrual cycle

== ENCOUNTER → 2024-10-01 09:20 | Outpatient (BNVA) | payer MEDICARE, SELFPAY | PROVIDERS: PCP Nurse Practitioner Family; Visit Provider Nurse Practitioner Family ==

== ENCOUNTER 2024-10-01 10:02 | Outpatient (REF) | payer MEDICARE, SELFPAY ==
--- OUTSIDE RECORDS SUMMARY | 2024-10-01 11:41 | XMS_ITS | Clinical Summary ---
Author Organization [facility] Address [address] [place] [address] Care Team Providers Care Biomathematician Name Role Phone Ivette Valderrama MD Primary Care Provider [phone] Allergies No known active allergies Medications Medication [...] age to complete this topic Care Teams Biomathematician Relationship Specialty Start Date End Date Ivette Valderrama MD PCP - General Internal Medicine 09/12/23
--- OUTSIDE RECORDS SUMMARY | 2024-10-01 11:41 | XMS_ITS | Clinical Summary ---
Author Organization [facility] Address [address] [place] [address] Phone Care Team Providers Care Sheep Farm Manager Name Role Phone Lidia Medina Primary Care Provider [phone] Allergies No known active allergies Medications psyllium [...] EST Procedure visit Obstetrics and Gynecology - [address] [phone] Oksana Contreras MD PMB (postmenopausal bleeding) (Primary Dx); Thickened endometrium 07/30/2024 Telephone Obstetrics & Gynecology [address] [address] Rebecca Puckett CNM 07/25/2024 5:43 PM EST - 07/25/2024 11:59 PM EST Hospital Encounter Radiology Department - [address] [phone] Encounter for well woman exam with routine gynecological exam; PMB (postmenopausal bleeding) Discharge Disposition: Home or Self Care 07/12/2024 2:15 PM EST Office Visit Obstetrics & Gynecology [address] [address] Rebecca Puckett CNM Encounter for [...] DX:Constipation COPD (chronic obstructive pu lmonary disease) ([facility]) 12/01/2014 DX:COPD (chronic obstructive pulmonary disease) ([facility]) Depression 03/17/2015 DX:Depression; C OMMENT: [...] 3:50 PM EDT Appointment Radiology Department - [address] [address] 03/06/2025 10:10 AM EDT Office Visit Gastroenterology - [place] [facility] [address] [facility] [address] [place] [phone] Shelley Elmore PA [address] [place] [address] Health Maintenance Due Date Last Done Comments [...] identified. 08/30/2024 11:32 AM EST [facility] Clinical Information PMB (postmenopausal bleeding) (N95.0) Thickened endometrium (R93.89) 08/30/2024 11:32 AM EST [facility] Gross Description A. Endometrium, biopsy: Labeled EMB, Endo . Received in formalin is an approximately 0.8 x 0.6 x 0.2 cm aggregate of soft to mucoid, clear to white tissue fragments, which is wrapped in paper and submitted in toto in one cassette, multiple pieces, x2. Please note: Small tissue fragments may not survive processing. dvb/DG 08/30/2024 11:32 AM EST [facility] Disclaimer Unless otherwise specified, all tissue is 10% NB formalin fixed and paraffin embedded. 08/30/2024 11:32 AM EST [facility] Tissue Endometrial structure / Unknown Non-blood Collection / Unknown 08/26/2024 3:36 PM EST 08/26/2024 3:36 PM EST us Oksana Contreras MD LAB PATHOLOGY ORDERABLES Fi nal Result [facility] [address] [place] [address], * US Pelvis Non OB Complete w [...] cm previously. Left ovary not visualized. POS [id number] -------- FINAL REPORT -------- Dictated By: Kimberly Roberts Dictated Date: 07/26/2024 08:16 ET Assigned Physician: Kimberly Roberts Reviewed and Electronically Signed By: Kimberly Roberts Signed Date: 07/26/2024 08:26 ET Workstation ID: [id number] Transcribed By: Self Edit Transcribed Date: 07/26/2024 [...] cm previously. Left ovary not visualized. POS [id number] -------- FINAL REPORT -------- Dictated By: Kimberly Roberts Dictated Date: 07/26/2024 08:16 ET Assigned Physician: Kimberly Roberts Reviewed and Electronically Signed By: Kimberly Roberts Signed Date: 07/26/2024 08:26 ET Workstation ID: [id number] Transcribed By: Self Edit Transcribed Date: 07/26/2024 08:16 ET Rebecca Puckett CNM IMG US PROCEDURES Final Resul t * Chlamydia trachomatis and Neisseria gonorrhoeae molecular study (07/12/2024 3:32 PM EST) Neisseria gonorrhoeae PCR Negative Negative LAB MOLECULAR DIAGNOSTICS METHOD 07/13/2024 12:54 PM EST [facility] Chlamydia trachomatis PCR Negative Negative LAB MOLECULAR DIAGNOSTICS METHOD 07/13/2024 12:54 PM EST [facility] Swab Cervix uteri structure / Unknown Non-blood Collection / Unknown 07/12/2024 3:32 PM EST 07/12/2024 4:26 PM EST Rebecca Puckett CNM LAB MICROBIOLOGY - GENERAL OR DERABLES Final Result [facility] [address] [place] [address], * CT LUNG SCREENING LOW DOSE (04/02/2024 9:07 AM EDT) Anatomical Region Laterality Modality Computed Tomogra phy 04/01/2024 11:3 1 AM EDT Narrative 04/02/2024 9:[address] [facility] Diagnostic Imaging Department [address] [place] [address] Patient: ??ANGELINE JEFFERSON ?/Age/Sex: 1955 - 68 - F Unit#: ??[id number] ? Location/Status: ??SPDICATLS/REG CLI ? Mnemonic/Ordering Site: [...] Note Shey Roman MD - 04/23/2024 [facility] Diagnostic Imaging Department [address] [place], [place] [id number] Patient: ANGELINE JEFFERSON /Age/Sex: 1955 - 68 - F Unit#: [id number] Location/Status: SPDICATLS/REG CLI Mnemonic/Ordering Site: [facility] Ordering Physician: CARA PIMENTEL MD [...] IMPRESSION: ?? Osteoporosis by WHO criteria. [facility] Department of Internal Medicine recommends using [...] alternative screening schedule based on pebbles Rivera., [facility] July 14, 2011 for patients with [...] IMPRESSION: IMPRESSION: Osteoporosis by WHO criteria. [facility] Department of Internal Medicine recommendsusing National [...] alternative screening schedule based on pebbles Rivera., [facility] for patients with osteopenia (based [...] Documents on File Type Date Recorded Patient Accounts Payable Specialist Expl anation Health Care Decision (hx) 03/31/2023 [...] (hx) 03/31/2023 AD [place] DIRECTIVE Care Teams Sheep Farm Manager Relationship Specialty Start Date End Date Lidia Medina FNP [address] [place] [address] PCP - General Family Medicine 07/10/24
[2024-10-01 12:14] LABS: Cholesterol 163 mg/dL (<200); HDL Cholesterol 73 mg/dL (>40); LDL Cholesterol Calculated 71 mg/dL (<100); Triglycerides 95 mg/dL (<150)
== END 2024-10-01 10:03 | disposition home or self-care (01) ==
LOC: HO.WFDLDS 10:02
PROVIDERS: Visit Provider Nurse Practitioner Family
DX: R10.9 Unspecified abdominal pain (principal); N94.9 Unspecified condition associated with female genital organs and menstrual cycle; E78.5 Hyperlipidemia, unspecified
CPT/HCPCS: 36415; 80061; 96127; 99212

== ENCOUNTER 2024-10-21 11:37 | Outpatient (AMB) | payer OTHER, SELFPAY ==
--- NOTE | 2024-10-21 11:39 | A.OFFPC_ITS ---
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 Required: No Is last menstrual period known: No Post menopausal: No Patient : No Allergies No Known Allergies Allergy (Verified 10/21/24 12:23) Medication List - Last Reconciled 10/21/24 by Lidia Medina CNP albuterol sulfate 90 mcg/actuation 2 puffs inhalation Q6H PRN atorvastatin 20 mg PO BEDTIME 30 days [id number] 50 mcg-75 mcg -100 mg caps PO celecoxib (Celebrex) 200 mg PO DAILY cholecalciferol (vitamin D3) 50 mcg PO DAILY conjugated estrogens (Premarin) 0.625 mg PO DAILY cyclobenzaprine 10 mg PO TID PRN diclofenac sodium 1% topical fluticasone propion-salmeterol 250-50 mcg/dose (Wixela Inhub) 1 inh inhalation BID linaclotide (Linzess) 72 mcg PO DAILY lisdexamfetamine (Vyvanse) 20 mg PO QAM magnesium hydroxide (Dulcolax (magnesium hydroxide)) 5 mL PO DAILY PRN omeprazole 20 mg PO DAILY tiotropium bromide 2.5 mcg/actuation (Spiriva Respimat) 2 puffs inhalation DAILY trazodone 25 mg (1/2 x 50 mg) PO BEDTIME PRN 30 days Tobacco use date assessed: 10/21/24 Fall risk assessment: 2 + Falls in past year Last assessed Fall Risk: 10/21/24 Dental Screening Dental Screen Date: 10/21/24 Did you have a dental visit in the last 12 months?: Yes Did you have a dental problem in the last 6 months where you did not have access to dental care?: No Was dental information given to patient?: Patient has dentist HPI HPI Comments History of Present Illness Details 69-year-old female presents for hyperlip idemia follow-up. She admits to taking atorvastatin as prescribed. She reports generalized muscle aches for the past 1 month. She has been making healthy dietary choices, including low saturated and trans fat. She is active but does not exercise. No acute symptoms at this time. [facility] Medical History (Updated 10/21/24 @ 12:43 by Lidia Medina CNP) Non-alcoholic fatty liver disease History of torn meniscus of left knee Vertigo Imbalance Memory loss Light headed Headache STD (female) Incontinence Back injury Osteoporosis Arthritis Hypothyroid COPD (chronic obstructive pulmonary disease) Family History Father Alcohol abuse Brother Alcohol abuse High blood pressure Diabetes Mother High blood pressure Diabetes Thyroid disorder Uterus cancer Maternal Grandmother Diabetes Maternal Grandmother No problems noted. Maternal Grandfather Diabetes Social History (Updated 10/01/24 @ 09:30 by Lesly Anton MA) Housing: House Alcohol intake: never Patient Tobacco Use Status: Former Tobacco user Tobacco use type: Cigarette Cigarette Packs Per Day: 1.5 Cigarettes Per Day: 30 e-Cigarette/Vaping Use: Never Used Second Hand Smoke Exposure: No service: No Current occupational status: retired Current occupational exposures/hazards: No Cognitive needs: No Hearing needs: No Vision needs: Yes Questionnaire Thrive Questionnaire Date Thrive assessed: 09/02/24 I am a: Patient What is your living situation today?: I have a steady place to live Within the past 12 months, did the food you bought not last and you didn't have the money to get more?: Never true Within the past 12 months, did you worry whether your food would run out before you got money to buy more?: Sometimes True Do you have trouble paying for medicines?: I choose not to answer this question Do you have trouble getting transportation to medical appointments?: I choose not to answer this question Do you have trouble paying your heating and electricity bill?: Yes Do you have trouble taking care of your child, family member or friend?: I choose not to answer this question Do you have trouble with day-to-day activities such as bathing, preparing meals, shopping, managing finances, etc.?: Yes Are you currently unemployed and looking for a job?: No Are you interested in more education?: I choose not to answer this question Currently or been in a relationship where the following occur: No concerns reported THRIVE Score: 2 YENNY-7 AMB Questionnaire YENNY-7 Date YENNY - 7 assessed: 10/01/24 Source: Developed by Drs. Wander Blake, Carlyn Hernandez, Nikolay Solares and colleagues, with an educational kenney from I Do Now I Don't. Review of Systems Const Details: Const Denies chills, Denies fatigue, Denies fever(s), Denies headache(s) and Denies weakness ENT Denies dizziness and Denies headache(s) Card Denies chest pain, Denies lightheadedness, Denies dyspnea and Denies other (Palpitations) Resp Denies cough, Denies dyspnea, Denies wheezing and Denies other ( shortness of breath) GI Denies abdominal pain, Denies melena, Denies hematochezia, Denies change in bowel habits, Denies dyspepsia and Denies nausea Denies hematuria and Denies dysuria Musc Denies abnormal gait, Reports myalgias, Denies arthralgias, Denies numbness and Denies tingling Skin/Breast Denies rash, Denies unusual bruising and Denies wounds Neuro Denies abnormal gait, Denies dizziness, Denies headache(s), Denies memory loss, Denies numbness, Denies Sensory deficit (Neuro), Denies tingling and Denies weakness Psych Denies anxiety, Denies depression, Denies memory loss Endo Denies cold intolerance, Denies fatigue, Denies heat intolerance, Denies polydipsia and Denies polyuria Aller/Immun Denies wheezing Physical exam (Primary Care) Vital Signs: Last Vital Signs Temp 97.6 F 10/21/24 11:55 Pulse 95 10/21/24 11:55 Resp 16 10/21/24 11:55 BP 124/72 10/21/24 11:55 Pulse Ox 97 10/21/24 11:55 Oxygen Delivery Method Room Air 10/21/24 11:55 BMI result Body Mass Index 23.3 Tobacco/Smoking Status: Tobacco use Status Tobacco use date assessed 10/01/24 10/21/24 11:42 Patient Tobacco Use Status Former Tobacco user 10/21/24 11:42 Tobacco use type Cigarette 10/21/24 11:42 e-Cigarette/Vaping Use Never Used 10/21/24 11:42 Thrive Assessment: Date of Thrive Assessment Date Thrive assessed 09/02/24 10/21/24 11:42 Currently or been in a relationship where the following occur: No concerns reported Const Other: General: no acute distress and well developed Nutritional Appearance: well nourished Orientation/consciousness: patient oriented x3 [facility] Head: Yes normocephalic and Yes atraumatic Eyes General: appearance normal, both eyes and all related structures Pupils: Equal, round and reactive pupils present EOM: EOMs intact bilaterally Resp Effort & Inspection: normal respiratory effort Auscultation: clear to auscultation bilaterally Cardio Rate: regular rate Rhythm: regular rhythm Heart sounds: S1 normal heart sound present, S2 normal heart sound present, no gallops, no murmurs and no rubs GI Palpation (GI): No Abdominal aortic bruit present, Soft to palpation, nontender, No hepatosplenomegaly present and No Rebound tenderness present Auscultation: normal bowel sounds General: Yes no CVA tenderness Back/Spine/Pelvis Back: no CVA tenderness Cervical Spine: cervical ROM normal and No Cervical spine tenderness Thoracic/Lumbar Spine: thoraco-lumbar ROM normal, No pain with thoraco-lumbar ROM, No thoracic spinal tenderness and No lumbar spinal tenderness Extrem General: Yes normal to inspection, No edema and No calf tenderness Skin General: warm and dry. Normal skin color. Normal skin turgor Neuro General: patient oriented x3, gait normal and no focal neuro deficit Cranial nerves: Yes Equal, round and reactive pupils present Cognition (Neuro): normal cognition Gait exam (Neuro): Normal gait present Sensory Exam: No Sensory deficit (Neuro) Psych Appearance: grossly normal Affect: normal affect Attitude: cooperative Thought process: Normal thought process present Coding Level of Care Code Est Pt Level 4 (59809) Diagnoses Hyperlipidemia E78.5 Myalgia M79.10 Assessment & Plan Assessment & Plan (1) Hyperlipidemia: Code(s): E78.5 - Hyperlipidemia, unspecified Category: Medical Plan: Recent lipid panel level is normal. She notes myalgia which has been ongoing for the past 1 month. Arthralgias likely adverse reaction of atorvastatin which was ordered in late July. Will discontinue atorvastatin at this time. Ezetimibe ordered 10 mg daily; advised to take as prescribed. Instructed on the risks, benefits, and potential adverse reactions of the medication. Advised to fast for 10-12 hours, may drink water, performed lipid panel blood work 2-3 days before next visit. Follow-up for a telehealth visit in 2 months. Return sooner with symptoms or concerns. Verbalized understanding and agreed with treatment plan. (2) Myalgia: Code(s): M79.10 - Myalgia, unspecified site Category: Medical Plan: Plan as above. Medications: New ezetimibe 10 mg PO DAILY 30 days 30 tabs 3RF Discontinued atorvastatin Discontinued Reason: Doctor's Order 20 mg PO BEDTIME 30 days 30 tabs 3RF
[2024-10-21 11:55] VITALS: BP 124/72; PULSE 95; RESP 16; TEMP 36.4; O2SAT 97; BMI 23.3
--- OUTSIDE RECORDS SUMMARY | 2024-10-21 14:00 | XMS_ITS | Encounter Summary ---
Author Organization [facility] Address [address] [place] [address] Care Team Providers Care Mortgage Lender Name Role Phone Lidia Medina Primary Care Provider [phone] Reason for Referral * Consultation (Routine) - Authorized Specialty Diagnoses / Procedures Referred By Malou t Referred To Contact Vascular Surgery Diagnoses Lower abdominal pain Fatty liver Superior mesenteric artery stenosis (CMS/HCC V24) Cyst of right ovary Shelley Elmore PA [address] [facility] [address] [place] [address] Phone: tel: fax: Vascular Surgery - [place] [address] [place] [address] Phone: tel: fax: Referral ID Status Reason Start Date Expiration Date Visits Requested Visits Authorized [id number] Authorized Specialty Services Required 10/16/2024 10/16/2025 1 1 Reason for Visit * Reason Comments Fatty Liver Encounter Details Date Type Department Care Team ([facility] st Contact Info) Description 10/16/2024 2:20 PM EDT Office Visit Gastroenterology - [place] [address] [facility] [address] [place] [address] Shelley Elmore PA [address] [facility] [address] [place] [address] Lower abdominal pain (Primary Dx); Fatty liver; Superior mesenteric artery stenosis (CMS/HCC V24); Cyst of right ovary Social History Tobacco Use Types Packs/Day Years [...] Sign Reading Time Taken Comments Blood Pressure 120/62 10/16/2024 2:20 PM EDT Pulse - - Temperature - - Respiratory Rate - - Oxygen Saturation - - Inhaled Oxygen Concentration - - Weight 63 kg (139 lb) 10/16/2024 2:20 PM EDT Height 165.1 cm (5' 5 ) 10/16/2024 2:20 PM EDT Body Mass Index 23.13 10/16/2024 2:20 PM EDT documented in this encounter Progress Notes * LEXUS Minor - 10/16/2024 2:20 PM EDT CHIEF COMPLAINT: Chief Complaint Patient presents with Fatty Liver IDENTIFIER: Angeline Jefferson is a 69 y.o. old female History of Present Illness The patient presents for abdominal pain, fatty liver. Recently went to the ER. Severe abdominal pain was experienced in 09/2024, described as similar to labor pain. The pain persisted for several hours, during which bowel movements were unsuccessful despite various attempts. Medical attention was sought at the hospital after approximately 9 to 10 hours of enduring the pain. Cloudy urine has been noted since starting a new medication, raising concerns about potential side effects as cholesterol medication has been prescribed by primary care physician Dr. Long Medina dueto elevated levels. Weight gain has been observed, attributed to abdominal distension, with a loss of 4 to 5 pounds through intermittent fasting. Improved bowel movements are reported with the new cholesterol medication, and Linzess dosage has been switched to the morning. A right ovarian cyst is present, and care is provided by a ice cream freezer helper. A pelvic ultrasound in 06/2024 showed a thickened endometrium and an enlarged right ovarian cyst. An endometrial biopsy was performed, which was normal. Pain in the right pelvic area is reported, and advice is sought on which specialist to consult. ROS: GENERAL: No malaise, significant weight loss or fever HEENT: No changes in hearing or vision, nose bleeds or other nasal problems NECK: No lumps, goiter, pain or significant neck swelling RESPIRATORY: No cough, wheezing or shortness of breath CARDIOVASCULAR: No chest pain, leg swelling or palpitations GI: See HPI. MUSCULOSKELETAL: No joint pain or swelling, back pain, or muscle pain. SKIN: No lesions, rash or itching NEURO: No persistent headache, syncope, seizures, weakness or numbness PAST MEDICAL HISTORY: Past Medical History: Diagnosis Date ADD (attention deficit disorder) 02/18/2015 DX:ADD (attention deficit disorder); COMMENT: Follows with psych Anxiety and depression DX:Anxiety and depression B12 deficiency DX:B12 deficiency Compression fracture of T11 vertebra ([facility]/HCC V24, CMS/HCC V28) 04/03/2023 DX:Compression fracture of T11 vertebra ([facility]); COMMENT: 04/[address] Constipation 02/28/2018 DX:Constipation COPD (chronic obstructive pulmonary disease) (CMS/HCC V24, CMS/HCC V28) 12/01/2014 DX:COPD (chronic obstructive pulmonary disease) ([facility]) Depression 03/17/2015 DX:Depression; COMMENT: Prev on prozac DJD (degenerative joint disease) of knee 04/11/2022 DX:DJD (degenerative joint disease) of knee Epigastric pain 02/15/2018 DX:Epigastric pain Frequent PVCs DX:Frequent PVCs Herpes simplex virus (HSV) infection 2023 Internal hemorrhoids 03/09/2018 DX:Internal hemorrhoids Tobacco use disorder 12/01/2014 DX:Tobacco use disorder Vitamin D deficiency DX:Vitamin D deficiency 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 Patient to avoid tobacco Past Surgical History: Procedure Laterality Date COLONOSCOPY 03/08/2018 PROCEDURE: HISTORICAL COLONOSCOPY HERNIA REPAIR PROCEDURE: HISTORICAL HERNIA REPAIR/ING KNEE SURGERY Left PROCEDURE: HISTORICAL KNEE SURGERY; COMMENT: left arthroscopy OOPHORECTOMY PROCEDURE: HISTORICAL OOPHORECTOMY; COMMENT: unilateral OTHER SURGICAL HISTORY Bilateral 08/2021 PROCEDURE: MAMMOGRAM, SCREENING, BOTH BREASTS SOCIAL HISTORY: Social History Tobacco Use Smoking status: Former Current packs/day: 0.00 Average packs/day: 1.5 packs/day for 40.8 years (61.2 ttl pk-yrs) Types: Cigarettes Start date: 06/26/1977 Quit date: 2018 Years since quittin.5 Smokeless tobacco: Never Substance Use Topics Alcohol use: Yes FAMILY HISTORY: Family History Problem Relation Name Age of Onset Ovarian cancer Mother late 60's Breast cancer Maternal Grandmother Diabetes Brother Crohn's disease Aunt Colon cancer Neg Hx MEDICATIONS DISCONTINUED/REORDERED: There are no discontinued medications. ACTIVE MEDICATIONS: Current Outpatient Medications Medication Sig Dispense Refill albuterol HFA (PROAIR HFA ; PROVENTIL HFA ; VENTOLIN HFA) 90 mcg/actuation inhaler Inhale 2 puffs by mouth every 6 (six) hours if needed. cholecalciferol (VITAMIN D-3) 50 mcg (2,000 unit) capsule Take 1 capsule (2,000 Units total) by mouth 1 (one) time each day. conjugated estrogens (Premarin) vaginal cream Insert 1 g into the vagina. cyanocobalamin (VITAMIN B-12) 100 mcg tablet Take 1 tablet (100 mcg total) by mouth 1 (one) time each day. diclofenac (VOLTAREN) 1 % topical gel Apply 2 g topically. DULCOLAX, MAGNESIUM HYDROXIDE, ORAL Take by mouth. hydrocortisone 2.5 % cream APPLY TO AFFECTED AREA TWICE DAILY FOR 7 DAYS 28 g 0 ipratropium-albuteroL (DUONEB) 0.5-2.5 mg/3 mL nebulizer solution Inhale 3 mL by mouth. linaCLOtide (Linzess) 72 mcg capsule Take 1 capsule (72 mcg total) by mouth 1 (one) time each day. lisdexamfetamine (Vyvanse) 20 mg capsule Take 1 capsule (20 mg total) by mouth 1 (one) time each day in the morning. omeprazole (PriLOSEC) [address] capsule TAKE 1 CAPSULE BY MOUTH IN THE MORNING BEFORE BREAKFAST 100 capsule 2 polyethylene glycol (MIRALAX) 17 gram packet Take 17 g by mouth 1 (one) time each day. psyllium husk, with sugar, (Fiber, psyllium husk-sugar,) 3.4 gram/7 gram powder Take by mouth 1 (one) time each day. tiotropium (Spiriva Respimat) 2.5 mcg/actuation inhalation spray Inhale 2 puffs by mouth 1 (one) time each day. traZODone (DESYREL) 50 mg tablet Take 1 tablet (50 mg total) by mouth at bedtime. celecoxib (CeleBREX) 200 mg capsule Take 1 capsule (200 mg total) by mouth 1 (one) time each day. cetirizine (ZyrTEC) 10 mg tablet Take 1 tablet (10 mg total) by mouth 1 (one) time each day. (Patient not taking: Reported on 10/16/2024) cyclobenzaprine (FLEXERIL) 10 mg tablet TAKE 1 TABLET 3 TIMES A DAY NEEDED FOR MUSCLE SPASM (Patient not taking: Reported on 10/16/2024) fluticasone-salmeterol (ADVAIR DISKUS) 250-50 mcg/dose diskus inhaler Inhale 1 puff by mouth 2 (two) times a day. (Patient not taking: Reported on 10/16/2024) triamcinolone acetonide (KENALOG-40) 40 mg/mL injection Inject 1 mL (40 mg total) into the joint. (Patient not taking: Reported on 08/26/2024) valACYclovir (VALTREX) 1 gram tablet TAKE 2 TABLETS BY MOUTH 2 TIMES DAILY FOR 1 DAY. (Patient not taking: Reported on 08/26/2024) zoledronic acid (RECLAST) 5 mg/100 mL piggyback Infuse 100 mL (5 mg total) into a venous catheter. (Patient not taking: Reported on 08/26/2024) No current facility-administered medications for this visit. ALLERGIES: No Known Allergies PHYSICAL EXAM: Visit Vitals BP 120/62 (BP Location: Left arm, Patient Position: Sitting, BP Cuff Size: Adult) Ht 1.651 m (65 ) Wt 63 kg (139 lb) BMI 23.13 kg/m?? OB Status Postmenopausal Smoking Status Former BSA 1.7 m?? APPEARANCE: Alert and in no acute distress HEART: RRR with normal S1 and S2, no murmurs LUNG: clear to auscultation ABDOMEN: Bowel sounds normoactive, no bruits, soft, right sided pelvic pain EXTREMITIES: Extremities warm and well perfused without clubbing, cyanosis, or edema NEURO: Awake, alert and oriented x 3 with symmetrical reflexes Physical Exam IMPRESSION: 1. Lower abdominal pain (Primary) - Urinalysis with reflex microscopic and culture; Future - Ambulatory referral to Vascular Surgery; Future 2. Fatty liver - Ambulatory referral to Vascular Surgery; Future 3. Superior mesenteric artery stenosis (CMS/HCC V24) - Ambulatory referral to Vascular Surgery; Future 4. Cyst of right ovary - Ambulatory referral to Vascular Surgery; Future PLAN: Pleasant 69 years old female whose past medical history includes frequent PVCs, internal hemorrhoids, B12 and vitamin D deficiency, constipation, GERD, dyskinesia of the gallbladder, ADD, depression,DJD of knee, osteoporosis, COPD, vocal cord edema, history of tobacco abuse, now free of smoking, compression fracture, who recently developed significant abdominal pain. Went to ER. CT scan of the abdomen/pelvis question cystitis, there was also high-grade stenosis of superior mesenteric artery, and new enlarged right ovarian cyst, as well as fatty liver. Assessment & Plan 1. Stenosis of superior mesenteric artery - Referral to a vascular surgeon due to high-grade stenosis of the superior mesenteric artery. 2. Pelvic pain right/ovarian cyst: - Contact ice cream freezer helper for further evaluation and management due to increase in size from 2 cm to 3cm since the last pelvic ultrasound in 06/2024 - will add urinalysis, c+s 3. Fatty liver: - Continue current management plan, including taking cholesterol medication as prescribed by primary care physician. 4. ROV- 3 mo. Total time of today's encounter is 34 minutes in preparing to see the patient, reviewing labs, diagnostic studies as well as other provider notes, documenting and charting, creating an HPI, performing a medically appropriate exam as well as counseling patient. There was documentation in EMR after visit. None of which time was spend performing separately billable procedures or ancillary services. I have obtained verbal consent from Angeline Jefferson prior to the recording. I have advised Angeline Jefferson that she may refuse the recording and require the recording to be turned off at any time during this encounter. Shelley Elmore, [facility] [address] [place] [address] documented in this encounter Plan of Treatment Upcoming Encounters Date Type Department Care Team (Late st Contact Info) Description 10/24/2024 8:30 AM EDT Office Visit Orthopedic Surgery - [place] [id number] [address] Nabil Vidal MD [address] [address] 10/31/2024 10:50 AM EDT Appointment Radiology Department - [address] [phone] 10/31/2024 11:20 AM EDT Appointment Radiology Department - [address] [address] Scheduled Referrals Name Type Priority Associated Diagnoses Order Schedule Ambulatory referral to Vascular Surgery Outpatient Referral Routine Lower abdominal pain Fatty liver Superior mesenteric artery stenosis (CMS/HCC V24) Cyst of right ovary 1 Occurrences starting 10/16/2024 until 10/16/2025 documented as of this encounter Visit Diagnoses Diagnosis Lower abdominal pain- Primary Abdominal pain, other specified site Fatty liver Other chronic nonalcoholic liver disease Superior mesenteric artery stenosis (CMS/HCC V24) Stricture of artery Cyst of right ovary Other and unspecified ovarian cyst documented in this encounter Historical Medications * This list may reflect changes made after this encounter. celecoxib (CeleBREX) 200 mg capsule Take 1 capsule (200 mg total) by mouth 1 (one) time each day. traZODone (DESYREL) 50 mg tablet Take 1 tablet (50 mg total) by mouth at bedtime. 09/03/2024 added in this encounter Care Teams Mortgage Lender Relationship Specialty Start Date End Date Lidia Medina FNP [address] [place] [phone] PCP - General Family Medicine 07/10/24 documented as of this encounter
--- OUTSIDE RECORDS SUMMARY | 2024-10-21 14:00 | XMS_ITS | Encounter Summary ---
Author Organization [facility] Address [address] [place] [address] Care Team Providers Care Lead Ramp Agent Name Role Phone Ivette Valderrama MD Primary Care Provider [phone] Maximilian Baum MD Unavailable [phone] Reason for Visit * Reason Comments E-prescribe Rx Request Encounter Details Date Type Department Care Team Description 06/07/2023 [facility] [address] [place] [phone] Salina Polanco APRN E-prescribe Rx Request [...] on filedocumented in this encounter Care Teams Lead Ramp Agent Relationship Specialty Start Date End Date Ivette Valderrama MD [address] [place] [address] PCP - General Internal Medicine 10/01/20 Maximilian Baum MD [address] [address] Specialist Cardiovascular Disease 03/09/21 documented as of this encounter
--- OUTSIDE RECORDS SUMMARY | 2024-10-21 14:00 | XMS_ITS | Clinical Summary ---
Author Organization [facility] Address [address] [place] [address] Care Team Providers Care Assurance Sourcing Manager Name Role Phone Ivette Valderrama MD Primary Care Provider [phone] Allergies No known active allergies Medications Medication [...] age to complete this topic Care Teams Assurance Sourcing Manager Relationship Specialty Start Date End Date Ivette Valderrama MD PCP - General Internal Medicine 09/12/23
--- OUTSIDE RECORDS SUMMARY | 2024-10-21 14:00 | XMS_ITS | Encounter Summary ---
Author Organization [facility] Address [address] [place] [address] Care Team Providers Care Quality Checker Name Role Phone Ivette Valderrama MD Primary Care Provider [phone] Maximilian Baum MD Unavailable [phone] Encounter Details Date Type Department Care Team Description 05/11/2023 Pt. Non Urgent Medical Question [facility] [address] [address] [place] [address] Babatunde Rodriguez MD 175 [facility] [address] [place] [address] Social History Tobacco Use Types Packs/Day Years [...] filedocumented in this encounter Care Teams Quality Checker Relationship Specialty Start Date End Date Ivette Valderrama MD 4 [place] [address] PCP - General Internal Medicine 10/01/20 Maximilian Baum MD [address] [address] Specialist Cardiovascular Disease 03/09/21 documented as of this encounter
--- OUTSIDE RECORDS SUMMARY | 2024-10-21 14:00 | XMS_ITS | Encounter Summary ---
Author Organization [facility] Address [address] [place] [address] Care Team Providers Care Accounting Officer Name Role Phone Lidia Medina SEASONAL SALES ASSOCIATE Primary Care Provider [phone] Encounter Details Date Type Department Care Team (Late st Contact Info) Description 10/16/2024 3:25 PM EDT Lab Draw Station - [address] [facility] [address] [facility] [address] Lower abdominal pain Social History Tobacco Use Types Packs/Day Years [...] as of this encounter Progress Notes * LEXUS Minor - 10/16/2024 3:25 PM EDT Patient not checking her MyChart since last year. Let her know that her urine test showed that she has a lots of protein in her urine, therefore, I would like to refer her to senior sales representative. Please letme know. TY documented in this encounter Plan of Treatment Upcoming Encounters Date Type Department Care Team (Late st Contact Info) Description 10/24/2024 8:30 AM EDT Office Visit Orthopedic Surgery - [place] [address] [address] Nabil Vidal MD [address] [address] 10/31/2024 10:50 AM EDT Appointment Radiology Department - [address] [phone] 10/31/2024 11:20 AM EDT Appointment Radiology Department - [address] [phone] documented as of this encounter Procedures Procedure Name Priority Date/Time Associated Diagnosis Comments URINALYSIS WITH REFLEX MICROSCOPIC AND CULTURE Routine 10/16/2024 3:23 PM EDT Lower abdominal pain WORLEY URINE CULTURE TUBE Routine 10/16/2024 3:23 PM EDT Lower abdominal pain URINALYSIS WITH REFLEX MICROSCOPIC AND CULTURE Routine 10/16/2024 3:23 PM EDT Lower abdominal pain documented in this encounter Results * Worley urine culture tube (10/16/2024 3:23 PM EDT) Extra Tube Hold for add-ons. 10/16/2024 6:02 PM EDT [facility] Comment:Auto resulted. Urine Urine specimen obtained by clean catch procedure / Unknown Non-blood Collection / Unknown 10/16/2024 3:23 PM EDT 10/16/2024 4:29 PM EDT us Shelley ALBERTS LAB URINE ORDERABLES Final Re sult [facility] [address] [place] [address], [place] [phone] * (ABNORMAL) Urinalysis with reflex microscopic and culture (10/16/2024 3:23 PM EDT) Specific [place] Urine 1.027 1.003 - 1.030 LAB URINALYSIS - AUTOMATED METHOD 10/16/2024 5:02 PM [facility] pH, Urine 5.5 5.0 - 8.0 pH LAB URINALYSIS - AUTOMATED METHOD 10/16/2024 5:02 PM [facility] Leukocytes, Urine Negative Negative LAB URINALYSIS - AUTOMATED METHOD 10/16/2024 5:02 PM [facility] Nitrite, Urine Negative Negative LAB URINALYSIS - AUTOMATED METHOD 10/16/2024 5:02 PM [facility] Protein, Urine 30(A) <=Trace mg/dL LAB URINALYSIS - AUTOMATED METHOD 10/16/2024 5:02 PM [facility] Glucose, Urine Negative Negative mg/dL LAB URINALYSIS - AUTOMATED METHOD 10/16/2024 5:02 PM [facility] Ketones, Urine Trace(A) Negative mg/dL LAB URINALYSIS - AUTOMATED METHOD 10/16/2024 5:02 PM [facility] Urobilinogen, Urine 1.0 0.2 - 1.0 mg/dL LAB URINALYSIS - AUTOMATED METHOD 10/16/2024 5:02 PM [facility] Bilirubin, Urine Negative Negative LAB URINALYSIS - AUTOMATED METHOD 10/16/2024 5:02 PM [facility] Blood, Urine Negative Negative LAB URINALYSIS - AUTOMATED METHOD 10/16/2024 5:02 PM [facility] RBC, Urine 2.1 0 - 4 /HPF LAB URINALYSIS - AUTOMATED METHOD 10/16/2024 5:02 PM EDT [facility] WBC, Urine 5.5(H) 0 - 4 /HPF LAB URINALYSIS - AUTOMATED METHOD 10/16/2024 5:02 PM EDT [facility] Squamous Epithelial, Urine >100(H) 0 - 60 /LPF LAB URINALYSIS - AUTOMATED METHOD 10/16/2024 5:02 PM EDT [facility] Bacteria, Urine Negative Negative /HPF LAB URINALYSIS - AUTOMATED METHOD 10/16/2024 5:02 PM EDT [facility] Hyaline Casts, Urine 26.9(H) 0 - 3 /LPF LAB URINALYSIS - AUTOMATED METHOD 10/16/2024 5:02 PM EDT [facility] Urine Urine specimen obtained by clean catch procedure / Unknown Non-blood Collection / Unknown 10/16/2024 3:23 PM EDT 10/16/2024 4:25 PM EDT us Shelley ALBERTS LAB URINE ORDERABLES Final Re sult [facility] [address] [place] [address], documented in this encounter Visit Diagnoses Diagnosis Lower abdominal pain Abdominal pain, other specified site documented in this encounter Care Teams Accounting Officer Relationship Specialty Start Date End Date Lidia Medina FNP [address] [place] [address] PCP - General Family Medicine 07/10/24 documented as of this encounter
--- OUTSIDE RECORDS SUMMARY | 2024-10-21 14:00 | XMS_ITS | Clinical Summary ---
Author Organization [facility] Address [address] [place] [address] Phone Care Team Providers Care Printing Bindery Assistant Name Role Phone Lidia Medina Primary Care Provider Allergies No known active allergies Medications psyllium [...] TIMES DAILY FOR 1 DAY. 4 Active traZODone (DESYREL) 50 mg tablet Take 1 tablet (50 mg total) by mouth at bedtime. 5 Active celecoxib (CeleBREX) 200 mg capsule Take 1 capsule (200 mg total) by mouth 1 (one) time each day. 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 Vitamin D deficiency 04/18/2024 Primary osteoarthritis of right knee 01/16/2024 Post-traumatic osteoarthritis of left knee 01/15 Compression fracture of T11 vertebra ([facility] V24, [facility] V28) 04/03/2023 Overview (04/18/2024): 04/17 noted on chest [...] (04/18/2024): Follows with psych COPD (chronic obstructive pu lmonary disease) ([facility] V24, [facility] V28) 12/01/2014 Encounters Date Type Department Care Team Description 10/16/2024 3:25 PM EDT Lab Draw Station - [address] [facility] [address] [facility] [address] Lower abdominal pain 10/16/2024 2:20 PM EDT Office Visit Gastroenterology - [place] [address] [facility] [address] [place] [phone] Shelley Elmore PA Lower abdominal pain (Primary Dx); Fatty liver; Superior mesenteric artery stenosis ([facility] V24); Cyst of right ovary 10/10/2024 3:17 PM EDT - 10/10/2024 11:59 PM EDT Hospital Encounter Radiology Department - [address] [phone] Encounter for screening mammogram for breast cancer Discharge Disposition: Home or Self Care 08/26/2024 3:00 PM EST Procedure visit Obstetrics and Gynecology - [address] [phone] Oksana Contreras MD PMB (postmenopausal bleeding) (Primary Dx); Thickened endometrium 07/30/2024 Telephone Obstetrics & Gynecology - [address] [address] Rebecca Puckett CNM 07/25/2024 5:43 PM EST - 07/25/2024 11:59 PM EST Hospital Encounter Radiology Department - [address] [phone] Encounter for well woman exam with routine gynecological exam; PMB (postmenopausal bleeding) Discharge Disposition: Home or Self Care from Last 3 Months Immunizations Name Administration [...] DX:Constipation COPD (chronic obstructive pu lmonary disease) ([facility] V[facility], [facility] V[facility]) 12/01/2014 DX:COPD (chronic o bstructive pulmonary disease) ([facility]) Depression 03/17/2015 DX:Depression; C OMMENT: [...] of knee Compression fracture of T11 vertebra ([facility] V[facility], [facility] V28) 04/03/2023 DX:Compression fracture of T11 vertebra ([facility]); COMMENT: 04/17 noted on chest [...] Anes PTL Juanita A1 A5 Name Clin 04/18/1 989 Term M Vag-S pont Neelima sed Jason SSS Delivery Location:[facility] Comments: at age 5 ; killed by ex-'s 994 Term M Vag-S pont Torsten Olivas SSS Delivery Location:[facility] Comments:?GDM Last Filed Vital Signs Vital Sign Reading Time Taken Comments Blood Pressure 120/62 10/16/2024 2:20 PM EDT Pulse 88 08/26/2024 3:12 PM EST Temperature - - Respiratory Rate 12 08/26/2024 3:12 PM EST Oxygen Saturation - - Inhaled Oxygen Concentration - - Weight 63 kg (139 lb) 10/16/2024 2:20 PM EDT Height 165.1 cm (5' 5 ) 10/16/2024 2:20 PM EDT Body Mass Index 23.13 10/16/2024 2:20 PM EDT Plan of Treatment Upcoming Encounters Date Type Department Care Team (Late st Contact Info) Description 10/24/2024 8:30 AM EDT Office Visit Orthopedic Surgery - [place] [address] [address] Nabil Vidal MD [address] [address] 10/31/2024 10:50 AM EDT Appointment Radiology Department - [address] [phone] 10/31/2024 11:20 AM EDT Appointment Radiology Department - [address] [address] Health Maintenance Due Date Last Done Comments [...] 03/30/2022, Additional history exists Breast Cancer Screening 10/10/2026 10/11/19, 09/29/2023, 09/19/2022, Additional history exists Colorectal Cancer Screening: Colonoscopy [...] Procedure Name Priority Date/Time Associated Diagnosis Comments WORLEY URINE CULTURE TUBE Routine 10/16/2024 3:23 PM EDT Lower abdominal pain URINALYSIS WITH REFLEX MICROSCOPIC AND CULTURE Routine 10/16/2024 3:23 PM EDT Lower abdominal pain URINALYSIS WITH REFLEX MICROSCOPIC AND CULTURE Routine 10/16/2024 3:23 PM EDT Lower abdominal pain MG MAMMO DIGITAL SCREENING W [place] BILAT Routine 10/10/2024 3:42 PM EDT Encounter for screening mammogram for breast cancer TISSUE EXAM Routine 08/26/2024 3:36 PM EST PMB (postmenopausal bleeding) Thickened endometrium US PELVIS NON OB COMPLETE W TRANSVAGINAL Routine 07/25/2024 6:08 PM EST Encounter for well woman exam with routine gynecological exam PMB (postmenopausal bleeding) CT LUNG SCREENING LOW DOSE Routine 04/02/2024 9:07 AM EDT Encounter for screening for malignant neoplasm of respiratory organs DXA BONE DENSITY STUDY 1+ SITS AXIAL SKEL Routine 04/12/2022 4:12 PM EDT Unspecified menopausal and perimenopausal disorder from Last 3 Months or Most Recently Relevant to Health Maintenance Results * (ABNORMAL) Urinalysis with reflex microscopic and culture (10/16/2024 3:23 PM EDT) Specific [place] Urine 1.027 1.003 - 1.030 LAB URINALYSIS - AUTOMATED METHOD 10/16/2024 5:02 PM [facility] pH, Urine 5.5 5.0 - 8.0 pH LAB URINALYSIS - AUTOMATED METHOD 10/16/2024 5:02 PM [facility] Leukocytes, Urine Negative Negative LAB URINALYSIS - AUTOMATED METHOD 10/16/2024 5:02 PM [facility] Nitrite, Urine Negative Negative LAB URINALYSIS - AUTOMATED METHOD 10/16/2024 5:02 PM [facility] Protein, Urine 30(A) <=Trace mg/dL LAB URINALYSIS - AUTOMATED METHOD 10/16/2024 5:02 PM [facility] Glucose, Urine Negative Negative mg/dL LAB URINALYSIS - AUTOMATED METHOD 10/16/2024 5:02 PM [facility] Ketones, Urine Trace(A) Negative mg/dL LAB URINALYSIS - AUTOMATED METHOD 10/16/2024 5:[facility] Urobilinogen, Urine 1.0 0.2 - 1.0 mg/dL LAB URINALYSIS - AUTOMATED METHOD 10/16/2024 5:02 PM [facility] Bilirubin, Urine Negative Negative LAB URINALYSIS - AUTOMATED METHOD 10/16/2024 5:02 PM [facility] Blood, Urine Negative Negative LAB URINALYSIS - AUTOMATED METHOD 10/16/2024 5:02 PM [facility] RBC, Urine 2.1 0 - 4 /HPF LAB URINALYSIS - AUTOMATED METHOD 10/16/2024 5:02 PM [facility] WBC, Urine 5.5(H) 0 - 4 /HPF LAB URINALYSIS - AUTOMATED METHOD 10/16/2024 5:02 PM [facility] Squamous Epithelial, Urine >100(H) 0 - 60 /LPF LAB URINALYSIS - AUTOMATED METHOD 10/16/2024 5:02 PM [facility] Bacteria, Urine Negative Negative /HPF LAB URINALYSIS - AUTOMATED METHOD 10/16/2024 5:02 PM [facility] Hyaline Casts, Urine 26.9(H) 0 - 3 /LPF LAB URINALYSIS - AUTOMATED METHOD 10/16/2024 5:02 PM [facility] Urine Urine specimen obtained by clean catch procedure / Unknown Non-blood Collection / Unknown 10/16/2024 3:23 PM EDT 10/16/2024 4:25 PM EDT us Shelley ALBERTS LAB URINE ORDERABLES Final Re sult [facility] [address] [place] [address], * Worley urine culture tube (10/16/2024 3:23 PM EDT) Extra Tube Hold for add-ons. 10/16/2024 6:02 PM EDT [facility] Comment:Auto resulted. Urine Urine specimen obtained by clean catch procedure / Unknown Non-blood Collection / Unknown 10/16/2024 3:23 PM EDT 10/16/2024 4:29 PM EDT us Shelley ALBERTS LAB URINE ORDERABLES Final Re sult [facility] ([facility] [address] [place] [address], [place] [phone] * (ABNORMAL) MG Mammo Digital Screening w Augusto bilat (10/10/2024 3:42 PM EDT) Anatomical Region Laterality Modality Breast Bilateral Mammography 10/11/2024 11:2 7 AM EDT Impressions 10/11/2024 11:32 AM EDT 2 focal asymmetries in the right breast. ??Additional evaluation is recommended with spot compression MLO view, full field right lateral view as well as with ultrasound. ??We will contact the patient for the arrangements. BI-RADS CATEGORY: 0 - INCOMPLETE - NEED ADDITIONAL IMAGING EVALUATION RECOMMENDATION: Additional right breast imaging recommended. Return to annual schedule recommended for the left breast. Mammo Location: [facility], [address] [place] [address], [id number], . -------- FINAL REPORT -------- Dictated By: Guerita Rodriguez Dictated Date: 10/11/2024 11:27 ET Assigned Physician: Guerita Rodriguez Reviewed and Electronically Signed By: Guerita Rodriguez Signed Date: 10/11/2024 11:32 ET Workstation ID: [id number] Transcribed By: Self Edit Transcribed Date: 10/11/2024 11:27 ET Narrative 10/11/2024 11:32 AM EDT Bilateral mammogram, screening examination. CLINICAL: 69 years old, Female, routine annual exam. COMPARISON: Prior studies, latest from 09/29/2023. ?? TECHNIQUE: Bilateral MLO and CC views were obtained digitally with 2-D C views and 3-D mammogram (digital breast tomosynthesis). Computer-aided detection was utilized in evaluation of this exam (CAD). FINDINGS: There are 2 focal asymmetries in the right breast, visualized on the MLO view only located in the upper breast posteriorly and slightly inferior breast in the posterior 3rd depth. There is no evidence of other new focal asymmetries or architectural distortion. ??No worrisome calcifications are evident. ?? BREAST DENSITY: C - The breasts are heterogeneously dense which may obscure small masses. iLdia Adam LINUX ARCHITECT IMG BI PROCEDURES Final Result * Tissue exam (08/26/2024 3:36 PM EST) Final Diagnosis Endometrium, biopsy: Scant superficial strips of atrophic endometrial epithelium and detached fragments of benign squamous mucosa. Endometrial stroma is not identified. 08/30/2024 11:32 AM [facility] Clinical Information PMB (postmenopausal bleeding) (N95.0) Thickened endometrium (R93.89) 08/30/2024 11:32 AM [facility] Gross Description A. Endometrium, biopsy: Labeled EMB, Endo . Received in formalin is an approximately 0.8 x 0.6 x 0.2 cm aggregate of soft to mucoid, clear to white tissue fragments, which is wrapped in paper and submitted in toto in one cassette, multiple pieces, x2. Please note: Small tissue fragments may not survive processing. dvb/DG 08/30/2024 11:32 AM [facility] Disclaimer Unless otherwise specified, all tissue is 10% NB formalin fixed and paraffin embedded. 08/30/2024 11:32 AM [facility] Tissue Endometrial structure / Unknown Non-blood Collection / Unknown 08/26/2024 3:36 PM EST 08/26/2024 3:36 PM EST us Oksana Contreras MD LAB PATHOLOGY ORDERABLES Fi nal Result [facility] [address] [place] [address], [place] [phone] * US Pelvis Non OB Complete w [...] cm previously. Left ovary not visualized. POS [id number] -------- FINAL REPORT -------- Dictated By: Kimberly Roberts Dictated Date: 07/26/2024 08:16 ET Assigned Physician: Kimberly Roberts Reviewed and Electronically Signed By: Kimberly Roberts Signed Date: 07/26/2024 08:26 ET Workstation ID: [id number] Transcribed By: Self Edit Transcribed Date: 07/26/2024 [...] cm previously. Left ovary not visualized. POS [id number] -------- FINAL REPORT -------- Dictated By: Kimberly Roberts Dictated Date: 07/26/2024 08:16 ET Assigned Physician: Kimberly Roberts Reviewed and Electronically Signed By: Kimberly Roberts Signed Date: 07/26/2024 08:26 ET Workstation ID: [id number] Transcribed By: Self Edit Transcribed Date: 07/26/2024 08:16 ET us Rebecca WOLFF IM US PROCEDURES Final Resul t * CT LUNG SCREENING LOW DOSE (04/02/2024 9:07 AM EDT) Anatomical Region Laterality Modality Computed Tomogra phy 04/01/2024 11:3 1 AM EDT Narrative 04/02/2024 9:07 AM EDT [facility] Diagnostic Imaging Department [address] [place] [id number] Patient: ??AGNELINE JEFFERSON ?/Age/Sex: 1955 - 68 - F Unit#: ??[id number] ? Location/Status: ??SPDICATLS/REG CLI ? Mnemonic/Ordering Site: [...] Procedure Note Shey Roman MD - 04/23/2024 [facility] Diagnostic Imaging Department [address] [place], [place] [id number] Patient: ANGELINE JEFFERSON /Age/Sex: 1955 - 68 - F Unit#: [id number] Location/Status: SPDICATLS/REG CLI Mnemonic[facility] Ordering Physician: CARA PIMENTEL MD CT Lung [...] Sign date/Time: 04/02/24906 us Cara Pimentel MD IMG CT PROCEDURES Final Result * DXA BONE DENSITY STUDY 1+ SITS [...] IMPRESSION: ?? Osteoporosis by WHO criteria. [facility] Department of Internal Medicine recommends using [...] alternative screening schedule based on pebbles Rivera., [facility] July 14, 2011 for patients with osteopenia [...] IMPRESSION: IMPRESSION: Osteoporosis by WHO criteria. [facility] Department of Internal Medicine recommendsusing National [...] alternative screening schedule based on pebbles Rivera., NEJJanuary 2011 for patients with osteopenia (based on hip BMD T-score) is as follows: * advanced osteopenia (T scores -2.00 to -2.49), BMD testing every year * moderate osteopenia (T scores -1.50 to -1.99), BMD testing every 5years mild osteopenia or normal BMD (T scores -1.50 and higher), BMD testingevery 15 years Ivette Valderrama MD IMG DXA PROCEDURES Final Result from Last 3 Months or Most Recently Relevant to Health Maintenance Insurance [employer] MEDICARE Advance Directives Documents on File Type Date Recorded Patient Quarrying Manager Expl anation Health Care Decision (hx) 03/31/2023 [...] (hx) 03/31/2023 AD [place] DIRECTIVE Care Teams Printing Bindery Assistant Relationship Specialty Start Date End Date Lidia Medina FNP [address] [place] [address] PCP - General Family Medicine 07/10/24
--- OUTSIDE RECORDS SUMMARY | 2024-10-21 14:01 | XMS_ITS | Encounter Summary ---
Author Organization [facility] Address [address] [place] [address] Care Team Providers Care Organ Tuner Electronic Name Role Phone Ivette Valderrama MD Primary Care Provider [phone] Maximilian Baum MD Unavailable [phone] Reason for Visit * Reason Onset Date Comments refill request 12/16/2020 Encounter Details Date Type Department Care Team Description 12/16/2020 Refill Gastroenterology - [address] [place] [phone] Shelley Elmore DScPAS refill request Social [...] on filedocumented in this encounter Care Teams Organ Tuner Electronic Relationship Specialty Start Date End Date Ivette Valderrama MD [address] [place] [address] PCP - General Internal Medicine 10/01/20 Maximilian Baum MD [address] [place] [address] Specialist Cardiovascular Disease 03/09/21 documented as of this encounter
--- OUTSIDE RECORDS SUMMARY | 2024-10-21 14:01 | XMS_ITS | Encounter Summary ---
Author Organization [facility] Address [address] [place] [address] Care Team Providers Care Forest Management Professor Name Role Phone Ivette Valderrama MD Primary Care Provider [phone] Maximilian Baum MD Unavailable [phone] Encounter Details Date Type Department Care Team Description 04/03/2023 Coin Purse Assembler Report Medical Records [address] [place] [address] [address] [facility] Social History Tobacco Use Types Packs/Day Years [...] on filedocumented in this encounter Care Teams Forest Management Professor Relationship Specialty Start Date End Date Ivette Valderrama MD [address] [place] [address] PCP - General Internal Medicine 10/01/20 Maximilian Baum MD [address] [place] [address] Specialist Cardiovascular Disease 03/09/21 documented as of this encounter
--- OUTSIDE RECORDS SUMMARY | 2024-10-21 14:01 | XMS_ITS | Encounter Summary ---
Author Organization [facility] Address [address] [place] [address] Care Team Providers Care Pipelaying Fitter Name Role Phone Ivette Valderrama MD Primary Care Provider Maximilian Baum MD Unavailable [phone] Encounter Details Date Type Department Care Team Description 01/22/2024 [facility] [address] [phone] Nabil Vidal MD [address] [address] Social History Tobacco Use Types Packs/Day Years [...] on filedocumented in this encounter Care Teams Pipelaying Fitter Relationship Specialty Start Date End Date Ivette Valderrama MD [address] [place] [address] PCP - General Internal Medicine 10/01/20 Maximilian Baum MD 300 [facility] [address] [place] [address] Specialist Cardiovascular Disease 03/09/21 documented as of this encounter
--- OUTSIDE RECORDS SUMMARY | 2024-10-21 14:01 | XMS_ITS | Encounter Summary ---
Author Organization [facility] Address [address] [place] [address] Care Team Providers Care Mint Wafer Depositor Name Role Phone Ivette Valderrama MD Primary Care Provider [phone] Maximilian Baum MD Unavailable [phone] Encounter Details Date Type Department Care Team Description 04/03/2024 Customer Field Representative Report Medical Records [address] [place], [place] [id number] [place] [address] Social History Tobacco Use Types Packs/Day Years [...] on filedocumented in this encounter Care Teams Mint Wafer Depositor Relationship Specialty Start Date End Date Ivette Valderrama MD [address] [place] [address] PCP - General Internal Medicine 10/01/20 Maximilian Baum MD [address] [place] [address] Specialist Cardiovascular Disease 03/09/21 documented as of this encounter
--- OUTSIDE RECORDS SUMMARY | 2024-10-21 14:01 | XMS_ITS | Encounter Summary ---
Author Organization [facility] Address [address] [place] [address] Care Team Providers Care Junior Programmer Analyst Name Role Phone Ivette Valderrama MD Primary Care Provider [phone] Maximilian Baum MD Unavailable Encounter Details Date Type Department Care Team Description 09/21/2023 Telephone OBGYN - [place] [address] [place], [place] [phone] Yazmin Preez CNM [address] [place] [address] [phone] Social History Tobacco Use Types Packs/Day Years [...] on filedocumented in this encounter Care Teams Junior Programmer Analyst Relationship Specialty Start Date End Date Ivette Valderrama MD [address] [place] [address] [phone] PCP - General Internal Medicine 10/01/20 Maximilian Baum MD 300 [facility] 154 [place] [address] Specialist Cardiovascular Disease 03/09/21 documented as of this encounter
--- OUTSIDE RECORDS SUMMARY | 2024-10-21 14:01 | XMS_ITS | Encounter Summary ---
Author Organization [facility] Address [address] [place] [address] Care Team Providers Care Storage Solutions Architect Name Role Phone Ivette Valderrama MD Primary Care Provider [phone] Maximilian Baum MD Unavailable [phone] Encounter Details Date Type Department Care Team Description 10/26/2023 Refill OBGYN - [place] [address] [place] [address] Monet Han CNM [address] [place], [place] [phone] Social History Tobacco Use Types Packs/Day Years [...] on filedocumented in this encounter Care Teams Storage Solutions Architect Relationship Specialty Start Date End Date Ivette Valderrama MD 444 [place] [address] PCP - General Internal Medicine 10/01/20 Maximilian Baum MD 300 [facility] 154 [place] [address] Specialist Cardiovascular Disease 03/09/21 documented as of this encounter
--- OUTSIDE RECORDS SUMMARY | 2024-10-21 14:01 | XMS_ITS | Encounter Summary ---
Author Organization [facility] Address [address] [place] [address] Care Team Providers Care Sorter Pricer Name Role Phone Shazia Rivas MD Primary Care Provider Glenn eMza Primary Care Provider UnavailShazia Chu MD Primary Care Provider Evelyn Munoz MD Primary Care Provider Un available Shazia Rivas MD Primary Care Provider UnavailIvette Carver MD Primary Care Provider [phone] Maximilian Baum MD Unavailable [phone] Encounter Details Date Type Department Care Team Description 08/15/2016 Transfer Records Medical Records [address] [place] [address] Abstract, Provider Social History Tobacco Use Types [...] on filedocumented in this encounter Care Teams Sorter Pricer Relationship Specialty Start Date End Date Shazia Rivas MD PCP - General Internal Medicine 04/08/15 07/17/17 Yayo, Pcp PCP - General Internal Medicine 07/18/17 08/27/17 Shazia Rivas MD PCP - General Internal Medicine 08/28/17 12/31/17 Evelyn Stratton MD PCP - General Internal Medicine 01/01/1806/20 Shazia Rivas MD PCP - General Internal Medicine 06/21/18 09/30/20 Ivette Valderrama MD [address] [place] [address] PCP - General Internal Medicine 10/01/20 Maximilian Baum MD [address] [place] [address] Specialist Cardiovascular Disease 03/09/21 documented as of this encounter
--- OUTSIDE RECORDS SUMMARY | 2024-10-21 14:01 | XMS_ITS | Encounter Summary ---
Author Organization [facility] Address [address] [place] [address] Care Team Providers Care Pile Driving Setter Name Role Phone Ivette Valderrama MD Primary Care Provider [phone] Maximilian Baum MD Unavailable Reason for Visit * Reason Onset Date Comments DME Request 06/14/2023 Encounter Details Date Type Department Care Team Description 06/14/2023 Telephone Pulmonology - [place] 175 [facility] [address] [place] [phone] Emerald Mary MD [address] [phone] DME Request Social History Tobacco Use Types [...] on filedocumented in this encounter Care Teams Pile Driving Setter Relationship Specialty Start Date End Date Ivette Valderrama MD [address] [place] [address] PCP - General Internal Medicine 10/01/20 Maximilian Baum MD [address] [place] [address] Specialist Cardiovascular Disease 03/09/21 documented as of this encounter
--- OUTSIDE RECORDS SUMMARY | 2024-10-21 14:01 | XMS_ITS | Encounter Summary ---
Author Organization [facility] Address [address] [place] [address] Care Team Providers Care Propeller Mechanic Name Role Phone Shazia Rivas MD Primary Care Provider [facility] Ivette Valderrama MD Primary Care Provider [phone] Maximilian Baum MD Unavailable [phone] Encounter Details Date Type Department Care Team Description 02/20/2020 Clinical Research Scientist Report Medical Records [address] [place] [address] [facility] [address] [place] [address] Social History Tobacco Use Types Packs/Day Years [...] on filedocumented in this encounter Care Teams Propeller Mechanic Relationship Specialty Start Date End Date Shazia Rivas MD PCP - General Internal Medicine 06/21/18 09/30/20 Ivette Valderrama MD 444 [place] [address] PCP - General Internal Medicine 10/01/20 Maximilian Baum MD [address] [address] Specialist Cardiovascular Disease 03/09/21 documented as of this encounter
--- OUTSIDE RECORDS SUMMARY | 2024-10-21 14:01 | XMS_ITS | Encounter Summary ---
Author Organization [facility] Address [address] [place] [address] Care Team Providers Care Senior Supplier Quality Engineer Name Role Phone Ivette Valderrama MD Primary Care Provider [phone] Maximilian Baum MD Unavailable [phone] Reason for Visit * Reason Onset Date Comments Testing 01/14/2022 DXA BONE DENSITY STUDY 1+ SITS AXIAL SKEL Encounter Details Date Type Department Care Team Description 01/14/2022 Telephone Adult Medicine [address] [phone] Ivette Valderrama MD [address] [place] [address] [phone] Testing (DXA BONE DENSITY STUDY 1+ SITS [...] filedocumented in this encounter Care Teams Senior Supplier Quality Engineer Relationship Specialty Start Date End Date Ivette Valderrama MD [address] [place] [address] PCP - General Internal Medicine 10/01/20 Maximilian Baum MD 300 [facility] 154 [place] [address] Specialist Cardiovascular Disease 03/09/21 documented as of this encounter
--- OUTSIDE RECORDS SUMMARY | 2024-10-21 14:01 | XMS_ITS | Encounter Summary ---
Author Organization [facility] Address [address] [place] [address] Care Team Providers Care Baggage Agent Name Role Phone Ivette Valderrama MD Primary Care Provider [phone] Maximilian Baum MD Unavailable [phone] Encounter Details Date Type Department Care Team Description 12/13/2023 Telephone [facility] 175 [facility] [address] [place] [address] Babatunde Rodriguez MD 175 [facility] [address] [place] [address] Social History Tobacco Use Types Packs/Day Years [...] telephone counter will be entered as a [employer] message in an attempt to contact her via ScriptPadhart rather than telephone. Patient was informed via her telephone message as well as this ScriptPadhart message that she has an appointment in [...] on filedocumented in this encounter Care Teams Baggage Agent Relationship Specialty Start Date End Date Ivette Valderrama MD [address] [place] [address] PCP - General Internal Medicine 10/01/20 Maximilian Baum MD [address] [place] [address] Specialist Cardiovascular Disease 03/09/21 documented as of this encounter
--- OUTSIDE RECORDS SUMMARY | 2024-10-21 14:01 | XMS_ITS | Encounter Summary ---
Author Organization [facility] Address [address] [place] [address] Care Team Providers Care Technical Maintenance Specialist Name Role Phone Shazia Rivas MD Primary Care Provider Ivette Bynum MD Primary Care Provider [phone] Maximilian Baum MD Unavailable [phone] Reason for Visit * Reason Onset Date Comments APPOINTMENT 10/10/2019 Encounter Details Date Type Department Care Team Description 10/10/2019 Telephone Adult Medicine - [address] [address] Hortencia Dye PA-C APPOINTMENT Social History Tobacco [...] on filedocumented in this encounter Care Teams Technical Maintenance Specialist Relationship Specialty Start Date End Date Shazia Rivas MD PCP - General Internal Medicine 06/21/18 09/30/20 Ivette Valderrama MD [address] [place] [address] PCP - General Internal Medicine 10/01/20 Maximilian Baum MD [address] [place] [address] Specialist Cardiovascular Disease 03/09/21 documented as of this encounter
--- OUTSIDE RECORDS SUMMARY | 2024-10-21 14:01 | XMS_ITS | Encounter Summary ---
Author Organization [facility] Address [address] [place] [address] Care Team Providers Care Business And Services Instructor Name Role Phone Shazia Rivas MD Primary Care Provider Ivette Bynum MD Primary Care Provider [phone] Maximilian Baum MD Unavailable [phone] Reason for Visit * Reason Comments E-prescribe Rx Request Encounter Details Date Type Department Care Team Description 04/21/2020 Refill Adult Medicine [address] [address] Andria Kumar PA-C E-prescribe Rx Request Social [...] / Plan[place] / Product Type: MEDICARE [id number] documented in this encounter Plan of Treatment Not on file documented as of this encounter Visit Diagnoses Not on filedocumented in this encounter Care Teams Business And Services Instructor Relationship Specialty Start Date End Date Shazia Rivas MD PCP - General Internal Medicine 06/21/18 09/30/20 Ivette Valderrama MD [address] [place] [address] PCP - General Internal Medicine 10/01/20 Maximilian Baum MD [address] [place] [address] Specialist Cardiovascular Disease 03/09/21 documented as of this encounter
--- OUTSIDE RECORDS SUMMARY | 2024-10-21 14:01 | XMS_ITS | Encounter Summary ---
Author Organization [facility] Address [address] [place] [address] Care Team Providers Care Retail Marketing Executive Name Role Phone Ivette Valderrama MD Primary Care Provider [phone] Maximilian Baum MD Unavailable [phone] Reason for Visit * Reason Onset Date Comments REFERRAL 01/11/2023 Encounter Details Date Type Department Care Team Description 01/11/2023 Telephone Adult Medicine [address] [phone] Ivette Valderrama MD [address] [place] [address] [phone] REFERRAL Social History Tobacco Use Types Packs/Day [...] 1:44 PM EDT Please resend referral to [facility]. Office didn't receive it. documented in this encounter Plan of Treatment Not on file documented as of this encounter Visit Diagnoses Not on filedocumented in this encounter Care Teams Retail Marketing Executive Relationship Specialty Start Date End Date Ivette Valderrama MD [address] [place] [address] PCP - General Internal Medicine 10/01/20 Maximilian Baum MD [address] [place] [address] Specialist Cardiovascular Disease 03/09/21 documented as of this encounter
--- OUTSIDE RECORDS SUMMARY | 2024-10-21 14:01 | XMS_ITS | Encounter Summary ---
Author Organization [facility] Address [address] [place] [address] Care Team Providers Care Senior Technical Editor Name Role Phone Shazia Rivas MD Primary Care Provider Glenn Meza Primary Care Provider UnavailShazia Chu MD Primary Care Provider UnavailEvelyn Cordova MD Primary Care Provider Un available Shazia Rivas MD Primary Care Provider UnavailIvette Carver MD Primary Care Provider [phone] Maximilian Baum MD Unavailable [phone] Encounter Details Date Type Department Care Team Description 06/03/2017 [facility] Medical Records [address] [place] [phone] [place] [address] Andre Social History Tobacco Use Types Packs/Day [...] filedocumented in this encounter Care Teams Senior Technical Editor Relationship Specialty Start Date End Date Shazia Rivas MD PCP - General Internal Medicine 04/08/15 07/17/17 Yayo, Pcp PCP - General Internal Medicine 07/18/17 08/27/17 Shazia Rivas MD PCP - General Internal Medicine 08/28/17 12/31/17 Evelyn Stratton MD PCP - General Internal Medicine 01/01/1806/20 Shazia Rivas MD PCP - General Internal Medicine 06/21/18 09/30/20 Ivette Valderrama MD [address] [place] [address] PCP - General Internal Medicine 10/01/20 Maximilian Baum MD [address] [place] [address] Specialist Cardiovascular Disease 03/09/21 documented as of this encounter
--- OUTSIDE RECORDS SUMMARY | 2024-10-21 14:01 | XMS_ITS | Encounter Summary ---
Author Organization [facility] Address [address] [place] [address] Care Team Providers Care Cosmetology Educator Name Role Phone Ivette Valderrama MD Primary Care Provider [phone] Maximilian Baum MD Unavailable [phone] Encounter Details Date Type Department Care Team Description 12/13/2023 SCAN [facility] 175 [facility] [address] [place] [address] Babatunde Rodriguez MD 175 [facility] [address] [place] [address] Social History Tobacco Use Types Packs/Day Years [...] on filedocumented in this encounter Care Teams Cosmetology Educator Relationship Specialty Start Date End Date Ivette Valderrama MD [address] [place] [address] PCP - General Internal Medicine 10/01/20 Maximilian Baum MD 300 [facility] 154 [place] [address] Specialist Cardiovascular Disease 03/09/21 documented as of this encounter
--- OUTSIDE RECORDS SUMMARY | 2024-10-21 14:01 | XMS_ITS | Encounter Summary ---
Author Organization [facility] Address [address] [place] [address] Care Team Providers Care Mining Helper Name Role Phone Ivette Valderrama MD Primary Care Provider [phone] Maximilian Baum MD Unavailable [phone] Reason for Visit * Reason Onset Date Comments refill request 12/25/2023 Encounter Details Date Type Department Care Team Description 12/25/2023 Refill Adult Medicine [address] [phone] Ivette Valderrama MD [address] [place] [address] [phone] refill request Social History Tobacco Use Types [...] traveled recently to another state outside of [place], [place], [place], [place], [place], [place], [place]? NO o If yes, did you [...] vehicle accident? NO If yes, gather 3rd green party insurance information Date of accident/Injury: How long has patient had these symptoms?: 4 DAYS PCP: Ivette Valderrama Payor: [employer] MEDICARE FFS / Plan: [facility] MDCR-ADV HMO $0 [place] [id number] / Product Type: HMO [id number] documented in this encounter Plan of Treatment Not on file documented as of this encounter Visit Diagnoses Not on filedocumented in this encounter Care Teams Mining Helper Relationship Specialty Start Date End Date Ivette Valderrama MD [address] [place] [address] PCP - General Internal Medicine 10/01/20 Maximilian Baum MD [address] [place] [address] Specialist Cardiovascular Disease 03/09/21 documented as of this encounter
--- OUTSIDE RECORDS SUMMARY | 2024-10-21 14:01 | XMS_ITS | Encounter Summary ---
Author Organization [facility] Address [address] [place] [address] Care Team Providers Care Tent Assembler Name Role Phone Ivette Valderrama MD Primary Care Provider [phone] Maximilian Baum MD Unavailable Reason for Visit * Reason Onset Date Comments LAB WORK 01/25/2022 Encounter Details Date Type Department Care Team Description 01/25/2022 Telephone Adult Medicine [address] [phone] Ivette Valderrama MD [address] [place] [address] [phone] LAB WORK Social History Tobacco Use Types [...] on filedocumented in this encounter Care Teams Tent Assembler Relationship Specialty Start Date End Date Ivette Valderrama MD [address] [place] [address] PCP - General Internal Medicine 10/01/20 Maximilian Baum MD 300 [facility] 154 [place] [address] Specialist Cardiovascular Disease 03/09/21 documented as of this encounter
--- OUTSIDE RECORDS SUMMARY | 2024-10-21 14:01 | XMS_ITS | Encounter Summary ---
Author Organization [facility] Address [address] [place] [address] Care Team Providers Care Blindstitch Machine Operator Name Role Phone Ivette Valderrama MD Primary Care Provider [phone] Maximilian Baum MD Unavailable [phone] Reason for Visit * Reason Onset Date Comments Mychart Rx Refill 03/01/2022 Encounter Details Date Type Department Care Team Description 03/01/2022 Pt. Non Urgent Medical Question Adult Medicine [address] [phone] Latasha Barron PA-C [address] [place] [address] [phone] Social History Tobacco Use Types Packs/Day Years [...] on filedocumented in this encounter Care Teams Blindstitch Machine Operator Relationship Specialty Start Date End Date Ivette Valderrama MD [address] [place] [address] PCP - General Internal Medicine 10/01/20 Maximilian Baum MD [address] [place] [address] Specialist Cardiovascular Disease 03/09/21 documented as of this encounter
--- OUTSIDE RECORDS SUMMARY | 2024-10-21 14:01 | XMS_ITS | Encounter Summary ---
Author Organization [facility] Address [address] [place] [address] Care Team Providers Care Husker Operator Name Role Phone Shazia Rivas MD Primary Care Provider Ivette Bynum MD Primary Care Provider [phone] Maximilian Baum MD Unavailable [phone] Reason for Visit * Reason Onset Date Comments Testing 05/29/2019 MRI of brain no contrast Encounter Details Date Type Department Care Team Description 05/29/[address] [address] Shanice Smith PA-C Testing (MRI of brain [...] on filedocumented in this encounter Care Teams Husker Operator Relationship Specialty Start Date End Date Shazia Rivas MD PCP - General Internal Medicine 06/21/18 09/30/20 Ivette Valderrama MD [address] [place] [address] PCP - General Internal Medicine 10/01/20 Maximilian Baum MD [address] [place] [address] Specialist Cardiovascular Disease 03/09/21 documented as of this encounter
--- OUTSIDE RECORDS SUMMARY | 2024-10-21 14:01 | XMS_ITS | Encounter Summary ---
Author Organization [facility] Address [address] [place] [address] Care Team Providers Care Transportation Modeler Name Role Phone Ivette Valderrama MD Primary Care Provider Maximilian Baum MD Unavailable Reason for Visit * Reason Onset Date Comments Medication 10/18/2023 Encounter Details Date Type Department Care Team Description 10/18/2023 Pt. Non Urgent Medical Question Adult Medicine [address] [phone] Ivette Valderrama MD [address] [place] [address] [phone] Social History Tobacco Use Types Packs/Day Years [...] on filedocumented in this encounter Care Teams Transportation Modeler Relationship Specialty Start Date End Date Ivette Valderrama MD [address] [place] [address] PCP - General Internal Medicine 10/01/20 Maximilian Baum MD 300 [facility] 154 [place] [address] Specialist Cardiovascular Disease 03/09/21 documented as of this encounter
--- OUTSIDE RECORDS SUMMARY | 2024-10-21 14:01 | XMS_ITS | Encounter Summary ---
Author Organization [facility] Address [address] [place] [address] Care Team Providers Care Child Support Investigator Name Role Phone Ivette Valderrama MD Primary Care Provider [phone] Maximilian Baum MD Unavailable [phone] Encounter Details Date Type Department Care Team Description 10/02/2020 Hospital Medical Records [address] [place] [address] Social History Tobacco Use Types Packs/Day Years [...] on filedocumented in this encounter Care Teams Child Support Investigator Relationship Specialty Start Date End Date Ivette Valderrama MD [address] [place] [address] PCP - General Internal Medicine 10/01/20 Maximilian Baum MD [address] [address] Specialist Cardiovascular Disease 03/09/21 documented as of this encounter
--- OUTSIDE RECORDS SUMMARY | 2024-10-21 14:01 | XMS_ITS | Encounter Summary ---
Author Organization [facility] Address [address] [place] [address] Care Team Providers Care Model Maker Firearms Name Role Phone Ivette Valderrama MD Primary Care Provider [phone] Maximilian Baum MD Unavailable [phone] Encounter Details Date Type Department Care Team Description 12/29/2022 Orders Only [facility] Medical [facility] 175 [facility] [address] [place] [address] Babatunde Rodriguez MD 175 [facility] [address] [place], [place] [phone] Rotator cuff injury, right, initial encounter Social [...] MD MRI Performing Organization Address City/State/ZIP Co in Phone Number [facility] documented in this encounter Visit Diagnoses Diagnosis Rotator cuff injury, right, initial encounter documented in this encounter Care Teams Model Maker Firearms Relationship Specialty Start Date End Date Ivette Valderrama MD [address] [place] [address] PCP - General Internal Medicine 10/01/20 Maximilian Baum MD [address] [place] [address] Specialist Cardiovascular Disease 03/09/21 documented as of this encounter
--- OUTSIDE RECORDS SUMMARY | 2024-10-21 14:01 | XMS_ITS | Encounter Summary ---
Author Organization [facility] Address [address] [place] [address] Care Team Providers Care Womens Volleyball Coach Name Role Phone Ivette Valderrama MD Primary Care Provider [phone] Maximilian Baum MD Unavailable [phone] Encounter Details Date Type Department Care Team Description 12/07/2023 SCAN [facility] 175 [facility] [address] [place] [address] Babatunde Rodriguez MD 175 [facility] [address] [place] [address] Social History Tobacco Use Types Packs/Day Years [...] on filedocumented in this encounter Care Teams Womens Volleyball Coach Relationship Specialty Start Date End Date Ivette Valderrama MD [address] [place] [address] PCP - General Internal Medicine 10/01/20 Maximilian Baum MD 300 [facility] 154 [place] [address] Specialist Cardiovascular Disease 03/09/21 documented as of this encounter
--- OUTSIDE RECORDS SUMMARY | 2024-10-21 14:01 | XMS_ITS | Encounter Summary ---
Author Organization [facility] Address [address] [place] [address] Care Team Providers Care Cook Vacuum Kettle Name Role Phone Ivette Valderrama MD Primary Care Provider [phone] Maximilian Baum MD Unavailable [phone] Encounter Details Date Type Department Care Team Description 08/01/2023 SCAN [facility] Medical [facility] 175 [facility] 160 [place] [address] Salina Polanco APRN Social History [...] filedocumented in this encounter Care Teams Cook Vacuum Kettle Relationship Specialty Start Date End Date Ivette Valderrama MD [address] [place] [address] PCP - General Internal Medicine 10/01/20 Maximilian Baum MD 300 [facility] [address] [place], [place] [phone] Specialist Cardiovascular Disease 03/09/21 documented as of this encounter
--- OUTSIDE RECORDS SUMMARY | 2024-10-21 14:01 | XMS_ITS | Encounter Summary ---
Author Organization [facility] Address [address] [place] [address] Care Team Providers Care User Experience Team Lead Name Role Phone Ivette Valderrama MD Primary Care Provider Maximilian Baum MD Unavailable [phone] Reason for Visit * Reason Onset Date Comments Testing 08/04/2022 Encounter Details Date Type Department Care Team Description 08/04/2022 Telephone Adult Medicine [address] [id number] Urbano Verdugo MD [address] [place] [address] [id number] Testing Social History Tobacco Use Types Packs/Day [...] She may have had it done at [facility]. Can we confirm with the patient? * Telephone Encounter - Reina Lazo - 08/04/2022 9:[address] Verdugo, You ordered a : MRI OF ARM JOINT / UPPER EXTREMITY JOINT NO CONTRAST (Order #[id number]) on 05/20/22 and on 05/18/22 Pt did want it done @ [facility], I checked there records and still not completed Is this order still needed? documented in this encounter Plan of Treatment Not on file documented as of this encounter Visit Diagnoses Not on filedocumented in this encounter Care Teams User Experience Team Lead Relationship Specialty Start Date End Date Ivette Valderrama MD [address] [place] [address] PCP - General Internal Medicine 10/01/20 Maximilian Baum MD [address] [place] [address] Specialist Cardiovascular Disease 03/09/21 documented as of this encounter
--- OUTSIDE RECORDS SUMMARY | 2024-10-21 14:01 | XMS_ITS | Encounter Summary ---
Author Organization [facility] Address [address] [place] [address] Care Team Providers Care Visual Specialist Name Role Phone Ivette Valderrama MD Primary Care Provider [phone] Maximilian Baum MD Unavailable [phone] Encounter Details Date Type Department Care Team Description 11/09/2021 Outboard Motors Experimental Mechanic Report Medical Records [address] [place] [address] Abstract, Provider Social History Tobacco Use Types [...] on filedocumented in this encounter Care Teams Visual Specialist Relationship Specialty Start Date End Date Ivette Valderrama MD [address] [place] [address] PCP - General Internal Medicine 10/01/20 Maximilian Baum MD 300 [facility] [address] [place] [address] Specialist Cardiovascular Disease 03/09/21 documented as of this encounter
--- OUTSIDE RECORDS SUMMARY | 2024-10-21 14:01 | XMS_ITS | Encounter Summary ---
Author Organization [facility] Address [address] [place] [address] Care Team Providers Care Turn Down Man Name Role Phone Shazia Rivas MD Primary Care Provider Jaycee Ivette Burks MD Primary Care Provider [phone] Maximilian Baum MD Unavailable [phone] Reason for Visit * Reason Comments E-prescribe Rx Request Encounter Details Date Type Department Care Team Description 07/26/2020 Refill Adult Medicine [address] [address] Andria Kumar PA-C E-prescribe Rx Request Social [...] / Plan[place] / Product Type: MEDICARE [id number] documented in this encounter Plan of Treatment Not on file documented as of this encounter Visit Diagnoses Not on filedocumented in this encounter Care Teams Turn Down Man Relationship Specialty Start Date End Date Shazia Rivas MD PCP - General Internal Medicine 06/21/18 09/30/20 Ivette Valderrama MD [address] [place] [address] PCP - General Internal Medicine 10/01/20 Maximilian Baum MD [address] [place] [address] Specialist Cardiovascular Disease 03/09/21 documented as of this encounter
--- OUTSIDE RECORDS SUMMARY | 2024-10-21 14:01 | XMS_ITS | Encounter Summary ---
Author Organization [facility] Address [address] [place] [address] Care Team Providers Care Scalp Treatment Operator Name Role Phone Shazia Rivas MD Primary Care Provider Evelyn Munoz MD Primary Care Provider Un available Shazia Rivas MD Primary Care Provider UnavailIvette Carver MD Primary Care Provider [phone] Maximilian Baum MD Unavailable [phone] Encounter Details Date Type Department Care Team Description 11/29/2017 Night Triage Doc Medical Records [address] [place] [address] Abstract, Provider Social History Tobacco Use Types [...] on filedocumented in this encounter Care Teams Scalp Treatment Operator Relationship Specialty Start Date End Date Shazia Rivas MD PCP - General Internal Medicine 08/28/17 12/31/17 Evelyn Stratton MD PCP - General Internal Medicine 01/01/1806/20 Shazia Rivas MD PCP - General Internal Medicine 06/21/18 09/30/20 Ivette Valderrama MD [address] [place] [address] PCP - General Internal Medicine 10/01/20 Maximilian Baum MD [address] [place] [address] Specialist Cardiovascular Disease 03/09/21 documented as of this encounter
--- OUTSIDE RECORDS SUMMARY | 2024-10-21 14:01 | XMS_ITS | Encounter Summary ---
Author Organization [facility] Address [address] [place] [address] Care Team Providers Care Theatre Instructor Name Role Phone Ivette Valderrama MD Primary Care Provider [phone] Maximilian Baum MD Unavailable [phone] Encounter Details Date Type Department Care Team Description 01/04/2023 Night Triage Doc Medical Records [address] [place] [address] Abstract, Provider Social History Tobacco Use Types [...] on filedocumented in this encounter Care Teams Theatre Instructor Relationship Specialty Start Date End Date Ivette Valderrama MD [address] [place] [address] PCP - General Internal Medicine 10/01/20 Maximilian Baum MD 300 [facility] [address] [place] [address] Specialist Cardiovascular Disease 03/09/21 documented as of this encounter
--- OUTSIDE RECORDS SUMMARY | 2024-10-21 14:01 | XMS_ITS | Encounter Summary ---
Author Organization [facility] Address [address] [place] [address] Care Team Providers Care Obstetrics Scrub Nurse Name Role Phone Ivette Valderrama MD Primary Care Provider [phone] Maximilian Baum MD Unavailable [phone] Encounter Details Date Type Department Care Team Description 03/26/2021 Filter Worker Report Medical Records [address] [place] [address] [facility] [address] [place] [address] Social History Tobacco Use Types Packs/Day Years [...] on filedocumented in this encounter Care Teams Obstetrics Scrub Nurse Relationship Specialty Start Date End Date Ivette Valderrama MD [address] [place] [address] PCP - General Internal Medicine 10/01/20 Maximilian Baum MD 300 [facility] 154 [place] [address] Specialist Cardiovascular Disease 03/09/21 documented as of this encounter
--- OUTSIDE RECORDS SUMMARY | 2024-10-21 14:01 | XMS_ITS | Encounter Summary ---
Author Organization [facility] Address [address] [place] [address] Care Team Providers Care Professional Driver Name Role Phone Patrick Santa MD Primary Care Provider [phone] Shazia Rivas MD Primary Care Provider Glenn Meza Primary Care Provider UnavailShazia Chu MD Primary Care Provider UnavailEvelyn Cordova MD Primary Care Provider Un available Shazia Rivas MD Primary Care Provider UnavailIvette Carver MD Primary Care Provider [phone] Maximilian Baum MD Unavailable [phone] Encounter Details Date Type Department Care Team Description 12/03/2014 Release of Information Medical Records [address] [place] [address] Abstract, Provider Social History Tobacco Use Types [...] on filedocumented in this encounter Care Teams Professional Driver Relationship Specialty Start Date End Date Patrick Santa MD [address] [place] [address] PCP - General Internal Medicine 11/14/14 04/07/15 Shazia Rivas MD [address] [place] [address] PCP - General Internal Medicine 04/08/15 07/17/17 [facility], Pcp [address] [place], [place] PCP - General Internal Medicine 07/18/17 08/27/17 Shazia Rivas MD [address] [place], [place] PCP - General Internal Medicine 08/28/17 12/31/17 Evelyn Stratton MD [address] [place] PCP - General Internal Medicine 01/01/18 06/20/18 Shazia Rivas MD [address] [place], [place] PCP - General Internal Medicine 06/21/18 09/30/20 Ivette Valderrama MD [address] [place] [address] PCP - General Internal Medicine 10/01/20 Maximilian Baum MD [address] [place] [address] Specialist Cardiovascular Disease 03/09/21 documented as of this encounter
--- OUTSIDE RECORDS SUMMARY | 2024-10-21 14:01 | XMS_ITS | Encounter Summary ---
Author Organization [facility] Address [address] [place] [address] Care Team Providers Care Pen Or Pencil Assembly Machine Operator Name Role Phone Shazia Rivas MD Primary Care Provider Neil Zee [facility] Primary Care Provider UnavailShazia Chu MD Primary Care Provider Unavaila Evelyn Kendall MD Primary Care Provider Un available Shazia Rivas MD Primary Care Provider Unavaila Ivette Burks MD Primary Care Provider [phone] Maximilian Baum MD Unavailable Reason for Visit * Reason Onset Date Comments Echocardiogram 02/21/2017 Encounter Details Date Type Department Care Team Description 02/21/2017 Telephone Radiology - [address] [address] Shazia Rivas MD Echocardiogram Social History Tobacco [...] on filedocumented in this encounter Care Teams Pen Or Pencil Assembly Machine Operator Relationship Specialty Start Date End Date Shazia Rivas MD PCP - General Internal Medicine 04/08/15 07/17/17 [facility] PCP - General Internal Medicine 07/18/17 08/27/17 Shazia Rivas MD PCP - General Internal Medicine 08/28/17 12/31/17 Evelyn Stratton MD PCP - General Internal Medicine 01/01/1806/20 Shazia Rivas MD PCP - General Internal Medicine 06/21/18 09/30/20 Ivette Valderrama MD [address] [place] [address] PCP - General Internal Medicine 10/01/20 Maximilian Baum MD [address] [place] [address] 154 [place] [address] Specialist Cardiovascular Disease 03/09/21 documented as of this encounter
--- OUTSIDE RECORDS SUMMARY | 2024-10-21 14:01 | XMS_ITS | Encounter Summary ---
Author Organization [facility] Address [address] [place] [address] Care Team Providers Care Cogeneration Technician Name Role Phone Ivette Valderrama MD Primary Care Provider [phone] Maximilian Baum MD Unavailable [phone] Encounter Details Date Type Department Care Team Description 11/19/2020 Orders Only Gastroenterology - [address] [place] [address] Shelley Elmore DScPAS Epigastric pain; [...] type documented in this encounter Care Teams Cogeneration Technician Relationship Specialty Start Date End Date Ivette Valderrama MD [address] [place] [address] PCP - General Internal Medicine 10/01/20 Maximilian Baum MD [address] [place] [address] Specialist Cardiovascular Disease 03/09/21 documented as of this encounter
--- OUTSIDE RECORDS SUMMARY | 2024-10-21 14:01 | XMS_ITS | Encounter Summary ---
Author Organization [facility] Address [address] [place] [address] Care Team Providers Care Russet Repairer Name Role Phone Evelyn Stratton MD Primary Care Provider Un available Shazia Rivas MD Primary Care Provider Unavaila ble Ivette Valderrama MD Primary Care Provider [phone] Maximilian Baum MD Unavailable [phone] Encounter Details Date Type Department Care Team Description 02/13/2018 Industrial Nurse Report Medical Records [address] [place] [address] Aren Mccoy PA [address] [place] [address] Social History Tobacco Use Types Packs/Day Years [...] on filedocumented in this encounter Care Teams Russet Repairer Relationship Specialty Start Date End Date Evelyn Stratton MD PCP - General Internal Medicine 01/01/1806/20 Shazia Rivas MD PCP - General Internal Medicine 06/21/18 09/30/20 Ivette Valderrama MD [address] [place] [address] PCP - General Internal Medicine 10/01/20 Maximilian Baum MD [address] [place] [address] Specialist Cardiovascular Disease 03/09/21 documented as of this encounter
--- OUTSIDE RECORDS SUMMARY | 2024-10-21 14:01 | XMS_ITS | Encounter Summary ---
Author Organization [facility] Address [address] [place] [address] Care Team Providers Care Supervisor Sign Shop Name Role Phone Shazia Rivas MD Primary Care Provider [facility] Ivette Valderrama MD Primary Care Provider [phone] Maximilian Baum MD Unavailable [phone] Encounter Details Date Type Department Care Team Description 04/23/2019 Welfare Specialist Report Medical Records [address] [place] [address] Manny Ram I., PH.D Social History Tobacco [...] filedocumented in this encounter Care Teams Supervisor Sign Shop Relationship Specialty Start Date End Date Shazia Rivas MD PCP - General Internal Medicine 06/21/18 09/30/20 vIette Valderrama MD [address] [place] [address] PCP - General Internal Medicine 10/01/20 Maximilian Baum MD [address] [place] [address] Specialist Cardiovascular Disease 03/09/21 documented as of this encounter
--- OUTSIDE RECORDS SUMMARY | 2024-10-21 14:01 | XMS_ITS | Encounter Summary ---
Author Organization [facility] Address [address] [place] [address] Care Team Providers Care Photoengraving Photographer Name Role Phone Patrick Santa MD Primary Care Provider [phone] Shazia Rivas MD Primary Care Provider Glenn Meza Primary Care Provider UnavailShazia Chu MD Primary Care Provider UnavailEvelyn Cordova MD Primary Care Provider Un available Shazia Rivas MD Primary Care Provider UnavailIvette Carver MD Primary Care Provider [phone] Maximilian Baum MD Unavailable [phone] Encounter Details Date Type Department Care Team Description 03/18/2015 APPLICATIONS SUPPORT ENGINEER/Mass[employer] Report Medical Records [address] [place] [address] Abstract, Provider Social History Tobacco Use Types [...] on filedocumented in this encounter Care Teams Photoengraving Photographer Relationship Specialty Start Date End Date Patrick Santa MD [address] [place] [address] PCP - General Internal Medicine 11/14/14 04/07/15 Shazia Rivas MD [address] [place] [address] PCP - General Internal Medicine 04/08/15 07/17/17 [facility], Pcp [address] [place], [place] PCP - General Internal Medicine 07/18/17 08/27/17 Shazia Rivas MD [address] [place], [place] PCP - General Internal Medicine 08/28/17 12/31/17 Evelyn Stratton MD [address] [place], [place] PCP - General Internal Medicine 01/01/18 06/20/18 Shazia Rivas MD [address] [place], [place] PCP - General Internal Medicine 06/21/18 09/30/20 Ivette Valderrama MD [address] [place] [address] PCP - General Internal Medicine 10/01/20 Maximilian Baum MD [address] [place] [address] Specialist Cardiovascular Disease 03/09/21 documented as of this encounter
--- OUTSIDE RECORDS SUMMARY | 2024-10-21 14:01 | XMS_ITS | Encounter Summary ---
Author Organization [facility] Address [address] [place] [address] Care Team Providers Care Filling Station Equipment Mechanic Name Role Phone Ivette Valderrama MD Primary Care Provider [phone] Maximilian Baum MD Unavailable [phone] Reason for Referral * Non CONTRERAS (Routine) - Unable to reach/declined Specialty Diagnoses / Procedures Referred By Contac t Referred To Contact Physical Therapy Diagnoses Vertigo Procedures REFERRAL TO PHYSICAL THERAPY [place] [address] External Phys Thrpy Referral ID Status Reason Start Date Expiration Date V isits Requested Visits Authorized [id number] Unable to reach/declin ed 08/25/2021 1 1 Reason for Visit * Reason Onset Date Comments dizziness 08/24/2021 Encounter Details Date Type Department Care Team Description 08/24/2021 Telephone Triage [address] [place], [place] [phone] Ivette Valderrama MD [address] [place] [address] [phone] dizziness Social History Tobacco Use Types Packs/Day [...] traveled recently to another state outside of [place], [place], [place], [place], [place], [place], [place]? NO o If yes, did you quarantine [...] green party insurance information Date of accident/Injury: n/a How long has patient had these symptoms?: ongoing since Jun PCP: Ivette Valderrama [place] / [place] / Product Type: MEDICARE [id number] documented in this encounter Plan of Treatment Not on file documented as of this encounter Visit Diagnoses Diagnosis Vertigo- Primary Dizziness and giddiness documented in this encounter Care Teams Filling Station Equipment Mechanic Relationship Specialty Start Date End Date Ivette Valderrama MD [address] [place] [address] PCP - General Internal Medicine 10/01/20 Maximilian Baum MD [address] [place] [address] Specialist Cardiovascular Disease 03/09/21 documented as of this encounter
--- OUTSIDE RECORDS SUMMARY | 2024-10-21 14:01 | XMS_ITS | Encounter Summary ---
Author Organization [facility] Address [address] [place] [address] Care Team Providers Care Heavy Machinery Assembler Name Role Phone Ivette Valderrama MD Primary Care Provider [phone] Maximilian Baum MD Unavailable [phone] Encounter Details Date Type Department Care Team Description 04/12/2022 Business Doc Medical Records [address] [place] [address] Abstract, Provider Social History Tobacco Use Types [...] on filedocumented in this encounter Care Teams Heavy Machinery Assembler Relationship Specialty Start Date End Date Ivette Valderrama MD [address] [place] [address] PCP - General Internal Medicine 10/01/20 Maximilian Baum MD [address] [address] Specialist Cardiovascular Disease 03/09/21 documented as of this encounter
--- OUTSIDE RECORDS SUMMARY | 2024-10-21 14:01 | XMS_ITS | Encounter Summary ---
Author Organization [facility] Address [address] [place] [address] Care Team Providers Care Biofuels Production Manager Name Role Phone Ivette Valderrama MD Primary Care Provider [phone] Maximilian Baum MD Unavailable [phone] Reason for Visit * Reason Onset Date Comments Provider Call Back 06/29/2022 Encounter Details Date Type Department Care Team Description 06/29/2022 Telephone Internal Medicine - [address], [address] [place] [address] Urbano Verdugo MD [address] [place] [address] [phone] Provider Call Back Social History Tobacco Use [...] benefits mri can not be done in [place]. Please contact patient to make her aware of this. * Telephone Encounter - Violet Owen - 06/29/2022 2:13 PM EST Spoke to pt this afternoon and referred her to radiology [phone]. Pt wants her MRI done in [place]. * Telephone Encounter - Tona Byers - 06/29/2022 1:49 PM EST Patient called and stated received a letter stating Dr. Porras ordered MRI for patient and to contactif had not heard anything within 5 days. After reviewing chart, I believe letter was mis-typed, as the MRI was ordered by Dr. Verdugo. Informed patient to contact [facility] medicine. documented in this encounter Plan of Treatment Not on file documented as of this encounter Visit Diagnoses Not on filedocumented in this encounter Care Teams Biofuels Production Manager Relationship Specialty Start Date End Date Ivette Valderrama MD [address] [place] [address] PCP - General Internal Medicine 10/01/20 Maximilian Baum MD [address] [place] [address] Specialist Cardiovascular Disease 03/09/21 documented as of this encounter
== END 2024-10-21 12:45 | disposition home or self-care (01) ==
LOC: HO.HMCFM 11:38
PROVIDERS: PCP Nurse Practitioner Family; Visit Provider Nurse Practitioner Family
DX: E78.5 Hyperlipidemia, unspecified (principal); M79.10 Myalgia, unspecified site

== ENCOUNTER → 2024-10-21 11:37 | Outpatient (BNVA) | payer MEDICARE, SELFPAY | PROVIDERS: PCP Nurse Practitioner Family; Visit Provider Nurse Practitioner Family ==

== ENCOUNTER 2025-02-19 10:49 | Outpatient (REF) | payer MEDICARE, SELFPAY ==
--- OUTSIDE RECORDS SUMMARY | 2025-02-19 11:41 | XMS_ITS | Clinical Summary ---
Author Organization [facility] Address [address] [place] [address] Phone Care Team Providers Care Art Teacher Name Role Phone Lidia Medina Primary Care Provider [phone] Allergies No known active allergies Medications psyllium husk, with sugar, (Fiber, psyllium husk-sugar,) 3.4 gram/7 gram powder Take by mouth 1 (one) time each day. Active tiotropium (Spiriva Respimat) 2.5 mcg/actuation inhalation spray Inhale 2 puffs by mouth 1 (one) time each day. 4 Active albuterol HFA (PROAIR HFA ; PROVENTIL HFA ; VENTOLIN HFA) 90 mcg/actuation inhaler Inhale 2 puffs by mouth every 6 (six) hours if needed. 3 Active cholecalciferol (VITAMIN D-3) 50 mcg (2,000 unit) capsule Take 1 capsule (2,000 Units total) by mouth 1 (one) time each day. 1 Active cyanocobalamin (VITAMIN B-12) 100 mcg tablet Take 1 tablet (100 mcg total) by mouth 1 (one) time each day. 1 Active conjugated estrogens (Premarin) vaginal cream Insert 1 g into the vagina. 2 Active ipratropium-alb uteroL (DUONEB) 0.5-2.5 mg/3 mL nebulizer solution Inhale 3 mL by mouth. 3 Active lisdexamfetamin e (Vyvanse) 20 mg capsule [...] FOR 7 DAYS 28 g 5 Active traZODone (DESYREL) 50 mg tablet Take 1 tablet (50 mg total) by mouth at bedtime. 5 Active celecoxib (CeleBREX) 200 mg capsule Take 1 capsule (200 mg total) by mouth 1 (one) time each day. Active Linzess 72 mcg capsule TAKE 1 CAPSULE BY MOUTH EVERY DAY 30 capsule 3 5 Active diclofenac (VOLTAREN) 1 % topical gel Apply 2 g topically 2 (two) times a day. 120 g 2 5 02/13/20 25 Active Problems Problem Noted Date Diagnosed Date Inguinal pain, right 11/07/2024 Assessment & Plan (11/07/2024 12:03 PM EDT): Seems most likely related to inguinal ligament and insertion to pubic symphysis. I encouraged rest and stretching, as well as anti-inflammatory medications. Already on Celebrex. I encouraged her to check in with her PCP if not improving as may need an xray of her hip. Right ovarian cyst 11/07/2024 Assessment & Plan (11/07/2024 12:03 PM EDT): Will obtain US and evaluate for character. Postmenopausal bleeding 11/07/2024 Assessment & Plan (11/07/2024 12:04 PM EDT): Will obtain pelvic US and consider EMB if thickened endometrium to evaluate for precancer or cancer. 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 PMB (postmenopausal bleeding) 08/26/2024 Thickened endometrium 08/26/2024 B12 deficiency 04/18/2024 Frequent PVCs 04/18/2024 Vitamin D deficiency 04/18/2024 Primary osteoarthritis of right knee 01/16/2024 Post-traumatic osteoarthritis of left knee 01/15 Compression fracture of T11 vertebra ([facility] V24, [facility] V28) 04/03/2023 Overview (04/18/2024): 04/17 noted on [...] psych COPD (chronic obstructive pu lmonary disease) ([facility] V24, [facility] V28) 12/01/2014 Immunizations Name Administration Dates Next Due Influenza [...] DX:Constipation COPD (chronic obstructive pu lmonary disease) ([facility] V24, [facility] V28) 12/01/2014 DX:COPD (chronic o bstructive pulmonary disease) ([facility]) Depression 03/17/2015 DX:Depression; C OMMENT: Prev on [...] of knee Compression fracture of T11 vertebra ([facility] V24, [facility] V28) 04/03/2023 DX:Compression fracture of T11 vertebra ([facility]); COMMENT: 04/[address] Herpes [...] Sign Reading Time Taken Comments Blood Pressure 123/77 11/07/2024 11:05 AM EDT Pulse 65 11/07/2024 11:05 AM EDT Temperature - - Respiratory Rate 14 11/07/2024 11:05 AM EDT Oxygen Saturation - - Inhaled Oxygen Concentration - - Weight 62.6 kg (138 lb) 11/14/2024 9:14 AM EDT Height 165.1 cm (5' 5 ) 11/14/2024 9:14 AM EDT Body Mass Index 22.96 11/14/2024 9:14 AM EDT Plan of Treatment Upcoming Encounters Date Type Department Care Team (Late st Contact Info) Description 03/05/2025 9:30 AM EDT Consult Vascular Surgery [facility] [address] [place] [phone] Maile Gilliland MD [address] [place] [address] 04/04/2025 10:45 AM EDT Appointment [facility] CT Scan [address] [place] [phone] 05/19/2025 11:00 AM EST Office Visit Orthopedic Surgery [facility] [address] [facility] [address] [place] [phone] Paty Philip PA [address] [place] [phone] 10/17/2025 3:50 PM EDT Appointment Radiology Department [address] [phone] Health Maintenance Due Date Last Done Comments DTaP,Tdap,and Td Vaccines (1 - Tdap) 1974 Zoster Vaccines (1 of 2) 2005 RSV Immunization Adult Patients (1 - Risk 60-74 years 1-dose series) 2015 Falls Risk Assessment 06/04/2022 Hepatitis C Screening 06/04/2022 Medicare Annual Wellness Visit 06/04/2022 Social Influencers of Health Screening 06/04/2022 COVID-19 Vaccine (3 - season) 2024 04/16/2021, 03/19/2021 Depression Screening 06/26/2024 Influenza Vaccine (#1) 2025 , 04/11/2022, 03/19/2021, Additional history exists Lung Cancer Screening (Low Dose CT) 04/02/2025 04/02/2024, 04/03/2023, 03/30/2022, Additional history exists Breast Cancer Screening 10/31/2026 11/01/19, 10/10/2024, 09/29/2023, Additional history exists Pneumococcal Vaccine: 50+ Years (3 of 3 - PCV20 or PCV21) 04/11/2027 04/11/2022, 03/22/2011 Colorectal Cancer Screening: Colonoscopy 03/08/2028 03/08/2018 Osteoporosis [...] Procedure Name Priority Date/Time Associated Diagnosis Comments MG MAMMO DIGITAL DIAGNOSTIC W AUGUSTO RIGHT Routine 10/31/2024 11:04 AM EDT Abnormal mammogram CT LUNG SCREENING LOW DOSE Routine 04/02/2024 9:07 AM EDT Encounter for screening for malignant neoplasm of respiratory organs DXA BONE DENSITY STUDY 1+ SITS AXIAL SKEL Routine 04/12/2022 4:12 PM EDT Unspecified menopausal and perimenopausal disorder from Last 3 Months or Most Recently Relevant to Health Maintenance Results * MG Mammo Digital Diagnostic w Augusto Right (10/31/2024 11:04 AM EDT) Anatomical Region Laterality Modality Breast Right Mammography 10/31/2024 11:4 9 AM EDT Impressions 10/31/2024 11:56 AM EDT No suspicious finding on callback imaging. Routine annual screening mammography recommended. BREAST DENSITY: C - The breasts are heterogeneously dense which may obscure small masses. BI-RADS CATEGORY: 2 - BENIGN RECOMMENDATION: Screening right mammogram is recommended in 1 year. MAMMO LOCATION: [facility], [address] [place] [address], [id number], . -------- FINAL REPORT -------- Dictated By: Kimberly Roberts Dictated Date: 10/31/2024 11:49 ET Assigned Physician: Kimberly Roberts Reviewed and Electronically Signed By: Kimberly Roberts Signed Date: 10/31/2024 11:56 ET Workstation ID: [id number] Transcribed By: Self Edit Transcribed Date: 10/31/2024 11:49 ET Narrative 10/31/2024 11:56 AM EDT EXAM: MG MAMMO DIGITAL DIAGNOSTIC W AUGUSTO RIGHT, US BREAST LIMITED RIGHT HISTORY: Call back from a screening mammogram. FINDINGS: 90 ML and spot compression MLO views performed with tomosynthesis. The asymmetry in the posterior upper right breast and the asymmetry in the lower right breast at the mid/posterior depth do not persist. No mass or architectural distortion apparent. The asymmetries localize to the outer breast on tomosynthesis. Ultrasound was subsequently performed in the upper outer and lower outer breast as a precaution due to dense breast tissue. 0.5 x 0.4 x 0.4 cm cyst identified at the 11 o'clock position, 2 cm from the nipple, which does not correlate with the asymmetry and is likely incidental. No additional solid or cystic lesion identified. Incidental note is made of mild ductal ectasia without an intraductal abnormality. Procedure Note Kimberly Roberts MD - 10/31/2024 EXAM: MG MAMMO DIGITAL DIAGNOSTIC W AUGUSTO RIGHT, US BREAST LIMITED RIGHT HISTORY: Call back from a screening mammogram. FINDINGS: 90 ML and spot compression MLO views performed with tomosynthesis. Theasymmetry in the posterior upper right breast and the asymmetry in thelower right breast at the mid/posterior depth do not persist. No mass orarchitectural distortion apparent. The asymmetries localize to the outerbreast on tomosynthesis. Ultrasound was subsequently performed in the upper outer and lower outerbreast as a precaution due to dense breast tissue. 0.5 x 0.4 x 0.4 cmcyst identified at the 11 o'clock position, 2 cm from the nipple, whichdoes not correlate with the asymmetry and is likely incidental. Noadditional solid or cystic lesion identified. Incidental note is made ofmild ductal ectasia without an intraductal abnormality. IMPRESSION: No suspicious finding on callback imaging. Routine annual screeningmammography recommended. BREAST DENSITY: C - The breasts are heterogeneously dense which mayobscure small masses. BI-RADS CATEGORY: 2 - BENIGN RECOMMENDATION: Screening right mammogram is recommended in 1 year. MAMMO LOCATION: [facility], [address] [place] [address], [address], . -------- FINAL REPORT -------- Dictated By: Kimberly Roberts Dictated Date: 10/31/2024 11:49 ET Assigned Physician: Kimberly Roberts Reviewed and Electronically Signed By: Kimberly Roberts Signed Date: 10/31/2024 11:56 ET Workstation ID: [id number] Transcribed By: Self Edit Transcribed Date: 10/31/2024 11:49 ET us Lidia Medina DATA PROCESSING OPERATOR IMG BI PROCEDURES Final Result * CT LUNG SCREENING LOW DOSE (04/02/2024 9:07 AM EDT) Anatomical Region Laterality Modality Computed Tomogra phy 04/01/2024 11:3 1 AM EDT Narrative 04/02/2024 9:07 AM EDT [facility] Diagnostic Imaging Department [address] [place] [id number] Patient: YAZANGELINE /Age/Sex: 1955 - 68 - F Unit#: [id number] Location/Status: [facility] Mnemonic/Ordering Site: [facility] Ordering Physician: CARA PIMENTEL MD CT Lung Screening Low Dose - 04/01/24 - 1159 Report Status:Signed PROCEDURE: CT chest lung cancer screening low dose examination. INDICATION: CT lung screening. TECHNIQUE: Chest CT without intravenous contrast was performed. Low-dose examination was performed. Reformatted images were evaluated. DOSE: CTDIvol: 3.2mGy. Total exam DLP: 115.6mGy-cm COMPARISON: None FINDINGS: NODULES: No significant nodules are identified. LUNGS: Minimal emphysematous changes. OTHER: Limited views of the upper abdomen appear normal. Mediastinum appears within normal limits. Minimal calcified plaque in the aorta. No aneurysm. Stable mild compression of a lower thoracic vertebral body. IMPRESSION: Stable examination. Lung-RADS 1. Follow up examination is advised in one year. Dictating Physician: SHEY ROMAN MD Electronically Signed by: SHEY ROMAN MD Dic Date/Time: 04/02/24899 Sign date/Time: 04/02/24906 Procedure Note Shey Roman MD - 04/23/2024 [facility] Diagnostic Imaging Department [address] [place] [address] Patient: GENNYALLYANGELINEO.B./Age/Sex: 1955 - 68 - F Unit#: [id number] Location/Status: [facility] Mnemonic/Ordering Site: [facility] Ordering Physician: CARA PIMENTEL MD CT Lung [...] Signed by: SHEY ROMAN MD Dic Date/Time: 04/02/24 0900 Sign date/Time: 04/02/24 0907 Cara Pimentel MD IMG CT PROCEDURES Final [...] IMPRESSION: IMPRESSION: Osteoporosis by WHO criteria. The [facility] Department of Internal Medicine recommends using National [...] alternative screening schedule based on pebbles Rivera., [facility] July 14, 2011 for patients [...] IMPRESSION: IMPRESSION: Osteoporosis by WHO criteria. The [facility] Department of Internal Medicine recommendsusing National Osteoporosis [...] FRAX. 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 Expl anation Health Care Decision (hx) 03/31/2023 AD [place] DIRECTIVE Health Care Decision (hx) 03/31/2023 AD [place] DIRECTIVE Health Care Decision (hx) 03/31/2023 AD [place] DIRECTIVE Health Care Decision (hx) 03/31/2023 AD [place] DIRECTIVE Health Care Decision (hx) 03/31/2023 AD [place] DIRECTIVE Health Care Decision (hx) 03/31/2023 AD HO DIRECTIVE Health Care Decision (hx) 03/31/2023 AD [place] DIRECTIVE Health Care Decision (hx) 03/31/2023 AD [place] DIRECTIVE Care Teams Art Teacher Relationship Specialty Start Date End Date Lidia Medina FNP [address] [place] [address] PCP - General Family Medicine 10/24/24
--- OUTSIDE RECORDS SUMMARY | 2025-02-19 11:41 | XMS_ITS | Clinical Summary ---
Author Organization [facility] Address [address] [place] [address] Care Team Providers Care Space And Storage Clerk Name Role Phone Ivette Valderrama MD Primary Care Provider [phone] Allergies No known active allergies Medications Medication [...] 78 09/12/2023 2:16 PM EDT Temperature 36.4 C (97.6 F) 09/12/2023 2:16 PM EDT Respiratory Rate - - Oxygen Saturation 97% [...] season) 2024 04/16/2021, 03/19/2021 Influenza Vaccine (#1) 2025 3, 04/11/2022, 03/19/2021, Additional history exists RSV Adult > 60+ Yrs or (1 - 1-dose 75+ series) 2030 Hepatitis B Vaccines Aged Out No long er eligible based on patient's age to complete this topic RSV Ped < 20 months Aged Out No longe r eligible based on patient's age to complete this topic Care Teams Space And Storage Clerk Relationship Specialty Start Date End Date Ivette Valderrama MD PCP - General Internal Medicine 09/12/23
--- OUTSIDE RECORDS SUMMARY | 2025-02-19 11:41 | XMS_ITS | Patient Health Record ---
Author Organization [facility] Address [address] [place] [address] Care Team Providers Care Barrel Loader And Cleaner Name Role Phone Wander Abdalla Unavailable [phone] Reason For Referral No Information Plan Of Treatment No Information
[2025-02-19 15:18] LABS: Cholesterol 233 mg/dL (<200); HDL Cholesterol 73 mg/dL (>40); Triglycerides 170 mg/dL (<150)
== END 2025-02-19 10:50 | disposition home or self-care (01) ==
LOC: HO.WFDLDS 10:49
PROVIDERS: Visit Provider Nurse Practitioner Family
DX: E78.5 Hyperlipidemia, unspecified (principal)
CPT/HCPCS: 36415; 80061

== ENCOUNTER 2025-02-21 08:56 | Outpatient (AMB) | payer MEDICARE, SELFPAY ==
--- NOTE | 2025-02-21 09:02 | AM.OFFWIN_ITS ---
Intake Vital Signs 02/21/25 09:05 Height 5 ft 5 in Weight 139 lb BMI 23.1 BP 132/80 Blood Pressure Location Lt brachial Position Sitting Pulse 81 Pulse Source Pulse Oximeter Temp 98.0 F Temp Source Oral Pulse Oximetry (%) 98 Oxygen Delivery Method Room Air Intake Visit Reasons: ep green stool and vomit a sore throat and cough Intake Note: pt reports with vomiting; green in color, diarrhea; green in color with watery and somewhat formed consistency, sore throat with pain swallowing, mild pr oductive cough, body sweats. pt states her coughing and sore throat started before the diarrhea/vomiting. s/s x6 days Patient Tobacco Use Status: Former Tobacco user Allergies No Known Allergies Allergy (Verified 02/21/25 09:09) Do you need a note to return to daycare/school/sports/work: No HPI ep green stool and vomit a sore throat and cough HPI Details This is a 69-year-old female patient who presents to the walk-in clinic today with several different complaints. She states that over the last week, she has had green stool. She typically does have somewhat loose stools, however yesterday, she had 6-7 loose bowel movements, that were green in color. She denies any abdominal pain or cramping. No recent travel. Denies fever. Denies urinary symptoms. Denies any change in diet or medications. She states she did however, eat some cake with blue frosting, which she heard can cause the discolored bowel movements. Today she has had only 1 bowel movement so far. She states that additionally, she has had a cough and raspy voice for the last 2 weeks. She has also had a sore throat and feelings of being hot. Denies any known exposure to sick contacts. Coughing fits have been keeping her up at night. [facility] Medical History Non-alcoholic fatty liver disease History of torn meniscus of left knee Vertigo Imbalance Memory loss Light headed Headache STD (female) Incontinence Back injury Osteoporosis Arthritis Hypothyroid COPD (chronic obstructive pulmonary disease) Family History Father Alcohol abuse Brother Alcohol abuse High blood pressure Diabetes Mother High blood pressure Diabetes Thyroid disorder Uterus cancer Maternal Grandmother Diabetes Maternal Grandmother No problems noted. Maternal Grandfather Diabetes Social History Housing: House Alcohol intake: never Patient Tobacco Use Status: Former Tobacco user Tobacco use type: Cigarette Cigarette Packs Per Day: 1.5 Cigarettes Per Day: 30 e-Cigarette/Vaping Use: Never Used Second Hand Smoke Exposure: No service: No Current occupational status: retired Current occupational exposures/hazards: No Cognitive needs: No Hearing needs: No Vision needs: Yes Review of Systems Const All systems reviewed & are unremarkable except as noted in HPI and below Physical Exam Vital Signs: Last Vital Signs Temp 98.0 F 02/21/25 09:05 Pulse 81 02/21/25 09:05 BP 132/80 02/21/25 09:05 Pulse Ox 98 02/21/25 09:05 Oxygen Delivery Method Room Air 02/21/25 09:05 BMI result Body Mass Index 23.1 Const General: cooperative, comfortable and no acute distress HEENT Head: Yes normal to inspection Ears: hearing grossly normal bilaterally General nose exam: Normal external nose present Face and sinus: Yes normal facial exam Throat: Yes posterior oropharynx normal Neck Neck: Yes no lymphadenopathy Resp Effort & Inspection: normal respiratory effort Auscultation: clear to auscultation bilaterally Cardio Rate: regular rate Rhythm: regular rhythm GI Inspection: Yes normal to inspection Palpation (GI): Soft to palpation and No hepatosplenomegaly present (nontender) Auscultation: normal bowel sounds General: Yes no CVA tenderness Back/Spine/Pelvis Back: no CVA tenderness Skin General skin exam: no rashes or lesions noted Extrem General: Yes capillary refill normal and Yes no clubbing, cyanosis or edema Psych Appearance: grossly normal Mental Status: mental status grossly normal Speech and movement: Normal speech and movement present Results AMB Rapid Strep AMB Rapid Strep Negative Last Edit by Deepak Parrish CMA on 02/21/25 10 :19 Assessment & Plan Assessment & Plan (1) Upper respiratory infection: Code(s): J06.9 - Acute upper respiratory infection, unspecified Qualifiers: URI type: unspecified viral URI Qualified Code(s): J06.9 - Acute upper respiratory infection, unspecified Plan: COVID/flu/RSV swab obtained, and patient aware she will be notified of results once these are available. I am going to start her on a short course of prednisone to see if this provides some benefit for her cough. We will also start her on benzonatate p.r.n.. We reviewed indications, use, possible side effects of these medications. Can take Tylenol as needed. Rapid strep was negative. Advised adequate hydration, healthy food intake, rest. If she does not improve, she can return to the clinic for further evaluation. (2) Green stool: Code(s): R19.5 - Other fecal abnormalities Plan: She did have some episodes of diarrhea, however now her stool is formed again, albeit somewhat loose, which is her baseline per patient. This could be diet related. She does have an appointment with GI in a couple of weeks. I encouraged her to discuss this at that visit if it is persistent, or she can follow up with PCP or return to the clinic if she develops any associated symptoms including abdominal pain, fever, nausea/vomiting, worsening diarrhea. Patient verbalizes understanding and agrees to plan discussed today. Orders: Orders SARS-CoV2/FLU/RSV Today J06.9 - Acute upper respiratory infection, unspecified AMB Rapid Strep Screen Today Z13.9 - Encounter for screening, unspecified Medications: New benzonatate 100 mg PO BID PRN 14 caps 0RF cough 7 days R05.9 - Cough, unspecified prednisone 20 mg PO BID 10 tabs 0RF 5 days J06.9 - Acute upper respiratory infection, unspecified Coding Level of Care Code Est Pt Level 4 (93841) Diagnoses Viral upper respiratory tract infection J06.9 URI type: unspecified viral URI Green stool R19.5
[2025-02-21 09:05] VITALS: BP 132/80; PULSE 81; TEMP 36.7; O2SAT 98; BMI 23.1
--- OUTSIDE RECORDS SUMMARY | 2025-02-21 09:46 | XMS_ITS | Encounter Summary ---
Author Organization [facility] Address [address] [place] [address] Care Team Providers Care Engineering Consultant Name Role Phone Ivette Valderrama MD Primary Care Provider [phone] Maximilian Baum MD Unavailable [phone] Reason for Visit * Reason Onset Date Comments Faxed Refill 12/16/2020 Encounter Details Date Type Department Care Team Description 12/16/2020 Refill Adult Medicine [address] [phone] Ivette Valderrama MD [address] [place] [address] [phone] Faxed Refill Social History Tobacco Use Types [...] stop the weekly supplementation and start an [id number] vitamin D supplement. Written by Andria Justice [...] N/A Patients current insurance carrier is: Payor: [facility] / Plan: PPO $35 TRINA [id number] / Product Type: PPO [id number] documented in this encounter Plan of Treatment Not on file documented as of this encounter Visit Diagnoses Not on filedocumented in this encounter Care Teams Engineering Consultant Relationship Specialty Start Date End Date Ivette Valderrama MD [address] [place] [address] PCP - General Internal Medicine 10/01/20 Maximilian Baum MD [address] [place] [phone] Specialist Cardiovascular Disease 03/09/21 documented as of this encounter
--- OUTSIDE RECORDS SUMMARY | 2025-02-21 09:46 | XMS_ITS | Encounter Summary ---
Author Organization [facility] Address [address] [place] [address] Care Team Providers Care Scales Inspector Name Role Phone Patrick Santa MD Primary Care Provider [phone] Shazia Rivas MD Primary Care Provider Glenn Meza Primary Care Provider UnavailShazia Chu MD Primary Care Provider UnavailEvelyn Cordova MD Primary Care Provider Un available Shazia Rivas MD Primary Care Provider UnavailIvette Carver MD Primary Care Provider [phone] Maximilian Baum MD Unavailable [phone] Encounter Details Date Type Department Care Team Description 03/18/2015 ADMINISTRATIVE EXECUTIVE/[facility] Report Medical Records [address] [place] [address] Abstract, Provider Social History Tobacco Use Types [...] on filedocumented in this encounter Care Teams Scales Inspector Relationship Specialty Start Date End Date Patrick Santa MD [address] [place] [address] PCP - General Internal Medicine 11/14/14 04/07/15 Shazia Rivas MD [address] [place] [address] PCP - General Internal Medicine 04/08/15 07/17/17 [facility], Pcp [address] [place], [place] PCP - General Internal Medicine 07/18/17 08/27/17 Shazia Rivas MD [address] [place], [place] PCP - General Internal Medicine 08/28/17 12/31/17 Evelyn Stratton MD [address] [place], [place] PCP - General Internal Medicine 01/01/18 06/20/18 Shazia Rivas MD [address] [place], [place] PCP - General Internal Medicine 06/21/18 09/30/20 Ivette Valderrama MD [address] [place] [address] PCP - General Internal Medicine 10/01/20 Maximilian Baum MD [address] [place] [id number] Specialist Cardiovascular Disease 03/09/21 documented as of this encounter
--- OUTSIDE RECORDS SUMMARY | 2025-02-21 09:46 | XMS_ITS | Encounter Summary ---
Author Organization [facility] Address [address] [place] [address] Care Team Providers Care Merchandising Consultant Name Role Phone Evelyn Stratton MD Primary Care Provider Un available Shazia Rivas MD Primary Care Provider Unavaila ble Ivette Valderrama MD Primary Care Provider [phone] Maximilian Baum MD Unavailable [phone] Encounter Details Date Type Department Care Team Description 02/13/2018 Sports Physiologist Report Medical Records [address] [place] [address] Aren Mccoy PA [address] [place] [address] Social History Tobacco Use Types Packs/Day Years [...] on filedocumented in this encounter Care Teams Merchandising Consultant Relationship Specialty Start Date End Date Evelyn Stratton MD PCP - General Internal Medicine 01/01/1806/20 Shazia Rivas MD PCP - General Internal Medicine 06/21/18 09/30/20 Ivette Valderrama MD [address] [place] [address] PCP - General Internal Medicine 10/01/20 Maximilian Baum MD [address] [place] [address] Specialist Cardiovascular Disease 03/09/21 documented as of this encounter
--- OUTSIDE RECORDS SUMMARY | 2025-02-21 09:46 | XMS_ITS | Encounter Summary ---
Author Organization [facility] Address [address] [place] [address] Care Team Providers Care Honey Liquefier Name Role Phone Ivette Valderrama MD Primary Care Provider [phone] Maximilian Baum MD Unavailable [phone] Reason for Visit * Reason Comments E-prescribe Rx Request Encounter Details Date Type Department Care Team Description 12/24/2020 Refill Adult Medicine [address] [address] Andria Kumar PA-C E-prescribe Rx Request Social [...] N/A Patients current insurance carrier is: Payor: [facility] / Plan: PPO [id number] / Product Type: PPO [id number] documented in this encounter Plan of Treatment Not on file documented as of this encounter Visit Diagnoses Not on filedocumented in this encounter Care Teams Honey Liquefier Relationship Specialty Start Date End Date Ivette Valderrama MD [address] [place] [address] PCP - General Internal Medicine 10/01/20 Maximilian Baum MD [address] [place] [address] Specialist Cardiovascular Disease 03/09/21 documented as of this encounter
--- OUTSIDE RECORDS SUMMARY | 2025-02-21 09:46 | XMS_ITS | Encounter Summary ---
Author Organization [facility] Address [address] [place] [address] Care Team Providers Care Diversified Crops I Farmworker Name Role Phone Shazia Rivas MD Primary Care Provider Glenn Meza Primary Care Provider UnavailShazia Chu MD Primary Care Provider UnavailEvelyn Cordova MD Primary Care Provider Un available Shazia Rivas MD Primary Care Provider UnavailIvette Carver MD Primary Care Provider Maximilian Baum MD Unavailable Encounter Details Date Type Department Care Team Description 06/03/2017 [facility] Medical Records [address] [place] [id number] [place] [address] Andre Social History Tobacco Use Types Packs/Day [...] on filedocumented in this encounter Care Teams Diversified Crops I Farmworker Relationship Specialty Start Date End Date Shazia Rivas MD PCP - General Internal Medicine 04/08/15 07/17/17 Yayo, Pcp PCP - General Internal Medicine 07/18/17 08/27/17 Shazia Rivas MD PCP - General Internal Medicine 08/28/17 12/31/17 Evelyn Stratton MD PCP - General Internal Medicine 01/01/1806/20 Shazia Rivas MD PCP - General Internal Medicine 06/21/18 09/30/20 Ivette Valderrama MD [address] [place] [address] PCP - General Internal Medicine 10/01/20 Maximilian Baum MD [address] [place] [address] Specialist Cardiovascular Disease 03/09/21 documented as of this encounter
--- OUTSIDE RECORDS SUMMARY | 2025-02-21 09:46 | XMS_ITS | Encounter Summary ---
Author Organization [facility] Address [address] [place] [address] Care Team Providers Care Cam Milling Machine Operator Name Role Phone Evelyn Stratton MD Primary Care Provider Un available Shazia Rivas MD Primary Care Provider Unav[facility]a [facility] Ivette Valderrama MD Primary Care Provider [phone] Maximilian Baum MD Unavailable [phone] Reason for Visit * Reason Comments E-prescribe Rx Request Encounter Details Date Type Department Care Team Description 06/02/2018 Refill Gastroenterology [address] [place] [phone] Shelley Elmore DScPAS E-prescribe Rx Request Social [...] on filedocumented in this encounter Care Teams Cam Milling Machine Operator Relationship Specialty Start Date End Date Evelyn Stratton MD PCP - General Internal Medicine 01/01/1806/20 Shazia Rivas MD PCP - General Internal Medicine 06/21/18 09/30/20 Ivette Valderrama MD [address] [place] [address] PCP - General Internal Medicine 10/01/20 Maximilian Baum MD [address] [place] [address] Specialist Cardiovascular Disease 03/09/21 documented as of this encounter
--- OUTSIDE RECORDS SUMMARY | 2025-02-21 09:46 | XMS_ITS | Encounter Summary ---
Author Organization [facility] Address [address] [place] [address] Care Team Providers Care Bicycle Subassembler Name Role Phone Ivette Valderrama MD Primary Care Provider [phone] Maximilian Baum MD Unavailable [phone] Reason for Visit * Reason Comments E-prescribe Rx Request Encounter Details Date Type Department Care Team Description 03/07/2024 Refill Adult Medicine [address] [address] Jonathan Sharif, PAGerald [address] [place] [address] [id number] E-prescribe Rx Request Social History Tobacco Use [...] on filedocumented in this encounter Care Teams Bicycle Subassembler Relationship Specialty Start Date End Date Ivette Valderrama MD [address] [place] [address] [id number] PCP - General Internal Medicine 10/01/20 Maximilian Baum MD [address] [place] [address] Specialist Cardiovascular Disease 03/09/21 documented as of this encounter
--- OUTSIDE RECORDS SUMMARY | 2025-02-21 09:46 | XMS_ITS | Encounter Summary ---
Author Organization [facility] Address [address] [place] [address] Care Team Providers Care Tin Whiz Machine Operator Name Role Phone Shazia Rivas MD Primary Care Provider [facility] Ivette Valderrama MD Primary Care Provider [phone] Maximilian Baum MD Unavailable [phone] Encounter Details Date Type Department Care Team Description 06/24/2020 Office Manager Report Medical Records [address] [place] [address] Alvin Wang Social History Tobacco Use Types [...] on filedocumented in this encounter Care Teams Tin Whiz Machine Operator Relationship Specialty Start Date End Date Shazia Rivas MD PCP - General Internal Medicine 06/21/18 09/30/20 Ivette Valderrama MD [address] [place] [address] [id number] PCP - General Internal Medicine 10/01/20 Maximilian Baum MD [address] [place] [address] Specialist Cardiovascular Disease 03/09/21 documented as of this encounter
--- OUTSIDE RECORDS SUMMARY | 2025-02-21 09:46 | XMS_ITS | Encounter Summary ---
Author Organization [facility] Address [address] [place] [address] Care Team Providers Care Special Needs Child Caregiver Name Role Phone Shazia Rivas MD Primary Care Provider Jaycee Ivette Burks MD Primary Care Provider [phone] Maximilian Baum MD Unavailable [phone] Reason for Visit * Reason Comments E-prescribe Rx Request Encounter Details Date Type Department Care Team Description 07/26/2020 Refill Adult Medicine [address] [address] Andria Kumar PA-C E-prescribe Rx Request Social [...] / Plan[place] / Product Type: MEDICARE [id number] documented in this encounter Plan of Treatment Not on file documented as of this encounter Visit Diagnoses Not on filedocumented in this encounter Care Teams Special Needs Child Caregiver Relationship Specialty Start Date End Date Shazia Rivas MD PCP - General Internal Medicine 06/21/18 09/30/20 Ivette Valderrama MD [address] [place] [address] PCP - General Internal Medicine 10/01/20 Maximilian Baum MD [address] [place] [address] Specialist Cardiovascular Disease 03/09/21 documented as of this encounter
--- OUTSIDE RECORDS SUMMARY | 2025-02-21 09:46 | XMS_ITS | Encounter Summary ---
Author Organization [facility] Address [address] [place] [address] Care Team Providers Care Registrar Assistant Name Role Phone Shazia Rivas MD Primary Care Provider Ivette Bynum MD Primary Care Provider [phone] Maximilian Baum MD Unavailable [phone] Reason for Visit * Reason Onset Date Comments Testing 05/29/2019 MRI of brain no contrast Encounter Details Date Type Department Care Team Description 05/29/[address] [address] Shanice Smith PA-C Testing (MRI of brain [...] on filedocumented in this encounter Care Teams Registrar Assistant Relationship Specialty Start Date End Date Shazia Rivas MD PCP - General Internal Medicine 06/21/18 09/30/20 Ivette Valderrama MD [address] [place] [address] PCP - General Internal Medicine 10/01/20 Maximilian Baum MD [address] [place] [address] Specialist Cardiovascular Disease 03/09/21 documented as of this encounter
--- OUTSIDE RECORDS SUMMARY | 2025-02-21 09:46 | XMS_ITS | Clinical Summary ---
Author Organization [facility] Address [address] [place] [address] Phone Care Team Providers Care Hatchery Employee Name Role Phone Lidia Medina Primary Care Provider [phone] Allergies No known active allergies Medications psyllium [...] knee 01/15 Compression fracture of T11 vertebra ([facility] V24, [facility] V28) 04/03/2023 Overview (04/18/2024): 04/17 noted on [...] psych COPD (chronic obstructive pu lmonary disease) ([facility] V24, [facility] V28) 12/01/2014 Immunizations Name Administration Dates Next [...] COPD (chronic obstructive pu lmonary disease) ([facility] V24, [facility] V28) 12/01/2014 DX:COPD (chronic o bstructive pulmonary disease) ([facility]) Depression 03/17/2015 DX:Depression; C OMMENT: Prev [...] of knee Compression fracture of T11 vertebra ([facility] V24, [facility] V28) 04/03/2023 DX:Compression fracture of T11 vertebra ([facility]); COMMENT: 04/[address] [...] 03/05/2025 9:30 AM EDT Consult Vascular Surgery [facility] [address] [place] [phone] Maile Gilliland MD [address] [place] [address] 04/04/2025 10:45 AM EDT Appointment [facility] CT Scan [address] [place] [phone] 05/19/2025 11:00 AM EST Office Visit Orthopedic Surgery [facility] [address] [facility] [address] [place] [phone] Paty Philip PA [address] [place] [phone] 10/17/2025 3:50 PM EDT Appointment Radiology Department [address] [address] Health Maintenance Due Date Last [...] is recommended in 1 year. MAMMO LOCATION: [facility], [address] [place] [address], [address], . -------- FINAL REPORT -------- Dictated By: Kimberly Roberts Dictated Date: 10/31/2024 11:49 ET Assigned Physician: Kimberly Roberts Reviewed and Electronically Signed By: Kimberly Roberts Signed Date: 10/31/2024 11:56 ET Workstation ID: [id number] Transcribed By: Self Edit Transcribed Date: 10/31/2024 [...] is recommended in 1 year. MAMMO LOCATION: [facility], [address] [place] [address], [address], . -------- FINAL REPORT -------- Dictated By: Kimberly Roberts Dictated Date: 10/31/2024 11:49 ET Assigned Physician: Kimberly Roberts Reviewed and Electronically Signed By: Kimberly Roberts Signed Date: 10/31/2024 11:56 ET Workstation ID: [id number] Transcribed By: Self Edit Transcribed Date: 10/31/2024 11:49 ET us Lidia Medina ARCHITECTURAL MODEL MAKER IMG BI PROCEDURES Final Result * CT LUNG SCREENING LOW DOSE (04/02/2024 9:07 AM EDT) Anatomical Region Laterality Modality Computed Tomogra phy 04/01/2024 11:3 1 AM EDT Narrative 04/02/2024 9:07 AM EDT [facility] Diagnostic Imaging Department [address] [place] [address] Patient: YAZANGELINE /Age/Sex: 1955 - 68 - F Unit#: [id number] Location/Status: [facility] Mnemonic/Ordering Site: [facility] Ordering Physician: CARA PIMENTEL [...] Procedure Note Shey Roman MD - 04/23/2024 [facility] Diagnostic Imaging Department [address] [place] [address] Patient: GENNYALLYANEGLINEO.B./Age/Sex: 1955 - 68 - F Unit#: [id number] [facility] Mnemonic/Ordering Site: [facility] Ordering Physician: CARA PIMENTEL [...] IMPRESSION: IMPRESSION: Osteoporosis by WHO criteria. The [facility] Department of Internal Medicine recommends using National [...] alternative screening schedule based on pebbles Rivera., [facility] July 14, 2011 for patients with [...] IMPRESSION: IMPRESSION: Osteoporosis by WHO criteria. The [facility] Department of Internal Medicine recommendsusing National Osteoporosis [...] Documents on File Type Date Recorded Patient Television And Radio Repairer Expl anation Health Care Decision (hx) 03/31/2023 [...] (hx) 03/31/2023 AD [place] DIRECTIVE Care Teams Hatchery Employee Relationship Specialty Start Date End Date Lidia Medina FNP [address] [place] [address] PCP - General Family Medicine 10/24/24
--- OUTSIDE RECORDS SUMMARY | 2025-02-21 09:46 | XMS_ITS | Encounter Summary ---
Author Organization [facility] Address [address] [place] [address] Care Team Providers Care Substation Manager Name Role Phone Ivette Valderrama MD Primary Care Provider [phone] Maximilian Baum MD Unavailable [phone] Encounter Details Date Type Department Care Team Description 09/20/2023 Pt. Non Urgent Medical Question OBGYN - [place] [address] [place] [address] Alejandra Worley PA-C [address] [place] [address] Social History Tobacco Use Types [...] soupset about the results. My pharmacy is [facility]. documented in this encounter Plan of Treatment Not on file documented as of this encounter Visit Diagnoses Not on filedocumented in this encounter Care Teams Substation Manager Relationship Specialty Start Date End Date Ivette Valderrama MD [address] [place] [address] PCP - General Internal Medicine 10/01/20 Maximilian Baum MD [address] [place] [address] Specialist Cardiovascular Disease 03/09/21 documented as of this encounter
--- OUTSIDE RECORDS SUMMARY | 2025-02-21 09:46 | XMS_ITS | Encounter Summary ---
Author Organization [facility] Address [address] [place] [address] Care Team Providers Care Velvet Cutter Name Role Phone Patrick Santa MD Primary Care Provider [phone] Shazia Rivas MD Primary Care Provider Glenn Meza Primary Care Provider UnavailShazia Chu MD Primary Care Provider UnavailEvelyn Cordova MD Primary Care Provider Un available Shazia Rivas MD Primary Care Provider UnavailIvette Carver MD Primary Care Provider [phone] Maximilian Baum MD Unavailable Encounter Details Date Type Department Care Team Description 12/03/2014 Release of Information Medical Records [address] [place] [address] Abstract, Provider Social History Tobacco Use Types [...] on filedocumented in this encounter Care Teams Velvet Cutter Relationship Specialty Start Date End Date Patrick Santa MD [address] [place] [address] PCP - General Internal Medicine 11/14/14 04/07/15 Shazia Rivas MD [address] [place] [address] PCP - General Internal Medicine 04/08/15 07/17/17 [facility], Pcp [address] [place], [place] PCP - General Internal Medicine 07/18/17 08/27/17 Shazia Rivas MD [address] [place], [place] PCP - General Internal Medicine 08/28/17 12/31/17 Evelyn Stratton MD [address] [place], [place] PCP - General Internal Medicine 01/01/18 06/20/18 Shazia Rivas MD [address] [place], [place] PCP - General Internal Medicine 06/21/18 09/30/20 Ivette Valderrama MD [address] [place] [address] PCP - General Internal Medicine 10/01/20 Maximilian Baum MD [address] [place] [address] Specialist Cardiovascular Disease 03/09/21 documented as of this encounter
--- OUTSIDE RECORDS SUMMARY | 2025-02-21 09:46 | XMS_ITS | Encounter Summary ---
Author Organization [facility] Address [address] [place] [address] Care Team Providers Care Comic Book Artist Name Role Phone Ivette Valderrama MD Primary Care Provider [phone] Maximilian Baum MD Unavailable [phone] Encounter Details Date Type Department Care Team Description 10/26/2023 Refill OBGYN - [place] [address] [place] [address] Monet Han CNM [address] [place], [place] [phone] Social History Tobacco Use Types Packs/Day Years [...] on filedocumented in this encounter Care Teams Comic Book Artist Relationship Specialty Start Date End Date Ivette Valderrama MD [address] [place] [address] PCP - General Internal Medicine 10/01/20 Maximilian Baum MD [address] [facility] [address] [place] [address] Specialist Cardiovascular Disease 03/09/21 documented as of this encounter
--- OUTSIDE RECORDS SUMMARY | 2025-02-21 09:46 | XMS_ITS | Encounter Summary ---
Author Organization [facility] Address [address] [place] [address] Care Team Providers Care Production Lapping Machine Operator Name Role Phone Ivette Valderrama MD Primary Care Provider [phone] Maximilian Baum MD Unavailable [phone] Reason for Visit * Reason Onset Date Comments Provider Call Back 06/29/2022 Encounter Details Date Type Department Care Team Description 06/29/2022 Telephone Internal Medicine - [address], [address] [place] [address] Urbano Verdugo MD [address] [place] [address] [phone] Provider Call Back Social History Tobacco Use [...] benefits mri can not be done in [place]. Please contact patient to make her aware of this. * Telephone Encounter - Violet Owen - 06/29/2022 2:13 PM EST Spoke to pt this afternoon and referred her to radiology [phone]. Pt wants her MRI done in [place]. * Telephone Encounter - Tona Byers - 06/29/2022 1:49 PM EST Patient called and stated received a letter stating Dr. Porras ordered MRI for patient and to contactif had not heard anything within 5 days. After reviewing chart, I believe letter was mis-typed, as the MRI was ordered by Dr. Verdugo. Informed patient to contact [facility] medicine. documented in this encounter Plan of Treatment Not on file documented as of this encounter Visit Diagnoses Not on filedocumented in this encounter Care Teams Production Lapping Machine Operator Relationship Specialty Start Date End Date Ivette Valderrama MD [address] [place] [address] PCP - General Internal Medicine 10/01/20 Maximilian Baum MD [address] [place] [address] Specialist Cardiovascular Disease 03/09/21 documented as of this encounter
--- OUTSIDE RECORDS SUMMARY | 2025-02-21 09:46 | XMS_ITS | Encounter Summary ---
Author Organization [facility] Address [address] [place] [address] Care Team Providers Care Automotive Salesperson Name Role Phone Ivette Valderrama MD Primary Care Provider [phone] Maximilian Baum MD Unavailable [phone] Encounter Details Date Type Department Care Team Description 10/02/2020 Hospital Medical Records [address] [place] [address] Social History Tobacco Use Types Packs/Day Years [...] on filedocumented in this encounter Care Teams Automotive Salesperson Relationship Specialty Start Date End Date Ivette Valderrama MD [address] [place] [address] PCP - General Internal Medicine 10/01/20 Maixmilian Baum MD [address] [address] Specialist Cardiovascular Disease 03/09/21 documented as of this encounter
--- OUTSIDE RECORDS SUMMARY | 2025-02-21 09:46 | XMS_ITS | Encounter Summary ---
Author Organization [facility] Address [address] [place] [address] Care Team Providers Care Equipment Maintenance Engineer Name Role Phone Ivette Valderrama MD Primary Care Provider [phone] Maximilian Baum MD Unavailable Encounter Details Date Type Department Care Team Description 04/12/2022 Business Doc Medical Records [address] [place] [address] Abstract, Provider Social History Tobacco Use Types [...] on filedocumented in this encounter Care Teams Equipment Maintenance Engineer Relationship Specialty Start Date End Date Ivette Valderrama MD [address] [place] [address] PCP - General Internal Medicine 10/01/20 Maximilian Baum MD [address] [address] Specialist Cardiovascular Disease 03/09/21 documented as of this encounter
--- OUTSIDE RECORDS SUMMARY | 2025-02-21 09:46 | XMS_ITS | Encounter Summary ---
Author Organization [facility] Address [address] [place] [address] Care Team Providers Care Keno Writer / Runner Name Role Phone Ivette Valderrama MD Primary Care Provider [phone] Maximilian Baum MD Unavailable [phone] Encounter Details Date Type Department Care Team Description 05/11/2023 Pt. Non Urgent Medical Question [facility] [address] [facility] [address] [place] [address] Babatunde Rodriguez MD 175 [facility] [address] [place] [address] Social History Tobacco Use Types Packs/Day Years [...] on filedocumented in this encounter Care Teams Keno Writer / Runner Relationship Specialty Start Date End Date Ivette Valderrama MD [address] [place] [address] PCP - General Internal Medicine 10/01/20 Maximilian Baum MD [address] [address] Specialist Cardiovascular Disease 03/09/21 documented as of this encounter
--- OUTSIDE RECORDS SUMMARY | 2025-02-21 09:46 | XMS_ITS | Encounter Summary ---
Author Organization [facility] Address [address] [place] [address] Care Team Providers Care Flatwork Tier Name Role Phone Ivette Valderrama MD Primary Care Provider [phone] Maximilian Baum MD Unavailable [phone] Reason for Visit * Reason Onset Date Comments Faxed Refill 03/08/2023 Encounter Details Date Type Department Care Team Description 03/08/2023 Refill Pulmonology - [place] [address] [facility] [address] [place] [address] Lasha Porras MD [address] [place] [address] Faxed Refill Social History Tobacco [...] 2 ACCUATIONS DAILY. PLEASE CONFIRM DRUG: Tiotropium Stanton Monohydrate (Spiriva Respimat) 2.5 MCG/ACT Aero Soln documented in this encounter Plan of Treatment Not on file documented as of this encounter Visit Diagnoses Not on filedocumented in this encounter Care Teams Flatwork Tier Relationship Specialty Start Date End Date Ivette Valderrama MD [address] [place] [address] PCP - General Internal Medicine 10/01/20 Maximilian Baum MD [address] [place] [address] Specialist Cardiovascular Disease 03/09/21 documented as of this encounter
--- OUTSIDE RECORDS SUMMARY | 2025-02-21 09:46 | XMS_ITS | Encounter Summary ---
Author Organization [facility] Address [address] [place] [address] Care Team Providers Care Child Protective Investigator Name Role Phone Ivette Valderrama MD Primary Care Provider [phone] Maximilian Baum MD Unavailable [phone] Reason for Visit * Reason Onset Date Comments Prior Authorization 06/22/2022 Encounter Details Date Type Department Care Team Description 06/22/2022 Pt. Non Urgent Medical Question Adult Medicine [address] [id number] Ivette Valderrama MD [address] [place] [address] [phone] Social History Tobacco Use Types Packs/Day Years [...] - 06/30/2022 8:31 AM EST Please see Form[employer] message to review and advise, thank you. documented in this encounter Miscellaneous Notes * Telephone Encounter - Edwina Lazo - 06/22/2022 3:14 PM ESTFrom: Angeline Jefferson To: Kana Valderrama Sent: 06/22/2022 2:43 PM EST Subject: MRI [facility] says they do not have an order for my MRI. Can a new order be faxed, please? The fax number is [phone]. Thank you, Angeline Jefferson documented in this encounter Plan of Treatment Not on file documented as of this encounter Visit Diagnoses Not on filedocumented in this encounter Care Teams Child Protective Investigator Relationship Specialty Start Date End Date Ivette Valderrama MD [address] [place] [address] PCP - General Internal Medicine 10/01/20 Maximilian Baum MD [address] [place] [address] Specialist Cardiovascular Disease 03/09/21 documented as of this encounter
--- OUTSIDE RECORDS SUMMARY | 2025-02-21 09:46 | XMS_ITS | Clinical Summary ---
Author Organization [facility] Address [address] [place] [address] Care Team Providers Care Pediatric Licensed Practical Nurse Name Role Phone Ivette Valderrama MD Primary Care Provider [phone] Allergies No known active allergies Medications Medication [...] age to complete this topic Care Teams Pediatric Licensed Practical Nurse Relationship Specialty Start Date End Date Ivette Valderrama MD PCP - General Internal Medicine 09/12/23
--- OUTSIDE RECORDS SUMMARY | 2025-02-21 09:46 | XMS_ITS | Encounter Summary ---
Author Organization [facility] Address [address] [place] [address] Care Team Providers Care Trimmer Buffing Wheel Name Role Phone Ivette Valderrama MD Primary Care Provider [phone] Maximilian Baum MD Unavailable [phone] Encounter Details Date Type Department Care Team Description 03/24/2021 Telephone [facility] [address] [place] [address] [place] [phone] Hugh Rabago MD Social History Tobacco [...] on filedocumented in this encounter Care Teams Trimmer Buffing Wheel Relationship Specialty Start Date End Date Ivette Valderrama MD [address] [place] [address] PCP - General Internal Medicine 10/01/20 Maximilian Baum MD [address] [place] [address] Specialist Cardiovascular Disease 03/09/21 documented as of this encounter
--- OUTSIDE RECORDS SUMMARY | 2025-02-21 09:46 | XMS_ITS | Encounter Summary ---
Author Organization [facility] Address [address] [place] [address] Care Team Providers Care Formulation Scientist Name Role Phone Community, Pcp Primary Care Provider Shazia Jett MD Primary Care Provider Evelyn Munoz MD Primary Care Provider Un available Shazia Rivas MD Primary Care Provider UnavailIvette Carver MD Primary Care Provider [phone] Maximilian Baum MD Unavailable [phone] Encounter Details Date Type Department Care Team Description 07/25/2017 Release of Information Medical Records [address] [place] [address] Abstract, Provider Social History Tobacco Use Types [...] on filedocumented in this encounter Care Teams Formulation Scientist Relationship Specialty Start Date End Date Community, Pcp PCP - General Internal Medicine 07/18/17 08/27/17 Shazia Rivas MD PCP - General Internal Medicine 08/28/17 12/31/17 Evelyn Stratton MD PCP - General Internal Medicine 01/01/1806/20 Shazia Rivas MD PCP - General Internal Medicine 06/21/18 09/30/20 Ivette Valderrama MD [address] [place] [address] PCP - General Internal Medicine 10/01/20 Maximilian Baum MD [address] [place] [address] Specialist Cardiovascular Disease 03/09/21 documented as of this encounter
--- OUTSIDE RECORDS SUMMARY | 2025-02-21 09:46 | XMS_ITS | Encounter Summary ---
Author Organization [facility] Address [address] [place] [address] Care Team Providers Care Batter Scaler Name Role Phone Patrick Santa MD Primary Care Provider [phone] Shazia Rivas MD Primary Care Provider Glenn Meza Primary Care Provider UnavailShazia Chu MD Primary Care Provider Unavaila Evelyn Kendall MD Primary Care Provider Un available Shazia Rivas MD Primary Care Provider Unavaila Ivette Burks MD Primary Care Provider [phone] Maximilian Baum MD Unavailable [phone] Encounter Details Date Type Department Care Team Description 08/24/2011 SCAN Medical Records [address] [place] [address] Letty Chen DO Social History Tobacco Use [...] on filedocumented in this encounter Care Teams Batter Scaler Relationship Specialty Start Date End Date Patrick Santa MD [address] [place] [address] PCP - General Internal Medicine 11/14/14 04/07/15 Shazia Rivas MD [address] [place], [place] PCP - General Internal Medicine 04/08/15 07/17/17 [facility] [address] [place] [address] PCP - General Internal Medicine 07/18/17 08/27/17 Shazia Rivas MD [address] [place], [place] PCP - General Internal Medicine 08/28/17 12/31/17 Evelyn Stratton MD [address] [place], [place] PCP - General Internal Medicine 01/01/18 06/20/18 Shazia Rivas MD [address] [place], [place] PCP - General Internal Medicine 06/21/18 09/30/20 Ivette Valderrama MD [address] [place] [address] PCP - General Internal Medicine 10/01/20 Maximilian Baum MD 300 [facility] [address] [place] [address] Specialist Cardiovascular Disease 03/09/21 documented as of this encounter
--- OUTSIDE RECORDS SUMMARY | 2025-02-21 09:46 | XMS_ITS | Encounter Summary ---
Author Organization [facility] Address [address] [place] [address] Care Team Providers Care Beef Breaker Name Role Phone Ivette aVlderrama MD Primary Care Provider [phone] Maximilian Baum MD Unavailable [phone] Encounter Details Date Type Department Care Team Description 12/13/2023 Telephone [facility] [address] [facility] [address] [place] [address] Babatunde Rodriguez MD 175 [facility] [address] [place] [address] Social History Tobacco Use Types Packs/Day Years [...] telephone counter will be entered as a [employer] message in an attempt to contact her via [employer] rather than telephone. Patient was informed via her telephone message as well as this [employer] message that she has an appointment in [...] on filedocumented in this encounter Care Teams Beef Breaker Relationship Specialty Start Date End Date Ivette Valderrama MD [address] [place] [address] PCP - General Internal Medicine 10/01/20 Maximilian Baum MD [address] [place] [address] Specialist Cardiovascular Disease 03/09/21 documented as of this encounter
--- OUTSIDE RECORDS SUMMARY | 2025-02-21 09:46 | XMS_ITS | Encounter Summary ---
Author Organization [facility] Address [address] [place] [address] Care Team Providers Care Bonus Clerk Name Role Phone Shazia Rivas MD Primary Care Provider Neil Zee [facility] Primary Care Provider UnavailShazia Chu MD Primary Care Provider Unavaila Evelyn Kendall MD Primary Care Provider Un available Shazia Rivas MD Primary Care Provider Unavaila Ivette Burks MD Primary Care Provider [phone] Maximilian Baum MD Unavailable [phone] Reason for Visit * Reason Onset Date Comments Echocardiogram 02/21/2017 Encounter Details Date Type Department Care Team Description 02/21/2017 Telephone Radiology - [address] [address] Shazia Rivas MD Echocardiogram Social History Tobacco [...] on filedocumented in this encounter Care Teams Bonus Clerk Relationship Specialty Start Date End Date Shazia Rivas MD PCP - General Internal Medicine 04/08/15 07/17/17 [facility], Pcp PCP - General Internal Medicine 07/18/17 08/27/17 Shazia Rivas MD PCP - General Internal Medicine 08/28/17 12/31/17 Evelyn Stratton MD PCP - General Internal Medicine 01/01/1806/20 Shazia Rivas MD PCP - General Internal Medicine 06/21/18 09/30/20 Ivette Valderrama MD [address] [place] [address] PCP - General Internal Medicine 10/01/20 Maximilian Baum MD [address] [place] [address] [address] [place] [address] Specialist Cardiovascular Disease 03/09/21 documented as of this encounter
--- OUTSIDE RECORDS SUMMARY | 2025-02-21 09:46 | XMS_ITS | Encounter Summary ---
Author Organization [facility] Address [address] [place] [address] Care Team Providers Care Store Receiver Name Role Phone Ivette Valderrama MD Primary Care Provider [phone] Maximilian Baum MD Unavailable [phone] Encounter Details Date Type Department Care Team Description 12/07/2023 SCAN [facility] [address] [facility] [address] [place] [address] Babatunde Rodriguez MD 175 [facility] [address] [place] [address] Social History Tobacco Use Types Packs/Day Years [...] on filedocumented in this encounter Care Teams Store Receiver Relationship Specialty Start Date End Date Ivette Valderrama MD [address] [place] [address] PCP - General Internal Medicine 10/01/20 Maximilian Baum MD 300 [facility] 154 [place] [address] Specialist Cardiovascular Disease 03/09/21 documented as of this encounter
--- OUTSIDE RECORDS SUMMARY | 2025-02-21 09:46 | XMS_ITS | Patient Health Record ---
Author Organization [facility] Address [address] [place] [address] Care Team Providers Care Machine Sneller Name Role Phone Wander Abdalla Unavailable [phone] Reason For Referral No Information Plan Of Treatment No Information
--- OUTSIDE RECORDS SUMMARY | 2025-02-21 09:46 | XMS_ITS | Encounter Summary ---
Author Organization [facility] Address [address] [place] [address] Care Team Providers Care Fabricator Industrial Furnace Name Role Phone Ivette Valderrama MD Primary Care Provider [phone] Maximilian Baum MD Unavailable [phone] Reason for Visit * Reason Onset Date Comments Mychart Rx Refill 03/01/2022 Encounter Details Date Type Department Care Team Description 03/01/2022 Pt. Non Urgent Medical Question Adult Medicine [address] [id number] Latasha Barron PA-C [address] [place] [address] [phone] Social History Tobacco Use Types Packs/Day Years [...] on filedocumented in this encounter Care Teams Fabricator Industrial Furnace Relationship Specialty Start Date End Date Ivette Valderrama MD [address] [place] [address] PCP - General Internal Medicine 10/01/20 Maximilian Baum MD [address] [place] [address] Specialist Cardiovascular Disease 03/09/21 documented as of this encounter
--- OUTSIDE RECORDS SUMMARY | 2025-02-21 09:46 | XMS_ITS | Encounter Summary ---
Author Organization [facility] Address [address] [place] [address] Care Team Providers Care Diesel Technician Mechanic Name Role Phone Shazia Rivas MD Primary Care Provider [facility] Ivette Burks MD Primary Care Provider [phone] Maximilian Baum MD Unavailable [phone] Encounter Details Date Type Department Care Team Description 09/08/2020 Business Doc Medical Records [address] [place] [address] Abstract, Provider Social History Tobacco Use Types [...] on filedocumented in this encounter Care Teams Diesel Technician Mechanic Relationship Specialty Start Date End Date Shazia Rivas MD PCP - General Internal Medicine 06/21/18 09/30/20 Ivette Valderrama MD [address] [place] [address] PCP - General Internal Medicine 10/01/20 Maximilian Baum MD 300 [facility] 154 [place] [address] Specialist Cardiovascular Disease 03/09/21 documented as of this encounter
--- OUTSIDE RECORDS SUMMARY | 2025-02-21 09:46 | XMS_ITS | Encounter Summary ---
Author Organization [facility] Address [address] [place] [address] Care Team Providers Care First Coat Sander Name Role Phone Evelyn Stratton MD Primary Care Provider Un available Shazia Rivas MD Primary Care Provider Unavaila Ivette Burks MD Primary Care Provider [phone] Maximilian Baum MD Unavailable [phone] Encounter Details Date Type Department Care Team Description 01/09/2018 Orders Only Medicine/Pediatrics - [address] [address] Sandy Parikh PA-C COPD exacerbation (HCC) Social [...] * RADIOLOGIC EXAM CHEST 2 VIEWS (01/01/2018) aSndy Parikh PA-C RADIOLOGY documented in this encounter Visit Diagnoses Diagnosis COPD exacerbation (HCC) Obstructive chronic bronchitis with exacerbation documented in this encounter Care Teams First Coat Sander Relationship Specialty Start Date End Date Evelyn Stratton MD PCP - General Internal Medicine 01/01/1806/20 Shazia Rivas MD PCP - General Internal Medicine 06/21/18 09/30/20 Ivette Valderrama MD [address] [place] [address] PCP - General Internal Medicine 10/01/20 Maximilian Baum MD [address] [place] [address] Specialist Cardiovascular Disease 03/09/21 documented as of this encounter
--- OUTSIDE RECORDS SUMMARY | 2025-02-21 09:46 | XMS_ITS | Encounter Summary ---
Author Organization [facility] Address [address] [place] [address] Care Team Providers Care Supervisor Parking Lot Name Role Phone Shazia Rivas MD Primary Care Provider [facility] Ivette Valderrama MD Primary Care Provider [phone] Maximilian Baum MD Unavailable [phone] Encounter Details Date Type Department Care Team Description 04/23/2019 Pharmacist Assistant Report Medical Records [address] [place] [address] Manny Ram I., PH.D Social History Tobacco [...] filedocumented in this encounter Care Teams Supervisor Parking Lot Relationship Specialty Start Date End Date Shazia Rivas MD PCP - General Internal Medicine 06/21/18 09/30/20 Ivette Valderrama MD [address] [place] [address] PCP - General Internal Medicine 10/01/20 Maximilian Baum MD [address] [place] [address] Specialist Cardiovascular Disease 03/09/21 documented as of this encounter
--- OUTSIDE RECORDS SUMMARY | 2025-02-21 09:46 | XMS_ITS | Encounter Summary ---
Author Organization [facility] Address [address] [place] [address] Care Team Providers Care Vocational Nursing Instructor Name Role Phone Ivette Valderrama MD Primary Care Provider [phone] Maximilian Baum MD Unavailable [phone] Encounter Details Date Type Department Care Team Description 09/13/2023 Pt. Non Urgent Medic al Question OBGYN - [place] [address] [place] [address] Woodrow Sierra DO Social History Tobacco Use [...] on filedocumented in this encounter Care Teams Vocational Nursing Instructor Relationship Specialty Start Date End Date Ivette Valderrama MD [address] [place] [address] PCP - General Internal Medicine 10/01/20 Maximilian Baum MD [address] [place] [address] Specialist Cardiovascular Disease 03/09/21 documented as of this encounter
--- OUTSIDE RECORDS SUMMARY | 2025-02-21 09:46 | XMS_ITS | Encounter Summary ---
Author Organization [facility] Address [address] [place] [address] Care Team Providers Care Aurist Name Role Phone Ivette Valderrama MD Primary Care Provider [phone] Maximilian Baum MD Unavailable [phone] Reason for Visit * Reason Onset Date Comments medication problems 03/17/2023 Faxed Refill 03/17/2023 Encounter Details Date Type Department Care Team Description 03/17/2023 Telephone Pulmonology - [place] [address] [facility] [address] [place] [address] Lasha Porras MD 175 [place] [address] medication problems; Faxed Refill Social [...] difficulties and [facility] I will call back later. * [...] 140.00. Thank you Please reply back to [id number] Prior Auth Pool Natacha Lazo [facility] Prior Authorization Ext [id number] * Telephone Encounter - Natacha Carrington M.A. [...] Is this a Cover My Meds request: [place] of Medication Tiotropium [place] Monohydrate (spiriva respimat) Dose of Medication 2.5 mcg What is the RX # from the faxed refill? How does patient take this med? Inhale 1 puff into lung daily What Pharmacy did the fax come from: [facility] Pharmacy fax #: [phone] [employer] Information from fax: What Prescription Plan does the patient have? OPTUM Rx BIN/PCN if applicable: [id number] Cardholder ID: [id number] Person Code: Relationship Code: Help desk phone: * Telephone Encounter - Natacha Couch - 03/22/2023 2:37 PM EDT Received fax from [facility] Re: Script Clarification ??Reason for Request: Script Clarification Pharmacy comments: script clarification: Patient is claiming that her copay will be $12 if MD does PA? Re: Spiriva respimate Pls advise. NOV 06/14/2023 TONY 02/03/2023 * Telephone Encounter - Natacha Couch - 03/20/2023 3:48 PM EDT Received fax from [facility] For Script Clarification Response requested: Patient is claiming that Her copay will be $12 if MD does PA? Pls advise. NOV 06/14/2023 TONY 02/03/2023 * Telephone Encounter - Rebekah Ferguson - 03/17/2023 10:22 AM EDT Who is calling? The patient Name of the medication Tiotropium [place] Monohydrate (Spiriva Respimat) 2.5 MCG/ACT Aero Soln [...] on filedocumented in this encounter Care Teams Aurist Relationship Specialty Start Date End Date Ivette Valderrama MD [address] [place] [address] PCP - General Internal Medicine 10/01/20 Maximilian Baum MD [address] [place] [address] Specialist Cardiovascular Disease 03/09/21 documented as of this encounter
--- OUTSIDE RECORDS SUMMARY | 2025-02-21 09:46 | XMS_ITS | Encounter Summary ---
Author Organization [facility] Address [address] [place] [address] Care Team Providers Care Environmental Planner Name Role Phone Ivette Valderrama MD Primary Care Provider [phone] Maximilian Baum MD Unavailable [phone] Reason for Referral * Non CONTRERAS (Routine) - Unable to reach/declined Specialty Diagnoses / Procedures Referred By Contac t Referred To Contact Physical Therapy Diagnoses Vertigo Procedures REFERRAL TO PHYSICAL THERAPY Latasha Barron PA-C [address] [place] [address] External Phys Thrpy Referral ID Status Reason Start Date Expiration Date V isits Requested Visits Authorized [id number] Unable to reach/declin ed 08/25/2021 1 1 Reason for Visit * Reason Onset Date Comments dizziness 08/24/2021 Encounter Details Date Type Department Care Team Description 08/24/2021 Telephone Triage [address] [place], [place] [phone] Ivette Valderrama MD [address] [place] [address] [phone] dizziness Social History Tobacco Use Types Packs/Day [...] traveled recently to another state outside of [place], [place], [place], [place], [place], [place], [place]? NO o If yes, did you quarantine [...] / Plan: [place] / Product Type: MEDICARE [id number] documented in this encounter Plan of Treatment Not on file documented as of this encounter Visit Diagnoses Diagnosis Vertigo- Primary Dizziness and giddiness documented in this encounter Care Teams Environmental Planner Relationship Specialty Start Date End Date Ivette Valderrama MD [address] [place] [address] PCP - General Internal Medicine 10/01/20 Maximilian Baum MD [address] [place] [address] Specialist Cardiovascular Disease 03/09/21 documented as of this encounter
--- OUTSIDE RECORDS SUMMARY | 2025-02-21 09:46 | XMS_ITS | Encounter Summary ---
Author Organization [facility] Address [address] [place] [address] Care Team Providers Care Engine Cleaner Name Role Phone Ivette Valderrama MD Primary Care Provider [phone] Maximilian Baum MD Unavailable [phone] Reason for Visit * Reason Onset Date Comments Medication 10/18/2023 Encounter Details Date Type Department Care Team Description 10/18/2023 Pt. Non Urgent Medical Question Adult Medicine [address] [phone] Ivette Valderrama MD [address] [place] [address] [phone] Social History Tobacco Use Types Packs/Day Years [...] on filedocumented in this encounter Care Teams Engine Cleaner Relationship Specialty Start Date End Date Ivette Valderrama MD [address] [place] [address] PCP - General Internal Medicine 10/01/20 Maximilian Baum MD 300 [facility] 154 [place] [address] Specialist Cardiovascular Disease 03/09/21 documented as of this encounter
--- OUTSIDE RECORDS SUMMARY | 2025-02-21 09:46 | XMS_ITS | Encounter Summary ---
Author Organization [facility] Address [address] [place] [address] Care Team Providers Care Nitrate Operator Name Role Phone Ivette Valderrama MD Primary Care Provider [phone] Maximilian Baum MD Unavailable [phone] Reason for Visit * Reason Onset Date Comments refill request 12/25/2023 Encounter Details Date Type Department Care Team Description 12/25/2023 Refill Adult Medicine [address] [phone] Ivette Valderrama MD [address] [place] [address] [phone] refill request Social History Tobacco Use Types [...] traveled recently to another state outside of [place], [place], [place], [place], [place], [place], [place]? NO o If yes, did you [...] vehicle accident? NO If yes, gather 3rd republican insurance information Date of accident/Injury: How long has patient had these symptoms?: 4 DAYS PCP: Ivette Valderrama Payor: [employer] MEDICARE FFS / Plan: [facility] MDCR-ADV HMO $0 [place] [id number] / Product Type: HMO Res-pol-Otdvlbr documented in this encounter Plan of Treatment Not on file documented as of this encounter Visit Diagnoses Not on filedocumented in this encounter Care Teams Nitrate Operator Relationship Specialty Start Date End Date Ivette Valderrama MD [address] [place] [address] PCP - General Internal Medicine 10/01/20 Maximilian Baum MD [address] [place] [address] Specialist Cardiovascular Disease 03/09/21 documented as of this encounter
--- OUTSIDE RECORDS SUMMARY | 2025-02-21 09:46 | XMS_ITS | Encounter Summary ---
Author Organization [facility] Address [address] [place] [address] Care Team Providers Care Human Resources File Clerk Name Role Phone Ivette Valderrama MD Primary Care Provider [phone] Maximilian Baum MD Unavailable [phone] Reason for Visit * Reason Onset Date Comments LAB WORK 01/25/2022 Encounter Details Date Type Department Care Team Description 01/25/2022 Telephone Adult Medicine [address] [phone] Ivette Valderrama MD [address] [place] [address] [phone] LAB WORK Social History Tobacco Use Types [...] on filedocumented in this encounter Care Teams Human Resources File Clerk Relationship Specialty Start Date End Date Ivette Valderrama MD [address] [place] [address] PCP - General Internal Medicine 10/01/20 Maximilian Baum MD 300 [facility] [address] [place] [address] Specialist Cardiovascular Disease 03/09/21 documented as of this encounter
--- OUTSIDE RECORDS SUMMARY | 2025-02-21 09:46 | XMS_ITS | Encounter Summary ---
Author Organization [facility] Address [address] [place] [address] Care Team Providers Care Head Gauge Unit Operator Name Role Phone Ivette Valderrama MD Primary Care Provider [phone] Maximilian Baum MD Unavailable [phone] Encounter Details Date Type Department Care Team Description 01/13/2021 [facility] Medical Records [address] [place] [address] Social History Tobacco Use Types Packs/Day Years [...] on filedocumented in this encounter Care Teams Head Gauge Unit Operator Relationship Specialty Start Date End Date Ivette Valderrama MD [address] [place] [address] PCP - General Internal Medicine 10/01/20 Maximilian Baum MD [address] [address] Specialist Cardiovascular Disease 03/09/21 documented as of this encounter
--- OUTSIDE RECORDS SUMMARY | 2025-02-21 09:46 | XMS_ITS | Encounter Summary ---
Author Organization [facility] Address [address] [place] [address] Care Team Providers Care Core Machine Tender Name Role Phone Ivette Valderrama MD Primary Care Provider [phone] Maximilian Baum MD Unavailable [phone] Encounter Details Date Type Department Care Team Description 01/04/2023 Night Triage Doc Medical Records [address] [place] [address] Abstract, Provider Social History Tobacco Use Types [...] on filedocumented in this encounter Care Teams Core Machine Tender Relationship Specialty Start Date End Date Ivette Valderrama MD [address] [place] [address] PCP - General Internal Medicine 10/01/20 Maximilian Baum MD 300 [facility] [address] [place] [address] Specialist Cardiovascular Disease 03/09/21 documented as of this encounter
--- OUTSIDE RECORDS SUMMARY | 2025-02-21 09:46 | XMS_ITS | Encounter Summary ---
Author Organization [facility] Address [address] [place] [address] Care Team Providers Care Multimedia Engineer Name Role Phone Ivette Valderrama MD Primary Care Provider [phone] Maximilian Baum MD Unavailable [phone] Encounter Details Date Type Department Care Team Description 08/09/2023 SCAN [facility] Medical [facility] [address] [facility] [address] [place] [address] Salina Polanco APRN Social History [...] on filedocumented in this encounter Care Teams Multimedia Engineer Relationship Specialty Start Date End Date Ivette Valderrama MD [address] [place] [address] PCP - General Internal Medicine 10/01/20 Maximilian Baum MD 300 [facility] [address] [place], [place] [id number] Specialist Cardiovascular Disease 03/09/21 documented as of this encounter
--- OUTSIDE RECORDS SUMMARY | 2025-02-21 09:46 | XMS_ITS | Encounter Summary ---
Author Organization [facility] Address [address] [place] [address] Care Team Providers Care Press Bucker Name Role Phone Ivette Valderrama MD Primary Care Provider [phone] Maximilian Baum MD Unavailable [phone] Reason for Visit * Reason Onset Date Comments refill request 12/16/2020 Encounter Details Date Type Department Care Team Description 12/16/2020 Refill Gastroenterology - [address] [place] [address] Shelley Elmore DScPAS refill request Social [...] on filedocumented in this encounter Care Teams Press Bucker Relationship Specialty Start Date End Date Ivette Valderrama MD [address] [place] [address] PCP - General Internal Medicine 10/01/20 Maximilian Baum MD [address] [place] [address] Specialist Cardiovascular Disease 03/09/21 documented as of this encounter
--- OUTSIDE RECORDS SUMMARY | 2025-02-21 09:47 | XMS_ITS | Encounter Summary ---
Author Organization [facility] Address [address] [place] [address] Care Team Providers Care Liner Worker Name Role Phone Shazia Rivas MD Primary Care Provider Glenn Meza Primary Care Provider UnavailShazia Chu MD Primary Care Provider Evelyn Munoz MD Primary Care Provider Un available Shazia Rivas MD Primary Care Provider UnavailIvette Carver MD Primary Care Provider [phone] Maximilian Baum MD Unavailable [phone] Encounter Details Date Type Department Care Team Description 08/15/2016 Transfer Records Medical Records [address] [place] [address] Abstract, Provider Social History Tobacco Use Types [...] on filedocumented in this encounter Care Teams Liner Worker Relationship Specialty Start Date End Date Shazia Rivas MD PCP - General Internal Medicine 04/08/15 07/17/17 Yayo, Pcp PCP - General Internal Medicine 07/18/17 08/27/17 Shazia Rivas MD PCP - General Internal Medicine 08/28/17 12/31/17 Evelyn Stratton MD PCP - General Internal Medicine 01/01/1806/20 Shazia Rivas MD PCP - General Internal Medicine 06/21/18 09/30/20 Ivette Valderrama MD [address] [place] [address] PCP - General Internal Medicine 10/01/20 Maximilian Baum MD [address] [place] [address] Specialist Cardiovascular Disease 03/09/21 documented as of this encounter
--- OUTSIDE RECORDS SUMMARY | 2025-02-21 09:47 | XMS_ITS | Encounter Summary ---
Author Organization [facility] Address [address] [place] [address] Care Team Providers Care Program Coordinator Executive Education Name Role Phone Shazia Rivas MD Primary Care Provider Ivette Bynum MD Primary Care Provider [phone] Maximilian Baum MD Unavailable [phone] Encounter Details Date Type Department Care Team Description 12/19/2019 Telephone Physiatry - [address] [address] Anat [place]erson MD [address] [place] [address] [place] [address] Social History Tobacco Use Types Packs/Day Years [...] on filedocumented in this encounter Care Teams Program Coordinator Executive Education Relationship Specialty Start Date End Date Shazia Rivas MD PCP - General Internal Medicine 06/21/18 09/30/20 Ivette Valderrama MD [address] [place] [address] PCP - General Internal Medicine 10/01/20 Maximilian Baum MD [address] [place] [address] Specialist Cardiovascular Disease 03/09/21 documented as of this encounter
== END 2025-02-21 10:19 | disposition home or self-care (01) ==
PROVIDERS: PCP Nurse Practitioner Family; Visit Provider Nurse Practitioner Family
DX: J06.9 Acute upper respiratory infection, unspecified (principal); R19.5 Other fecal abnormalities; Z13.9 Encounter for screening, unspecified

== ENCOUNTER → 2025-02-21 08:56 | Outpatient (BNVA) | payer MEDICARE, SELFPAY | PROVIDERS: PCP Nurse Practitioner Family | DX: J06.9 Acute upper respiratory infection, unspecified (principal); R19.5 Other fecal abnormalities | CPT/HCPCS: 87880; 99212 ==

== ENCOUNTER 2025-02-21 13:07 | Outpatient (REF) | payer MEDICARE, SELFPAY ==
[2025-02-21 14:18] LABS: Resp Syncy Virus RNA Qual PCR NEGATIVE (Negative); SARS COV2 PCR INHOUSE NEGATIVE (Negative)
== END 2025-02-21 13:08 | disposition home or self-care (01) ==
LOC: HO.LNP 13:07
PROVIDERS: Visit Provider Nurse Practitioner Family
DX: J06.9 Acute upper respiratory infection, unspecified (principal); Z13.89 Encounter for screening for other disorder
CPT/HCPCS: 87637

== ENCOUNTER 2025-03-27 13:50 | Outpatient (AMB) | payer MEDICARE, SELFPAY ==
[2025-03-27 14:13] VITALS: BP 124/80; PULSE 80; O2SAT 95; BMI 23.0
--- NOTE | 2025-03-27 14:13 | MHC.OFFVIS ---
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 She notes difficulty falling or staying asleep; she sleeps an average of 6 hours. She is unsure whether she snores and has never had a sleep study. Goes to bed at 10 wakes up 7:30am. Wakes up 2-3times a night. She was sleeping well before she went through [employer](age 40's) and hasnt been able to sleep well since. Accompanied by: Self / Same As Patient Allergies No Known Allergies Allergy (Verified 03/27/25 14:17) HPI Comments Details: 69 year old female presents for a sleep apnea evaluation, he is referred to us by Stan Nicholson her PCP. She has emphysema she has been taking Wixela and Spiriva. She is a former smoker, and quit 2 years ago. She has vasomotor symptoms daily since menopause. She can not tolerate the heat, sweats at night and uses ice packs on her neck. She has been on Vyvanse 20mg po qam for ADHD symptoms and notices when she misses a dose will sleep all day. She goes to bed at 8pm and wakes up 2-3 hours later and then goes to sleep but tosses and turns for 3-4 hours she never gets a full nights sleep. She denies snoring, gasping and or apneas. She has bruxism and wakes up with headaches. The headaches last 4hours to 2 days, with bilaterally tinnitus, denies photo/phonophobia. She has vertigo, eyes vibrate horizontally and if reading messages on the phone this can trigger it. She has nausea, balance and gait instability and her last fall was 3 weeks ago. She denies vomiting but has pill dysphagia since she was a teenager. She takes otc tylenolol and it is ineffective, she tried Advil and Alleve, however still the headaches persist. RLS symptoms bilaterally in her legs, and keep her up at night, she has anxiety, with paresthesias and cramps. Her mood is irritable and she has services come out to help her with management of finances. She has a upsetter setter up come out to help with ADLs 2x a week, helps with cleaning and ADLs. Her memory is poor, she has difficulty recalling words, and must write everything down. Diet is stable, eats small meals as she has NAFLD. She has alcohol socially one or two cocktails. [facility] Medical History Non-alcoholic fatty liver disease History of torn meniscus of left knee Vertigo Imbalance Memory loss Light headed Headache STD (female) Incontinence Back injury Osteoporosis Arthritis Hypothyroid COPD (chronic obstructive pulmonary disease) Family History Father Alcohol abuse Brother Alcohol abuse High blood pressure Diabetes Mother High blood pressure Diabetes Thyroid disorder Uterus cancer Maternal Grandmother Diabetes Maternal Grandmother No problems noted. Maternal Grandfather Diabetes Social History Housing: House Alcohol intake: never Patient Tobacco Use Status: Former Tobacco user Tobacco use type: Cigarette Cigarette Packs Per Day: 1.5 Cigarettes Per Day: 30 e-Cigarette/Vaping Use: Never Used Second Hand Smoke Exposure: No service: No Current occupational status: retired Current occupational exposures/hazards: No Cognitive needs: No Hearing needs: No Vision needs: Yes Physical Exam Vital Signs: Last Vital Signs Pulse 80 03/27/25 14:13 BP 124/80 03/27/25 14:13 Pulse Ox 95 03/27/25 14:13 Oxygen Delivery Method Room Air 03/27/25 14:13 BMI result Body Mass Index 23.0 Const General: cooperative, comfortable and tired appearing Nutritional Appearance: average body habitus Orientation/consciousness: patient oriented x3 HEENT Face and sinus: Yes face symmetric Teeth and gingiva: other (M[place]ampti score is 4) Eyes Pupils: Equal, round and reactive pupils present Neck Other: hesitant to flex and extend neck due to past h/o vertigo Neck: Yes full ROM Resp Effort & Inspection: normal respiratory effort and able to speak in complete sentences Neuro General: patient oriented x3 and moves all extremities Cranial nerves: Yes Equal, round and reactive pupils present, Yes Normal accommodation reflex present, Yes Normal facial strength present, Yes Midline tongue present, Yes Ability to bilaterally rotate head present and Yes Ability to bilaterally elevate shoulders present Cognition (Neuro): normal cognition Gait exam (Neuro): Antalgic gait present Motor exam (neuro): Abnormal motor strength present and Abnormal muscle tone present Psych Appearance: grossly normal Mental Status: mental status grossly normal Thought process: Normal thought process present Insight: Good insight present (Psych) Results Reviewed Results Reviewed: BHN note ED - Labs 01/2025 ALT/ AST Cholesterol Triglycerides and LDL Assessment & Plan Assessment & Plan (1) Excessive daytime sleepiness: Code(s): G47.19 - Other hypersomnia Category: Medical (2) Benign positional vertigo: Code(s): H81.10 - Benign paroxysmal vertigo, unspecified ear Category: Medical Qualifiers: Laterality: unspecified laterality Qualified Code(s): H81.10 - Benign paroxysmal vertigo, unspecified ear (3) Balance problem due to vestibular dysfunction: Code(s): H81.90 - Unspecified disorder of vestibular function, unspecified ear Category: Medical Qualifiers: Laterality: unspecified laterality Qualified Code(s): H81.90 - Unspecified disorder of vestibular function, unspecified ear (4) Anemia: Code(s): D64.9 - Anemia, unspecified Category: Medical Qualifiers: Anemia type: iron deficiency Iron deficiency anemia type: other iron deficiency Qualified Code(s): D50.8 - Other iron deficiency anemias Plan Excessive daytime fatigue HST r/o jocelin Migraines Sumatriptan 25mg at the onset of migraines may repeat second dose within 2 hours of the first dose if migraine does not abort. Do not take more than 2 doses of this medication in a 24 hour period. PT Gait and Balance instability with vertigo Labs to r/o deficiencies. F/U in 3 months Orders: Orders Complete Blood Count no Diff Today D64.9 - Anemia, unspecified, G47.19 - Other hypersomnia Ferritin Today D64.9 - Anemia, unspecified, G47.19 - Other hypersomnia Vitamin B1 Today D64.9 - Anemia, unspecified, G47.19 - Other hypersomnia RT home sleep study Today G47.19 - Other hypersomnia PT Evaluation and Treatment Today H81.10 - Benign paroxysmal vertigo, unspecified ear, H81.90 - Unspecified disorder of vestibular function, unspecified ear Comprehensive Met. Panel Today D64.9 - Anemia, unspecified, G47.19 - Other hypersomnia Vitamin D 25-OH Total Today D64.9 - Anemia, unspecified, G47.19 - Other hypersomnia Vitamin B6 Today D64.9 - Anemia, unspecified, G47.19 - Other hypersomnia Vitamin B12 and Folate Today D64.9 - Anemia, unspecified, G47.19 - Other hypersomnia TSH reflex Free T4 Today D64.9 - Anemia, unspecified, G47.19 - Other hypersomnia Homocysteine Today D64.9 - Anemia, unspecified, G47.19 - Other hypersomnia, G47.9 - Sleep disorder, unspecified, R53.83 - Other fatigue Methylmalonic Acid Today D64.9 - Anemia, unspecified, G47.19 - Other hypersomnia, G47.9 - Sleep disorder, unspecified, R53.83 - Other fatigue Hemoglobin A1c Today D64.9 - Anemia, unspecified, G47.19 - Other hypersomnia Patient Instructions: Sleep Hygiene provided: set a scheduled bedtime and wake time to help regulate the circadian rhythm and balance the release of pituitary hormones. Sleep in a dark room, temperatures below 68 degrees, and no devices n bed. Limit caffeinated products 6 hours prior to bed, and limit fluids 2-4 hours prior to bed. Gentle night yoga, diffusing essential oils, and playing soft music can be relaxing. Coding Level of Care Code New Pt Level 4 (11845) Diagnoses Excessive daytime sleepiness G47.19 Benign paroxysmal positional vertigo, unspecified laterality H81.10 Laterality: unspecified laterality Balance problem due to vestibular dysfunction, unspecified laterality H81.90 Laterality: unspecified laterality Other iron deficiency anemia D50.8 Anemia type: iron deficiency Iron deficiency anemia type: other iron deficiency Sleep Questionnaire Difficulty falling asleep: No Difficulty staying asleep?: Yes Number of arousals: 3-4 Snoring: No Witnessed apneas: No Gasping arousals: Yes Nocturia: Yes GERD: Yes Vivid dreams: No Acting out dreams: No Abnormal behavior in sleep: No Abnormal movements in sleep: No Excessive daytime sleepiness: Yes Daytime naps: Yes Restless legs: Yes Hallucinations: No Sleep paralysis: No Drop attacks: No Sleep Study: No CPAP: No
--- OUTSIDE RECORDS SUMMARY | 2025-03-27 15:31 | XMS_ITS | Patient Health Record ---
Author Organization [facility] Address [address] [place] [address] Care Team Providers Care Oracle Ebs Developer Name Role Phone Wander Abdalla Unavailable [phone] Reason For Referral No Information Plan Of Treatment No Information
--- OUTSIDE RECORDS SUMMARY | 2025-03-27 15:31 | XMS_ITS | Clinical Summary ---
Author Organization [facility] Address [address] [place] [address] Care Team Providers Care Per Diem Physical Therapist Name Role Phone Ivette Valderrama MD Primary Care Provider [phone] Allergies No known active allergies Medications Medication [...] 04/11/2023 04/11/2022 COVID-19 Vaccine (3 - season) 2025 04/16/2021, 03/19/2021 Influenza Vaccine (#1) 2025 3, 04/11/2022, 03/19/2021, Additional history exists RSV Adult > 60+ Yrs or (1 - 1-dose 75+ series) 2030 Hepatitis B Vaccines Aged Out No long er eligible based on patient's age to complete this topic RSV Ped < 20 months Aged Out No longe r eligible based on patient's age to complete this topic Care Teams Per Diem Physical Therapist Relationship Specialty Start Date End Date Ivette Valderrama MD PCP - General Internal Medicine 09/12/23
--- OUTSIDE RECORDS SUMMARY | 2025-03-27 15:31 | XMS_ITS | Clinical Summary ---
Author Organization [facility] Address [address] [place] [address] Phone Care Team Providers Care Cdl Dedicated Truck Driver Name Role Phone Lidia Medina Primary Care Provider [phone] Allergies No known active allergies Medications psyllium [...] EVERY DAY 30 capsule 3 5 Active Active Problems Problem Noted Date Diagnosed [...] knee 01/15 Compression fracture of T11 vertebra ([facility] V24, [facility] V28) 04/03/2023 Overview (04/18/2024): 04/17 noted [...] psych COPD (chronic obstructive pu lmonary disease) ([facility] V24, [facility] V28) 12/01/2014 Encounters Date Type Department Care Team Description 03/05/2025 9:30 AM EDT Consult Vascular Surgery - [place] [address] [facility] [address] [place] [address] Maile Gilliland MD Lower abdominal pain; Fatty liver; Superior mesenteric artery stenosis ([facility] V24); Cyst of right ovary from Last 3 Months Immunizations Immunization Administration Dates Next Due Influenza Quadravalent, MDCK [...] DX:Constipation COPD (chronic obstructive pu lmonary disease) ([facility] V24, [facility] V28) 12/01/2014 DX:COPD (chronic o bstructive pulmonary disease) ([facility]) Depression 03/17/2015 DX:Depression; C OMMENT: [...] of knee Compression fracture of T11 vertebra ([facility] V24, [facility] V28) 04/03/2023 DX:Compression fracture of T11 vertebra ([facility]); COMMENT: 04/[address] [...] Sign Reading Time Taken Comments Blood Pressure 123/75 03/05/2025 9:34 AM EDT Pulse 75 03/05/2025 9:34 AM EDT Temperature - - Respiratory Rate 14 11/07/2024 11:05 AM EDT Oxygen Saturation - - Inhaled Oxygen Concentration - - Weight 63 kg (139 lb) 03/05/2025 9:34 AM EDT Height 165.1 cm (5' 5 ) 03/05/2025 9:34 AM EDT Body Mass Index 23.13 03/05/2025 9:34 AM EDT Plan of Treatment Upcoming Encounters Date Type Department Care Team (Late st Contact Info) Description 04/04/2025 10:45 AM EDT Appointment [facility] CT Scan [address] [place] [phone] 05/19/2025 11:00 AM EST Office Visit Orthopedic Surgery - [place] [address] [facility] [address] [place] [phone] Paty Philip, LEXUS [address] [facility] [address] [place] [address] 07/29/2025 1:40 PM EST Office Visit Gastroenterology - [place] [address] [facility] [address] [place] [phone] Shelley Elmore PA [address] [place] [address] 10/17/2025 3:50 PM EDT Appointment Radiology Department - [address] [phone] Health Maintenance Due Date Last Done Comments DTaP,Tdap,and Td Vaccines (1 - Tdap) 1974 Zoster Vaccines (1 of 2) 2005 RSV Immunization Adult Patients (1 - Risk 60-74 years 1-dose series) 2015 Falls Risk Assessment 06/04/2022 Hepatitis C Screening 06/04/2022 Medicare Annual Wellness Visit 06/04/2022 Social Influencers of Health Screening 06/04/2022 Depression Screening 06/26/2024 COVID-19 Vaccine (3 - season) 2025 04/16/2021, 03/19/2021 Influenza Vaccine (#1) 2025 , 04/11/2022, 03/19/2021, Additional history exists Lung Cancer Screening (Low Dose CT) 04/02/2025 04/02/2024, 04/03/2023, 03/30/2022, Additional history exists Breast Cancer Screening 10/31/2026 11/01/19 25, 10/10/2024, 09/29/2023, Additional history exists Pneumococcal Vaccine: [...] is recommended in 1 year. MAMMO LOCATION: [facility], [address] [place] [address], [address], . -------- FINAL REPORT -------- Dictated By: Kimberly Roberts Dictated Date: 10/31/2024 11:49 ET Assigned Physician: Kimberly Roberts Reviewed and Electronically Signed By: Kimberly Roberts Signed Date: 10/31/2024 11:56 ET Workstation ID: [id number] Transcribed By: Self Edit Transcribed Date: 10/31/2024 [...] is recommended in 1 year. MAMMO LOCATION: [facility], [address] [place] [address], [address], . -------- FINAL REPORT -------- Dictated By: Kimberly Roberts Dictated Date: 10/31/2024 11:49 ET Assigned Physician: Kimberly Roberts Reviewed and Electronically Signed By: Kimberly Roberts Signed Date: 10/31/2024 11:56 ET Workstation ID: [id number] Transcribed By: Self Edit Transcribed Date: 10/31/2024 11:49 ET us Lidia Adam HUMIDIFIER OPERATOR IMG BI PROCEDURES Final Result * CT LUNG SCREENING LOW DOSE (04/02/2024 9:07 AM EDT) Anatomical Region Laterality Modality Computed Tomogra phy 04/01/2024 11:3 1 AM EDT Narrative 04/02/2024 9:07 AM EDT [facility] Diagnostic Imaging Department [address] [place] [address] Patient: TORYKatelynANGELINE /Age/Sex: 1955 - 68 - F Unit#: [id number] [facility]/Ordering Site: [email or web address] Ordering Physician: CARA PIMENTEL MD CT Lung [...] Procedure Note Shey Roman MD - 04/23/2024 [facility] Diagnostic Imaging Department [address] [place] [address] Patient: GENNYALLYANGELINE Loza.B./Age/Sex: 1955 - 68 - F Unit#: [id number] Location/Status: [facility]/MARGARITA CLI Mnemonic/Ordering Site: [facility] Ordering Physician: CARA PIMENTEL MD CT Lung [...] MD Dic Date/Time: 04/02/24899 Sign date/Time: 04/02/24906 Cara Pimentel MD IMG CT PROCEDURES Final [...] IMPRESSION: IMPRESSION: Osteoporosis by WHO criteria. The [facility] Department of Internal Medicine recommends using National [...] alternative screening schedule based on pebbles Rivera., [facility] July 14, 2011 for patients [...] IMPRESSION: IMPRESSION: Osteoporosis by WHO criteria. The [facility] Department of Internal Medicine recommendsusing National Osteoporosis [...] Documents on File Type Date Recorded Patient Loss Control Representative Expl anation Health Care Decision (hx) 03/31/2023 [...] (hx) 03/31/2023 AD [place] DIRECTIVE Care Teams Cdl Dedicated Truck Driver Relationship Specialty Start Date End Date Lidia Medina FNP [address] [place] [phone] PCP - General Family Medicine 10/24/24
== END 2025-03-27 15:45 | disposition home or self-care (01) ==
LOC: HO.HSMS 13:51
PROVIDERS: PCP Nurse Practitioner Family; Visit Provider Physician Assistant Medical
DX: G47.19 Other hypersomnia (principal); H81.10 Benign paroxysmal vertigo, unspecified ear; H81.90 Unspecified disorder of vestibular function, unspecified ear; D50.8 Other iron deficiency anemias
CPT/HCPCS: 99204

== ENCOUNTER → 2025-03-27 13:50 | Outpatient (BNVA) | payer MEDICARE, SELFPAY | PROVIDERS: PCP Nurse Practitioner Family; Visit Provider Physician Assistant Medical | DX: G47.19 Other hypersomnia (principal); H81.10 Benign paroxysmal vertigo, unspecified ear; H81.90 Unspecified disorder of vestibular function, unspecified ear; D50.8 Other iron deficiency anemias | CPT/HCPCS: 99202 ==

== ENCOUNTER 2025-03-28 11:33 | Outpatient (REF) | payer MEDICARE, SELFPAY ==
[2025-03-28 12:26] LABS: Hematocrit 40.1 % (37.0-47.0); Hemoglobin 13.8 g/dl (12.0-16.0); Mean Corpuscular HGB Conc 34.4 g/dl (31.0-35.0); Mean Corpuscular Hemoglobin 29.2 pg (27.0-33.0); Mean Corpuscular Volume 84.8 fL (80.0-98.0); NRBC Abs Auto 0.000 X10*3/uL (0.0-0.012); NRBC Pct Auto 0.0 /100WBC (0.0-0.2); Platelet Count 307 X10*3/uL (160-400); Red Blood Count 4.73 X10*6/uL (4.20-5.50); White Blood Count 5.1 X10*3/uL (4.8-10.8)
--- OUTSIDE RECORDS SUMMARY | 2025-03-28 12:41 | XMS_ITS | Patient Health Record ---
Author Organization [facility] Address [address] [place] [phone] Care Team Providers Care Associate Of Science In Nursing Name Role Phone Wander Abdalla Unavailable [phone] Reason For Referral No Information Plan Of Treatment No Information
--- OUTSIDE RECORDS SUMMARY | 2025-03-28 12:41 | XMS_ITS | Clinical Summary ---
Author Organization [facility] Address [address] [place] [address] Phone Care Team Providers Care Land Reclamation Specialist Name Role Phone Lidia Medina Primary Care Provider [phone] Allergies No known active allergies Medications psyllium [...] knee 01/15 Compression fracture of T11 vertebra ([facility] V24, [facility] V28) 04/03/2023 Overview (04/18/2024): 04/17 [...] psych COPD (chronic obstructive pu lmonary disease) ([facility] V24, [facility] V28) 12/01/2014 Encounters Date Type Department Care Team Description 03/05/2025 9:30 AM EDT Consult Vascular Surgery - [facility] [address] [facility] [address] [place] [address] Maile Gilliland MD Lower abdominal pain; Fatty liver; Superior mesenteric artery stenosis ([facility] V24); Cyst of right ovary [...] DX:Constipation COPD (chronic obstructive pu lmonary disease) ([facility] V24, [facility] V28) 12/01/2014 DX:COPD (chronic o bstructive pulmonary disease) ([facility]) Depression 03/17/2015 DX:Depression; C OMMENT: [...] of knee Compression fracture of T11 vertebra ([facility] V24, [facility] V28) 04/03/2023 DX:Compression fracture of T11 vertebra ([facility]); COMMENT: 04/17 noted on chest [...] Description 04/04/2025 10:45 AM EDT Appointment [facility] CT Scan [address] [place] [phone] 05/19/2025 11:00 AM EST Office Visit Orthopedic Surgery - [facility] [address] [facility] [address] [place] [phone] Paty Philip, LEXUS [address] [facility] [address] [place] [address] 07/29/2025 1:40 PM EST Office Visit Gastroenterology - [facility] [address] [place] [phone] Shelley Elmore PA [address] [place] [address] 10/17/2025 3:50 PM EDT Appointment Radiology Department - [address] [phone] Health Maintenance Due Date Last Done Comments [...] is recommended in 1 year. MAMMO LOCATION: [facility], [address] [place] [address], [address], . -------- FINAL REPORT -------- Dictated By: Kimberly Roberts Dictated Date: 10/31/2024 11:49 ET Assigned Physician: Kimberly Roberts Reviewed and Electronically Signed By: Kimberly Roberts Signed Date: 10/31/2024 11:56 ET Workstation ID: [id number] Transcribed By: Self Edit Transcribed Date: 10/31/2024 [...] is recommended in 1 year. MAMMO LOCATION: [facility], [address] [place] [address], [address], . -------- FINAL REPORT -------- Dictated By: Kimberly Roberts Dictated Date: 10/31/2024 11:49 ET Assigned Physician: Kimberly Roberts Reviewed and Electronically Signed By: Kimberly Roberts Signed Date: 10/31/2024 11:56 ET Workstation ID: [id number] Transcribed By: Self Edit Transcribed Date: 10/31/2024 11:49 ET us Lidia Adam SPECIALIST FIELD ENGINEER IMG BI PROCEDURES Final Result * CT LUNG SCREENING LOW DOSE (04/02/2024 9:07 AM EDT) Anatomical Region Laterality Modality Computed Tomogra phy 04/01/2024 11:3 1 AM EDT Narrative 04/02/2024 9:07 AM EDT [facility] Diagnostic Imaging Department [address] [place] [id number] Patient: TORYKatelynANGELINE /Age/Sex: 1955 - 68 - F Unit#: [id number] [facility]Ordering [facility] Ordering Physician: CARA PIMENTEL MD CT Lung [...] Procedure Note Shey Roman MD - 04/23/2024 [facility] Diagnostic Imaging Department [address] [place] [address] Patient: GENNYALLYANGELINE Loza.B./Age/Sex: 1955 - 68 - F Unit#: [id number] Location/Status: [facility]/MARGARITA CLI Mnemonic/Ordering Site: [facility] Ordering Physician: CARA PIMENTEL MD CT Lung [...] IMPRESSION: IMPRESSION: Osteoporosis by WHO criteria. [facility] Department of Internal Medicine recommends [...] alternative screening schedule based on pebbles Rivera., [facility] July 14, 2011 for patients with [...] IMPRESSION: IMPRESSION: Osteoporosis by WHO criteria. [facility] Department of Internal Medicine recommendsusing [...] Documents on File Type Date Recorded Patient Primary Health Care Nurse Expl anation Health Care Decision (hx) 03/31/2023 [...] (hx) 03/31/2023 AD [place] DIRECTIVE Care Teams Land Reclamation Specialist Relationship Specialty Start Date End Date Lidia Medina FNP [address] [place] [phone] PCP - General Family Medicine 10/24/24
--- OUTSIDE RECORDS SUMMARY | 2025-03-28 12:41 | XMS_ITS | Clinical Summary ---
Author Organization [facility] Address [address] [place] [address] Care Team Providers Care Geography Faculty Member Name Role Phone Ivette Valderrama MD Primary Care Provider [phone] Allergies No known active allergies Medications Medication [...] age to complete this topic Care Teams Geography Faculty Member Relationship Specialty Start Date End Date Ivette Valderrama MD PCP - General Internal Medicine 09/12/23
[2025-03-28 13:27] LABS: Alanine Aminotransferase 25 U/L (0-31); Albumin Level 4.6 g/dL (3.5-5.0); Alkaline Phosphatase 78 U/L (39-117); Anion Gap 10 (12-20); Aspartate Amino Transferase 25 U/L (5-31); Blood Urea Nitrogen 5 mg/dL (9-16); Calcium 9.0 mg/dL (8.4-10.2); Carbon Dioxide 30 mmol/L (22-29); Chloride 106 mmol/L (96-108); Estimated Glomerular Filt Rate > 60; Potassium 3.4 mmol/L (3.3-5.1); Sodium 143 mmol/L (135-145); Total Protein 7.0 g/dL (6.5-8.0)
[2025-03-28 13:42] LABS: Ferritin 43 ng/mL (10-250)
[2025-03-28 13:55] LABS: Folate 9.1 ng/mL (> or = 4.0); Vitamin B12 1868 pg/mL (200-900)
== END 2025-03-28 11:34 | disposition home or self-care (01) ==
LOC: HO.LAB 11:33
PROVIDERS: PCP Nurse Practitioner Family; Visit Provider Physician Assistant Medical
DX: G47.19 Other hypersomnia (principal); D64.9 Anemia, unspecified; R53.83 Other fatigue; Z13.1 Encounter for screening for diabetes mellitus; Z13.6 Encounter for screening for cardiovascular disorders; Z13.21 Encounter for screening for nutritional disorder
CPT/HCPCS: 36415; 80053; 82306; 82607; 82728; 82746; 83036; 83090; 83921; 84207; 84425; 84443; 85027

== ENCOUNTER 2025-05-16 11:04 | Outpatient (AMB) | payer MEDICARE, SELFPAY ==
--- NOTE | 2025-05-16 11:08 | A.OFFPC_ITS ---
Vital Signs 05/16/25 11:13 Height 5 ft 5 in Weight 142 lb BMI 23.6 BP 114/68 Blood Pressure Location Rt brachial Position Sitting Respiration 16 Pulse 112 H Pulse Source Pulse Oximeter Temp 98.4 F Temp Source Temporal Artery Scan Pulse Oximetry (%) 97 Oxygen Delivery Method Room Air Intake Visit Reasons: Stomach issues Intake Note: Angeline presents in the office today for stomach issues as well a left knuckle pain. PQ9 & GAD7 done Lapel Padder Required: No Is last menstrual period known: No Post menopausal: No Patient : No Allergies No Known Allergies Allergy (Verified 05/16/25 11:30) Medication List - Last Reconciled 05/16/25 by Lidia Medina CNP albuterol sulfate 90 mcg/actuation 2 puffs inhalation Q6H PRN [id number] 50 mcg-75 mcg -100 mg caps PO benzonatate 100 mg PO BID PRN 7 days cholecalciferol (vitamin D3) 50 mcg PO DAILY conjugated estrogens (Premarin) 0.625 mg PO DAILY cyclobenzaprine 10 mg PO TID PRN diclofenac potassium 50 mg PO BID PRN ezetimibe 10 mg PO DAILY 30 days fluticasone propion-salmeterol 250-50 mcg/dose (Wixela Inhub) 1 inh inhalation BID linaclotide (Linzess) 72 mcg PO DAILY lisdexamfetamine (Vyvanse) 20 mg PO QAM magnesium hydroxide (Dulcolax (magnesium hydroxide)) 5 mL PO DAILY PRN omeprazole 20 mg PO DAILY tiotropium bromide 2.5 mcg/actuation (Spiriva Respimat) 2 puffs inhalation DAILY trazodone 25 mg (1/2 x 50 mg) PO BEDTIME PRN Tobacco use date assessed: 05/16/25 Fall risk assessment: 1 Fall in past year Last assessed Fall Risk: 05/16/25 Dental Screening Dental Screen Date: 05/16/25 Did you have a dental visit in the last 12 months?: Yes Did you have a dental problem in the last 6 months where you did not have access to dental care?: No Was dental information given to patient?: Patient has dentist HPI HPI Comments History of Present Illness Details 70-year-old female, accompanied by his s on, presents with complaints of intermittent, achy epigastric pain for the past 3 weeks. The pain usually occurs at night, sometimes lasting 3 hours. He reports associated constipation which is relieved by taking MiraLax, stool softners, and linzess. She usually have a bowel movement, with very soft or liquid stools, once daily after taking her bowel regimens. She also reports associated bloating. She also notes intermittent bright red blood in her stool, last bloody stool was 2 weeks ago. Her pain and bloating resolves after she has a bowel movement. She is currently experiencing 3-4/10 middle to upper abdominal pain. She notes that she if followed by [facility]. She reports anxiety and depressive symptoms. She reports significant stressors because she has not been receiving help to manage her bills. She used to have someone come to home to do that but they stopped coverage 2.5 months ago because and states that they are short on help. Her children have been providing some assistance. She also attributes her anxiety and depression to her stomach symptoms. She thoughts that she would be better off because she feels very overwhelmed. She imagines a gun to the middle of her forehead. She denies plans of committing suicide. She denies HI/HVA. She denies history of suicide attempt. She is followed by a psychiatrist at [facility] every two month, and has a follow up appointment with them sometimes this month. Her appointment to establish with a therapist at [facility] was canceled and she has not heard from them. Her last colonoscopy was in 03/08/2018 with [facility]: Internal hemorrhoids, otherwise benign. Recommended follow-up in 10 years. [facility] Medical History Non-alcoholic fatty liver disease History of torn meniscus of left knee Vertigo Imbalance Memory loss Light headed Headache STD (female) Incontinence Back injury Osteoporosis Arthritis Hypothyroid COPD (chronic obstructive pulmonary disease) Family History Father Alcohol abuse Brother Alcohol abuse High blood pressure Diabetes Mother High blood pressure Diabetes Thyroid disorder Uterus cancer Maternal Grandmother Diabetes Maternal Grandmother No problems noted. Maternal Grandfather Diabetes Social History (Updated 05/16/25 @ 11:13 by Lesly Anton CMA) Housing: House Alcohol intake: never Patient Tobacco Use Status: Former Tobacco user Tobacco use type: Cigarette Cigarette Packs Per Day: 1.5 Cigarettes Per Day: 30 e-Cigarette/Vaping Use: Never Used Second Hand Smoke Exposure: No service: No Current occupational status: retired Current occupational exposures/hazards: No Cognitive needs: No Hearing needs: No Vision needs: Yes Questionnaire PHQ-9 Over the last 2 weeks, how often have you been bothered by any of the following problems? 1. Little interest or pleasure in doing things: several days 2. Feeling down, depressed, or hopeless: more than half the days 3. Trouble falling or staying asleep, or sleeping too much: more than half the days 4. Feeling tired or having little energy: more than half the days 5. Poor appetite or overeating: nearly every day 6. Feeling bad about yourself - or that you are a failure or have let yourself or your family down: more than half the days 7. Trouble concentrating on things, such as reading the newspaper or watching television: nearly every day 8. Moving or speaking so slowly that other people could have noticed. Or the opposite - being so fidgety or restless that you have been moving around a lot more than usual: more than half the days 9. Thoughts that you would be better off or of hurting yourself in some way: several days Total score: 18 Depression Screening Interpretation: Positive Depression Screening Follow-up: Existing condition and In treatment Depression Screening Done: Yes 35071 - PHQ-9 Billing: Yes Source: Developed by Drs. Wander Blake, Carlyn Hernandez, Nikolay Solares and colleagues, with an educational kenney from [employer]. Thrive Questionnaire Date Thrive assessed: 09/02/24 I am a: Patient What is your living situation today?: I have a steady place to live Within the past 12 months, did the food you bought not last and you didn't have the money to get more?: Never true Within the past 12 months, did you worry whether your food would run out before you got money to buy more?: Sometimes True Do you have trouble paying for medicines?: I choose not to answer this question Do you have trouble getting transportation to medical appointments?: I choose not to answer this question Do you have trouble paying your heating and electricity bill?: Yes Do you have trouble taking care of your child, family member or friend?: I choose not to answer this question Do you have trouble with day-to-day activities such as bathing, preparing meals, shopping, managing finances, etc.?: Yes Are you currently unemployed and looking for a job?: No Are you interested in more education?: I choose not to answer this question Currently or been in a relationship where the following occur: No concerns reported THRIVE Score: 2 YENNY-7 AMB Questionnaire YENNY-7 Date YENNY - 7 assessed: 05/16/25 Feeling nervous, anxious, or on edge: 3 = Nearly every day Not being able to stop or control worryin = More than half the days Worrying too much about different things: 2 = More than half the days Trouble relaxin = More than half the days Being so restless that it is hard to sit still: 2 = More than half the days Becoming easily annoyed or irritable: 2 = More than half the days Feeling afraid as if something awful might happen: 3 = Nearly every day Total YENNY-7 score (0-4 normal; 5-9 mild; 10-14 moderate; 15-21 severe): 16 Source: Developed by Drs. Wander Blake, Carlyn Hernandez, Nikolay Solares and colleagues, with an educational kenney from [employer]. YENNY-7 Assessment Billing YENNY-7 Assessment Tool: YENNY-7 Assessment 83566 Review of Systems Const Details: Const Denies chills, Denies fatigue, Denies fever(s), Denies headache(s) and Denies weakness ENT Denies dizziness and Denies headache(s) Card Denies chest pain, Denies lightheadedness, Denies dyspnea and Denies other (Palpitations) Resp Denies cough, Denies dyspnea, Denies wheezing and Denies other ( shortness of breath) GI Reports as per HPI Denies hematuria and Denies dysuria Musc Denies abnormal gait, Denies myalgias, Denies arthralgias, Denies numbness and Denies tingling Skin/Breast Denies rash, Denies unusual bruising and Denies wounds Neuro Denies abnormal gait, Denies dizziness, Denies headache(s), Denies memory loss, Denies numbness, Denies Sensory deficit (Neuro), Denies tingling and Denies weakness Psych Reports anxiety, Reports depression, Reports memory loss Endo Denies cold intolerance, Denies fatigue, Denies heat intolerance, Denies polydipsia and Denies polyuria Aller/Immun Denies wheezing Physical exam (Primary Care) Vital Signs: Last Vital Signs Temp 98.4 F 05/16/25 11:13 Pulse 112 H 05/16/25 11:13 Resp 16 05/16/25 11:13 BP 114/68 05/16/25 11:13 Pulse Ox 97 05/16/25 11:13 Oxygen Delivery Method Room Air 05/16/25 11:13 BMI result Body Mass Index 23.6 Tobacco/Smoking Status: Tobacco use Status Tobacco use date assessed 05/16/25 05/16/25 11:15 Patient Tobacco Use Status Former Tobacco user 05/16/25 11:13 Tobacco use type Cigarette 05/16/25 11:13 e-Cigarette/Vaping Use Never Used 05/16/25 11:13 PHQ-9: PHQ-9 Score PHQ-9: Total score 18 05/16/25 14:41 Depression Screening Interpretation: Positive Depression Screening Follow-up: Existing condition and In treatment Thrive Assessment: Date of Thrive Assessment Date Thrive assessed 09/02/24 05/16/25 11:09 Currently or been in a relationship where the following occur: No concerns reported Const Other: General: no acute distress and well developed Nutritional Appearance: well nourished Orientation/consciousness: patient oriented x3 [facility] Head: Yes normocephalic and Yes atraumatic Eyes General: appearance normal, both eyes and all related structures Pupils: Equal, round and reactive pupils present EOM: EOMs intact bilaterally Resp Effort & Inspection: normal respiratory effort Auscultation: clear to auscultation bilaterally Cardio Rate: regular rate Rhythm: regular rhythm Heart sounds: S1 normal heart sound present, S2 normal heart sound present, no gallops, no murmurs and no rubs GI Palpation (GI): No Abdominal aortic bruit present, Soft to palpation, tender mid abdomen to epigastric region, No hepatosplenomegaly present and No Rebound tenderness present Auscultation: Hypoactive bowel sounds General: Yes no CVA tenderness Extrem General: Yes normal to inspection, No edema and No calf tenderness Skin General: warm and dry. Normal skin color. Normal skin turgor Neuro General: patient oriented x3, gait normal and no focal neuro deficit Cranial nerves: Yes Equal, round and reactive pupils present Cognition (Neuro): normal cognition Gait exam (Neuro): Normal gait present Sensory Exam: No Sensory deficit (Neuro) Psych Appearance: grossly normal Affect: Blunted Mood: Anxious Attitude: cooperative Thought process: Normal thought process present Coding Level of Care Code Est Pt Level 4 (75031) Diagnoses Abdominal pain R10.9 Anxiety and depression F41.9; F32.A Additional Codes YENNY-7 Assessment Billing - YENNY-7 Assessment Tool: YENNY-7 Assessment 56008 ([id number]) PHQ-9 - 12826 - PHQ-9 Billing: Yes ([id number]) Assessment & Plan Assessment & Plan (1) Abdominal pain: Code(s): R10.9 - Unspecified abdominal pain Category: Medical Plan: Reports intermittent, achy epigastric pain for the past 3 weeks. The pain usually occurs at night, sometimes lasting 3 hours. He reports associated constipation which is relieved by taking MiraLax, stool softners, and linzess. She usually have a bowel movement, with very soft or liquid stools, once daily after taking her bowel regimens. She also reports associated bloating. She also notes intermittent bright red blood in her stool, last bloody stool was 2 weeks ago. Her pain and bloating resolves after she has a bowel movement. She is currently experiencing 3-4/10 middle to upper abdominal pain. She notes that she if followed by [facility]. Tender mid abdomen to epigastric region. Hypoactive bowel sounds. Likely IBS, constipation, GERD, or gastritis. Continue current treatment regimen. Adequate hydration encouraged. Follow-up with Gastroenterology. Schedule a transfer of care with a new provider within the practice. Return sooner with symptoms or concerns. Verbalized understanding and agreed with the plan. (2) Anxiety and depression: Code(s): F41.9 - Anxiety disorder, unspecified; F32.A - Depression, unspecified Category: Medical Plan: She reports anxiety and depressive symptoms. She reports significant stressors because she has not been receiving help to manage her bills. She used to have someone come to home to do that but they stopped coverage 2.5 months ago because and states that they are short on help. Her children have been providing some assistance. She also attributes her anxiety and depression to her stomach sym ptoms. She thoughts that she would be better off because she feels very overwhelmed. She imagines a gun to the middle of her forehead. She denies plans of committing suicide. She denies HI/HVA. She denies history of suicide attempt. She is followed by a psychiatrist at [facility] every two month, and has a follow up appointment with them sometimes this month. Her appointment to establish with a therapist at [facility] was canceled and she has not heard from them. PHQ-9 and YENNY-7 scores revealed moderately severe depression and severe anxiety respectively. Her current symptoms seem situational. Continue current treatment regimen. Follow-up with psychiatrist as planned. Encouraged to contact [facility] to establish with a therapist. Verbalized understanding and agreed with the plan. Orders: Orders Lipid Panel 05/16/25 E78.5 - Hyperlipidemia, unspecified
[2025-05-16 11:13] VITALS: BP 114/68; PULSE 112; RESP 16; TEMP 36.9; O2SAT 97; BMI 23.6
--- OUTSIDE RECORDS SUMMARY | 2025-05-16 11:57 | XMS_ITS | Clinical Summary ---
Author Organization [facility] Address [address] [place] [address] Phone Care Team Providers Care Awning Frame Maker Name Role Phone Lidia Medina Primary Care Provider [phone] Allergies No known active allergies Medications psyllium [...] knee 01/15 Compression fracture of T11 vertebra ([facility] V24, [facility] V28) 04/03/2023 Overview (04/18/2024): 04/17 noted [...] psych COPD (chronic obstructive pu lmonary disease) ([facility] V24, [facility] V28) 12/01/2014 Encounters Date Type Department Care Team Description 04/04/2025 10:45 AM EDT - 04/04/2025 11:59 PM EDT Hospital Encounter [facility] CT Scan [address] [place] [address] Encounter for screening for lung cancer; Cigarette smoker Discharge Disposition: Home or Self Care 03/05/2025 9:30 AM EDT Consult Vascular Surgery - [place] [address] [place] [address] Maile Gilliland MD Lower abdominal pain; Fatty liver; Superior mesenteric artery stenosis ([facility] V24); Cyst of right ovary from [...] DX:Constipation COPD (chronic obstructive pu lmonary disease) ([facility] V24, [facility] V28) 12/01/2014 DX:COPD (chronic o bstructive pulmonary disease) ([facility]) Depression [...] of knee Compression fracture of T11 vertebra ([facility] V24, [facility] V28) 04/03/2023 DX:Compression fracture of T11 vertebra ([facility]); COMMENT: 04/17 [...] Care Team (Late st Contact Info) Description 05/19/2025 11:00 AM EST Office Visit Orthopedic Surgery - [place] [address] [facility] [address] [place] [address] Paty Philip PA [address] [place] [address] 07/29/2025 1:40 PM EST Office Visit Gastroenterology - [address] [facility] [address] [place] [phone] Shelley Elmore PA [address] [facility] [address] [place] [address] 10/17/2025 3:50 PM EDT Appointment Radiology Department - [address] [address] Health Maintenance Due Date Last Done Comments DTaP,Tdap,and Td Vaccines (1 - Tdap) 1974 RSV Immunization Adult Patients (1 - Risk 50-74 years 1-dose series) 2005 Zoster Vaccines (1 of 2) 2005 Falls Risk Assessment 06/04/2022 Hepatitis C Screening 06/04/2022 Medicare Annual Wellness Visit 06/04/2022 Social Influencers of Health Screening 06/04/2022 Depression Screening 06/26/2024 COVID-19 Vaccine (3 - season) 2025 04/16/2021, 03/19/2021 Influenza Vaccine (#1) 2025 , 04/11/2022, 03/19/2021, Additional history exists Lung Cancer Screening (Low Dose CT) 04/04/2026 04/04/2025, 04/02/2024, 04/03/2023, Additional history exists Breast Cancer Screening 10/31/2026 [...] Name Priority Date/Time Associated Diagnosis Comments CT LUNG SCREENING Routine 04/04/2025 11: 29 AM EDT Encounter for screening for lung cancer Cigarette smoker MG MAMMO DIGITAL DIAGNOSTIC W [place] RIGHT Routine 10/31/2024 11:04 AM EDT Abnormal mammogram DXA BONE DENSITY STUDY 1+ SITS AXIAL SKEL Routine 04/12/2022 4:12 PM EDT Unspecified menopausal and perimenopausal disorder from Last 3 Months or Most Recently Relevant to Health Maintenance Results * CT Lung Screening (04/04/2025 11:29 AM EDT) Anatomical Region Laterality Modality Chest Computed Tomogra phy 04/11/2025 3:24 PM EDT Impressions 04/11/2025 3:33 PM EDT No suspicious mass or nodule. No suspicious interval change. LUNG RADS: Lung-RADS 1: NEGATIVE S Modifier (Significant or Potentially Significant Findings): None present No suspicious nonpulmonary findings. RECOMMENDATIONS: [address] low dose [address] -------- FINAL REPORT -------- Dictated By: Alfonso Cheung Dictated Date: 04/11/2025 15:24 ET Assigned Physician: Alfonso Cheung Reviewed and Electronically Signed By: Alfonso Cheung Signed Date: 04/11/2025 15:33 ET Workstation ID: [id number] Transcribed By: Self Edit Transcribed Date: 04/11/2025 15:24 ET Narrative 04/11/2025 3:33 PM EDT EXAMINATION: CT CHEST WITHOUT CONTRAST LUNG CANCER SCREENING, LOW DOSE CLINICAL INFORMATION: Lung cancer screening. Former smoker. COMPARISON: Portions of previous 04/01/24 TECHNIQUE: Multidetector CT. Examination of the chest. Examination of the chest without IV contrast. Reformatting in the coronal and sagittal planes. Device: Revolution Dennis DLP: 176 mGy-cm CTDI: 4.89 Dose optimization was performed including the use of low-dose iterative reconstruction technique with automatic exposure control based on patient size. Type of contrast: None Volume of IV contrast: None Volume of contrast discarded: 0 mL FINDINGS: LUNG: No abnormality of the trachea or mainstem bronchi. LUNG NODULES: There are no suspicious nodules or masses. OTHER PULMONARY: There are scattered peripheral reticular opacities and there are some mild linear and bandlike opacities without honeycomb formation. MEDIASTINUM: There are no enlarged mediastinal or hilar lymph nodes. No suspicious abnormalities of the esophagus. CARDIAC: There is no pericardial fluid. No neck mass. No coronary calcifications demonstrated. VASCULAR: There is no thoracic aortic aneurysm. The main pulmonary artery is normal caliber PLEURA: There is no pleural fluid or pneumothorax AXILLA/CHEST WALL: There are no enlarged axillary lymph nodes. No chest wall mass demonstrated. VISUALIZED UPPER ABDOMEN: No suspicious abnormality on limited assessment of the visualized upper abdomen. Fatty change in liver. MUSCULOSKELETAL: No suspicious focal bony lesion demonstrated. Unchanged mild compression deformity superior endplate T11. Procedure Note Alfonso Cheung MD - 04/11/2025 EXAMINATION: CT CHEST WITHOUT CONTRAST LUNG CANCER SCREENING, LOW DOSE CLINICAL INFORMATION: Lung cancer screening. Former smoker. COMPARISON: Portions of previous 04/01/24 TECHNIQUE: Multidetector CT. Examination of the chest. Examination of the chest without IV contrast. Reformatting in the coronal and sagittal planes. Device: Revolution Dennis DLP: 176 mGy-cm CTDI: 4.89 Dose optimization was performed including the use of low-dose iterativereconstruction technique with automatic exposure control based on patientsize. Type of contrast: None Volume of IV contrast: None Volume of contrast discarded: 0 mL FINDINGS: LUNG: No abnormality of the trachea or mainstem bronchi. LUNG NODULES: There are no suspicious nodules or masses. OTHER PULMONARY: There are scattered peripheral reticular opacities andthere are some mild linear and bandlike opacities without honeycombformation. MEDIASTINUM: There are no enlarged mediastinal or hilar lymph nodes. Nosuspicious abnormalities of the esophagus. CARDIAC: There is no pericardial fluid. No neck mass. No coronary calcifications demonstrated. VASCULAR: There is no thoracic aortic aneurysm. The main pulmonary arteryis normal caliber PLEURA: There is no pleural fluid or pneumothorax AXILLA/CHEST WALL: There are no enlarged axillary lymph nodes. No chestwall mass demonstrated. VISUALIZED UPPER ABDOMEN: No suspicious abnormality on limited assessmentof the visualized upper abdomen. Fatty change in liver. MUSCULOSKELETAL: No suspicious focal bony lesion demonstrated. Unchangedmild compression deformity superior endplate T11. IMPRESSION: No suspicious mass or nodule. No suspicious interval change. LUNG RADS: Lung-RADS 1: NEGATIVE S Modifier (Significant or Potentially Significant Findings): Nonepresent No suspicious nonpulmonary findings. RECOMMENDATIONS: [address] low dose [address] -------- FINAL REPORT -------- Dictated By: Alfonso Cheung Dictated Date: 04/11/2025 15:24 ET Assigned Physician: Alfonso Cheung Reviewed and Electronically Signed By: Alfonso Cheung Signed Date: 04/11/2025 15:33 ET Workstation ID: [id number] Transcribed By: Self Edit Transcribed Date: 04/11/2025 15:24 ET Jennifer Torres MD [facility] [place]EDURES Final Result * MG Mammo Digital Diagnostic w Augusto [...] is recommended in 1 year. MAMMO LOCATION: [facility], [address] [place] [id number], . -------- FINAL REPORT -------- Dictated By: Kimberly Roberts Dictated Date: 10/31/2024 11:49 ET Assigned Physician: Kimberly Roberts Reviewed and Electronically Signed By: Kimberly Roberts Signed Date: 10/31/2024 11:56 ET Workstation ID: [id number] Transcribed By: Self Edit Transcribed Date: 10/31/2024 [...] is recommended in 1 year. MAMMO LOCATION: [facility], [address] [place] [address], [id number], . -------- FINAL REPORT -------- Dictated By: Kimberly Roberts Dictated Date: 10/31/2024 11:49 ET Assigned Physician: Kimberly Roberts Reviewed and Electronically Signed By: Kimberly Roberts Signed Date: 10/31/2024 11:56 ET Workstation ID: [id number] Transcribed By: Self Edit Transcribed Date: 10/31/2024 11:49 ET Lidia Adam DISBURSEMENT CLERK IMG BI PROCEDURES Final Result * DXA BONE DENSITY [...] IMPRESSION: Osteoporosis by WHO criteria. [facility] Department of Internal Medicine recommends [...] screening schedule based on og Rivera al., [facility] July 14, 2011 for patients [...] IMPRESSION: Osteoporosis by WHO criteria. 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
--- OUTSIDE RECORDS SUMMARY | 2025-05-16 11:57 | XMS_ITS | Clinical Summary ---
Author Organization [facility] Address [address] [place] [address] Care Team Providers Care Barrel Inspector Tight Name Role Phone Ivette Valderrama MD Primary Care Provider [phone] Allergies No known active allergies Medications Medication [...] age to complete this topic Care Teams Barrel Inspector Tight Relationship Specialty Start Date End Date Ivette Valderrama MD PCP - General Internal Medicine 09/12/23
--- OUTSIDE RECORDS SUMMARY | 2025-05-16 11:57 | XMS_ITS | Patient Health Record ---
Author Organization [facility] Address [address] [place] [address] Care Team Providers Care Deputy Chief Magistrate Name Role Phone Wander Abdalla Unavailable [phone] Reason For Referral No Information Plan Of Treatment No Information
== END 2025-05-16 12:02 | disposition home or self-care (01) ==
LOC: HO.HMCFM 11:05
PROVIDERS: PCP Nurse Practitioner Family; Visit Provider Nurse Practitioner Family
DX: R10.9 Unspecified abdominal pain (principal); F41.9 Anxiety disorder, unspecified; F32.A Depression, unspecified

== ENCOUNTER → 2025-05-16 11:04 | Outpatient (BNVA) | payer MEDICARE, SELFPAY | PROVIDERS: PCP Nurse Practitioner Family; Visit Provider Nurse Practitioner Family | DX: R10.9 Unspecified abdominal pain (principal); F41.9 Anxiety disorder, unspecified; F32.A Depression, unspecified; Z13.31 Encounter for screening for depression; Z13.39 Encounter for screening examination for other mental health and behavioral disorders | CPT/HCPCS: 96127; 99212 ==

== ENCOUNTER 2025-05-19 15:21 | Outpatient (REF) | payer MEDICARE, SELFPAY ==
--- OUTSIDE RECORDS SUMMARY | 2025-05-19 11:00 | XMS_ITS | Encounter Summary ---
Author Organization [facility] Address [address] [place] [address] Care Team Providers Care Catshovel Driver Name Role Phone Adam Lidia CHELSY Primary Care Provider [phone] Reason for Referral * Orthopedic (Routine) - Pending Review Specialty Diagnoses / Procedures Referred By Malou t Referred To Contact Orthopedic Surgery / Orthopaedic Surgery Diagnoses Chronic pain of both shoulders Tendinosis of right rotator cuff Rotator cuff syndrome of left shoulder Procedures L Inj/Asp: bilateral subacromial bursa Paty Philip PA [address] [facility] [address] [place] [address] Phone: tel: fax: Referral ID Status Reason Start Date Expiration Date V isits Requested Visits Authorized [id number] Pending Review 05/19/2025 05/19/2026 1 1 Reason for Visit * Reason Comments Follow-up Follow-up Encounter Details Date Type Department Care Team (Late st Contact Info) Description 05/19/2025 11:00 AM EST Office Visit Orthopedic Surgery - [place] [address] [facility] [address] [place] [address] Paty Philip PA 175 [facility] [address] [place] [address] Chronic pain of both shoulders (Primary Dx); Tendinosis of right rotator cuff; Rotator cuff syndrome of left shoulder Social History Tobacco Use Types Packs/Day Years [...] of this encounter Progress Notes * LEXUS Hudson - 05/19/2025 11:00 AM ESTAssociated Order(s): L Inj/Asp: bilateral subacromial bursa Post-Procedure Diagnose(s): Rotator cuff syndrome of left shoulder; Chronic pain of both shoulders;Tendinosis of right rotator cuff Patient: Angeline Jefferson : 1955 Date: 05/19/2025 Reason For Visit: Angeline Jefferson is a 70 y.o. year old right handed female who presents for follow-up evaluation regarding Chief Complaint Patient presents with Left Shoulder - Follow-up Right Shoulder - Follow-up I have obtained verbal consent from Angeline Jefferson prior to the recording. I have advised Angeline Jefferson that she may refuse the recording and require the recording to be turned off at any time during this encounter. Dr Vidal evaluated for left knee see note 01/29/2025- patient is a surgical candidate with Dr Vidal. Patient would like to postpone surgical intervention and continue with conservative treatment bilateral knee with injection therapy. Significant past history: Occupation: retired Previous surgeries/injuries to affected shoulder: none Previous surgeries/injuries to neck. none HPI: This is a 70-year-old female with MRI proven rotator cuff tendinosis without moira tear of the right shoulder. Evaluated by Dr. Fuentes in 2023 and given MRI findings is potentially a right shoulder arthroscopic candidate. Patient currently being followed for bilateral shoulder pain similar symptoms on both sides patienthas decided to treat this conservatively and would like to avoid surgical intervention if possible.Patient did fair with injection therapy in the past. She is eager for repeat bilateral shoulder injections today . History of Present Illness The patient, a 70-year-old female, presents for follow-up regarding bilateral shoulder discomfort. Bilateral Shoulder Discomfort - Intra-articular injections administered in October 2024 provided approximately 80% relief for a duration of three months. - Recently, her discomfort has intensified, reaching a severity of 6/10, escalating to 10/10 duringactivities such as removing her coat, and 3-4/10 at rest. - Functionally she has difficulty with simple ADLs such as hair care, getting dressed and putting on a coat - She denies experiencing nocturnal pain. - Physical therapy exercises have been beneficial and she does them daily - Topical analgesics have proven ineffective. - Celecoxib (Celebrex) has been advantageous in managing her symptoms. - She consulted Dr. Fuentes regarding potential surgical intervention but has opted to postpone theprocedure. Knee Pain - She received cortisone injections in both knees from Dr. Vidal, with the last injection administered one month prior to her last appointment. - She has been advised to consider surgical intervention for her left knee but has delayed the decision and for now would like to treat conservatively - Acetaminophen (Tylenol) has been ineffective, even at a doubled dosage. Radiating Neck Pain - More recenlty, she has experienced occasional pain radiating to her neck. Additional Information - The patient does not have a history of diabetes mellitus. Ongoing treatments: PT: ; has had formal PT in the past -bilateral shoulders; HEP: faithful Medication management: Tylenol: not at present NSAIDs: Topical: Diclofenac gel: 1% not working; Requesting stronger doase Systemic: Celebrex 200mg Daily good effects Injection therapy: Bilateral: 11/14/24 - 80% relief for 3 months; then slow gradual return of pain. Left: 06/23/23 Right: 04/2023 Other treatments: none Diagnostic studies previously performed: Xray shoulder: Right: 11/08/2023 Left: 06/23/2023 CT scan Shoulder: none to date MRI scan Shoulder: Right: 12/07/2023; 12/26/2022 Other studies: none to date ACTIVE MEDICATIONS: Current Outpatient Medications Medication Instructions albuterol HFA (PROAIR HFA ; PROVENTIL HFA ; VENTOLIN HFA) 90 mcg/actuation inhaler 2 puffs, Every 6hours PRN celecoxib (CELEBREX) 200 mg, Daily cholecalciferol (VITAMIN D-3) 50 mcg (2,000 unit) capsule 1 capsule, Daily conjugated estrogens (PREMARIN) 1 g cyanocobalamin (VITAMIN B-12) 100 mcg, Daily DULCOLAX, MAGNESIUM HYDROXIDE, ORAL Take by mouth. hydrocortisone 2.5 % cream APPLY TO AFFECTED AREA TWICE DAILY FOR 7 DAYS ipratropium-albuteroL (DUONEB) 0.5-2.5 mg/3 mL nebulizer solution 3 mL Linzess 72 mcg, oral, Daily lisdexamfetamine (Vyvanse) 20 mg capsule 1 capsule, Every morning omeprazole (PRILOSEC) 20 mg, oral, Every morning before breakfast polyethylene glycol (MIRALAX) 17 g, Daily psyllium husk, with sugar, (Fiber, psyllium husk-sugar,) 3.4 gram/7 gram powder Daily tiotropium (Spiriva Respimat) 2.5 mcg/actuation inhalation spray 2 puffs, Daily traZODone (DESYREL) 50 mg, Nightly ALLERGIES: No Known Allergies Physical Exam: Estimated body mass index is 23.13 kg/m?? as calculated from the following: Height as of 03/05/25: 1.651 m (65 ). Weight as of 03/05/25: 63 kg (139 lb). Physical Exam APPEARANCE: Alert and in no acute distress Shoulder: Bilateral Inspection: No bony abnormalities, normal muscle bulk symmetry Vascular: Warm and well perfused in the affected extremity and no peripheral edema noted. Palpation: R+L AC joint/distal clavicle region: None anterior shoulder /proximal biceps region: None posterior periscapular region: None lateral acromial /greater tuberosity region: None Range of motion: R+L Abduction: 170?? Forward Flexion: 170?? External Rotation: 60?? Internal Rotation: L1 Muscle strength: Supraspinatus (empty can test): Left shoulder: 5/5 strength with moderate pain; Right shoulder: 5/5strength with mild pain infraspinatus (external rotation strength with arm at the side): Left shoulder: 5/5 strength with moderate pain; Right shoulder: 5/5 strength with mild pain subscapularis (belly press test): Left shoulder: 5/5 strength with moderate pain; Right shoulder: 5/5 strength with mild pain Special tests: Painful arc test: Positive at 90?? Impingement Test: Left shoulder: Positive; Right shoulder: Negative Ovalles: Left shoulder: Positive; Right shoulder: Positive York's: Left shoulder: Positive; Right shoulder: Negative Additional exam details: None Labs: No results found for: CREATININE No results found for: HGBA1C Imaging: Right shoulder x-rays November 08, 2023. AP, Grashey, Y lateral, axillary views. Located glenohumeral joint with good preservation of the glenohumeral articular cartilage. No acute osseous abnormalities Date of Visit: 06/23/2023 Reason for visit: Left shoulder pain Views: A/P, grashey, Y-view, axillary left shoulder Comparison: None Findings: Glenohumeral joint space overall maintained. Mild AC joint arthrosis. No superior migration of humeral head. No soft tissue calcifications noted. No fractures/dislocations noted. No concerning bony lesions identified. Very small well-circumscribed round radiopaque area with a narrow zone of transition within the medial aspect of the humeral head. This likely represents a benign bone cheryl nd. Impression: Intact left shoulder with mild degenerative changes in the AC joint. No acute findings. [facility] Diagnostic Imaging Department [address] [place] [id number] Patient: ANGELINE JEFFERSON /Age/Sex: 1955 - 68 - F Unit#: [id number] [facility] Mnemonic/Ordering Site: [facility] Ordering Physician: BRADLY FUENTES MD MR Shoulder RT WO - 12/07/23 - Report Status:Signed MRI right shoulder without contrast HISTORY: Shoulder pain. Evaluate for rotator cuff disorder. COMPARISON: MRI right shoulder December 2022. Shoulder radiograph November 2022 TECHNIQUE: Multiple MRI sequences were performed of the right shoulder without contrast. FINDINGS: Bones: Bones appear within normal limits. No fracture or irregular edema is noted. Rotator cuff: Some irregular signal and thickening is noted in the distal supraspinatus tendon consistent with mild tendinosis. No significant tear is visualized. Similar findings in the conjoined tendon insertion with very minimal linear partial thickness articular surface tear. Glenohumeral joint: Appears normal. AC joint: Minimal degenerative changes with minimal osteophyte and very minimal edema. Type I, flat acromion. Ligaments: Joint capsule appears normal Biceps: Biceps tendon appears normal and intact Labrum: Intact without visible tear. Soft tissues: Appear normal. No irregular edema IMPRESSION: Findings most significant for mild rotator cuff tendinosis described above. Dictating Physician: SHEY SANTIAGO MD Electronically Signed by: SHEY SANTIAGO MD Dic Date/Time: 12/07/23 1441 Sign date/Time: 12/07/23 1456 ASSESSMENT AND PLAN: This is a 70-year-old female with known rotator cuff tendinosis without moira tear of the right shoulder. Evaluated by Dr. Fuentes in 2023 and given MRI findings is potentially a right shoulder arthroscopic candidate. Patient now presents with bilateral shoulder pain similar symptoms on both sides patient has decided to treat this conservatively and would like to avoid surgical intervention if possible. Patient did well with injection therapy in the past. She is eager for repeat injections at today. Long-term wewould prefer if injection therapy was done once or twice a year. Patient is in agreement with this approach. After much discussion regarding 1. Chronic pain of both shoulders 2. Tendinosis of right rotator cuff 3. Rotator cuff syndrome of left shoulder the following treatment plan was mutually agreed upon. All questions were answered. Assessment & Plan Bilateral shoulder pain Previous injections provided 80% relief for 3 months. Current pain: 3-4/10 at rest, 10/10 during activities. Advised to continue ice, Tylenol, Celebrex, activity modification, and exercises. Administered cortisone injections to both shoulders today. Numbing medicine provides immediate relief; cortisone may take up to 2 weeks. Normal for pain to worsen slightly tomorrow as numbing wears off. Follow-up in 6 months. -Activity: proceed with activity as tolerated. stay below pain threshold. -Rehabilitation: home exercise program -Pain Management: Tylenol systemic NSAIDs as per PCP subacromial bursa cortisone injection offered and accepted, see below Follow-up: Follow-up in 6 months. Diagnostic studies: Xray shoulder: Right: 11/08/2023 Left: 06/23/2023 CT scan Shoulder: not indicated at this time MRI scan Shoulder: Right: 12/07/2023; 12/26/2022 Left: Not indicated at this time Orders Placed This Encounter L Inj/Asp Follow up in about 6 months (around 11/16/2025) for Bilateral, Shoulder, Injection follow up; possible repeat injection; 2nd appt for knee eval. Future appointments: 07/09/2025 Procedure: L Inj/Asp: bilateral subacromial bursa Indications: pain Details: 22 G needle, posterior approach Medications (Right): 40 mg triamcinolone acetonide 40 mg/mL; 3 mL BUPivacaine HCl 0.5 %; 3 mL lidocaine 1 % Medications (Left): 40 mg triamcinolone acetonide 40 mg/mL; 3 mL BUPivacaine HCl 0.5 %; 3 mL lidocaine 1 % Informed Consent: Site: Subacromial injection Laterality: Bilateral Relevant images/test results available and reviewed: yes Health status cleared: N/A Procedure/treatment, purpose, treatment alternatives, risks/potential complications and benefits explained: yes Risk/complications/benefits details: Risks and benefits associated with the injection reviewed which can include but not limited to infection, bleeding, bruising, transient synovitis, no improvement in symptoms. Patient questions answered: yes Patient agrees, verbalizes understanding, and wants to proceed: yes Consent given by: Patient Informed consent discussion completed by Physician/LOUISE with patient: Verbal Pre-procedure timeout performed: yes Post injection instructions given and patient advised to ice the area tonight. Questions answered. Patient tolerated procedure well. No complications encountered. Post injection examination revealed: 50 - 60 percent improvement in clinical exam and pain Today's documentation was made using voice recognition software.This note may contain grammatical errors secondary to this software. LEXUS Hudson documented in this encounter Plan of Treatment Upcoming Encounters Date Type Department Care Team (Late st Contact Info) Description 07/09/2025 2:30 PM EST Office Visit Orthopedic Surgery - [place] [address] [facility] [address] [place] [phone] Paty Philip PA 175 [facility] [address] [place] [address] 07/29/2025 1:40 PM EST Office Visit Gastroenterology - [address] [facility] [address] [facility] [address] [place] [address] Shelley Elmore PA [address] [place] [address] 10/17/2025 3:50 PM EDT Appointment Radiology Department [address] [phone] 11/19/2025 11:00 AM EDT Office Visit Orthopedic Surgery [facility] [address] [facility] [address] [place] [address] Paty Philip PA 175 [facility] [address] [place] [address] documented as of this encounter Procedures Procedure Name Priority Date/Time Associated Diagnosis Comments AK ARTHROCENTESIS/ASPI RATION/INJECTION MAJOR JOINT/BURSA W/O U/S GUIDANCE Routine 05/19/2025 11:00 AM EST Chronic pain of both shoulders Tendinosis of right rotator cuff Rotator cuff syndrome of left shoulder documented in this encounter Results * AK ARTHROCENTESIS/ASPIRATION/INJECTION MAJOR JOINT/BURSA W/O U/S GUIDANCE (05/19/2025 11:00 AM EST) Narrative Paty Philip PA - 05/19/2025 11:00 AM LEXUS Perkins 05/19/2025 1:08 PM L Inj/Asp: bilateral subacromial bursa Indications: pain Details: 22 G needle, posterior approach Medications (Right): 40 mg triamcinolone acetonide 40 mg/mL; 3 mL BUPivacaine HCl 0.5 %; 3 mL lidocaine 1 % Medications (Left): 40 mg triamcinolone acetonide 40 mg/mL; 3 mL BUPivacaine HCl 0.5 %; 3 mL lidocaine 1 % Informed Consent: Site: Subacromial injection Laterality: Bilateral Relevant images/test results available and reviewed: yes Health status cleared: N/A Procedure/treatment, purpose, treatment alternatives, risks/potential complications and benefits explained: yes Risk/complications/benefits details: Risks and benefits associated with the injection reviewed which can include but not limited to infection, bleeding, bruising, transient synovitis, no improvement in symptoms. Patient questions answered: yes Patient agrees, verbalizes understanding, and wants to proceed: yes Consent given by: Patient Informed consent discussion completed by Physician/LOUISE with patient: Verbal Pre-procedure timeout performed: yes Paty [facility]S IN CLINIC/BEDSIDE ORDERABLES Final Result documented in this encounter Visit Diagnoses Diagnosis Chronic pain of both shoulders- Primary Tendinosis of right rotator cuff Rotator cuff syndrome of left shoulder documented in this encounter Administered Medications Inactive Administered Medications - up to 3 most recent administrations Medication Order MAR Action Action Date Dose Rate Site BUPivacaine HCl (MARCAINE) 0.5 % injection 3 mL 3 mL, Once PRN Procedure, Starting on Mon05/19/25 at 1100, For 1 doseIndications:Chronic pain of both shoulders,Tendinosis of right rotator cuff,Rotator cuff syndrome of left shoulder Given 05/19/2025 11:00 AM EST 3 mL BUPivacaine HCl (MARCAINE) 0.5 % injection 3 mL 3 mL, Once PRN Procedure, Starting on Mon05/19/25 at 1100, For 1 doseIndications:Chronic pain of both shoulders,Tendinosis of right rotator cuff,Rotator cuff syndrome of left shoulder Given 05/19/2025 11:00 AM EST 3 mL lidocaine (XYLOCAINE) 1 % injection 3 mL 3 mL, Once PRN Procedure, Starting on Mon05/19/25 at 1100, For 1 doseIndications:Chronic pain of both shoulders,Tendinosis of right rotator cuff,Rotator cuff syndrome of left shoulder Given 05/19/2025 11:00 AM EST 3 mL lidocaine (XYLOCAINE) 1 % injection 3 mL 3 mL, Once PRN Procedure, Starting on Mon05/19/25 at 1100, For 1 doseIndications:Chronic pain of both shoulders,Tendinosis of right rotator cuff,Rotator cuff syndrome of left shoulder Given 05/19/2025 11:00 AM EST 3 mL triamcinolone acetonide (KENALOG-40) 40 mg/mL injection 40 mg 40 mg, Once PRN Procedure, Starting on Mon05/19/25 at 1100, For 1 doseIndications:Chronic pain of both shoulders,Tendinosis of right rotator cuff,Rotator cuff syndrome of left shoulder Given 05/19/2025 11:00 AM EST 40 mg triamcinolone acetonide (KENALOG-40) 40 mg/mL injection 40 mg 40 mg, Once PRN Procedure, Starting on Mon05/19/25 at 1100, For 1 doseIndications:Chronic pain of both shoulders,Tendinosis of right rotator cuff,Rotator cuff syndrome of left shoulder Given 05/19/2025 11:00 AM EST 40 mg documented in this encounter Care Teams Catshovel Driver Relationship Specialty Start Date End Date Lidia Medina FNP [address] [place] [phone] PCP - General Family Medicine 10/24/24 documented as of this encounter
[2025-05-19 18:59] LABS: Cholesterol 258 mg/dL (<200); HDL Cholesterol 86 mg/dL (>40); Triglycerides 80 mg/dL (<150)
--- OUTSIDE RECORDS SUMMARY | 2025-05-19 20:01 | XMS_ITS | Patient Health Record ---
Author Organization [facility] Address [address] [place] [phone] Care Team Providers Care Analytical Chemist Name Role Phone Wander Abdalla Unavailable [phone] Reason For Referral No Information Plan Of Treatment No Information
--- OUTSIDE RECORDS SUMMARY | 2025-05-19 20:01 | XMS_ITS | Clinical Summary ---
Author Organization [facility] Address [address] [place] [address] Phone Care Team Providers Care Relations Specialist Name Role Phone Lidia Medina Primary Care Provider [phone] Allergies No known active allergies Medications psyllium [...] EVERY DAY 30 capsule 3 5 Active Hospital, Clinic, or Other Facility Administered Medication Ordered Dose Route Frequency Start Date End Date Status BUPivacaine HCl (MARCAINE) 0.5 % injection 3 mLIndications:Chroni c pain of both shoulders,Tendinosis of right rotator cuff,Rotator cuff syndrome of left shoulder 3 mL Once PRN Procedure 05/19/2025 05/19/2025 Ended BUPivacaine HCl (MARCAINE) 0.5 % injection 3 mLIndications:Chroni c pain of both shoulders,Tendinosis of right rotator cuff,Rotator cuff syndrome of left shoulder 3 mL Once PRN Procedure 05/19/2025 05/19/2025 Ended lidocaine (XYLOCAINE) 1 % injection 3 mLIndications:Chroni c pain of both shoulders,Tendinosis of right rotator cuff,Rotator cuff syndrome of left shoulder 3 mL Once PRN Procedure 05/19/2025 05/19/2025 Ended lidocaine (XYLOCAINE) 1 % injection 3 mLIndications:Chroni c pain of both shoulders,Tendinosis of right rotator cuff,Rotator cuff syndrome of left shoulder 3 mL Once PRN Procedure 05/19/2025 05/19/2025 Ended triamcinolone acetonide (KENALOG-40) 40 mg/mL injection 40 mgIndications:Chroni c pain of both shoulders,Tendinosis of right rotator cuff,Rotator cuff syndrome of left shoulder 40 mg Once PRN Procedure 05/19/2025 05/19/2025 Ended triamcinolone acetonide (KENALOG-40) 40 mg/mL injection 40 mgIndications:Chroni c pain of both shoulders,Tendinosis of right rotator cuff,Rotator cuff syndrome of left shoulder 40 mg Once PRN Procedure 05/19/2025 05/19/2025 Ended Active Problems Problem Noted Date Diagnosed Date [...] knee 01/15 Compression fracture of T11 vertebra (CMS/HCC V24, CMS/HCC V28) 04/03/2023 Overview (04/18/2024): 04/17 noted on [...] psych COPD (chronic obstructive pu lmonary disease) (CMS/[facility] V24, [facility] V28) 12/01/2014 Encounters Date Type Department Care Team Description 05/19/2025 11:00 AM EST Office Visit Orthopedic Surgery - [place] [address] [facility] [address] [place] [phone] Paty Philip PA Chronic pain of both shoulders (Primary Dx); Tendinosis of right rotator cuff; Rotator cuff syndrome of left shoulder 04/04/2025 10:45 AM EDT - 04/04/2025 11:59 PM EDT Hospital Encounter [facility] CT Scan [address] [place] [phone] Encounter for screening for lung cancer; Cigarette smoker Discharge Disposition: Home or Self Care 03/05/2025 9:30 AM EDT Consult Vascular Surgery - [place] [address] [place] [phone] Maile Gilliland MD Lower abdominal pain; Fatty liver; Superior mesenteric artery stenosis (CMS/[facility] V24); Cyst of right ovary from Last [...] COPD (chronic obstructive pu lmonary disease) ([facility] V24, [facility] V28) 12/01/2014 DX:COPD (chronic o bstructive pulmonary disease) ([facility]) Depression 03/17/2015 DX:Depression; C OMMENT: [...] knee Compression fracture of T11 vertebra ([facility] V24, [facility] V28) 04/03/2023 DX:Compression fracture of T11 vertebra ([facility]); COMMENT: 04/17 noted on chest [...] PM EST Office Visit Orthopedic Surgery - [place] [address] [facility] [address] [place] [phone] Paty Philip PA [address] [facility] [phone] 07/29/2025 1:40 PM EST Office Visit Gastroenterology - [address] [facility] [address] [phone] Shelley Elmore PA [address] [facility] [phone] 10/17/2025 3:50 PM EDT Appointment Radiology Department [address] [phone] 11/19/2025 11:00 AM EDT Office Visit Orthopedic Surgery - [place] [address] [facility] [address] [place] [phone] aPty Philip PA [address] [facility] [phone] Health Maintenance Due Date Last Done Comments [...] Procedure Name Priority Date/Time Associated Diagnosis Comments UT ARTHROCENTESIS/ASPI RATION/INJECTION MAJOR JOINT/BURSA W/O U/S GUIDANCE Routine 05/19/2025 11:00 AM EST Chronic pain of both shoulders Tendinosis of right rotator cuff Rotator cuff syndrome of left shoulder CT LUNG SCREENING Routine 04/04/2025 11: 29 AM EDT Encounter for screening for lung cancer Cigarette smoker MG MAMMO DIGITAL DIAGNOSTIC W [place] RIGHT Routine 10/31/2024 11:04 AM EDT Abnormal mammogram DXA BONE DENSITY STUDY 1+ SITS AXIAL SKEL Routine 04/12/2022 4:12 PM EDT Unspecified menopausal and perimenopausal disorder from Last 3 Months or Most Recently Relevant to Health Maintenance Results * UT ARTHROCENTESIS/ASPIRATION/INJECTION MAJOR JOINT/BURSA W/O U/S GUIDANCE (05/19/2025 11:00 AM EST) Narrative Paty Philip PA - 05/19/2025 11:00 AM EST LEXUS Hudson 05/19/2025 1:08 PM L Inj/Asp: bilateral subacromial [...] with patient: Verbal Pre-procedure timeout performed: yes us Paty ALBERTS IN CLINIC/BEDSIDE ORDERABLES Final Result * CT Lung Screening (04/04/2025 11:29 AM [...] Signed Date: 04/11/2025 15:33 ET Workstation ID: [id number] Transcribed By: Self Edit Transcribed Date: 04/11/2025 15:24 ET Narrative 04/11/2025 3:33 PM EDT EXAMINATION: CT CHEST WITHOUT CONTRAST LUNG CANCER SCREENING, LOW DOSE CLINICAL INFORMATION: Lung cancer screening. Former smoker. COMPARISON: Portions of previous 04/01/24 TECHNIQUE: Multidetector CT. Examination of the chest. Examination of the chest without IV contrast. Reformatting in the coronal and sagittal planes. Device: Revolution [place]ette DLP: 176 mGy-cm CTDI: 4.89 Dose optimization [...] the coronal and sagittal planes. Device: Revolution [place] DLP: 176 mGy-cm CTDI: 4.89 Dose optimization [...] Signed Date: 04/11/2025 15:33 ET Workstation ID: [id number] Transcribed By: Self Edit Transcribed Date: 04/11/2025 15:24 ET us Jennifer Torres MD IMG CT PROCEDURES Final Result * MG Mammo [...] is recommended in 1 year. MAMMO LOCATION: [facility], [address] [place] [address], [phone], . -------- FINAL REPORT -------- Dictated By: Kimberly Roberts Dictated Date: 10/31/2024 11:49 ET Assigned Physician: Kimberly Roberts Reviewed and Electronically Signed By: Kimberly Roberts Signed Date: 10/31/2024 11:56 ET Workstation ID: [id number] Transcribed By: Self Edit Transcribed Date: 10/31/2024 [...] is recommended in 1 year. MAMMO LOCATION: [facility], [address] [place] [address], [phone], . -------- FINAL REPORT -------- Dictated By: Kimberly Roberts Dictated Date: 10/31/2024 11:49 ET Assigned Physician: Kimberly Roberts Reviewed and Electronically Signed By: Kimberly Roberts Signed Date: 10/31/2024 11:56 ET Workstation ID: [id number] Transcribed By: Self Edit Transcribed Date: 10/31/2024 11:49 ET Lidia Medina DIP STAND LOADER IMG BI PROCEDURES Final Result * DXA [...] IMPRESSION: IMPRESSION: Osteoporosis by WHO criteria. The [facility] Department of Internal Medicine recommends [...] alternative screening schedule based on pebbles Rivera., [facility] July 14, 2011 for patients with [...] IMPRESSION: IMPRESSION: Osteoporosis by WHO criteria. 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
--- OUTSIDE RECORDS SUMMARY | 2025-05-19 20:01 | XMS_ITS | Clinical Summary ---
Author Organization [facility] Address [address] [place] [address] Care Team Providers Care Data Capture Clerk Name Role Phone Ivette Valderrama MD Primary Care Provider [phone] Allergies No known active allergies Medications Medication [...] age to complete this topic Care Teams Data Capture Clerk Relationship Specialty Start Date End Date Ivette Valderrama MD PCP - General Internal Medicine 09/12/23
== END 2025-05-19 15:22 | disposition home or self-care (01) ==
LOC: HO.WFDLDS 15:21
PROVIDERS: Visit Provider Nurse Practitioner Family
DX: E78.5 Hyperlipidemia, unspecified (principal)
CPT/HCPCS: 36415; 80061